=== PATIENT | female | born 1965 | race Caucasian/White ===

== ENCOUNTER → 2018-05-31 10:56 | Outpatient (CLI) | payer MEDICARE, MEDICAID, SELFPAY ==
[2018-05-31 11:32] LABS: Abs Immature Grans 0.02 k/cumm (0.0-0.09); Absolute Basophil Count 0.03 k/cumm (0.0-0.2); Absolute Eosinophil Count 0.25 k/cumm (0.0-0.7); Absolute Lymphocyte Count 2.77 k/cumm (1.2-3.4); Absolute Monocyte Count 0.53 k/cumm (0.11-0.7); Absolute Neutrophil Count 3.59 k/cumm (1.2-6.7); Basophils % 0.4; Eosinophils % 3.5; HCT 36.1 % (36.0-46.0); HGB 11.9 g/dL (12.0-15.5); Immature Grans % 0.3; Lymphocytes % 38.5; Mean Corpuscular Hemoglobin 28.4 pg (27.0-33.0); Mean Corpuscular Volume 86.2 fL (80-95); Monocytes % 7.4; Neutrophils % 49.9; Platelet Count 205 x1000/uL (130-400); RBC 4.19 m/cumm (4.00-5.20); RBC Distribution Width 13.7 % (11.7-14.6); White Blood Cell Count 7.19 k/cumm (4.4-10.8)
[2018-05-31 11:46] LABS: Hemoglobin A1C 10.9 % (4.5-6.2)
[2018-05-31 11:56] LABS: Iron 43 ug/dL (50-175); Total Iron Binding Capacity 551 ug/dL (250-450); Transferrin Sat 8 % (15-50)
[2018-05-31 12:19] LABS: ALT 38 U/L (12-78); AST 39 U/L (15-37); Albumin 4.4 g/dL (3.4-5.0); Alkaline Phosphatase 115 U/L (46-116); Anion Gap 9.1 mmol/L (3-11); BUN 10 mg/dL (7-18); Bilirubin, Total 0.3 mg/dL (0.2-1.0); CO2 28.9 mmol/L (21.0-32.0); CREATININE 0.73 mg/dL (0.55-1.02); Calcium 9.2 mg/dL (8.5-10.1); Chloride 101 mmol/L (98-107); Cholesterol 137 mg/dL (50-200); Ferritin 13 ng/mL (8-388); Glucose 206 mg/dL (70-100); HDL Cholesterol 20 mg/dL (40-60); LDL CHOLESTEROL 52 mg/dL (<100); Potassium 4.3 mmol/L (3.5-5.1); Sodium 139 mmol/L (136-145); Total Protein 8.3 g/dL (6.4-8.2); Triglyceride 419 mg/dL (30-150)
[2018-05-31 12:31] LABS: Vitamin B12 456 pg/mL (193-986)
[2018-05-31 12:36] LABS: Folate > 20.0 ng/mL (8.6-20.0)
[2018-05-31 12:41] LABS: Lipase 269 U/L (73-393)
== END ==
PROVIDERS: PCP Nurse Practitioner; Visit Provider Nurse Practitioner
DX: E11.49 Type 2 diabetes mellitus with other diabetic neurological complication (principal); E78.5 Hyperlipidemia, unspecified; I10 Essential (primary) hypertension; E78.1 Pure hyperglyceridemia; D64.9 Anemia, unspecified
CPT/HCPCS: 36415; 80053; 80061; 83690; 83721; 82607; 82728; 82746; 83036; 83540; 83550; 85025

== ENCOUNTER 2018-10-26 10:26 | Outpatient (REF) | payer MEDICARE, MEDICAID, SELFPAY ==
[2018-10-27 12:38] LABS: COMMENT (LAB VIEW ONLY) 105.28 mg/dL; Microalb ug/mg Crea 35.7 ug/mg Cr
== END 2018-10-26 10:46 ==
LOC: LBN 10:26
PROVIDERS: PCP Nurse Practitioner; Visit Provider Nurse Practitioner
DX: E11.49 Type 2 diabetes mellitus with other diabetic neurological complication (principal)
CPT/HCPCS: 82043; 82570

== ENCOUNTER 2019-02-23 13:59 | Outpatient (CLI) | payer MEDICARE, MEDICAID, SELFPAY ==
[2019-02-23 14:23] LABS: HCT 35.4 % (36.0-46.0); HGB 11.4 g/dL (12.0-15.5); Mean Corp. HGB Concentration 32.2 g/dL (32.0-36.0); Mean Corpuscular Hemoglobin 26.8 pg (27.0-33.0); Mean Corpuscular Volume 83.3 fL (80-95); Mean Platelet Volume 11.7 fL (8.0-11.0); Platelet Count 216 x1000/uL (130-400); RBC 4.25 m/cumm (4.00-5.20); RBC Distribution Width 15.1 % (11.7-14.6); White Blood Cell Count 9.79 k/cumm (4.4-10.8)
[2019-02-23 14:53] LABS: ALT 29 U/L (12-78); AST 17 U/L (15-37); Albumin 3.9 g/dL (3.4-5.0); Alkaline Phosphatase 67 U/L (46-116); BUN 12 mg/dL (7-18); Bilirubin, Total 0.4 mg/dL (0.2-1.0); CREATININE 0.94 mg/dL (0.55-1.02); Calcium 9.2 mg/dL (8.5-10.1); Chloride 102 mmol/L (98-107); Cholesterol 140 mg/dL (50-200); Glucose 160 mg/dL (70-100); HDL Cholesterol 27 mg/dL (40-60); LDL CHOLESTEROL 76 mg/dL (<100); Potassium 4.2 mmol/L (3.5-5.1); Sodium 140 mmol/L (136-145); Total Protein 7.4 g/dL (6.4-8.2); Triglyceride 229 mg/dL (30-150)
== END 2019-02-23 14:19 ==
PROVIDERS: PCP Nurse Practitioner; Visit Provider Nurse Practitioner
DX: E11.49 Type 2 diabetes mellitus with other diabetic neurological complication (principal); E78.1 Pure hyperglyceridemia; I10 Essential (primary) hypertension; E11.9 Type 2 diabetes mellitus without complications
CPT/HCPCS: 36415; 80053; 80061; 83721; 85027; 83036

== ENCOUNTER 2019-06-26 17:19 | Emergency (ER) | payer MEDICARE, MEDICAID, SELFPAY ==
[2019-06-26 17:22] VITALS: BP 123/80; PULSE 77; RESP 16; TEMP 36.7; O2SAT 97
--- NOTE | 2019-06-26 17:30 | W.ED.GENAD ---
Discharge Plan Disposition Patient Disposition: HOME Condition: Stable Discharge Details Chief Complaint: RashLesion Clinical Impression: Chronic wound of extremity Primary Care Provider: Anjana Gayle ED Provider: Georgia Villavicencio Home Meds and New Rx's Prescriptions: Continued triamcinolone acetonide 0.1 % cream 1 applic Topical DAILY PRN (Reason: Apply to rash on bilateral hands PRN) Qty: 45 RF: 3 oxybutynin chloride 5 mg tablet 5 mg PO as directed MDD 15 mg Qty: 270 RF: 3 pantoprazole 40 mg tablet,delayed release (DR/EC) 40 mg PO DAILY Qty: 90 RF: 3 melatonin 5 mg capsule 5 mg PO HS RF: 0 semaglutide 1 mg/0.75 mL (2 mg/1.5 mL) pen injector 1 mg SC QWEEK Qty: 3 RF: 12 clotrimazole 1 % cream 1 applic TP TID Qty: 14 RF: 0 fluconazole 150 mg tablet 150 mg PO ONCE Qty: 1 RF: 0 (DME) pen needle, diabetic 31 gauge x 5/16 needle 1 ea Miscellaneous DAILY Qty: 90 RF: 12 aspirin 81 MG tablet,delayed release (DR/EC) 81 mg PO DAILY Qty: 90 RF: 3 Latuda 80 MG tablet 160 mg PO HS RF: 0 desmopressin [DDAVP] 0.2 MG tablet 0.4 mg PO HS Qty: 60 RF: 0 lamotrigine 200 MG tablet 300 mg PO DAILY Qty: 135 RF: 3 Flovent HFA 10.6 GM HFA aerosol inhaler 2 puff Inhalation BID Qty: 3 RF: 3 albuterol sulfate [Proventil HFA] 6.7 GM HFA aerosol inhaler 2 puff Inhalation Q6H PRN Qty: 1 RF: 3 metformin 1,000 mg tablet 1,000 mg PO BID Qty: 180 RF: 3 (DME) lancing device with lancets kit See Dose Instructions .ROUTE .MEDSUPPLY Qty: 1 RF: 0 alprazolam 1 mg tablet extended release 24 hr 1 mg PO DAILY PRNQty: 1 RF: 0 (DME) lancets [OneTouch Delica Lancets] 33 gauge misc See Dose Instructions .ROUTE .MEDSUPPLY Qty: 100 RF: 6 (DME) blood sugar diagnostic strip See Dose Instructions .ROUTE .MEDSUPPLY Qty: 400 RF: 3 Novolog Flexpen U-100 Insulin 100 unit/mL insulin pen See Rx Instructions Sub-Q AC MDD 72u Qty: 15 RF: 3 lisinopril 2.5 mg tablet 2.5 mg PO DAILY Qty: 90 RF: 3 simvastatin 10 mg tablet 10 mg PO HS Qty: 90 RF: 3 cetirizine 10 mg tablet 10 mg PO DAILY Qty: 90 RF: 3 Chantix Starting Month Box 0.5 mg (11)- 1 mg (42) tablets,dose pack See Rx Instructions PO PER PKG DIR Qty: 53 RF: 0 Tresiba FlexTouch U-200 200 unit/mL (3 mL) insulin pen 80 unit SC DAILY Qty: 9 RF: 4 Chantix Continuing Month Box 1 mg tablet 1 mg PO BID Qty: 60 RF: 1 linagliptin 5 mg tablet 5 mg PO DAILY Qty: 90 RF: 3 nicotine 7 mg/24 hr patch 24 hour 1 patch TD Q24H Qty: 28 RF: 0 pregabalin [Lyrica] 200 mg capsule 200 mg PO BID Qty: 60 RF: 3 terbinafine HCl 1 % cream 1 applic TP BID Qty: 30 RF: 0 fenofibrate micronized 67 mg capsule 67 mg PO DAILY Qty: 90 RF: 3 nicotine 14 mg/24 hr patch 24 hour 1 patch TD DAILY Qty: 28 RF: 0 Discharge Instructions Instructions: Chronic Wound Care (ED) Additional Instructions: Keep wound clean, dry, covered. Please keep current dressing on for the next week. Please call r[facility] checker tomorrow to schedule follow-up appointment. If you are unable to be seen by them in the next week, please follow-up with primary care. I do not see any evidence of bacterial infection at this time. However, if you develop increased pain, fever/chills, redness spreading around the wound or other new/worsening symptoms please seek care urgently once again. Do not wear sandals that continue to rub on this area, try to keep this area as friction free as possible. Referrals: Jesse Appiah [ [facility] STAFF PHYSICIAN] - Anjana Gayle NP [Primary Care Provider] - Discharge Data Discharge Date/Time-TO BE ENTERED AT DEPARTURE: 06/26/19 18:13 Medical Decision Making Patient is a 54-year-old female with chronic wound to the right lateral foot. Reports that it started as this has been times the dorsal lateral right foot and is progressively been increasing in size. She reports she is tried antifungal creams without results. Denies any fevers or chills. Reports that symptoms have progressively been worsening. All does appear dry at this time, she reports that she did just shower and dry the but typically has a scant amount of drainage from it. No known trauma. Seen by her primary care who advised the antifungals. She reports initially felt these were improving but then the wound continued to grow and burn when she applied the ointment. Patient does have history of peripheral neuropathy associated with her diabetes, patient is insulin-dependent. On exam, patient is a 5 cm in circumference right area of the dorsal lateral right foot. Is not currently draining. She does report that he has drainage at times. This appears to be rubbing from the shoe she is currently wearing. Patient is in Birkenstocks. I do not see any surrounding erythema, no discharge warmth or drainage. This appears to be more of a chronic open wound, likely having difficulty healing secondary to her diabetes. A Mepilex with border was placed by nursing staff. Advised that she will need follow-up with podiatry. Patient is also noted to have thickened fungal nails. I feel that she will benefit at baseline from podiatry consult particular issues peripheral neuropathy. I encouraged elevation of the extremity. Advised on new/worsening symptoms when to seek care urgently once again. All the questions and concerns were addressed and she is in agreement this plan. [facility] General Mode of arrival: ambulatory. Date/Time Provider Initiated Documentation: 06/26/19 17:30. Limitations to Documentation: no limitations. Information obtained by: patient, family () and RN notes reviewed. History of Present Illness 54 year old F presents to the emergency department with the chief complaint of nonhealing wound right lateral dorsal foot, described as moderate, with intensity rated at 4. Quality is described as aching, and is localized to the right and lower extremity. Patient reports no radiation. Patient started experiencing this month(s) (3) and it has been constant. No relieving factors improve symptom(s), No exacerbating factors reported . Patient notes rash (open wound); denies chest pain, cough, fever/chills, nausea/vomiting and weakness. Patient did receive the following treatments prior to arrival, other (antifungal cream) Related Data Home Medications Medication Instructions Recorded Confirmed aspirin 81 mg PO DAILY #90 tab 05/07/14 06/26/19 Latuda 160 mg PO HS 11/30/14 06/26/19 desmopressin [DDAVP] 0.4 mg PO HS #60 tab-cap 07/12/17 06/26/19 lamotrigine 300 mg PO DAILY #135 tab-cap 09/21/17 06/26/19 Flovent HFA 2 puff INHALATION BID #3 puff 06/07/18 06/26/19 albuterol sulfate [Proventil HFA] 2 puff INHALATION Q6H PRN #1 puff 06/07/18 06/26/19 melatonin 5 mg capsule 5 mg PO HS cap 07/11/18 06/26/19 semaglutide 1 mg/dose (2 mg/1.5 1 mg SC QWEEK #3 ml 08/25/18 06/26/19 mL) subcutaneous pen injector metformin 1,000 mg tablet 1,000 mg PO BID #180 tab 10/13/18 06/26/19 lancing device with lancets #1 each 10/24/18 04/24/19 alprazolam 1 mg tablet,extended 1 mg PO DAILY PRN #1 10/26/18 06/26/19 release 24 hr blood sugar diagnostic #400 each 10/26/18 04/24/19 lancets 33 gauge #100 each 10/26/18 04/24/19 triamcinolone acetonide 0.1 % 1 applic TOPICAL DAILY PRN #45 gm 10/26/18 04/24/19 topical cream cetirizine 10 mg tablet 10 mg PO DAILY #90 tab 11/28/18 06/26/19 insulin aspart U-100 100 unit/mL See Rx Instructions SUB-Q AC #15 11/28/18 06/26/19 (3 mL) subcutaneous pen ml MDD 72u lisinopril 2.5 mg tablet 2.5 mg PO DAILY #90 tab-cap 11/28/18 06/26/19 simvastatin 10 mg tablet 10 mg PO HS #90 tab 11/28/18 06/26/19 varenicline 0.5 mg (11)-1 mg (42) See Rx Instructions PO PER PKG DIR 01/05/19 06/26/19 tablets in a dose pack #53 dose pk oxybutynin chloride 5 mg tablet 5 mg PO as directed #270 tab MDD 01/24/19 06/26/19 15 mg pantoprazole 40 mg tablet,delayed 40 mg PO DAILY #90 tab-cap 01/24/19 06/26/19 release insulin degludec 200 unit/mL (3 80 unit SC DAILY #9 ml 03/07/19 06/26/19 mL) subcutaneous pen varenicline 1 mg tablet 1 mg PO BID #60 tab-cap 03/09/19 06/26/19 clotrimazole 1 % topical cream 1 applic TP TID #14 gm 04/24/19 04/24/19 fluconazole 150 mg tablet 150 mg PO ONCE #1 tab 04/24/19 06/26/19 pen needle, diabetic 31 gauge x #90 ndl 04/24/19 04/24/1903/09 linagliptin 5 mg tablet 5 mg PO DAILY #90 tab 05/04/19 06/26/19 nicotine 7 mg/24 hr daily 1 patch TD Q24H #28 each 05/08/19 06/26/19 transdermal patch pregabalin 200 mg capsule 200 mg PO BID #60 tab-cap 05/24/19 06/26/19 terbinafine HCl 1 % topical cream 1 applic TP BID #30 gm 05/26/19 fenofibrate micronized 67 mg 67 mg PO DAILY #90 tab-cap 06/01/19 06/26/19 capsule nicotine 14 mg/24 hr daily 1 patch TD DAILY #28 each 06/12/19 transdermal patch Previous Rx's Medication Instructions Recorded desmopressin [DDAVP] 0.4 mg PO HS #60 tab-cap 07/12/17 lamotrigine 300 mg PO DAILY #135 tab-cap 09/21/17 Flovent HFA 2 puff INHALATION BID #3 puff 06/07/18 albuterol sulfate [Proventil HFA] 2 puff INHALATION Q6H PRN #1 puff 06/07/18 semaglutide 1 mg/dose (2 mg/1.5 1 mg SC QWEEK #3 ml 08/25/18 mL) subcutaneous pen injector metformin 1,000 mg tablet 1,000 mg PO BID #180 tab 10/13/18 lancing device with lancets #1 each 10/24/18 blood sugar diagnostic #400 each 10/26/18 lancets 33 gauge #100 each 10/26/18 triamcinolone acetonide 0.1 % 1 applic TOPICAL DAILY PRN #45 gm 10/26/18 topical cream cetirizine 10 mg tablet 10 mg PO DAILY #90 tab 11/28/18 insulin aspart U-100 100 unit/mL See Rx Instructions SUB-Q AC #15 11/28/18 (3 mL) subcutaneous pen ml MDD 72u lisinopril 2.5 mg tablet 2.5 mg PO DAILY #90 tab-cap 11/28/18 simvastatin 10 mg tablet 10 mg PO HS #90 tab 11/28/18 varenicline 0.5 mg (11)-1 mg (42) See Rx Instructions PO PER PKG DIR 01/05/19 tablets in a dose pack #53 dose pk oxybutynin chloride 5 mg tablet 5 mg PO as directed #270 tab MDD 01/24/19 15 mg pantoprazole 40 mg tablet,delayed 40 mg PO DAILY #90 tab-cap 01/24/19 release insulin degludec 200 unit/mL (3 80 unit SC DAILY #9 ml 03/07/19 mL) subcutaneous pen varenicline 1 mg tablet 1 mg PO BID #60 tab-cap 03/09/19 clotrimazole 1 % topical cream 1 applic TP TID #14 gm 04/24/19 fluconazole 150 mg tablet 150 mg PO ONCE #1 tab 04/24/19 pen needle, diabetic 31 gauge x #90 ndl 04/24/1903/09 linagliptin 5 mg tablet 5 mg PO DAILY #90 tab 05/04/19 nicotine 7 mg/24 hr daily 1 patch TD Q24H #28 each 05/08/19 transdermal patch pregabalin 200 mg capsule 200 mg PO BID #60 tab-cap 05/24/19 terbinafine HCl 1 % topical cream 1 applic TP BID #30 gm 05/26/19 fenofibrate micronized 67 mg 67 mg PO DAILY #90 tab-cap 06/01/19 capsule nicotine 14 mg/24 hr daily 1 patch TD DAILY #28 each 06/12/19 transdermal patch Allergies Allergy/AdvReac Type Severity Reaction Status Date / Time Sulfa (Sulfonamide Allergy Intermediate Swelling, Verified 06/26/19 17:28 Antibiotics) difficulty breathing niacin AdvReac Intermediate HIVES Verified 06/26/19 17:28 amoxicillin AdvReac Mild VAGINAL Verified 06/26/19 17:28 INFECTION INFECTION General Stated Complaint: RashLesion JOSE: 3 Review of Systems Constitutional Reports as per HPI, Denies chills and Denies fever(s) Musculoskeletal Reports as per HPI Integumentary/Breasts Reports as per HPI Neurologic Reports as per HPI, Reports sensory deficit (peripheral neuropathy) and Denies paresthesias [facility] Surgical History Arthroscopy (04/24/04) right knee Social History Smoking/Tobacco Use Status: Current every day Quit status: considering quitting Alcohol Intake: never Drug use: Rarely Substance use type: marijuana Adopted: Yes Caregiver/Support person: No Household members: family and friend(s) Housing: house Number of Children: 3 Communication Needs: Hard of Hearing Current gender identity: female What is your relationship status?: Panel score (0-1 are the most socially isolated patients): 1 What type of physical activity do you participate in: none Seatbelt use: always Drive intox or ride w/intox bus van driver: No Working smoke detector in home: Yes Carbon monox detector in home: Yes Do you feel safe at home: Yes Do you feel safe in your relationship?: Yes Exam Const General: cooperative, healthy appearing, comfortable, no acute distress and well developed Nutritional Appearance: well nourished and overweight Orientation: alert and awake Resp Effort & Inspection: normal respiratory effort, able to speak in complete sentences and no respiratory distress Cardio Rate: regular rate Rhythm: regular rhythm Skin Wounds: wounds noted (5cm circumfrential erythematous, dry, scaling area that appears raw dorsal ) Neuro General: alert and awake Cognition: normal cognition Speech: speech normal Gait: normal gait Sensory Exam: sensory deficits noted (peripheral neuropathy, associated with DM BLE, plantar foot) Extrem Right lower extremity: full ROM, normal capillary refill and no joint enlargement; abnormal to inspection (skin changes as above to dorsal lateral right foot) Psych Appearance: grossly normal and well kempt Mental Status: mental status grossly normal Speech and Movement: speech and movement normal Course Vital Signs Temperature 36.7 C 06/26/19 17:22 Pulse 77 06/26/19 17:22 Respiratory Rate 16 06/26/19 17:22 Blood Pressure 123/80 06/26/19 17:22 Pulse Oximetry 97 06/26/19 17:22 Temperature 36.7 C 06/26/19 17:22 Pulse 77 06/26/19 17:22 Respiratory Rate 16 06/26/19 17:22 Respiratory Effort Non-Labored 06/26/19 17:27 Blood Pressure 123/80 06/26/19 17:22 Blood Pressure Position Sitting 06/26/19 17:22 Pulse Oximetry 97 06/26/19 17:22 Oxygen Delivery Method Room Air 06/26/19 17:22 Oxygen Flow Rate 0 06/26/19 17:22 Pain Level 4 06/26/19 17:22
== END 2019-06-26 18:13 | disposition home or self-care (01) ==
PROVIDERS: Emergency Provider Physician Assistant; PCP Nurse Practitioner
DX: E11.621 Type 2 diabetes mellitus with foot ulcer (principal); E11.40 Type 2 diabetes mellitus with diabetic neuropathy, unspecified; Z79.4 Long term (current) use of insulin; I10 Essential (primary) hypertension
CPT/HCPCS: 99282

== ENCOUNTER 2020-04-01 11:53 | Inpatient (IN) | payer MEDICARE, MEDICAID, SELFPAY ==
--- NOTE | 2020-04-01 | DI.MRI_ITS ---
EXAM: MR LOWER EXTREMITY RT WO/W CLINICAL HISTORY: INFECTION, REDNESS, SWELLING,? OSTEOMYELITIS. TECHNIQUE: Multiplanar multisequence MRI was performed. CONTRAST MATERIAL: IV Contrast: 20 mL of Dotarem contrast administered. COMPARISON: XR right foot 04/01/2020. FINDINGS: There is patient motion artifact present. There is edema and enhancement seen in the distal phalanx of the right 2nd toe. There is also edema and enhancement in the soft tissues of the right 2nd toe. No focal fluid collection is seen to sugge st an abscess. There is a defect in the distal skin surface on the plantar surface of the 2nd toe conner spicious for an ulcer. At the 1st metatarsophalangeal joint, subchondral edema, joint space narrowing and small subchondral cysts are seen consistent with osteoarthritis. Note is also made of a deformity involving the medial aspect of the head of the proximal phalanx of the great toe. Mild edema is seen in the subchondral bone in this region. No focal fluid collection is seen. There is mild edema seen in the soft tissue s of the great toe. IMPRESSION: 1. Findings suspicious for osteomyelitis involving the distal phalanx of the right 2nd toe. No evide nce of an abscess is seen. 2. 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 3. Deformity involving the medial aspect of the head of the proximal phalanx of the great toe with mi ld edema in the surrounding soft tissues. Osteomyelitis cannot be excluded. Post-traumatic or arthr itic changes should also be considered. DATA REPOSITORY:
--- NOTE | 2020-04-01 11:54 | W.ED.GENAD ---
Discharge Plan Disposition Patient Disposition: [facility] INPATIENT Condition: Stable Discharge Details Chief Complaint: Cellulitis Clinical Impression: Cellulitis of toe Admit Date/Time: 04/01/20 13:01 Admit Provider: Stephanie Lobo Attending Provider: Stephanie Lobo Primary Care Provider: Anjana Gayle ED Provider: Lacy Thibodeaux Discharge Data Discharge Date/Time-TO BE ENTERED AT DEPARTURE: 04/01/20 15:03 Medical Decision Making 54-year-old female with a history of obesity, hypertension, diabetes and diabetic neuropathy presents with right second toe cellulitis and ulcer for the past week. Sent by Dr. Don for direct admission for IV antibiotics for concern for possible osteomyelitis. Right second toe noted to have cellulitis with ulcer on plantar aspect. Diminished sensation of distal toes which she states is chronic. Patient appears nontoxic and afebrile. Will place an IV, screening labs, fluids, x-ray of toe as well as vancomycin and cefepime. Case discussed with hospitalist who accepts patient for admission. Labs and imaging reviewed. White blood cell count 11.24. CRP 5.39. Glucose 115. X-ray notes loss of bone involving medial aspect of head of proximal phalanx of great toe and possibly terminal tuft of second toe. Patient will be obtaining an MRI upon this admission for further evaluation. Medical Records Medical records reviewed: Yes I reviewed the patient's medical records. Imaging Data Radiologic Study: Radiologist's impression: XR TOE RT SECOND CLINICAL HISTORY: TOE INFECTION, REDNESS, SWELLING, ? OSTEOMYELITIS. TECHNIQUE: 2D digital imaging was performed. COMPARISON: No exams were available for comparison FINDINGS: BONES: There appear to be destructive changes involving the medial aspect of the head of the proximal phalanx of the great toe. There are a few tiny osseous fragments in the adjacent soft tissues. No acute fracture is identified. Are degenerative changes seen at the 1st metatarsophalangeal joint. There may be loss of volume of the terminal tuft of the 2nd toe. Osteomyelitis in this region cannot be excluded. JOINTS: No dislocation present. SOFT TISSUE: There is soft tissue swelling of the 1st and 2nd toes. IMPRESSION: Loss of bone involving the medial aspect of the head of the proximal phalanx of the great toe and possibly involving the terminal tuft of the 2nd toe. Osteomyelitis cannot be excluded. MRI without and with contrast should be considered for further evaluation. Soft tissue swelling of the 1st and 2nd toes. Lab Data Lab results reviewed: Yes I reviewed the patient's lab results. HPI General Mode of arrival: ambulatory. Date/Time Provider Initiated Documentation: 04/01/20 11:54. Limitations to Documentation: no limitations. Information obtained by: patient. HPI Narrative: Patient is a 54-year-old female with a history of obesity, hypertension, diabetes who presents with right second toe swelling for the past week and redness over the past few days. Patient saw teamsite developer Dr. Don earlier today and he called the ED stating he was sending patient here for admission for IV antibiotics. Patient has chronic diminished sensation in her toes due to diabetic neuropathy. She states her sugars have been running between 70s to 150s. She denies any known fever. Patient has a history of allergy to penicillin which causes rash but states she has tolerated cephalosporins in the past. Denies any history of anaphylaxis with penicillin. Related Data Home Medications Medication Instructions Recorded Confirmed aspirin 81 mg PO DAILY #90 tab 05/07/14 04/01/20 Latuda 160 mg PO HS 11/30/14 04/01/20 desmopressin [DDAVP] 0.4 mg PO HS #60 tab-cap 07/12/17 04/01/20 lamotrigine 300 mg PO DAILY #135 tab-cap 09/21/17 04/01/20 Flovent HFA 2 puff INHALATION BID #3 puff 06/07/18 04/01/20 albuterol sulfate [Proventil HFA] 2 puff INHALATION Q6H PRN #1 puff 06/07/18 04/01/20 melatonin 5 mg capsule 5 mg PO HS cap 07/11/18 04/01/20 lancing device with lancets #1 each 10/24/18 04/24/19 alprazolam 1 mg tablet,extended 1 mg PO DAILY PRN #1 10/26/18 04/01/20 release 24 hr insulin aspart U-100 100 unit/mL See Rx Instructions SUB-Q AC #15 11/28/18 04/01/20 (3 mL) subcutaneous pen ml MDD 72u pen needle, diabetic 31 gauge x #90 ndl 04/24/19 04/24/19 5/16 nicotine 7 mg/24 hr daily 1 patch TD Q24H #28 each 08/07/19 04/01/20 transdermal patch semaglutide 1 mg/dose (2 mg/1.5 1 mg SC QWEEK #3 ml 09/19/19 04/01/20 mL) subcutaneous pen injector lisinopril 2.5 mg tablet 2.5 mg PO DAILY #90 tab-cap 10/02/19 04/01/20 simvastatin 10 mg tablet 10 mg PO HS #90 tab 11/07/19 04/01/20 hemp oil SUBLINGUAL 11/08/19 11/08/19 cetirizine 10 mg tablet 10 mg PO DAILY #90 tab 11/15/19 04/01/20 varenicline 0.5 mg (11)-1 mg (42) See Rx Instructions PO PER PKG DIR 11/22/19 04/01/20 tablets in a dose pack #53 dose pk metformin 1,000 mg tablet 1,000 mg PO BID #180 tab 12/11/19 04/01/20 oxybutynin chloride 5 mg tablet 5 mg PO as directed #270 tab MDD 01/09/20 04/01/20 15 mg pantoprazole 40 mg tablet,delayed 40 mg PO DAILY #90 tab-cap 01/09/20 04/01/20 release insulin degludec 200 unit/mL (3 58 unit SC DAILY #9 ml 01/23/20 04/01/20 mL) subcutaneous pen lancets 33 gauge #100 each 01/23/20 blood sugar diagnostic #400 each 01/25/20 01/25/20 meloxicam 15 mg tablet 15 mg PO DAILY #90 tab 01/25/20 04/01/20 blood sugar diagnostic #50 each 01/29/20 fenofibrate micronized 67 mg 67 mg PO DAILY #90 tab-cap 01/29/20 04/01/20 capsule linagliptin 5 mg tablet 5 mg PO DAILY #90 tab 01/29/20 04/01/20 pregabalin 200 mg capsule 200 mg PO BID #60 tab-cap 02/26/20 04/01/20 Previous Rx's Medication Instructions Recorded desmopressin [DDAVP] 0.4 mg PO HS #60 tab-cap 07/12/17 lamotrigine 300 mg PO DAILY #135 tab-cap 09/21/17 Flovent HFA 2 puff INHALATION BID #3 puff 06/07/18 albuterol sulfate [Proventil HFA] 2 puff INHALATION Q6H PRN #1 puff 06/07/18 lancing device with lancets #1 each 10/24/18 insulin aspart U-100 100 unit/mL See Rx Instructions SUB-Q AC #15 11/28/18 (3 mL) subcutaneous pen ml MDD 72u pen needle, diabetic 31 gauge x #90 ndl 04/24/19 5/16 nicotine 7 mg/24 hr daily 1 patch TD Q24H #28 each 08/07/19 transdermal patch semaglutide 1 mg/dose (2 mg/1.5 1 mg SC QWEEK #3 ml 09/19/19 mL) subcutaneous pen injector lisinopril 2.5 mg tablet 2.5 mg PO DAILY #90 tab-cap 10/02/19 simvastatin 10 mg tablet 10 mg PO HS #90 tab 11/07/19 cetirizine 10 mg tablet 10 mg PO DAILY #90 tab 11/15/19 varenicline 0.5 mg (11)-1 mg (42) See Rx Instructions PO PER PKG DIR 11/22/19 tablets in a dose pack #53 dose pk metformin 1,000 mg tablet 1,000 mg PO BID #180 tab 12/11/19 oxybutynin chloride 5 mg tablet 5 mg PO as directed #270 tab MDD 01/09/20 15 mg pantoprazole 40 mg tablet,delayed 40 mg PO DAILY #90 tab-cap 01/09/20 release insulin degludec 200 unit/mL (3 58 unit SC DAILY #9 ml 01/23/20 mL) subcutaneous pen lancets 33 gauge #100 each 01/23/20 blood sugar diagnostic #400 each 01/25/20 meloxicam 15 mg tablet 15 mg PO DAILY #90 tab 01/25/20 blood sugar diagnostic #50 each 01/29/20 fenofibrate micronized 67 mg 67 mg PO DAILY #90 tab-cap 01/29/20 capsule linagliptin 5 mg tablet 5 mg PO DAILY #90 tab 01/29/20 pregabalin 200 mg capsule 200 mg PO BID #60 tab-cap 02/26/20 Allergies Allergy/AdvReac Type Severity Reaction Status Date / Time Sulfa (Sulfonamide Allergy Intermediate Swelling, Verified 04/01/20 12:13 Antibiotics) difficulty breathing niacin AdvReac Intermediate HIVES Verified 04/01/20 12:13 amoxicillin AdvReac Mild VAGINAL Verified 04/01/20 12:13 INFECTION INFECTION General JOSE: 3 Review of Systems All systems reviewed & are unremarkable except as noted in HPI and below Constitutional Constitutional: Reports as per HPI, Denies chills and Denies fever(s) Eyes Eyes: Denies blurry vision ENT Ears, Nose, Mouth, and Throat: Denies dizziness, Denies sore throat and Denies throat swelling Cardiovascular Cardiovascular: Denies chest pain and Denies dyspnea Respiratory Respiratory: Denies cough and Denies dyspnea Gastrointestinal Gastrointestinal: Denies abdominal pain, Denies diarrhea and Denies vomiting Genitourinary Genitourinary: Denies hematuria and Denies dysuria Musculoskeletal Musculoskeletal: Denies back pain and Denies numbness Integumentary/Breasts Skin/Breast: Reports lesions and Denies rash Neurologic Neurologic: Denies dizziness, Denies localized weakness and Denies numbness Allergic/Immunologic Allergic/Immunologic: Denies throat swelling [facility] Medical History Depressive disorder (Chronic 10/30/11) [facility] 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 (Inactive) Family History Mother Diabetes Alcohol abuse Personal history of malignant neoplasm breast Father No problems noted. 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 Working smoke detector in home: Yes Carbon monox detector in home: Yes Do you feel safe at home: Yes Do you feel safe in your relationship?: Yes Exam Const General: cooperative and no acute distress Orientation: alert, awake and oriented x3 HENMT Head: normal to inspection Face and sinus: normal facial exam Eyes General: appearance normal, both eyes and all related structures EOM: EOM intact bilaterally Neck Neck: normal visual inspection and No submandibular swelling Lymphatic: no lymphadenopathy noted Chest Chest: normal inspection of the chest and no tenderness Resp Effort & Inspection: normal respiratory effort and able to speak in complete sentences Auscultation: clear to auscultation bilaterally Cardio Rate: regular rate Rhythm: regular rhythm Skin General skin exam: no rashes or lesions noted Neuro General: patient alert, patient awake and patient oriented x3 Cognition: normal cognition Speech: speech normal Motor: muscle tone normal throughout Sensory Exam: no sensory deficits noted Extrem Ankle/foot/toe images: 1. Erythema, edema, minimal sensation and tenderness of R 2nd toe extending from right below base to tip of toe 2. 1x1cm ulceration noted on plantar aspect of R 2nd toe Psych Appearance: grossly normal Mental Status: mental status grossly normal Speech and Movement: speech and movement normal Affect: normal affect
[2020-04-01 11:59] VITALS: BP 184/80; PULSE 77; RESP 16; TEMP 36.6; O2SAT 98
--- NOTE | 2020-04-01 12:23 | DI.RAD_ITS ---
EXAM: XR TOE RT SECOND CLINICAL HISTORY: TOE INFECTION, REDNESS, SWELLING, ? OSTEOMYELITIS. TECHNIQUE: 2D digital imaging was performed. COMPARISON: No exams were available for comparison FINDINGS: BONES: There appear to be destructive changes involving the medial aspect of the head of the proxima l phalanx of the great toe. There are a few tiny osseous fragments in the adjacent soft tissues. No acute fracture is identified. Are degenerative changes seen at the 1st metatarsophalangeal joint. There may be loss of volume of the terminal tuft of the 2nd toe. Osteomyelitis in this region cannot be excluded. JOINTS: No dislocation present. SOFT TISSUE: There is soft tissue swelling of the 1st and 2nd toes. IMPRESSION: Loss of bone involving the medial aspect of the head of the proximal phalanx of the great toe and pos sibly involving the terminal tuft of the 2nd toe. Osteomyelitis cannot be excluded. MRI without and with contrast should be considered for further evaluation. Soft tissue swelling of the 1st and 2nd toes. Findings were discussed with the emergency department on the date of the examination. DATA REPOSITORY: RADIATION DOSE DELIVERED:
[2020-04-01 12:52] LABS: Lactate 1.3 mmol/L (0.6-1.4)
[2020-04-01 12:55] LABS: Abs Immature Grans 0.04 k/cumm (0.0-0.09); Absolute Basophil Count 0.03 k/cumm (0.0-0.2); Absolute Eosinophil Count 0.27 k/cumm (0.0-0.7); Absolute Monocyte Count 0.94 k/cumm (0.11-0.7); Basophils % 0.3; Eosinophils % 2.4; HCT 36.1 % (36.0-46.0); HGB 11.4 g/dL (12.0-15.5); Immature Grans % 0.4 %; Lymphocytes % 21.4; Mean Corp. HGB Concentration 31.6 g/dL (32.0-36.0); Mean Corpuscular Hemoglobin 26.2 pg (27.0-33.0); Mean Platelet Volume 11.8 fL (8.0-11.0); Monocytes % 8.4; Neutrophils % 67.1; Platelet Count 278 x1000/uL (130-400); RBC 4.35 m/cumm (4.00-5.20); RBC Distribution Width 14.2 % (11.7-14.6); White Blood Cell Count 11.24 k/cumm (4.4-10.8)
[2020-04-01 12:56] LABS: Absolute Lymphocyte Count 2.41 k/cumm (1.2-3.4); Absolute Neutrophil Count 7.54 k/cumm (1.2-6.7)
[2020-04-01 13:06] LABS: Prothrombin Time 10.5 sec (9.3-11.0)
[2020-04-01 13:11] LABS: ALT 23 U/L (14-59); AST 23 U/L (15-37); Alkaline Phosphatase 78 U/L (46-116); Anion Gap 10.3 mmol/L (3-11); BUN 11 mg/dL (7-18); Bilirubin, Total 0.5 mg/dL (0.2-1.0); CO2 25.7 mmol/L (21.0-32.0); CREATININE 0.83 mg/dL (0.55-1.02); Calcium 9.4 mg/dL (8.5-10.1); Chloride 104 mmol/L (98-107); Glucose 115 mg/dL (74-106); Potassium 4.1 mmol/L (3.5-5.1); Sodium 140 mmol/L (136-145); Total Protein 8.2 g/dL (6.4-8.2)
[2020-04-01 13:12] LABS: C-Reactive Protein 5.39 mg/dL (0.0-0.3)
[2020-04-01] MEDS: Normal Saline 1,000 ML 1000 ML IV (13:12)
[2020-04-01] MEDS: CEFEPIME 2 GM in Normal Saline 100 ML IVPB ×2 (13:12→23:56)
[2020-04-01 13:29] LABS: ESR 26 mm/hr (0-30)
[2020-04-01 14:03] LABS: Hemoglobin A1C 6.5 % (3.8-5.6)
--- NOTE | 2020-04-01 14:32 | W.PM.HP.N ---
Date of service: 04/01/20 Time of Service: 14:32 Assessment and Plan Assessment and plan (1) Cellulitis of toe: Start date: 04/01/20 Start time: 14:44 Status: Acute Assessment and plan: Right 2nd 3 rd toe cellulitis. sent from Dr. Shelby for IV antibiotics. Started on vanco and cefepime. Blood cultures pending. CRP elevated. WBC slightly elevated, am labs. MRI pending Podiatry consult. (2) Diabetes mellitus type 2: Start date: 04/01/20 Start time: 14:47 Status: Active Assessment and plan: Hold metformin while in the hospital. Patient will be placed on SSI with carb/heart healthy diet. Fingersticks AC/HS. A1 c 6.5, (3) Diabetic neuropathy: Start date: 04/01/20 Start time: 14:46 Status: Acute Assessment and plan: From diabetes, see above. (4) Hypertriglyceridemia: Start date: 04/01/20 Start time: 14:46 Status: Inactive Assessment and plan: continue home med (5) Gastroesophageal reflux disease: Start date: 04/01/20 Start time: 14:49 Status: Active Assessment and plan: Pantaprazole 40 mg continue (6) Tobacco abuse disorder: Start date: 04/01/20 Start time: 14:50 Status: Acute Assessment and plan: Will give nicotine replacement while in the hospital. Encourage cessation and continue to assess readiness to quit (7) Depressive disorder: Start date: 04/01/20 Start time: 14:50 Status: Chronic Assessment and plan: continue depression medications (8) Asthma: Start date: 04/01/20 Start time: 15:42 Status: Active Assessment and plan: History of asthma with daily smoking. Albuterol IH prn and duoneb upd prn (9) Discharge planning issues: Start date: 04/01/20 Start time: 14:51 Status: Acute Assessment and plan: Inpatient. May require surgery with prolong antibiotics use. above case discussed with Dr. Lobo who is in agreement History of Present Illness History of Present Illness Chief Complaint: Cellulitis, Osteo? Narrative: 54 y.o female with PMH Diabetes, hypertension, diabetic neuropathy, asthma, obesity sent over from Dr. Shelby office to ED for right second toe cellulitis and ulcer x [address] Don concerned for possible osteomylitis. She cut her second toe on right foot approx. 2 weeks ago and noticed that it was swelling. Imaging in the ED involving toe xray revealing for bone loss involving medial aspect of the head of proximal phalanx of great toe and possibly involving terminal tuft of 2nd toe, osteo can not be excluded. Labs unremarkable except slight wbc 11.24, crp 5.39 and A1c 6.5 she was asked to be admitted to hospitalist service for further management. MRI pending. She will receive vanco and cefepime, blood cultures pending. Sliding scale for diabetes. COVID r/o. She denies CP, SOB, N/V/D and sick contacts. 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 (Inactive) Family History Mother Diabetes Alcohol abuse Personal history of malignant neoplasm breast Father No problems noted. 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 Working smoke detector in home: Yes Carbon monox detector in home: Yes Do you feel safe at home: Yes Do you feel safe in your relationship?: Yes Meds Home Medications and Allergies Home Medications Medication Instructions Recorded Confirmed Type aspirin 81 mg PO DAILY #90 tab 05/07/14 04/01/20 History Latuda 160 mg PO HS 11/30/14 04/01/20 History desmopressin [DDAVP] 0.4 mg PO HS #60 tab-cap 07/12/17 04/01/20 Rx lamotrigine 300 mg PO DAILY #135 tab-cap 09/21/17 04/01/20 Rx Flovent HFA 2 puff INHALATION BID #3 puff 06/07/18 04/01/20 Rx albuterol sulfate [Proventil HFA] 2 puff INHALATION Q6H PRN #1 puff 06/07/18 04/01/20 Rx melatonin 5 mg capsule 5 mg PO HS cap 07/11/18 04/01/20 History lancing device with lancets #1 each 10/24/18 04/24/19 Rx alprazolam 1 mg tablet,extended 1 mg PO DAILY PRN #1 10/26/18 04/01/20 History release 24 hr insulin aspart U-100 100 unit/mL See Rx Instructions SUB-Q AC #15 11/28/18 04/01/20 Rx (3 mL) subcutaneous pen ml MDD 72u pen needle, diabetic 31 gauge x #90 ndl 04/24/19 04/24/19 Rx 5/16 nicotine 7 mg/24 hr daily 1 patch TD Q24H #28 each 08/07/19 04/01/20 Rx transdermal patch semaglutide 1 mg/dose (2 mg/1.5 1 mg SC QWEEK #3 ml 09/19/19 04/01/20 Rx mL) subcutaneous pen injector lisinopril 2.5 mg tablet 2.5 mg PO DAILY #90 tab-cap 10/02/19 04/01/20 Rx simvastatin 10 mg tablet 10 mg PO HS #90 tab 11/07/19 04/01/20 Rx hemp oil SUBLINGUAL 11/08/19 11/08/19 History cetirizine 10 mg tablet 10 mg PO DAILY #90 tab 11/15/19 04/01/20 Rx varenicline 0.5 mg (11)-1 mg (42) See Rx Instructions PO PER PKG DIR 11/22/19 04/01/20 Rx tablets in a dose pack #53 dose pk metformin 1,000 mg tablet 1,000 mg PO BID #180 tab 12/11/19 04/01/20 Rx oxybutynin chloride 5 mg tablet 5 mg PO as directed #270 tab MDD 01/09/20 04/01/20 Rx 15 mg pantoprazole 40 mg tablet,delayed 40 mg PO DAILY #90 tab-cap 01/09/20 04/01/20 Rx release insulin degludec 200 unit/mL (3 58 unit SC DAILY #9 ml 01/23/20 04/01/20 Rx mL) subcutaneous pen lancets 33 gauge #100 each 01/23/20 Rx blood sugar diagnostic #400 each 01/25/20 01/25/20 Rx meloxicam 15 mg tablet 15 mg PO DAILY #90 tab 01/25/20 04/01/20 Rx blood sugar diagnostic #50 each 01/29/20 Rx fenofibrate micronized 67 mg 67 mg PO DAILY #90 tab-cap 01/29/20 04/01/20 Rx capsule linagliptin 5 mg tablet 5 mg PO DAILY #90 tab 01/29/20 04/01/20 Rx pregabalin 200 mg capsule 200 mg PO BID #60 tab-cap 02/26/20 04/01/20 Rx Allergies Allergy/AdvReac Type Severity Reaction Status Date / Time Sulfa (Sulfonamide Allergy Intermediate Swelling, Verified 04/01/20 12:13 Antibiotics) difficulty breathing niacin AdvReac Intermediate HIVES Verified 04/01/20 12:13 amoxicillin AdvReac Mild VAGINAL Verified 04/01/20 12:13 INFECTION INFECTION Exam Const General: cooperative and ill appearing chronically Nutritional Appearance: obese Eyes Sclera: sclerae normal Pupils: PERRL EOM: EOM intact bilaterally Neck Neck: normal visual inspection, full ROM and no JVD Carotids: normal carotid upstroke Lymphatic: no lymphadenopathy noted Chest Chest: normal inspection of the chest Resp Effort & Inspection: normal respiratory effort and able to speak in complete sentences Auscultation: clear to auscultation bilaterally Cardio Jugular venous pressure: no JVD Rate: regular rate Rhythm: regular rhythm Heart Sounds: S1 normal and S2 normal GI Inspection: normal to inspection Palpation: soft and no hepatosplenomegaly Auscultation: normal bowel sounds General: deferred Back/Spine/Pelvis Back: no CVA tenderness Thoracic/Lumbar Spine: thoracic and lumbar spine normal to inspection Skin Wounds: wounds noted (2nd toe on right foot with open area to top of toe, malodorous drainage) Neuro General: patient alert, patient awake and patient oriented x3 Cognition: normal cognition Speech: speech normal Extrem General: normal to inspection and full ROM Right upper extremity: normal to inspection, full ROM and normal capillary refill Left upper extremity: normal to inspection, full ROM and normal capillary refill Right lower extremity: normal to inspection and foot (2nd toe swollen with erythme and drainage.) Details: edema Left lower extremity: normal to inspection and full ROM Psych Appearance: grossly normal Mental Status: mental status grossly normal Speech and Movement: speech and movement normal Mood: congruent mood Affect: normal affect Attitude: cooperative Thought Process: normal Results Labs Result diagrams: 04/01/20 12:40 04/01/20 12:40 Labs: Laboratory Results - last 24 hr 04/01/20 04/01/20 04/01/20 12:40 12:40 12:40 WBC 11.24 H RBC 4.35 Hgb 11.4 L Hct 36.1 MCV 83.0 MCH 26.2 L MCHC 31.6 L RDW 14.2 Plt Count 278 MPV 11.8 H Immature Gran % 0.4 Neutrophils % 67.1 Band Neutrophils % Lymphocytes % 21.4 Atypical Lymphs % Monocytes % 8.4 Eosinophils % 2.4 Basophils % 0.3 Metamyelocytes % Myelocytes % Promyelocytes % Absolute Neutrophils 7.54 H Absolute Lymphocytes 2.41 Absolute Monocytes 0.94 H Absolute Eosinophils 0.27 Absolute Basophils 0.03 Nucleated RBCs Differential Comment Other Cell Type RBC Morphology Polychromasia Hypochromasia Poikilocytosis Basophilic Stippling Anisocytosis Microcytosis Macrocytosis Spherocytes Target Cells Tear Drop Cells Ovalocytes Stomatocytes [place] Bodies [place] Cells Acanthocytes (Spur) Schistocytes ESR PT INR APTT Sodium 140 Potassium 4.1 Chloride 104 Carbon Dioxide 25.7 Anion Gap 10.3 BUN 11 Creatinine 0.83 Estimated GFR/1.73 m2 >= 60.00 Glucose 115 H Hemoglobin A1c Lactate 1.3 Calcium 9.4 Total Bilirubin 0.5 AST 23 ALT 23 Alkaline Phosphatase 78 C-Reactive Protein Total Protein 8.2 Albumin 4.0 04/01/20 04/01/20 04/01/20 12:40 12:40 12:40 WBC RBC Hgb Hct MCV MCH MCHC RDW Plt Count MPV Immature Gran % Neutrophils % Band Neutrophils % Lymphocytes % Atypical Lymphs % Monocytes % Eosinophils % Basophils % Metamyelocytes % Myelocytes % Promyelocytes % Absolute Neutrophils Absolute Lymphocytes Absolute Monocytes Absolute Eosinophils Absolute Basophils Nucleated RBCs Differential Comment Other Cell Type RBC Morphology Polychromasia Hypochromasia Poikilocytosis Basophilic Stippling Anisocytosis Microcytosis Macrocytosis Spherocytes Target Cells Tear Drop Cells Ovalocytes Stomatocytes [place] Bodies [place] Cells Acanthocytes (Spur) Schistocytes ESR 26 PT 10.5 INR 1.0 APTT 27.0 Sodium Potassium Chloride Carbon Dioxide Anion Gap BUN Creatinine Estimated GFR/1.73 m2 Glucose Hemoglobin A1c Lactate Calcium Total Bilirubin AST ALT Alkaline Phosphatase C-Reactive Protein 5.39 H Total Protein Albumin 04/01/20 04/01/20 04/01/20 12:40 13:07 13:07 WBC Cancelled RBC Cancelled Hgb Cancelled Hct Cancelled MCV Cancelled MCH Cancelled MCHC Cancelled RDW Cancelled Plt Count Cancelled MPV Cancelled Immature Gran % Cancelled Neutrophils % Cancelled Band Neutrophils % Cancelled Lymphocytes % Cancelled Atypical Lymphs % Cancelled Monocytes % Cancelled Eosinophils % Cancelled Basophils % Cancelled Metamyelocytes % Cancelled Myelocytes % Cancelled Promyelocytes % Cancelled Absolute Neutrophils Cancelled Absolute Lymphocytes Cancelled Absolute Monocytes Cancelled Absolute Eosinophils Cancelled Absolute Basophils Cancelled Nucleated RBCs Cancelled Differential Comment Cancelled Other Cell Type Cancelled RBC Morphology Cancelled Polychromasia Cancelled Hypochromasia Cancelled Poikilocytosis Cancelled Basophilic Stippling Cancelled Anisocytosis Cancelled Microcytosis Cancelled Macrocytosis Cancelled Spherocytes Cancelled Target Cells Cancelled Tear Drop Cells Cancelled Ovalocytes Cancelled Stomatocytes Cancelled [place] Bodies Cancelled Nolan Cells Cancelled Acanthocytes (Spur) Cancelled Schistocytes Cancelled ESR PT INR APTT Sodium Cancelled Potassium Cancelled Chloride Cancelled Carbon Dioxide Cancelled Anion Gap Cancelled BUN Cancelled Creatinine Cancelled Estimated GFR/1.73 m2 Cancelled Glucose Cancelled Hemoglobin A1c 6.5 H Lactate Calcium Cancelled Total Bilirubin AST ALT Alkaline Phosphatase C-Reactive Protein Total Protein Albumin Last Vital Signs Temp 36.6 C 04/01/20 11:59 Pulse 77 04/01/20 11:59 Resp 16 04/01/20 11:59 BP 184/80 H 04/01/20 11:59 Pulse Ox 98 04/01/20 11:59 COVID-19 Screening In the past 14 days, have you traveled outside of [place] or [place]?: NO Recent travel in the [facility] within the last 14 days?: No Recent out of the country travel within the last 14 days?: No Exposure or possible exposure to illness during travel?: No Had IN PERSON contact w/suspected or confirmed C-19 person: No Have you had the following symptoms in the past few days?: No Symptoms noted since travel?: No Symptoms
[2020-04-01] MEDS: Normal Saline Flush 10 ML SYR IVP ×2 (14:51→15:54)
[2020-04-01] MEDS: Gadoterate meglumine 20 ML VIAL IVP (14:51)
[2020-04-01 15:40] VITALS: BP 181/79; PULSE 82; RESP 18; TEMP 37.2; O2SAT 96
[2020-04-01] MEDS: Heparin 5,000 UNITS/ML VIAL 5000 UNITS SC ×2 (15:54→23:57)
--- NOTE | 2020-04-01 16:55 | RESPIRATORY ---
Today, I spoke with the patient concerning the use of her Flovent inhaler. She stated to me that she has not used this inhaler or her other in a very long time, in over a month or so. Patient stated she's ok with not having the Flovent in the hospital as she doesn't use it. She stated she does not know where her inhaler is currently.
[2020-04-01 19:25] VITALS: BP 165/75; PULSE 66; RESP 19; TEMP 36.6; O2SAT 98
[2020-04-01] MEDS: Oxybutynin 5 MG TAB 10 MG PO (20:12)
[2020-04-01] MEDS: Pregabalin 100 MG CAP 200 MG PO (20:13)
[2020-04-01] MEDS: Acetaminophen 325 MG TAB PO (20:17)
[2020-04-01] MEDS: Melatonin 3 MG TAB 6 MG PO (21:09)
[2020-04-01] MEDS: Lurasidone 40 MG TAB 140 MG PO (21:09)
[2020-04-01] MEDS: Simvastatin 10 MG TAB PO (21:09)
[2020-04-02 03:17] VITALS: BP 137/68; PULSE 70; RESP 19; TEMP 36.6; O2SAT 96
[2020-04-02 06:46] LABS: Abs Immature Grans 0.02 k/cumm (0.0-0.09); Absolute Basophil Count 0.01 k/cumm (0.0-0.2); Absolute Eosinophil Count 0.24 k/cumm (0.0-0.7); Absolute Lymphocyte Count 1.94 k/cumm (1.2-3.4); Absolute Monocyte Count 0.54 k/cumm (0.11-0.7); Absolute Neutrophil Count 3.36 k/cumm (1.2-6.7); Basophils % 0.2; Eosinophils % 3.9; HCT 32.9 % (36.0-46.0); HGB 10.4 g/dL (12.0-15.5); Immature Grans % 0.3 %; Lymphocytes % 31.8; Mean Corp. HGB Concentration 31.6 g/dL (32.0-36.0); Mean Corpuscular Hemoglobin 26.3 pg (27.0-33.0); Mean Corpuscular Volume 83.3 fL (80-95); Mean Platelet Volume 11.8 fL (8.0-11.0); Monocytes % 8.8; Platelet Count 231 x1000/uL (130-400); RBC 3.95 m/cumm (4.00-5.20); White Blood Cell Count 6.11 k/cumm (4.4-10.8)
[2020-04-02 06:52] LABS: Anion Gap 7.7 mmol/L (3-11); BUN 9 mg/dL (7-18); C-Reactive Protein 4.74 mg/dL (0.0-0.3); CO2 28.3 mmol/L (21.0-32.0); CREATININE 0.76 mg/dL (0.55-1.02); Calcium 8.9 mg/dL (8.5-10.1); Chloride 106 mmol/L (98-107); Glucose 130 mg/dL (74-106); Potassium 3.7 mmol/L (3.5-5.1); Sodium 142 mmol/L (136-145)
[2020-04-02 07:16] LABS: Procalcitonin 0.1 ng/mL
--- NOTE | 2020-04-02 07:29 | W.PODCONSULT ---
Date of service: 04/02/20 Time of Service: 07:30 History of Present Illness History of Present Illness Chief Complaint: Diabetic ulcer tip right second toe with cellulitis, osteomyelitis Narrative: 54-year-old female with type 2 diabetes and peripheral neuropathy who presents with an open wound at the tip of the toe with the distal phalanx palpable, erythema encompassing the entire toe with cellulitis extending into the foot. Purulent drainage is appreciated with malodor noted. She was seen in my office initially yesterday and sent to the hospital for admission through the ED. She is seen at bedside this morning in no acute distress. 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 (Inactive) Family History Mother Diabetes Alcohol abuse Personal history of malignant neoplasm breast Father No problems noted. 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 She does need hearing aids to communicate effectively. Morning labs are pending but admission labs were reviewed, her MRI was completed late yesterday final report pending. Microbiology Gram stain showed scant gram-positive cocci, sensitivities pending She is currently receiving IV vancomycin and Maxipen for antibiotic coverage which I agree with. Peripheral pulses are easily palpable at the ankles graded 2 out of 4 bilaterally. Capillary fill time is under 3 seconds to all toes although sluggish in the right second toe. Calves are soft to palpation. She is receiving mini heparin for DVT prophylaxis. evaluation of the right second toe shows decreased edema and erythema since yesterday. She has a full-thickness wound at the tip of the toe with purulence still discharging from the wound although her cellulitis has markedly reduced. Radiographs are consistent with an osteomyelitis affecting at least the distal phalanx and the MRI results should be more definitive in disease extension. She has had a previous injury to her right first MPJ and radiologic evidence of bone loss is appreciated. Clinical evaluation makes me believe this is an old injury. She does display significant diabetic peripheral neuropathy affecting both feet. This has been a chronic finding. Impressions: Diabetic ulcer with osteomyelitis affecting the right second toe Plan: I will need to review the MRI and its entirety later today but anticipate surgical intervention to the right second toe potentially tomorrow afternoon. This would include debridement of the digit with potential for amputation to the MPJ level. I did discuss this possibility with Maureen and she understands the permanency of the procedure as well as the risks and complications including pain, scarring, infection, the potential for failure to thrive requiring additional procedures. We will discussed the case with the hospitalist. Results Last Vital Signs Temp 36.6 C 04/02/20 03:17 Pulse 70 04/02/20 03:17 Resp 19 04/02/20 03:17 BP 137/68 04/02/20 03:17 Pulse Ox 96 04/02/20 03:17 Labs Result diagrams: 04/02/20 06:05 04/02/20 06:05 Labs: Laboratory Results - last 24 hr 04/01/20 04/01/20 04/01/20 12:40 12:40 12:40 WBC 11.24 H RBC 4.35 Hgb 11.4 L Hct 36.1 MCV 83.0 MCH 26.2 L MCHC 31.6 L RDW 14.2 Plt Count 278 MPV 11.8 H Immature Gran % 0.4 Neutrophils % 67.1 Band Neutrophils % Lymphocytes % 21.4 Atypical Lymphs % Monocytes % 8.4 Eosinophils % 2.4 Basophils % 0.3 Metamyelocytes % Myelocytes % Promyelocytes % Absolute Neutrophils 7.54 H Absolute Lymphocytes 2.41 Absolute Monocytes 0.94 H Absolute Eosinophils 0.27 Absolute Basophils 0.03 Nucleated RBCs Differential Comment Other Cell Type RBC Morphology Polychromasia Hypochromasia Poikilocytosis Basophilic Stippling Anisocytosis Microcytosis Macrocytosis Spherocytes Target Cells Tear [place] Cells Ovalocytes Stomatocytes [place] Bodies [place] Cells Acanthocytes (Spur) Schistocytes ESR PT INR APTT Sodium 140 Potassium 4.1 Chloride 104 Carbon Dioxide 25.7 Anion Gap 10.3 BUN 11 Creatinine 0.83 Estimated GFR/1.73 m2 >= 60.00 Glucose 115 H Hemoglobin A1c Lactate 1.3 Calcium 9.4 Total Bilirubin 0.5 AST 23 ALT 23 Alkaline Phosphatase 78 C-Reactive Protein Total Protein 8.2 Albumin 4.0 Procalcitonin 04/01/20 04/01/20 04/01/20 12:40 12:40 12:40 WBC RBC Hgb Hct MCV MCH MCHC RDW Plt Count MPV Immature Gran % Neutrophils % Band Neutrophils % Lymphocytes % Atypical Lymphs % Monocytes % Eosinophils % Basophils % Metamyelocytes % Myelocytes % Promyelocytes % Absolute Neutrophils Absolute Lymphocytes Absolute Monocytes Absolute Eosinophils Absolute Basophils Nucleated RBCs Differential Comment Other Cell Type RBC Morphology Polychromasia Hypochromasia Poikilocytosis Basophilic Stippling Anisocytosis Microcytosis Macrocytosis Spherocytes Target Cells [place] Cells Ovalocytes Stomatocytes [place] Bodies [place] Cells Acanthocytes ([place]) Schistocytes ESR 26 PT 10.5 INR 1.0 APTT 27.0 Sodium Potassium Chloride Carbon Dioxide Anion Gap BUN Creatinine Estimated GFR/1.73 m2 Glucose Hemoglobin A1c Lactate Calcium Total Bilirubin AST ALT Alkaline Phosphatase C-Reactive Protein 5.39 H Total Protein Albumin Procalcitonin 04/01/20 04/01/20 04/01/20 12:40 13:07 13:07 WBC Cancelled RBC Cancelled Hgb Cancelled Hct Cancelled MCV Cancelled MCH Cancelled MCHC Cancelled RDW Cancelled Plt Count Cancelled MPV Cancelled Immature Gran % Cancelled Neutrophils % Cancelled Band Neutrophils % Cancelled Lymphocytes % Cancelled Atypical Lymphs % Cancelled Monocytes % Cancelled Eosinophils % Cancelled Basophils % Cancelled Metamyelocytes % Cancelled Myelocytes % Cancelled Promyelocytes % Cancelled Absolute Neutrophils Cancelled Absolute Lymphocytes Cancelled Absolute Monocytes Cancelled Absolute Eosinophils Cancelled Absolute Basophils Cancelled Nucleated RBCs Cancelled Differential Comment Cancelled Other Cell Type Cancelled RBC Morphology Cancelled Polychromasia Cancelled Hypochromasia Cancelled Poikilocytosis Cancelled Basophilic Stippling Cancelled Anisocytosis Cancelled Microcytosis Cancelled Macrocytosis Cancelled Spherocytes Cancelled Target Cells Cancelled [place]ear [place] Cells Cancelled Ovalocytes Cancelled Stomatocytes Cancelled [place] Bodies Cancelled [place] Cells Cancelled Acanthocytes ([place]) Cancelled Schistocytes Cancelled ESR PT INR APTT Sodium Cancelled Potassium Cancelled Chloride Cancelled Carbon Dioxide Cancelled Anion Gap Cancelled BUN Cancelled Creatinine Cancelled Estimated GFR/1.73 m2 Cancelled Glucose Cancelled Hemoglobin A1c 6.5 H Lactate Calcium Cancelled Total Bilirubin AST ALT Alkaline Phosphatase C-Reactive Protein Total Protein Albumin Procalcitonin 04/02/20 04/02/20 04/02/20 06:05 06:05 06:05 WBC 6.11 D RBC 3.95 L Hgb 10.4 L Hct 32.9 L MCV 83.3 MCH 26.3 L MCHC 31.6 L RDW 14.0 Plt Count 231 MPV 11.8 H Immature Gran % 0.3 Neutrophils % 55.0 Band Neutrophils % Lymphocytes % 31.8 Atypical Lymphs % Monocytes % 8.8 Eosinophils % 3.9 Basophils % 0.2 Metamyelocytes % Myelocytes % Promyelocytes % Absolute Neutrophils 3.36 Absolute Lymphocytes 1.94 Absolute Monocytes 0.54 Absolute Eosinophils 0.24 Absolute Basophils 0.01 Nucleated RBCs Differential Comment Other Cell Type RBC Morphology Polychromasia Hypochromasia Poikilocytosis Basophilic Stippling Anisocytosis Microcytosis Macrocytosis Spherocytes Target Cells [place] Cells Ovalocytes Stomatocytes [place] Bodies [place] Cells Acanthocytes (Sp[place]) Schistocytes ESR PT INR APTT Sodium 142 Potassium 3.7 Chloride 106 Carbon Dioxide 28.3 Anion Gap 7.7 BUN 9 Creatinine 0.76 Estimated GFR/1.73 m2 >= 60.00 Glucose 130 H Hemoglobin A1c Lactate Calcium 8.9 Total Bilirubin AST ALT Alkaline Phosphatase C-Reactive Protein 4.74 H Total Protein Albumin Procalcitonin 0.1
[2020-04-02 07:38] VITALS: BP 128/80; PULSE 72; RESP 20; TEMP 36.6; O2SAT 96
--- NOTE | 2020-04-02 07:53 | PDOC.CMIN ---
- If Service Date Differs Date of service: 04/02/20 Time of Service: 07:53 Care Management Initial Assess REASON FOR HOSPITALIZATION:: Cellulitis, question of osteo of right second toe PAST MEDICAL HISTORY/PAST SURGICAL HISTORY:: Depression, DM, GERD, hypertrigluceridemia, bilat hearing loss, obesity, tobacco dependency. Surgical history Arthroscopy right knee, , knee surgery PREVIOUS FUNCTIONAL STATUS/SOCIAL/FAMILY SUPPORTS:: Frank lives with her family here in [place], she is independent with ADL's transportation. Frank is disabled, she states she has a lot of support in the community from friends and family. CURRENT FUNCTIONAL STATUS:: Frank is alert and engaged with CM during assessment. She states she understands the plan for surgery. She states she will prefer to manage her own wound at home at time of discharge she does not want home health services. She states she is able to manage her DM well with the help of RN at primary care office. ADVANCE DIRECTIVES:: No advance directives on file, she would like to complete her directives and list her fiance as her agent. CM provided the packet for review and will complete with patient when ready. Has patient been provided with info about the portal/API?: Yes Did the patient sign up for the portal?: No CODE STATUS:: Full Code INSURANCE COVERAGE / FINANCIAL ISSUES:: Medicaid and Medicare CURRENT HOME/COMMUNITY SERVICES/EQUIPMENT:: Continous glucose monitor, and glucometer. PRIMARY CARE PHYSICIAN:: Anjana Gayle POTENTIAL DISCHARGE NEEDS:: Follow up with primary care, podiatry and potential for home health r/t dressing changes. PATIENT/FAMILY EDUCATION NEEDS:: Discharge education, limitations and follow up plan of care including ask me three and self management. ANTICIPATED BARRIERS TO DISCHARGE:: No barriers to discharge identified at this time TRANSPORTATION:: Via private car with family at time of discharge PLAN:: Frank is having surgery on 04/03/2020 she will be discharged home when medically ready. She has declined home health services at this time. CM will continue to assess for discharged needs and supports.
[2020-04-02] MEDS: Insulin Aspart 300 UNITS/3 ML PEN SC ×2 (08:00→16:51)
[2020-04-02] MEDS: Lisinopril 5 MG TAB 2.5 MG PO (08:33)
[2020-04-02] MEDS: Pregabalin 100 MG CAP 200 MG PO ×2 (08:34→19:42)
[2020-04-02] MEDS: Oxybutynin 5 MG TAB PO (08:34)
[2020-04-02] MEDS: Heparin 5,000 UNITS/ML VIAL 5000 UNITS SC ×2 (08:34→15:23)
[2020-04-02] MEDS: Aspirin E.C. 81 MG TABEC PO (08:34)
[2020-04-02] MEDS: Meloxicam 15 MG TAB PO (08:34)
[2020-04-02] MEDS: Cetirizine 10 MG TAB PO (08:34)
[2020-04-02] MEDS: Pantoprazole 40 MG TABCR PO (08:34)
[2020-04-02] MEDS: lamoTRIgine 100 MG TAB 200 MG PO (08:34)
[2020-04-02] MEDS: CEFEPIME 2 GM in Normal Saline 100 ML IVPB (11:39)
[2020-04-02] MEDS: Normal Saline Flush 10 ML SYR IVP ×2 (11:40→21:54)
--- NOTE | 2020-04-02 11:50 | W.PM.PROGNOT ---
Date of Service Date of service: 04/02/20 Time of Service: 11:50 Assessment and Plan Assessment and plan (1) Osteomyelitis: Status: Acute Assessment and plan: right great and 2nd toe. plan for OR with podiatry tomorrow. continue current antibiotic regimen. day 2 vancomycin and cefepime. blood cultures pending. follow surveillance labs. (2) Type II diabetes mellitus with neurological manifestations: Status: Acute Assessment and plan: metformin placed on hold while hospitalized. Patient will be placed on SSI with carb/heart healthy diet. Fingersticks AC/HS. A1C 6.5. (3) Tobacco abuse disorder: Status: Acute Assessment and plan: nicotine patch while hospitalized (4) Essential hypertension: Status: Acute Assessment and plan: blood pressures stable. (5) Depressive disorder: Status: Chronic Assessment and plan: stable, continue home medications (6) Gastroesophageal reflux disease: Status: Active Assessment and plan: stable, continue pantoprazole (7) Asthma: Status: Active Assessment and plan: stable and continue inhalers. (8) Discharge planning issues: Status: Acute Assessment and plan: anticipate a discharge to home after surgery and medically stable. +/- home services if qualified. case management following. case and plan of care discussed with Dr Lobo who is in agreement Subjective Subjective Patient reports: no new complaints Exam Const General: cooperative, comfortable, no acute distress and ill appearing (older appearing than stated age) chronically Nutritional Appearance: overweight Orientation: alert, awake and oriented x3 HENMT Head: normal to inspection, normocephalic and atraumatic Mouth: oral mucosae normal Resp Effort & Inspection: normal respiratory effort Auscultation: clear to auscultation bilaterally Cardio Rate: regular rate Rhythm: regular rhythm GI Inspection: normal to inspection Palpation: soft Auscultation: normal bowel sounds Skin Lesions: lesion noted (2nd and great toes on right. ) Neuro General: patient alert, patient awake and patient oriented x3 Objective Objective Clinical Data: Abnormal lab results 04/01/20 04/01/20 04/01/20 Range/Units 12:40 12:40 12:40 WBC 11.24 H (4.4-10.8) k/cumm RBC (4.00-5.20) m/cumm Hgb 11.4 L (12.0-15.5) g/dL Hct (36.0-46.0) % MCH 26.2 L (27.0-33.0) pg MCHC 31.6 L (32.0-36.0) g/dL MPV 11.8 H (8.0-11.0) fL Absolute Neutrophils 7.54 H (1.2-6.7) k/cumm Absolute Monocytes 0.94 H (0.11-0.7) k/cumm Glucose 115 H (74-106) mg/dL Hemoglobin A1c (3.8-5.6) % C-Reactive Protein 5.39 H (0.0-0.3) mg/dL 04/01/20 04/02/20 04/02/20 Range/Units 12:40 06:05 06:05 WBC (4.4-10.8) k/cumm RBC 3.95 L (4.00-5.20) m/cumm Hgb 10.4 L (12.0-15.5) g/dL Hct 32.9 L (36.0-46.0) % MCH 26.3 L (27.0-33.0) pg MCHC 31.6 L (32.0-36.0) g/dL MPV 11.8 H (8.0-11.0) fL Absolute Neutrophils (1.2-6.7) k/cumm Absolute Monocytes (0.11-0.7) k/cumm Glucose 130 H (74-106) mg/dL Hemoglobin A1c 6.5 H (3.8-5.6) % C-Reactive Protein 4.74 H (0.0-0.3) mg/dL Vital Signs Temperature 36.6 C 04/02/20 07:38 Temperature Source Tympanic 04/02/20 07:38 Pulse 72 04/02/20 07:38 Pulse Rhythm Regular 04/02/20 00:57 Respiratory Rate 20 04/02/20 07:38 Respiratory Effort Non-Labored 04/02/20 00:57 Respiratory Depth Normal 04/02/20 00:57 Respiratory Pattern Irregular 04/02/20 00:57 Blood Pressure 128/80 04/02/20 07:38 Blood Pressure Position Sitting 04/01/20 11:59 Pulse Oximetry 96 04/02/20 07:38 Oxygen Delivery Method Room Air 04/02/20 07:38 Oxygen Flow Rate 0 04/02/20 07:38 Pain Level 0 04/02/20 07:38 Intake & Output 04/01/20 04/01/20 04/02/20 11:59 23:59 11:59 Intake Total 340 / 340 710 / 710 Output Total 1000 / 1000 1300 / 1300 Balance -660 / -660 -590 / -590 Weight 102.7 kg 102.7 kg Intake: IV 100 / 100 350 / 350 Oral 240 / 240 360 / 360 Output: Urine 1000 / 1000 1300 / 1300 Other: Urine Color Pale Yellow Yellow Urine Appearance Clear Clear Urine Odor Normal Comment Pt reports Voided into the tilet X2 without issues. Voiding Methods Toilet Toilet Laboratory Results WBC 6.11 k/cumm (4.4-10.8) D 04/02/20 06:05 RBC 3.95 m/cumm (4.00-5.20) L 04/02/20 06:05 Hgb 10.4 g/dL (12.0-15.5) L 04/02/20 06:05 Hct 32.9 % (36.0-46.0) L 04/02/20 06:05 MCV 83.3 fL (80-95) 04/02/20 06:05 MCH 26.3 pg (27.0-33.0) L 04/02/20 06:05 MCHC 31.6 g/dL (32.0-36.0) L 04/02/20 06:05 RDW 14.0 % (11.7-14.6) 04/02/20 06:05 Plt Count 231 x1000/uL (130-400) 04/02/20 06:05 MPV 11.8 fL (8.0-11.0) H 04/02/20 06:05 Immature Gran % 0.3 % 04/02/20 06:05 Neutrophils % 55.0 04/02/20 06:05 Band Neutrophils % Cancelled 04/01/20 13:07 Lymphocytes % 31.8 04/02/20 06:05 Atypical Lymphs % Cancelled 04/01/20 13:07 Monocytes % 8.8 04/02/20 06:05 Eosinophils % 3.9 04/02/20 06:05 Basophils % 0.2 04/02/20 06:05 Metamyelocytes % Cancelled 04/01/20 13:07 Myelocytes % Cancelled 04/01/20 13:07 Promyelocytes % Cancelled 04/01/20 13:07 Absolute Neutrophils 3.36 k/cumm (1.2-6.7) 04/02/20 06:05 Absolute Lymphocytes 1.94 k/cumm (1.2-3.4) 04/02/20 06:05 Absolute Monocytes 0.54 k/cumm (0.11-0.7) 04/02/20 06:05 Absolute Eosinophils 0.24 k/cumm (0.0-0.7) 04/02/20 06:05 Absolute Basophils 0.01 k/cumm (0.0-0.2) 04/02/20 06:05 Nucleated RBCs Cancelled 04/01/20 13:07 Differential Comment Cancelled 04/01/20 13:07 Other Cell Type Cancelled 04/01/20 13:07 RBC Morphology Cancelled 04/01/20 13:07 Polychromasia Cancelled 04/01/20 13:07 Hypochromasia Cancelled 04/01/20 13:07 Poikilocytosis Cancelled 04/01/20 13:07 Basophilic Stippling Cancelled 04/01/20 13:07 Anisocytosis Cancelled 04/01/20 13:07 Microcytosis Cancelled 04/01/20 13:07 Macrocytosis Cancelled 04/01/20 13:07 Spherocytes Cancelled 04/01/20 13:07 Target Cells Cancelled 04/01/20 13:07 Tear Drop Cells Cancelled 04/01/20 13:07 Ovalocytes Cancelled 04/01/20 13:07 Stomatocytes Cancelled 04/01/20 13:07 Pop-[place] Bodies Cancelled 04/01/20 13:07 Nolan Cells Cancelled 04/01/20 13:07 Acanthocytes (Spur) Cancelled 04/01/20 13:07 Schistocytes Cancelled 04/01/20 13:07 ESR 26 mm/hr (0-30) 04/01/20 12:40 PT 10.5 sec (9.3-11.0) 04/01/20 12:40 INR 1.0 (0.9-1.1) 04/01/20 12:40 APTT 27.0 sec (21.0-31.4) 04/01/20 12:40 Sodium 142 mmol/L (136-145) 04/02/20 06:05 Potassium 3.7 mmol/L (3.5-5.1) 04/02/20 06:05 Chloride 106 mmol/L (98-107) 04/02/20 06:05 Carbon Dioxide 28.3 mmol/L (21.0-32.0) 04/02/20 06:05 Anion Gap 7.7 mmol/L (3-11) 04/02/20 06:05 BUN 9 mg/dL (7-18) 04/02/20 06:05 Creatinine 0.76 mg/dL (0.55-1.02) 04/02/20 06:05 Estimated GFR/1.73 m2 >= 60.00 (mL/min/1.73m2) 04/02/20 06:05 Glucose 130 mg/dL (74-106) H 04/02/20 06:05 Hemoglobin A1c 6.5 % (3.8-5.6) H 04/01/20 12:40 Lactate 1.3 mmol/L (0.6-1.4) 04/01/20 12:40 Calcium 8.9 mg/dL (8.5-10.1) 04/02/20 06:05 Total Bilirubin 0.5 mg/dL (0.2-1.0) 04/01/20 12:40 AST 23 U/L (15-37) 04/01/20 12:40 ALT 23 U/L (14-59) 04/01/20 12:40 Alkaline Phosphatase 78 U/L (46-116) 04/01/20 12:40 C-Reactive Protein 4.74 mg/dL (0.0-0.3) H 04/02/20 06:05 Total Protein 8.2 g/dL (6.4-8.2) 04/01/20 12:40 Albumin 4.0 g/dL (3.4-5.0) 04/01/20 12:40 Procalcitonin 0.1 ng/mL 04/02/20 06:05
--- NOTE | 2020-04-02 13:51 | CHAPLAIN ---
Maureen was up in a chair playing games on her phone when I visited. She seems comfortable about being here and said matter of factly that'll she expects to be here for a week or so. Her boyfriend has attachment issues, she said and is having a difficult time not being able to see her. They have been in touch by phone.
[2020-04-02 14:19] LABS: COVID-19 RT-PCR UVMMC Result Negative (Negative)
--- NOTE | 2020-04-02 14:35 | W.INDIABCONS ---
Date of service: 04/02/20 Time of Service: 14:36 Diabetes Inpatient Consult DESCRIPTION/ASSESSMENT: 54 year old female admitted with cellulitis of toe with possible osteomylitis. PMH: obesity, DM2, GERD. Met with Maureen today to discuss her diabetes self management. She reports that she checks her sugars often and than her A1C are <7%. Most recent A1C: 6.5% (04/01/20), FS while inhouse mildly elevated. Food Recall indicates some reliance on convenience foods but mostly balanced home cooked meals, no sugary beverages. Has no formal exercise program. BMI of 34 indicates class 1 obesity. Home meds include 1000 mg metformin BID. INTERVENTION: Maureen declined further education on diabetes. States she has had DM a long time and has managed it. Provided risks of uncontrolled DM and provided her with community resources such as outpatient nutrition self management counselilng and [facility]. Encouraged to start daily exercise program- 150 minutes weekly. PLAN: Maureen to reach out to writer editor or community connections in future if has questions/concerns re: diabetes management. Currently appears to be managing diabetes adequately. Will be available prn. Time Spent in Nutritional Counseling and Treatment: 15 minutes
[2020-04-02 15:41] VITALS: BP 128/87; PULSE 69; RESP 20; TEMP 37.8; O2SAT 98
[2020-04-02 15:50] VITALS: TEMP 37.8
[2020-04-02] MEDS: Acetaminophen 325 MG TAB PO (15:50)
[2020-04-02 18:34] VITALS: TEMP 37.7
[2020-04-02] MEDS: Oxybutynin 5 MG TAB 10 MG PO (19:42)
[2020-04-02] MEDS: lamoTRIgine 100 MG TAB PO (19:42)
[2020-04-02] MEDS: Lurasidone 40 MG TAB 140 MG PO (21:52)
[2020-04-02] MEDS: Simvastatin 10 MG TAB PO (21:53)
[2020-04-02] MEDS: Melatonin 3 MG TAB 6 MG PO (21:53)
[2020-04-03] MEDS: CEFEPIME 2 GM in Normal Saline 100 ML IVPB ×2 (00:55→13:45)
[2020-04-03 06:56] LABS: Abs Immature Grans 0.02 k/cumm (0.0-0.09); Absolute Basophil Count 0.02 k/cumm (0.0-0.2); Absolute Eosinophil Count 0.17 k/cumm (0.0-0.7); Absolute Lymphocyte Count 1.49 k/cumm (1.2-3.4); Absolute Monocyte Count 0.48 k/cumm (0.11-0.7); Absolute Neutrophil Count 3.09 k/cumm (1.2-6.7); Basophils % 0.4; Eosinophils % 3.2; HCT 33.6 % (36.0-46.0); HGB 10.6 g/dL (12.0-15.5); Immature Grans % 0.4 %; Lymphocytes % 28.3; Mean Corp. HGB Concentration 31.5 g/dL (32.0-36.0); Mean Corpuscular Hemoglobin 26.3 pg (27.0-33.0); Mean Corpuscular Volume 83.4 fL (80-95); Mean Platelet Volume 11.6 fL (8.0-11.0); Monocytes % 9.1; Neutrophils % 58.6; Platelet Count 230 x1000/uL (130-400); RBC 4.03 m/cumm (4.00-5.20); RBC Distribution Width 13.9 % (11.7-14.6); White Blood Cell Count 5.27 k/cumm (4.4-10.8)
[2020-04-03 07:06] LABS: Anion Gap 9.9 mmol/L (3-11); BUN 11 mg/dL (7-18); CO2 27.1 mmol/L (21.0-32.0); CREATININE 0.77 mg/dL (0.55-1.02); Calcium 9.1 mg/dL (8.5-10.1); Chloride 105 mmol/L (98-107); Glucose 151 mg/dL (74-106); Potassium 3.9 mmol/L (3.5-5.1); Sodium 142 mmol/L (136-145); Vancomycin, Trough 14.6 ug/mL (10.0-20.0)
[2020-04-03 07:16] VITALS: BP 139/83; PULSE 71; RESP 14; TEMP 36.3; O2SAT 97
[2020-04-03 08:01] LABS: Vitamin B12 422 pg/mL (193-986)
[2020-04-03] MEDS: Pantoprazole 40 MG TABCR PO (08:07)
[2020-04-03] MEDS: lamoTRIgine 100 MG TAB 200 MG PO (08:07)
[2020-04-03] MEDS: Oxybutynin 5 MG TAB PO (08:08)
[2020-04-03] MEDS: Lisinopril 5 MG TAB 2.5 MG PO (08:08)
[2020-04-03] MEDS: Normal Saline Flush 10 ML SYR IVP (08:09)
--- NOTE | 2020-04-03 08:54 | PDOC.CMPRO ---
- If Service Date Differs Date of service: 04/03/20 Time of Service: 08:54 Care Management Progress Note S/O: Frank remains acute today she will have OR intervention for the second toe with osteomyelitis. Anticipate no additional services at time of discharge and she will continue to follow up with primary care and podiatry as outpatient once medically clear for discharge. A: Frank is a 54 year old female admitted with osteo, cellulitis P:Frank is having surgery on 04/03/2020 she will be discharged home when medically ready. She has declined home health services at this time. CM will continue to assess for discharged needs and supports. She will be transported via private car and family at time of discharge.
--- NOTE | 2020-04-03 10:20 | PGE_ITS ---
Date of Service Date of service: 04/03/20 Time of Service: Assessment and Plan Assessment and plan (1) Osteomyelitis: Status: Acute Assessment and plan: Operative day, no complications, post-operative pain controlled. continue current antibiotic regimen. day 3 vancomycin and cefepime through wednesday which is anticipated discharge date, plan to discharge to home on 2 weeks of augmentin if she remains medically stable. blood cultures pending. follow surveillance labs. (2) Type II diabetes mellitus with neurological manifestations: Status: Acute Assessment and plan: metformin placed on hold while hospitalized. Patient will be placed on SSI with carb/heart healthy diet. Fingersticks AC/HS. A1C 6.5. (3) Tobacco abuse disorder: Status: Acute Assessment and plan: nicotine patch while hospitalized (4) Essential hypertension: Status: Acute Assessment and plan: blood pressures stable. (5) Depressive disorder: Status: Chronic Assessment and plan: stable, continue home medications (6) Gastroesophageal reflux disease: Status: Active Assessment and plan: stable, continue pantoprazole (7) Asthma: Status: Active Assessment and plan: stable and continue inhalers. (8) Discharge planning issues: Status: Acute Assessment and plan: anticipate a discharge to home Wednesday if remains medically stable. +/- home services if qualified. case management following. case and plan of care discussed with Dr Lobo who is in agreement Subjective Subjective Patient reports: no new complaints and afebrile Exam Const General: cooperative, comfortable, no acute distress and ill appearing (older appearing than stated age) chronically Nutritional Appearance: overweight Orientation: alert, awake and oriented x3 HENMT Head: normal to inspection, normocephalic and atraumatic Mouth: oral mucosae normal Resp Effort & Inspection: normal respiratory effort Auscultation: clear to auscultation bilaterally Cardio Rate: regular rate Rhythm: regular rhythm GI Inspection: normal to inspection Palpation: soft Auscultation: normal bowel sounds Skin General skin exam: other (post operative dressing intact sm amount of blood on dressing reinforced) Rashes: no rashes Neuro General: patient alert, patient awake and patient oriented x3 Objective Objective Clinical Data: Abnormal lab results 04/03/20 04/03/20 Range/Units 06:45 06:45 Hgb 10.6 L (12.0-15.5) g/dL Hct 33.6 L (36.0-46.0) % MCH 26.3 L (27.0-33.0) pg MCHC 31.5 L (32.0-36.0) g/dL MPV 11.6 H (8.0-11.0) fL Glucose 151 H (74-106) mg/dL Vital Signs Temperature 36.3 C L 04/03/20 07:16 Temperature Source Tympanic 04/03/20 07:16 Pulse 71 04/03/20 07:16 Pulse Rhythm Regular 04/03/20 09:24 Respiratory Rate 14 04/03/20 07:16 Respiratory Effort Non-Labored 04/03/20 09:24 Respiratory Depth Normal 04/03/20 09:24 Respiratory Pattern Normal 04/03/20 09:24 Blood Pressure 139/83 04/03/20 07:16 Blood Pressure Position Sitting 04/01/20 11:59 Pulse Oximetry 97 04/03/20 07:16 Oxygen Delivery Method Room Air 04/03/20 07:16 Oxygen Flow Rate 0 04/03/20 07:16 Pain Level 0 04/03/20 07:16 Intake & Output 04/02/20 04/02/20 04/03/20 11:59 23:59 11:59 Intake Total 710 / 1500 790 / 1500 0 / 0 Output Total 1300 / 2950 1650 / 2950 500 / 500 Balance -590 / -1450 -860 / -1450 -500 / -500 Intake: IV 350 / 700 350 / 700 Oral 360 / 800 440 / 800 0 / 0 Output: Urine 1300 / 2950 1650 / 2950 500 / 500 Other: Urine Color Yellow Yellow Yellow Urine Appearance Clear Clear Clear Urine Odor Normal Normal Comment independant to the toilet Voiding Methods Toilet Toilet Toilet Laboratory Results WBC 5.27 k/cumm (4.4-10.8) 04/03/20 06:45 RBC 4.03 m/cumm (4.00-5.20) 04/03/20 06:45 Hgb 10.6 g/dL (12.0-15.5) L 04/03/20 06:45 Hct 33.6 % (36.0-46.0) L 04/03/20 06:45 MCV 83.4 fL (80-95) 04/03/20 06:45 MCH 26.3 pg (27.0-33.0) L 04/03/20 06:45 MCHC 31.5 g/dL (32.0-36.0) L 04/03/20 06:45 RDW 13.9 % (11.7-14.6) 04/03/20 06:45 Plt Count 230 x1000/uL (130-400) 04/03/20 06:45 MPV 11.6 fL (8.0-11.0) H 04/03/20 06:45 Immature Gran % 0.4 % 04/03/20 06:45 Neutrophils % 58.6 04/03/20 06:45 Band Neutrophils % Cancelled 04/01/20 13:07 Lymphocytes % 28.3 04/03/20 06:45 Atypical Lymphs % Cancelled 04/01/20 13:07 Monocytes % 9.1 04/03/20 06:45 Eosinophils % 3.2 04/03/20 06:45 Basophils % 0.4 04/03/20 06:45 Metamyelocytes % Cancelled 04/01/20 13:07 Myelocytes % Cancelled 04/01/20 13:07 Promyelocytes % Cancelled 04/01/20 13:07 Absolute Neutrophils 3.09 k/cumm (1.2-6.7) 04/03/20 06:45 Absolute Lymphocytes 1.49 k/cumm (1.2-3.4) 04/03/20 06:45 Absolute Monocytes 0.48 k/cumm (0.11-0.7) 04/03/20 06:45 Absolute Eosinophils 0.17 k/cumm (0.0-0.7) 04/03/20 06:45 Absolute Basophils 0.02 k/cumm (0.0-0.2) 04/03/20 06:45 Nucleated RBCs Cancelled 04/01/20 13:07 Differential Comment Cancelled 04/01/20 13:07 Other Cell Type Cancelled 04/01/20 13:07 RBC Morphology Cancelled 04/01/20 13:07 Polychromasia Cancelled 04/01/20 13:07 Hypochromasia Cancelled 04/01/20 13:07 Poikilocytosis Cancelled 04/01/20 13:07 Basophilic Stippling Cancelled 04/01/20 13:07 Anisocytosis Cancelled 04/01/20 13:07 Microcytosis Cancelled 04/01/20 13:07 Macrocytosis Cancelled 04/01/20 13:07 Spherocytes Cancelled 04/01/20 13:07 Target Cells Cancelled 04/01/20 13:07 Tear Drop Cells Cancelled 04/01/20 13:07 Ovalocytes Cancelled 04/01/20 13:07 Stomatocytes Cancelled 04/01/20 13:07 Pop-[place] Bodies Cancelled 04/01/20 13:07 Nolan Cells Cancelled 04/01/20 13:07 Acanthocytes (Spur) Cancelled 04/01/20 13:07 Schistocytes Cancelled 04/01/20 13:07 ESR 26 mm/hr (0-30) 04/01/20 12:40 PT 10.5 sec (9.3-11.0) 04/01/20 12:40 INR 1.0 (0.9-1.1) 04/01/20 12:40 APTT 27.0 sec (21.0-31.4) 04/01/20 12:40 Sodium 142 mmol/L (136-145) 04/03/20 06:45 Potassium 3.9 mmol/L (3.5-5.1) 04/03/20 06:45 Chloride 105 mmol/L (98-107) 04/03/20 06:45 Carbon Dioxide 27.1 mmol/L (21.0-32.0) 04/03/20 06:45 Anion Gap 9.9 mmol/L (3-11) 04/03/20 06:45 BUN 11 mg/dL (7-18) 04/03/20 06:45 Creatinine 0.77 mg/dL (0.55-1.02) 04/03/20 06:45 Estimated GFR/1.73 m2 >= 60.00 (mL/min/1.73m2) 04/03/20 06:45 Glucose 151 mg/dL (74-106) H 04/03/20 06:45 Hemoglobin A1c 6.5 % (3.8-5.6) H 04/01/20 12:40 Lactate 1.3 mmol/L (0.6-1.4) 04/01/20 12:40 Calcium 9.1 mg/dL (8.5-10.1) 04/03/20 06:45 Total Bilirubin 0.5 mg/dL (0.2-1.0) 04/01/20 12:40 AST 23 U/L (15-37) 04/01/20 12:40 ALT 23 U/L (14-59) 04/01/20 12:40 Alkaline Phosphatase 78 U/L (46-116) 04/01/20 12:40 C-Reactive Protein 4.74 mg/dL (0.0-0.3) H 04/02/20 06:05 Total Protein 8.2 g/dL (6.4-8.2) 04/01/20 12:40 Albumin 4.0 g/dL (3.4-5.0) 04/01/20 12:40 Vitamin B12 422 pg/mL (193-986) 04/03/20 06:45 Procalcitonin 0.1 ng/mL 04/02/20 06:05 Vancomycin Trough 14.6 ug/mL (10.0-20.0) 04/03/20 06:45 COVID-19 PCR Negative (Negative) 04/01/20 13:30 Nasopharyn COVID-19 PCR Not Applicable 04/01/20 13:30 Ref Test Perform Site [facility] 04/01/20 13:30
[2020-04-03] MEDS: Lactated Ringers 1,000 ML 50 ML IV (11:18)
[2020-04-03 11:19] VITALS: BP 117/69; PULSE 66; RESP 18; TEMP 36.7; O2SAT 96
--- NOTE | 2020-04-03 12:21 | PHA.REVIEW ---
Pharmacy Admission Review - Admission Clinical Review (Last Reviewed 04/02/20 @ 07:32 by Luciano Don DPM) Osteomyelitis (Acute) Discharge planning issues (Acute) Diabetes mellitus type 2 (Active) Gastroesophageal reflux disease (Active) Cellulitis of toe (Acute) Type II diabetes mellitus with neurological manifestations (Acute 04/10/13) Tobacco abuse disorder (Acute 06/08/17) Essential hypertension (Acute 10/30/11) Diabetic neuropathy (Acute 11/29/13) Asthma (Active) Sulfa (Sulfonamide Antibiotics) Allergy (Intermediate, Verified 04/01/20 12:13) Swelling, difficulty breathing niacin Adverse Reaction (Intermediate, Verified 04/01/20 12:13) HIVES amoxicillin Adverse Reaction (Mild, Verified 04/01/20 12:13) VAGINAL INFECTION INFECTION Height 5 ft 8 in Weight 102.7 kg - Renal Dosing Renal Dosing: BUN 11 mg/dL (7-18) 04/03/20 06:45 Creatinine 0.77 mg/dL (0.55-1.02) 04/03/20 06:45 Medications needing adjustments: Reviewed (Crcl ~102.3 mL/min using adjusted body weight. Current meds okay) - Anticoagulation Anticoagulation: Hgb 10.6 g/dL (12.0-15.5) L 04/03/20 06:45 Hct 33.6 % (36.0-46.0) L 04/03/20 06:45 Plt Count 230 x1000/uL (130-400) 04/03/20 06:45 INR 1.0 (0.9-1.1) 04/01/20 12:40 Creatinine 0.77 mg/dL (0.55-1.02) 04/03/20 06:45 DVT Prohphylaxis: Reviewed Medications: Heparin (on hold as pt is going to the OR today) - Opiate Usage Evaluate Pain Scale/Pains Meds: Intervened Scheduled Bowel Reg ordered if on Opiates?: No (will mention to provider) - Relevant Labs ESR 26 mm/hr (0-30) 04/01/20 12:40 Sodium 142 mmol/L (136-145) 04/03/20 06:45 Potassium 3.9 mmol/L (3.5-5.1) 04/03/20 06:45 Chloride 105 mmol/L (98-107) 04/03/20 06:45 C-Reactive Protein 4.74 mg/dL (0.0-0.3) H 04/02/20 06:05 Electrolytes, C-Reactive P, ESR: Reviewed - DM Control DM Control: Glucose 151 mg/dL (74-106) H 04/03/20 06:45 Hemoglobin A1c 6.5 % (3.8-5.6) H 04/01/20 12:40 Finger Stick Blood Glucose 148 Finger Stick Blood Glucose 148 Finger Stick Blood Glucose 147 Finger Stick Blood Glucose 147 Insulin Dosing: Reviewed (sliding scale aspart ordered and pt's own ozempic) - Heart Failure/TX EF%, RADHA's, B-Blockers, Diuretics: Reviewed (lisinopril) - BP Control BP Control: Blood Pressure 117/69 Blood Pressure 139/83 If elevated: N/A - Qtc Review If Elevated: N/A - IV to PO Switch IV Medications: N/A - Home Meds Home Med List reviewed: Intervened Relevent Home Meds Not ordered & why?: Some meds on home med list do not match what has been picked from the pharmacy on the external med history (for example the desmopressin has not been picked up in past year, and insulin degludec was last picked up in December for a 14 day supply). Provider made aware of discrepancies when home meds were ordered. - Current meds Current Medication Order Review: Reviewed - Comments Comments/Follow Ups: Vanco trough ordered for tomorrow afternoon. Watch for restart of heparin postop and for culture results. Antibiotic Activity - Pharmacy Antibiotic Review Pharmacy Antibiotic Activity: C/S review (Vanco and cefepime continue (day 3 starts this afternoon). BC no growth @ 24 hours. The extrapolated vanco trough this morning was 12.9 so vanco dose was adjusted to 1500 mg Q10H to target a trough of 15.4.)
[2020-04-03] MEDS: Lidocaine 1% Multi-Dose 50 ML VIAL (12:25)
[2020-04-03] MEDS: Bupivacaine 0.5% Pres-Free 30 ML VIAL (12:25)
--- NOTE | 2020-04-03 12:50 | AMP_PTH ---
PATIENT: Maureen Schmitz LOC: U#:[id number] AGE/SX: 54/F ROOM: [id number] RE04/01/[address]: Stephanie Lobo : 1965 BED: A DIS: 04/05/2020 SPEC #: [id number] RECD: 04/03/20 15:50 STATUS: ANDREE REQ #: [id number] DEEDEE: 04/03/20 12:[address]: Stephanie Lobo DEPT: Surgical Specimen RECD BY: Kaur García ENTERED: 04/03/20 15:50 SP TYPE: Amputation OTHR DR: Luciano Don APRN Tissues: 1 - AMPUTATION FINGERS/TOES(NOT TRAUMA) Procedures: GROSS AND MICRO LEVEL 4 Comments: [id number]
--- NOTE | 2020-04-03 13:11 | W.PM.OP ---
Date of service: 04/03/20 Time of Service: 13:11 Operative Note Operative Note DATE OF PROCEDURE: 04/03/20 PRE-OP DIAGNOSIS: Diabetic ulceration with osteomyelitis right second toe PROCEDURE: Debridement of the right second toe ANESTHESIA: SHAYLEE ESTIMATED BLOOD LOSS: 5 PATHOLOGY: other Patient was transported to: floor Patient's condition: stable Implants: 10/28 iodoform drain Indications: 54-year-old female with diabetes subsequent ulceration affecting the right second toe with osteomyelitis affecting the distal phalanx. She was brought in house for IV antibiotics and bedrest and is now prepared to undergo debridement of the right second toe. She understands the permanency of the procedure as well as potential risk and complications pertaining to pain, scarring, infection the need for revisional procedures are for the loss of tissue. No promises were made to the final outcome of surgery. Informed consents been obtained. Procedure Description: Angela is brought to the operative suite placed in the supine position with a right foot prepped and draped in the usual sterile podiatric fashion. Timeout was performed per protocol. Anesthesia was achieved via general anesthesia as well as local block of the right second toe utilizing 10 cc of a 50: 50 mixture, 1% lidocaine plain, 0.5% Marcaine plain. Attention was directed to the right second toe where 2 incisions were placed so as to encompass the digit just distal to the proximal interphalangeal joint the incision was deepened dorsally initially and a dorsal flap raised no purulence was identified and good bleeding was identified. The extensor tendon was severed with a #15 scalpel as well as the joint capsule at the PIPJ level. The skin incision was then continued medially laterally and plantarly to raise a plantar flap the flexor tendon was identified and transversely incised at the PIPJ level. The collaterals were released and the distal portion of the second toe removed from the operative field. Bleeding was controlled through electrocautery as needed. Copious irrigation was performed. The dorsal and plantar flaps were remodeled so as to afford primary closure. The dorsal and plantar flaps were closed utilizing a near far far near suture technique of 3-0 nylon quarter inch iodoform gauze kunal were then inserted both medially and laterally and the 2 edges of the wound further closed with 3-0 nylon simple interrupted suture. Please note copious irrigation had been performed. The wound was dressed with I with Xeroform gauze fluff compression dressings. Cultures were obtained on the back table from the debrided portion of the digit for aerobic and anaerobic studies. Maureen left the OR with vital signs stable, vascular status intact. Sharp and sponge counts were correct. She will remain in-house for bedrest and IV antibiotics and pain control.
[2020-04-03 13:38] VITALS: BP 140/72; PULSE 63; RESP 16; TEMP 36.7; O2SAT 98
[2020-04-03] MEDS: Acetaminophen 325 MG TAB PO ×2 (13:46→19:34)
--- NOTE | 2020-04-03 14:34 | NUR.NOTE ---
Nursing Note: Patient returns from the procedure room, only pain was in her back from the position of lying on the stretcher. she was given Tylenol for the pain and will be monitored for effect. Dr Don presents, he gives orders to DC LR. Ice pack to the affected extremity. Surgical boot while OOB. Activity for the night bed to commode. And to reinforce dressing with abd pad and kerlix if it strikes through. Dressing [place] strike [place] [id number] and was taken care of as ordered , will continue to monitor for strile through and update Dr. Don as needed.
[2020-04-03 16:14] VITALS: BP 179/79; PULSE 62; RESP 17; TEMP 36.7; O2SAT 98
[2020-04-03 19:14] VITALS: BP 144/75; PULSE 70; RESP 19; TEMP 37.1; O2SAT 98
[2020-04-03] MEDS: Pregabalin 100 MG CAP 200 MG PO (19:34)
[2020-04-03] MEDS: Oxybutynin 5 MG TAB 10 MG PO (19:34)
[2020-04-03] MEDS: lamoTRIgine 100 MG TAB PO (19:35)
[2020-04-03] MEDS: Lurasidone 40 MG TAB 140 MG PO (22:02)
[2020-04-03] MEDS: Melatonin 3 MG TAB 6 MG PO (22:03)
[2020-04-03] MEDS: Simvastatin 10 MG TAB PO (22:03)
[2020-04-04] MEDS: CEFEPIME 2 GM in Normal Saline 100 ML IVPB ×3 (00:01→23:35)
[2020-04-04 03:28] VITALS: BP 153/69; PULSE 74; RESP 19; TEMP 36.8; O2SAT 97
[2020-04-04] MEDS: Lactated Ringers 1,000 ML 50 ML IV (06:37)
[2020-04-04 07:32] LABS: Abs Immature Grans 0.02 k/cumm (0.0-0.09); Absolute Basophil Count 0.02 k/cumm (0.0-0.2); Absolute Eosinophil Count 0.23 k/cumm (0.0-0.7); Absolute Lymphocyte Count 1.75 k/cumm (1.2-3.4); Absolute Monocyte Count 0.52 k/cumm (0.11-0.7); Absolute Neutrophil Count 3.61 k/cumm (1.2-6.7); Basophils % 0.3; Eosinophils % 3.7; HCT 32.4 % (36.0-46.0); HGB 10.2 g/dL (12.0-15.5); Immature Grans % 0.3 %; Lymphocytes % 28.5; Mean Corp. HGB Concentration 31.5 g/dL (32.0-36.0); Mean Corpuscular Hemoglobin 26.1 pg (27.0-33.0); Mean Corpuscular Volume 82.9 fL (80-95); Mean Platelet Volume 11.4 fL (8.0-11.0); Monocytes % 8.5; Neutrophils % 58.7; Platelet Count 250 x1000/uL (130-400); RBC 3.91 m/cumm (4.00-5.20); RBC Distribution Width 13.7 % (11.7-14.6); White Blood Cell Count 6.15 k/cumm (4.4-10.8)
[2020-04-04 07:44] LABS: Anion Gap 8.7 mmol/L (3-11); BUN 10 mg/dL (7-18); CO2 26.3 mmol/L (21.0-32.0); CREATININE 0.72 mg/dL (0.55-1.02); Chloride 105 mmol/L (98-107); Glucose 132 mg/dL (74-106); Potassium 3.9 mmol/L (3.5-5.1); Sodium 140 mmol/L (136-145)
[2020-04-04 07:54] VITALS: BP 170/75; PULSE 64; RESP 18; TEMP 36.4; O2SAT 94
[2020-04-04] MEDS: lamoTRIgine 100 MG TAB 200 MG PO (08:14)
[2020-04-04] MEDS: Insulin Aspart 300 UNITS/3 ML PEN SC ×3 (08:14→21:13)
[2020-04-04] MEDS: Lisinopril 5 MG TAB 2.5 MG PO (08:15)
[2020-04-04] MEDS: Pregabalin 100 MG CAP 200 MG PO ×2 (08:15→19:48)
[2020-04-04] MEDS: Meloxicam 15 MG TAB PO (08:15)
[2020-04-04] MEDS: Aspirin E.C. 81 MG TABEC PO (08:15)
[2020-04-04] MEDS: Pantoprazole 40 MG TABCR PO (08:15)
[2020-04-04] MEDS: Cetirizine 10 MG TAB PO (08:15)
--- NOTE | 2020-04-04 08:55 | PDOC.CMPRO ---
- If Service Date Differs Date of service: 04/04/20 Time of Service: 08:55 Care Management Progress Note S/O: Frank remains acute today she is post op day 1 she remains on IV abx. She will be discharged on Wednesday pending she continue to recover well. She will transition to oral abx on day of discharge. Anticipate no additional services at time of discharge and she will continue to follow up with primary care and podiatry as outpatient once medically clear for discharge. A: Frank is a 54 year old female admitted with osteo, cellulitis status post debridement right second toe with removal to the proximal interphalangeal joint. P:Frank will be discharged home when medically ready. She has declined home health services at this time. She and will manage the dressing changes and wound care. CM will continue to assess for discharged needs and supports. She will be transported via private car and family at time of discharge.
--- NOTE | 2020-04-04 09:03 | W.PM.PROGNOT ---
Date of Service Date of service: 04/04/20 Time of Service: 09:03 Assessment and Plan Assessment and plan (1) Osteomyelitis: Status: Acute Assessment and plan: post op day #1, with no complications, post-operative pain controlled. continue current antibiotic regimen. day 4 vancomycin and cefepime planned through wednesday which is anticipated discharge date, plan to discharge to home on 2 weeks of augmentin if she remains medically stable. blood cultures pending. follow surveillance labs. post op shoe for ambulation, which should be limited. dressing changes per podiatry (2) Type II diabetes mellitus with neurological manifestations: Status: Acute Assessment and plan: metformin placed on hold while hospitalized. Patient will be placed on SSI with carb/heart healthy diet. Fingersticks AC/HS. A1C 6.5. has not needed coverage, blood sugars 130-150 (3) Tobacco abuse disorder: Status: Acute Assessment and plan: nicotine patch while hospitalized if needed (4) Essential hypertension: Status: Acute Assessment and plan: blood pressures elevated since surgery. will continue to monitor. consider increasing lisinopril if needed. (5) Depressive disorder: Status: Chronic Assessment and plan: stable, continue home medications (6) Gastroesophageal reflux disease: Status: Active Assessment and plan: stable, continue pantoprazole (7) Asthma: Status: Active Assessment and plan: stable and continue inhalers. (8) Discharge planning issues: Status: Acute Assessment and plan: anticipate a discharge to home Wednesday if remains medically stable. declining home services at this time. case management following. case and plan of care discussed with Dr Lobo who is in agreement Subjective Subjective Patient reports: no new complaints, tolerating liquids well, tolerating a regular diet and afebrile Interval history since last seen: patient with no post-operative complications. pain is well managed. she is eating and drinking well. blood sugars are controlled with diet alone, no requiring any coverage Exam Const General: cooperative, comfortable, no acute distress and ill appearing (older appearing than stated age) chronically Nutritional Appearance: overweight Orientation: alert, awake and oriented x3 HENMT Head: normal to inspection, normocephalic and atraumatic Mouth: oral mucosae normal Resp Effort & Inspection: normal respiratory effort Auscultation: clear to auscultation bilaterally Cardio Rate: regular rate Rhythm: regular rhythm GI Inspection: normal to inspection Palpation: soft Auscultation: normal bowel sounds Skin General skin exam: other (post operative dressing intact sm amount of blood on dressing reinforced) Lesions: lesion noted (2nd and great toes on right. ) Rashes: no rashes Neuro General: patient alert, patient awake and patient oriented x3 Objective Objective Clinical Data: Abnormal lab results 04/04/20 04/04/20 Range/Units 07:15 07:15 RBC 3.91 L (4.00-5.20) m/cumm Hgb 10.2 L (12.0-15.5) g/dL Hct 32.4 L (36.0-46.0) % MCH 26.1 L (27.0-33.0) pg MCHC 31.5 L (32.0-36.0) g/dL MPV 11.4 H (8.0-11.0) fL Glucose 132 H (74-106) mg/dL Vital Signs Temperature 36.4 C L 04/04/20 07:54 Temperature Source Tympanic 04/04/20 07:54 Pulse 64 04/04/20 07:54 Pulse Rhythm Regular 04/04/20 02:49 Respiratory Rate 18 04/04/20 07:54 Respiratory Effort Non-Labored 04/04/20 02:49 Respiratory Depth Normal 04/04/20 02:49 Respiratory Pattern Normal 04/04/20 02:49 Blood Pressure 170/75 H 04/04/20 07:54 Blood Pressure Position Sitting 04/01/20 11:59 Pulse Oximetry 94 L 04/04/20 07:54 Oxygen Delivery Method Room Air 04/04/20 07:54 Oxygen Flow Rate 0 04/04/20 07:54 Pain Level 0 04/04/20 07:54 Intake & Output 04/03/20 04/03/20 04/04/20 11:59 23:59 11:59 Intake Total 360 / 1350 990 / 1350 700 / 700 Output Total 500 / 1100 600 / 1100 1300 / 1300 Balance -140 / 250 390 / 250 -600 / -600 Intake: IV 360 / 1110 750 / 1110 700 / 700 Oral 0 / 240 240 / 240 Output: Urine 500 / 1100 600 / 1100 1300 / 1300 Other: Urine Color Yellow Yellow Light Gabby Urine Appearance Clear Clear Clear Urine Odor Normal Normal Normal Comment independant to the toilet Voiding Methods Toilet Toilet Toilet Laboratory Results WBC 6.15 k/cumm (4.4-10.8) 04/04/20 07:15 RBC 3.91 m/cumm (4.00-5.20) L 04/04/20 07:15 Hgb 10.2 g/dL (12.0-15.5) L 04/04/20 07:15 Hct 32.4 % (36.0-46.0) L 04/04/20 07:15 MCV 82.9 fL (80-95) 04/04/20 07:15 MCH 26.1 pg (27.0-33.0) L 04/04/20 07:15 MCHC 31.5 g/dL (32.0-36.0) L 04/04/20 07:15 RDW 13.7 % (11.7-14.6) 04/04/20 07:15 Plt Count 250 x1000/uL (130-400) 04/04/20 07:15 MPV 11.4 fL (8.0-11.0) H 04/04/20 07:15 Immature Gran % 0.3 % 04/04/20 07:15 Neutrophils % 58.7 04/04/20 07:15 Band Neutrophils % Cancelled 04/01/20 13:07 Lymphocytes % 28.5 04/04/20 07:15 Atypical Lymphs % Cancelled 04/01/20 13:07 Monocytes % 8.5 04/04/20 07:15 Eosinophils % 3.7 04/04/20 07:15 Basophils % 0.3 04/04/20 07:15 Metamyelocytes % Cancelled 04/01/20 13:07 Myelocytes % Cancelled 04/01/20 13:07 Promyelocytes % Cancelled 04/01/20 13:07 Absolute Neutrophils 3.61 k/cumm (1.2-6.7) 04/04/20 07:15 Absolute Lymphocytes 1.75 k/cumm (1.2-3.4) 04/04/20 07:15 Absolute Monocytes 0.52 k/cumm (0.11-0.7) 04/04/20 07:15 Absolute Eosinophils 0.23 k/cumm (0.0-0.7) 04/04/20 07:15 Absolute Basophils 0.02 k/cumm (0.0-0.2) 04/04/20 07:15 Nucleated RBCs Cancelled 04/01/20 13:07 Differential Comment Cancelled 04/01/20 13:07 Other Cell Type Cancelled 04/01/20 13:07 RBC Morphology Cancelled 04/01/20 13:07 Polychromasia Cancelled 04/01/20 13:07 Hypochromasia Cancelled 04/01/20 13:07 Poikilocytosis Cancelled 04/01/20 13:07 Basophilic Stippling Cancelled 04/01/20 13:07 Anisocytosis Cancelled 04/01/20 13:07 Microcytosis Cancelled 04/01/20 13:07 Macrocytosis Cancelled 04/01/20 13:07 Spherocytes Cancelled 04/01/20 13:07 Target Cells Cancelled 04/01/20 13:07 Tear Drop Cells Cancelled 04/01/20 13:07 Ovalocytes Cancelled 04/01/20 13:07 Stomatocytes Cancelled 04/01/20 13:07 [place] Bodies Cancelled 04/01/20 13:07 Nolan Cells Cancelled 04/01/20 13:07 Acanthocytes (Spur) Cancelled 04/01/20 13:07 Schistocytes Cancelled 04/01/20 13:07 ESR 26 mm/hr (0-30) 04/01/20 12:40 PT 10.5 sec (9.3-11.0) 04/01/20 12:40 INR 1.0 (0.9-1.1) 04/01/20 12:40 APTT 27.0 sec (21.0-31.4) 04/01/20 12:40 Sodium 140 mmol/L (136-145) 04/04/20 07:15 Potassium 3.9 mmol/L (3.5-5.1) 04/04/20 07:15 Chloride 105 mmol/L (98-107) 04/04/20 07:15 Carbon Dioxide 26.3 mmol/L (21.0-32.0) 04/04/20 07:15 Anion Gap 8.7 mmol/L (3-11) 04/04/20 07:15 BUN 10 mg/dL (7-18) 04/04/20 07:15 Creatinine 0.72 mg/dL (0.55-1.02) 04/04/20 07:15 Estimated GFR/1.73 m2 >= 60.00 (mL/min/1.73m2) 04/04/20 07:15 Glucose 132 mg/dL (74-106) H 04/04/20 07:15 Hemoglobin A1c 6.5 % (3.8-5.6) H 04/01/20 12:40 Lactate 1.3 mmol/L (0.6-1.4) 04/01/20 12:40 Calcium 9.0 mg/dL (8.5-10.1) 04/04/20 07:15 Total Bilirubin 0.5 mg/dL (0.2-1.0) 04/01/20 12:40 AST 23 U/L (15-37) 04/01/20 12:40 ALT 23 U/L (14-59) 04/01/20 12:40 Alkaline Phosphatase 78 U/L (46-116) 04/01/20 12:40 C-Reactive Protein 4.74 mg/dL (0.0-0.3) H 04/02/20 06:05 Total Protein 8.2 g/dL (6.4-8.2) 04/01/20 12:40 Albumin 4.0 g/dL (3.4-5.0) 04/01/20 12:40 Vitamin B12 422 pg/mL (193-986) 04/03/20 06:45 Procalcitonin 0.1 ng/mL 04/02/20 06:05 Vancomycin Trough 14.6 ug/mL (10.0-20.0) 04/03/20 06:45 COVID-19 PCR Negative (Negative) 04/01/20 13:30 Nasopharyn COVID-19 PCR Not Applicable 04/01/20 13:30 Ref Test Perform Site [facility] 04/01/20 13:30
[2020-04-04] MEDS: Oxybutynin 5 MG TAB PO (09:13)
--- NOTE | 2020-04-04 09:41 | PGE_ITS ---
Date of Service Date of service: 04/04/20 Time of Service: 09:42 Subjective Subjective Patient reports: no new complaints Interval history since last seen: Maureen is seen resting comfortably in her room. She has no complaints of pain at all in her right foot. She is looking forward to being able to go home. Exam Narrative Exam Narrative: 24 hours status post debridement right second toe with removal to the proximal interphalangeal joint. Dressings are intact and light bloody staining of the dressings appreciated. Microbiology shows white blood cells from the surgical specimen no bacteria noted at 24 hours. Blood cultures remaining negative. Morning labs are reviewed and contained within this note. Dressing change was performed to the right foot. The remaining tissue is viable with good capillary return. The cellulitis has nearly completely resolved and no odor or signs of purulence identified. The 2 kunal were removed from the surgical incision and no active bleeding developed. The incision region was painted with Betadine paint and a fresh dressing consisting of Xeroform, fluffs, Kerlix, flex net and 4 inch David wrap reapplied. Impression: 24 hours status post debridement right second toe through the PIPJ clinically stable Plan: Recommend Maureen stay an additional 24 hours for continued IV antibiotics, and rest. She may begin full weightbearing with a surgical shoe on the right foot. Anticipate discharge tomorrow with oral antibiotics being instituted consisting of Augmentin 875 twice daily for 14 days. Discussed the case with the hospitalist who agrees with the plan. Objective Objective Clinical Data: Abnormal lab results 04/04/20 04/04/20 Range/Units 07:15 07:15 RBC 3.91 L (4.00-5.20) m/cumm Hgb 10.2 L (12.0-15.5) g/dL Hct 32.4 L (36.0-46.0) % MCH 26.1 L (27.0-33.0) pg MCHC 31.5 L (32.0-36.0) g/dL MPV 11.4 H (8.0-11.0) fL Glucose 132 H (74-106) mg/dL Vital Signs Temperature 36.4 C L 04/04/20 07:54 Temperature Source Tympanic 04/04/20 07:54 Pulse 64 04/04/20 07:54 Pulse Rhythm Regular 04/04/20 02:49 Respiratory Rate 18 04/04/20 07:54 Respiratory Effort Non-Labored 04/04/20 02:49 Respiratory Depth Normal 04/04/20 02:49 Respiratory Pattern Normal 04/04/20 02:49 Blood Pressure 170/75 H 04/04/20 07:54 Blood Pressure Position Sitting 04/01/20 11:59 Pulse Oximetry 94 L 04/04/20 07:54 Oxygen Delivery Method Room Air 04/04/20 07:54 Oxygen Flow Rate 0 04/04/20 07:54 Pain Level 0 04/04/20 07:54 Intake & Output 04/03/20 04/04/20 04/04/20 18:59 06:59 18:59 Intake Total 1000 / 1950 950 / 1950 135 / 135 Output Total 150 / 1600 1450 / 1600 300 / 300 Balance 850 / 350 -500 / 350 -165 / -165 Intake: IV 760 / 1710 950 / 1710 135 / 135 Oral 240 / 240 Output: Urine 150 / 1600 1450 / 1600 300 / 300 Other: Urine Color Yellow Yellow Light Gabby Straw Urine Appearance Clear Clear Clear Urine Odor Normal Normal Comment independant to the toilet Voiding Methods Bedside Commode Toilet Toilet Laboratory Results WBC 6.15 k/cumm (4.4-10.8) 04/04/20 07:15 RBC 3.91 m/cumm (4.00-5.20) L 04/04/20 07:15 Hgb 10.2 g/dL (12.0-15.5) L 04/04/20 07:15 Hct 32.4 % (36.0-46.0) L 04/04/20 07:15 MCV 82.9 fL (80-95) 04/04/20 07:15 MCH 26.1 pg (27.0-33.0) L 04/04/20 07:15 MCHC 31.5 g/dL (32.0-36.0) L 04/04/20 07:15 RDW 13.7 % (11.7-14.6) 04/04/20 07:15 Plt Count 250 x1000/uL (130-400) 04/04/20 07:15 MPV 11.4 fL (8.0-11.0) H 04/04/20 07:15 Immature Gran % 0.3 % 04/04/20 07:15 Neutrophils % 58.7 04/04/20 07:15 Band Neutrophils % Cancelled 04/01/20 13:07 Lymphocytes % 28.5 04/04/20 07:15 Atypical Lymphs % Cancelled 04/01/20 13:07 Monocytes % 8.5 04/04/20 07:15 Eosinophils % 3.7 04/04/20 07:15 Basophils % 0.3 04/04/20 07:15 Metamyelocytes % Cancelled 04/01/20 13:07 Myelocytes % Cancelled 04/01/20 13:07 Promyelocytes % Cancelled 04/01/20 13:07 Absolute Neutrophils 3.61 k/cumm (1.2-6.7) 04/04/20 07:15 Absolute Lymphocytes 1.75 k/cumm (1.2-3.4) 04/04/20 07:15 Absolute Monocytes 0.52 k/cumm (0.11-0.7) 04/04/20 07:15 Absolute Eosinophils 0.23 k/cumm (0.0-0.7) 04/04/20 07:15 Absolute Basophils 0.02 k/cumm (0.0-0.2) 04/04/20 07:15 Nucleated RBCs Cancelled 04/01/20 13:07 Differential Comment Cancelled 04/01/20 13:07 Other Cell Type Cancelled 04/01/20 13:07 RBC Morphology Cancelled 04/01/20 13:07 Polychromasia Cancelled 04/01/20 13:07 Hypochromasia Cancelled 04/01/20 13:07 Poikilocytosis Cancelled 04/01/20 13:07 Basophilic Stippling Cancelled 04/01/20 13:07 Anisocytosis Cancelled 04/01/20 13:07 Microcytosis Cancelled 04/01/20 13:07 Macrocytosis Cancelled 04/01/20 13:07 Spherocytes Cancelled 04/01/20 13:07 Target Cells Cancelled 04/01/20 13:07 Tear Drop Cells Cancelled 04/01/20 13:07 Ovalocytes Cancelled 04/01/20 13:07 Stomatocytes Cancelled 04/01/20 13:07 Pop-[place] Bodies Cancelled 04/01/20 13:07 [place]aln Cells Cancelled 04/01/20 13:07 Acanthocytes (Spur) Cancelled 04/01/20 13:07 Schistocytes Cancelled 04/01/20 13:07 ESR 26 mm/hr (0-30) 04/01/20 12:40 PT 10.5 sec (9.3-11.0) 04/01/20 12:40 INR 1.0 (0.9-1.1) 04/01/20 12:40 APTT 27.0 sec (21.0-31.4) 04/01/20 12:40 Sodium 140 mmol/L (136-145) 04/04/20 07:15 Potassium 3.9 mmol/L (3.5-5.1) 04/04/20 07:15 Chloride 105 mmol/L (98-107) 04/04/20 07:15 Carbon Dioxide 26.3 mmol/L (21.0-32.0) 04/04/20 07:15 Anion Gap 8.7 mmol/L (3-11) 04/04/20 07:15 BUN 10 mg/dL (7-18) 04/04/20 07:15 Creatinine 0.72 mg/dL (0.55-1.02) 04/04/20 07:15 Estimated GFR/1.73 m2 >= 60.00 (mL/min/1.73m2) 04/04/20 07:15 Glucose 132 mg/dL (74-106) H 04/04/20 07:15 Hemoglobin A1c 6.5 % (3.8-5.6) H 04/01/20 12:40 Lactate 1.3 mmol/L (0.6-1.4) 04/01/20 12:40 Calcium 9.0 mg/dL (8.5-10.1) 04/04/20 07:15 Total Bilirubin 0.5 mg/dL (0.2-1.0) 04/01/20 12:40 AST 23 U/L (15-37) 04/01/20 12:40 ALT 23 U/L (14-59) 04/01/20 12:40 Alkaline Phosphatase 78 U/L (46-116) 04/01/20 12:40 C-Reactive Protein 4.74 mg/dL (0.0-0.3) H 04/02/20 06:05 Total Protein 8.2 g/dL (6.4-8.2) 04/01/20 12:40 Albumin 4.0 g/dL (3.4-5.0) 04/01/20 12:40 Vitamin B12 422 pg/mL (193-986) 04/03/20 06:45 Procalcitonin 0.1 ng/mL 04/02/20 06:05 Vancomycin Trough 14.6 ug/mL (10.0-20.0) 04/03/20 06:45 COVID-19 PCR Negative (Negative) 04/01/20 13:30 Nasopharyn COVID-19 PCR Not Applicable 04/01/20 13:30 Ref Test Perform Site [facility] 04/01/20 13:30
[2020-04-04] MEDS: Acetaminophen 325 MG TAB PO ×2 (11:18→15:29)
[2020-04-04 13:25] LABS: Vancomycin, Trough 15.9 ug/mL (10.0-20.0)
[2020-04-04] MEDS: Normal Saline Flush 10 ML SYR IVP (14:48)
[2020-04-04 15:00] VITALS: BP 161/72; PULSE 61; RESP 18; TEMP 36.8; O2SAT 97
[2020-04-04 19:20] VITALS: BP 157/65; PULSE 61; RESP 18; TEMP 36.5; O2SAT 95
[2020-04-04] MEDS: Oxybutynin 5 MG TAB 10 MG PO (19:48)
[2020-04-04] MEDS: lamoTRIgine 100 MG TAB PO (19:48)
[2020-04-04] MEDS: Simvastatin 10 MG TAB PO (21:13)
[2020-04-04] MEDS: Melatonin 3 MG TAB 6 MG PO (21:13)
[2020-04-04] MEDS: Lurasidone 40 MG TAB 140 MG PO (21:13)
[2020-04-05 01:00] VITALS: BP 148/71; PULSE 60; RESP 16; TEMP 37; O2SAT 96
[2020-04-05 07:04] LABS: Abs Immature Grans 0.02 k/cumm (0.0-0.09); Absolute Basophil Count 0.02 k/cumm (0.0-0.2); Absolute Lymphocyte Count 1.59 k/cumm (1.2-3.4); Absolute Monocyte Count 0.63 k/cumm (0.11-0.7); Absolute Neutrophil Count 3.26 k/cumm (1.2-6.7); Basophils % 0.3; Eosinophils % 3.5; HCT 31.3 % (36.0-46.0); Immature Grans % 0.3 %; Lymphocytes % 27.8; Mean Corp. HGB Concentration 31.9 g/dL (32.0-36.0); Mean Corpuscular Hemoglobin 26.4 pg (27.0-33.0); Mean Corpuscular Volume 82.6 fL (80-95); Mean Platelet Volume 11.9 fL (8.0-11.0); Neutrophils % 57.1; Platelet Count 236 x1000/uL (130-400); RBC 3.79 m/cumm (4.00-5.20); RBC Distribution Width 13.8 % (11.7-14.6); White Blood Cell Count 5.72 k/cumm (4.4-10.8)
[2020-04-05 07:22] LABS: Anion Gap 8.7 mmol/L (3-11); BUN 12 mg/dL (7-18); CO2 27.3 mmol/L (21.0-32.0); CREATININE 0.85 mg/dL (0.55-1.02); Calcium 8.9 mg/dL (8.5-10.1); Chloride 106 mmol/L (98-107); Glucose 141 mg/dL (74-106); Potassium 3.7 mmol/L (3.5-5.1); Sodium 142 mmol/L (136-145)
[2020-04-05 07:30] VITALS: BP 154/65; PULSE 55; RESP 14; TEMP 37.6; O2SAT 93
[2020-04-05] MEDS: Pregabalin 100 MG CAP 200 MG PO (07:45)
[2020-04-05] MEDS: Oxybutynin 5 MG TAB PO (07:45)
[2020-04-05] MEDS: lamoTRIgine 100 MG TAB 200 MG PO (07:45)
[2020-04-05] MEDS: Aspirin E.C. 81 MG TABEC PO (07:45)
[2020-04-05] MEDS: Meloxicam 15 MG TAB PO (07:45)
[2020-04-05] MEDS: Pantoprazole 40 MG TABCR PO (07:46)
[2020-04-05] MEDS: Lisinopril 5 MG TAB 2.5 MG PO (07:46)
[2020-04-05] MEDS: Cetirizine 10 MG TAB PO (07:46)
--- NOTE | 2020-04-05 08:40 | DSE_ITS ---
Date of service: 04/05/20 Time of Service: 08:40 DS: Diagnosis Discharge Diagnosis (1) Osteomyelitis: Status: Acute (2) Type II diabetes mellitus with neurological manifestations: Status: Acute (3) Tobacco abuse disorder: Status: Acute (4) Essential hypertension: Status: Acute (5) Depressive disorder: Status: Chronic (6) Gastroesophageal reflux disease: Status: Active (7) Asthma: Status: Active Discharge Plan Disposition Patient Disposition: HOME Condition: Stable Discharge Details Chief Complaint: Cellulitis Clinical Impression: Cellulitis of toe Reason For Visit: CELLULITIS, ? OSTEO Admit Date/Time: 04/01/20 13:01 Admit Provider: Stephanie Lobo Attending Provider: Stephanie Lobo Primary Care Provider: Anjana Gayle ED Provider: Lacy Thibodeaux Hospital Course Hospital Course: This is a 54-year-old female with a past medical history significant for diabetes with neuropathy hypertension obesity who was sent from Dr. Don's office to the emergency department for evaluation and admission for antibiotics for second toe cellulitis and ulcer on her right lower extremity. She had cut her toe approximately 2 weeks prior and noticed that it was swollen imaging in the emergency department did show concern for osteomyelitis. She did undergo a MRI which confirmed the diagnosis. She was started on vancomycin and cefepime while awaiting blood and wound cultures. Dr. perdomo continued to follow and ultimately amputated her toe at her proximal inter-pharyngeal joint. Staphylcoccus pseudintermedia and Streptococcus viridans group Were isolated from previous cultures. Repeat blood cultures remaining negative at 72 hours. She may begin full weight-bearing with a surgical shoe on the right foot as tolerated. She appears clinically stable for discharge today with p.o. antibiotics to include 14 days of Augmentin 875 twice daily and a 8-day course of doxycycline. Her blood sugars have been controlled postoperatively with diet only. She was advised to follow-up with her outpatient provider for further diabetes management recommendations. She states that discharge she will go back to all her previously scheduled diabetes medications She had no postoperative complications she has been hemodynamically stable. Her hemoglobin has been stable at 10. She had good pedal pulses and circulation demonstrated during and after surgery. She will follow-up outpatient with podiatry for wound care and further management. Her case and discharge plan was discussed with Dr. Lobo who is in agreement Home Meds and New Rx's Prescriptions: New acetaminophen [Tylenol] 325 mg Tablet 325 - 650 mg PO Q4H PRN PRNQty: 0 RF: 0 amoxicillin-pot clavulanate [Augmentin] 875-125 mg tablet 1 tab PO BID Qty: 28 RF: 0 doxycycline hyclate 100 mg capsule 100 mg PO BID Qty: 16 RF: 0 Continued (DME) blood sugar diagnostic Strip See Dose Instructions .ROUTE .MEDSUPPLY Qty: 400 RF: 3 meloxicam 15 mg tablet 15 mg PO DAILY Qty: 90 RF: 3 melatonin 5 mg capsule 5 mg PO HS RF: 0 (DME) pen needle, diabetic 31 gauge x 5/16 needle 1 ea Miscellaneous DAILY Qty: 90 RF: 12 aspirin 81 MG tablet,delayed release (DR/EC) 81 mg PO DAILY Qty: 90 RF: 3 Latuda 80 MG tablet 160 mg PO HS RF: 0 lamotrigine 200 MG tablet 300 mg PO DAILY Qty: 135 RF: 3 Flovent HFA 10.6 GM HFA aerosol inhaler 2 puff Inhalation BID Qty: 3 RF: 3 albuterol sulfate [Proventil HFA] 6.7 GM HFA aerosol inhaler 2 puff Inhalation Q6H PRN Qty: 1 RF: 3 (DME) lancing device with lancets kit See Dose Instructions .ROUTE .MEDSUPPLY Qty: 1 RF: 0 alprazolam 1 mg tablet extended release 24 hr 1 mg PO DAILY PRNQty: 1 RF: 0 insulin aspart U-100 [Novolog Flexpen U-100 Insulin] 100 unit/mL insulin pen See Rx Instructions Sub-Q AC MDD 72u Qty: 15 RF: 3 nicotine 7 mg/24 hr patch 24 hour 1 patch TD Q24H Qty: 28 RF: 0 semaglutide 1 mg/dose (2 mg/1.5 mL) pen injector 1 mg SC QWEEK Qty: 3 RF: 12 lisinopril 2.5 mg tablet 2.5 mg PO DAILY Qty: 90 RF: 3 simvastatin 10 mg tablet 10 mg PO HS Qty: 90 RF: 3 cetirizine 10 mg tablet 10 mg PO DAILY Qty: 90 RF: 3 Chantix Starting Month Box 0.5 mg (11)- 1 mg (42) tablets,dose pack See Rx Instructions PO PER PKG DIR Qty: 53 RF: 0 oxybutynin chloride 5 mg tablet 5 mg PO as directed MDD 15 mg Qty: 270 RF: 3 pantoprazole 40 mg tablet,delayed release (DR/EC) 40 mg PO DAILY Qty: 90 RF: 3 (DME) lancets [OneTouch Delica Lancets] 33 gauge misc See Dose Instructions .ROUTE .MEDSUPPLY Qty: 100 RF: 6 fenofibrate micronized 67 mg capsule 67 mg PO DAILY Qty: 90 RF: 3 (DME) blood sugar diagnostic [FreeStyle Test] Strip See Rx Instructions .ROUTE .MEDSUPPLY Qty: 50 RF: 4 pregabalin [Lyrica] 200 mg capsule 200 mg PO BID Qty: 60 RF: 3 Discontinued hemp oil sublingual RF: 0 desmopressin [DDAVP] 0.2 MG tablet 0.4 mg PO HS Qty: 60 RF: 0 metformin 1,000 mg tablet 1,000 mg PO BID Qty: 180 RF: 3 Tresiba FlexTouch U-200 200 unit/mL (3 mL) insulin pen 58 unit SC DAILY Qty: 9 RF: 4 linagliptin 5 mg tablet 5 mg PO DAILY Qty: 90 RF: 3 Discharge Instructions Instructions: Toe Amputation (DC) Additional Instructions: keep dressing clean and dry until your follow up appointment with podiatry wear your post op shoe when up, limit ambulation. monitor your blood sugars and record, bring to your follow up appointment Stand Alone Forms: Nursing Discharge Form Referrals: Ann Marie Ritchie DO [OSTEOPATHIC DOCTOR] - 04/19/20 10:45 am Luciano Don DPM [[facility] STAFF PHYSICIAN] - 04/10/20 8:30 am Activity:: post op shoe, limited Equipment/Supplies:: post op shoe Diet:: Carb Counting Discharge Orders Discharge Orders: Discharge Order (Routine); Ordered 04/05/20 Ordered By: Carla Rodarte Discharge Data Discharge Date/Time-TO BE ENTERED AT DEPARTURE: 04/05/20 12:38 DS: Summary Status at Discharge Functional status at discharge: independent ambulation Overall status at discharge: patient is progressing back to baseline Mental Status: mental status grossly normal Speech and Movement: speech and movement normal Mood: congruent mood Affect: normal affect Exam Const General: cooperative, comfortable, no acute distress and ill appearing (older appearing than stated age) chronically Nutritional Appearance: overweight Orientation: alert, awake and oriented x3 HENMT Head: normal to inspection, normocephalic and atraumatic Mouth: oral mucosae normal Resp Effort & Inspection: normal respiratory effort Auscultation: clear to auscultation bilaterally Cardio Rate: regular rate Rhythm: regular rhythm GI Inspection: normal to inspection Palpation: soft Auscultation: normal bowel sounds Skin General skin exam: other (post operative dressing intact and dry she is wearing a postoperative shoe) Lesions: lesion noted (Dressing changed by Dr. Don so not visualized) Rashes: no rashes Neuro General: patient alert, patient awake and patient oriented x3 Psych Mental Status: mental status grossly normal Speech and Movement: speech and movement normal Mood: congruent mood Affect: normal affect DS: Data Vitals/I&O Vitals and I&O: Vital Signs Temperature 37.6 C H 04/05/20 07:30 Temperature Source Tympanic 04/05/20 07:30 Pulse 55 L 04/05/20 07:30 Pulse Rhythm Regular 04/05/20 07:30 Respiratory Rate 14 04/05/20 07:30 Respiratory Effort 04/05/20 07:30 Respiratory Depth Normal 04/05/20 07:30 Respiratory Pattern Normal 04/05/20 07:30 Blood Pressure 154/65 H 04/05/20 07:30 Blood Pressure Position Sitting 04/01/20 11:59 Pulse Oximetry 93 L 04/05/20 07:30 Oxygen Delivery Method Room Air 04/05/20 07:30 Oxygen Flow Rate 0 04/05/20 07:30 Pain Level 0 04/05/20 07:46 Intake & Output 04/04/20 04/04/20 04/05/20 11:59 23:59 11:59 Intake Total 1565 / 2395 830 / 2395 110 / 110 Output Total 19990 3050 / 5050 650 / 650 Balance -435 / -2655 -2220 / -2655 -540 / -540 Intake: IV 1085 / 1435 350 / 1435 110 / 110 Oral 480 / 960 480 / 960 Output: Urine 1999 3050 / 5050 650 / 650 Other: Urine Color Yellow Yellow Yellow Urine Appearance Clear Clear Clear Urine Odor Normal Normal None Voiding Methods Toilet Toilet Toilet Data Completed and Pending Labs on day of discharge: Labs from last 24 hours 04/05/20 04/05/20 04/04/20 06:25 06:25 13:08 WBC 5.72 RBC 3.79 L Hgb 10.0 L Hct 31.3 L MCV 82.6 MCH 26.4 L MCHC 31.9 L RDW 13.8 Plt Count 236 MPV 11.9 H Immature Gran % 0.3 Neutrophils % 57.1 Lymphocytes % 27.8 Monocytes % 11.0 Eosinophils % 3.5 Basophils % 0.3 Absolute Neutrophils 3.26 Absolute Lymphocytes 1.59 Absolute Monocytes 0.63 Absolute Eosinophils 0.20 Absolute Basophils 0.02 Sodium 142 Potassium 3.7 Chloride 106 Carbon Dioxide 27.3 Anion Gap 8.7 BUN 12 Creatinine 0.85 Estimated GFR/1.73 m2 >= 60.00 Glucose 141 H Calcium 8.9 Vancomycin Trough 15.9 04/03/20 12:50 Toe - Right Second Digit Anaerobic Culture - Pending Preliminary micro results at discharge 04/01/20 15:40 Wound Culture - Preliminary Toe - Left Second Digit Staphylococcus pseudintermediu Streptococcus Viridans Group Normal Tiffanie 04/01/20 13:10 Blood Culture - Preliminary Blood NO GROWTH 72 HOURS 04/01/20 12:40 Blood Culture - Preliminary Blood NO GROWTH 72 HOURS 04/03/20 12:50 Surgical Culture - Preliminary Toe - Right Second Digit 04/03/20 12:50 Anaerobic Culture - Pending Toe - Right Second Digit [facility] Medical History Depressive disorder (Chronic 10/30/11) [facility] 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 (Inactive) Family History Mother Diabetes Alcohol abuse Personal history of malignant neoplasm breast Father No problems noted. 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
--- NOTE | 2020-04-05 08:45 | W.PM.PROGNOT ---
Date of Service Date of service: 04/05/20 Time of Service: 08:45 Subjective Subjective Patient reports: no new complaints Interval history since last seen: Maureen is seen resting comfortably in her room in her chair. She has no complaints of pain at all in her right foot. She is looking forward to going home. Exam Narrative Exam Narrative: 48 hours status post debridement right second toe with removal to the proximal interphalangeal joint. Dressings are intact and trace bloody staining of the dressings appreciated. Microbiology shows white blood cells from the surgical specimen no bacteria noted at 24 hours. Staphylcoccus pseudintermedia and Streptococcus viridans group isolated from previous cultures. blood cultures remaining negative ay 72 hours. Morning labs are reviewed and contained within this note. Dressing change was performed to the right foot. The tissue on the right 2nd toe is viable with good capillary return. Some maceration is noted on the plantar flap but this appears to be superficial and already beginning to separate from good underlying tissue. The cellulitis has completely resolved and no odor or signs of purulence identified. The incision region was painted with Betadine paint and a fresh dressing consisting of Xeroform, fluffs, Kerlix, flex net and 3 inch David wrap reapplied. Impression: 48 hours status post debridement right second toe through the PIPJ clinically stable Plan: She may begin full weightbearing with a surgical shoe on the right foot as tolerated. She appears clinically stable for discharge today with p.o. antibiotics to include 14 days of Augmentin 875 twice daily and a 8-day course of doxycycline. Discussed the case with the hospitalist who agrees with the plan. She is scheduled for follow-up at my office early next week. All questions have been answered in detail. She knows to contact me if she has any problems concerns increase in discomfort or spike in blood sugars. Objective Objective Clinical Data: Abnormal lab results 04/05/20 04/05/20 Range/Units 06:25 06:25 RBC 3.79 L (4.00-5.20) m/cumm Hgb 10.0 L (12.0-15.5) g/dL Hct 31.3 L (36.0-46.0) % MCH 26.4 L (27.0-33.0) pg MCHC 31.9 L (32.0-36.0) g/dL MPV 11.9 H (8.0-11.0) fL Glucose 141 H (74-106) mg/dL Vital Signs Temperature 37.6 C H 04/05/20 07:30 Temperature Source Tympanic 04/05/20 07:30 Pulse 55 L 04/05/20 07:30 Pulse Rhythm Regular 04/05/20 07:30 Respiratory Rate 14 04/05/20 07:30 Respiratory Effort 04/05/20 07:30 Respiratory Depth Normal 04/05/20 07:30 Respiratory Pattern Normal 04/05/20 07:30 Blood Pressure 154/65 H 04/05/20 07:30 Blood Pressure Position Sitting 04/01/20 11:59 Pulse Oximetry 93 L 04/05/20 07:30 Oxygen Delivery Method Room Air 04/05/20 07:30 Oxygen Flow Rate 0 04/05/20 07:30 Pain Level 0 04/05/20 07:46 Intake & Output 04/04/20 04/05/20 04/05/20 18:59 06:59 18:59 Intake Total 1205 / 1555 350 / 1555 Output Total 2150 / 4450 2300 / 4450 250 / 250 Balance -945 / -2895 -1950 / -2895 -250 / -250 Intake: IV 485 / 595 110 / 595 Oral 720 / 960 240 / 960 Output: Urine 2150 / 4450 2300 / 4450 250 / 250 Other: Urine Color Yellow Straw Yellow Urine Appearance Clear Clear Clear Urine Odor Normal Normal None Voiding Methods Toilet Toilet Toilet Laboratory Results WBC 5.72 k/cumm (4.4-10.8) 04/05/20 06:25 RBC 3.79 m/cumm (4.00-5.20) L 04/05/20 06:25 Hgb 10.0 g/dL (12.0-15.5) L 04/05/20 06:25 Hct 31.3 % (36.0-46.0) L 04/05/20 06:25 MCV 82.6 fL (80-95) 04/05/20 06:25 MCH 26.4 pg (27.0-33.0) L 04/05/20 06:25 MCHC 31.9 g/dL (32.0-36.0) L 04/05/20 06:25 RDW 13.8 % (11.7-14.6) 04/05/20 06:25 Plt Count 236 x1000/uL (130-400) 04/05/20 06:25 MPV 11.9 fL (8.0-11.0) H 04/05/20 06:25 Immature Gran % 0.3 % 04/05/20 06:25 Neutrophils % 57.1 04/05/20 06:25 Band Neutrophils % Cancelled 04/01/20 13:07 Lymphocytes % 27.8 04/05/20 06:25 Atypical Lymphs % Cancelled 04/01/20 13:07 Monocytes % 11.0 04/05/20 06:25 Eosinophils % 3.5 04/05/20 06:25 Basophils % 0.3 04/05/20 06:25 Metamyelocytes % Cancelled 04/01/20 13:07 Myelocytes % Cancelled 04/01/20 13:07 Promyelocytes % Cancelled 04/01/20 13:07 Absolute Neutrophils 3.26 k/cumm (1.2-6.7) 04/05/20 06:25 Absolute Lymphocytes 1.59 k/cumm (1.2-3.4) 04/05/20 06:25 Absolute Monocytes 0.63 k/cumm (0.11-0.7) 04/05/20 06:25 Absolute Eosinophils 0.20 k/cumm (0.0-0.7) 04/05/20 06:25 Absolute Basophils 0.02 k/cumm (0.0-0.2) 04/05/20 06:25 Nucleated RBCs Cancelled 04/01/20 13:07 Differential Comment Cancelled 04/01/20 13:07 Other Cell Type Cancelled 04/01/20 13:07 RBC Morphology Cancelled 04/01/20 13:07 Polychromasia Cancelled 04/01/20 13:07 Hypochromasia Cancelled 04/01/20 13:07 Poikilocytosis Cancelled 04/01/20 13:07 Basophilic Stippling Cancelled 04/01/20 13:07 Anisocytosis Cancelled 04/01/20 13:07 Microcytosis Cancelled 04/01/20 13:07 Macrocytosis Cancelled 04/01/20 13:07 Spherocytes Cancelled 04/01/20 13:07 Target Cells Cancelled 04/01/20 13:07 Tear Drop Cells Cancelled 04/01/20 13:07 Ovalocytes Cancelled 04/01/20 13:07 Stomatocytes Cancelled 04/01/20 13:07 [place] Bodies Cancelled 04/01/20 13:07 [place] Cells Cancelled 04/01/20 13:07 Acanthocytes (Spur) Cancelled 04/01/20 13:07 Schistocytes Cancelled 04/01/20 13:07 ESR 26 mm/hr (0-30) 04/01/20 12:40 PT 10.5 sec (9.3-11.0) 04/01/20 12:40 INR 1.0 (0.9-1.1) 04/01/20 12:40 APTT 27.0 sec (21.0-31.4) 04/01/20 12:40 Sodium 142 mmol/L (136-145) 04/05/20 06:25 Potassium 3.7 mmol/L (3.5-5.1) 04/05/20 06:25 Chloride 106 mmol/L (98-107) 04/05/20 06:25 Carbon Dioxide 27.3 mmol/L (21.0-32.0) 04/05/20 06:25 Anion Gap 8.7 mmol/L (3-11) 04/05/20 06:25 BUN 12 mg/dL (7-18) 04/05/20 06:25 Creatinine 0.85 mg/dL (0.55-1.02) 04/05/20 06:25 Estimated GFR/1.73 m2 >= 60.00 (mL/min/1.73m2) 04/05/20 06:25 Glucose 141 mg/dL (74-106) H 04/05/20 06:25 Hemoglobin A1c 6.5 % (3.8-5.6) H 04/01/20 12:40 Lactate 1.3 mmol/L (0.6-1.4) 04/01/20 12:40 Calcium 8.9 mg/dL (8.5-10.1) 04/05/20 06:25 Total Bilirubin 0.5 mg/dL (0.2-1.0) 04/01/20 12:40 AST 23 U/L (15-37) 04/01/20 12:40 ALT 23 U/L (14-59) 04/01/20 12:40 Alkaline Phosphatase 78 U/L (46-116) 04/01/20 12:40 C-Reactive Protein 4.74 mg/dL (0.0-0.3) H 04/02/20 06:05 Total Protein 8.2 g/dL (6.4-8.2) 04/01/20 12:40 Albumin 4.0 g/dL (3.4-5.0) 04/01/20 12:40 Vitamin B12 422 pg/mL (193-986) 04/03/20 06:45 Procalcitonin 0.1 ng/mL 04/02/20 06:05 Vancomycin Trough 15.9 ug/mL (10.0-20.0) 04/04/20 13:08 COVID-19 PCR Negative (Negative) 04/01/20 13:30 Nasopharyn COVID-19 PCR Not Applicable 04/01/20 13:30 Ref Test Perform Site [place] [facility] 04/01/20 13:30
--- NOTE | 2020-04-05 09:39 | CHAPLAIN ---
I had a short visit with Maureen yesterday. She is looking forward to being discharged today.
[2020-04-05] MEDS: Normal Saline Flush 10 ML SYR IVP (10:21)
[2020-04-05] MEDS: Acetaminophen 325 MG TAB PO (11:41)
--- NOTE | 2020-04-05 13:10 | PDOC.CMDIS ---
- If Service Date Differs Date of service: 04/05/20 Time of Service: 13:10 LACE Index Scoring Tool - Questions: Length of Stay (in days): 4 - 6 Acuity (Admit via E.D.?): Yes Comorbidities: Diabetes w/o Complication E.D. Visits: 2 - Answers: Total Score: 10 Risk of Readmission: High Risk Care Management Discharge Reason for Hospitalization: Cellulitis, question of osteo of right second toe Discharge Plan: Maureen is being discharge home today, she will follow up with as directed. She has a dressing change today and he will do the next change in the office. Maureen has follow up scheduled with [facility]. Maureen was able to complete her advance directives that are now on file. Family will transport her home at time of discharge. Patient/Family Education Needs: Discharge education, limitations and follow up plan of care including ask me three and self management.
== END 2020-04-05 12:38 | disposition home or self-care (01) | DRG 617 ==
LOC: ER 14:24 → MS 14:36
PROVIDERS: Nurse Practitioner Acute Care; Nurse Practitioner Family; Podiatrist; Admitting Provider Internal Medicine; Emergency Provider Physician Assistant; PCP Nurse Practitioner; Visit Provider Internal Medicine
PROC: 0Y6R0Z2 Detachment at Right 2nd Toe, Mid, Open Approach (ICD-10-PCS; principal; 2020-04-03 12:00)
DX: E11.621 Type 2 diabetes mellitus with foot ulcer (principal); M86.171 Other acute osteomyelitis, right ankle and foot; L97.516 Non-pressure chronic ulcer of other part of right foot with bone involvement without evidence of necrosis; L03.031 Cellulitis of right toe; E66.9 Obesity, unspecified; I10 Essential (primary) hypertension; E11.40 Type 2 diabetes mellitus with diabetic neuropathy, unspecified; L97.519 Non-pressure chronic ulcer of other part of right foot with unspecified severity; F32.9 Major depressive disorder, single episode, unspecified; K21.9 Gastro-esophageal reflux disease without esophagitis; F17.210 Nicotine dependence, cigarettes, uncomplicated; H90.6 Mixed conductive and sensorineural hearing loss, bilateral; E78.1 Pure hyperglyceridemia; J45.909 Unspecified asthma, uncomplicated; F41.9 Anxiety disorder, unspecified; Z79.4 Long term (current) use of insulin; F10.11 Alcohol abuse, in remission; Z11.59 Encounter for screening for other viral diseases
CPT/HCPCS: 36415; 80048; 80053; 84145; 85652; 87040; 87077; 88305; 96361; 96365; 96366; 99223; 99233; 99239; 99285; 99309; U0003; 73660; 73720; 80202; 82607; 83036; 83605; 85025; 85610; 85730; 86140; 87070; 87075; 87186; 87205; J1644; J1885; J2001; J2405; J3370

== ENCOUNTER 2020-12-24 16:31 | Outpatient (REF) | payer MEDICARE, MEDICAID, SELFPAY | END 2020-12-24 16:32 | disposition home or self-care (01) | LOC: LBO 16:31 | PROVIDERS: PCP Nurse Practitioner; Visit Provider Nurse Practitioner | DX: R82.90 Unspecified abnormal findings in urine (principal); M24.9 Joint derangement, unspecified | CPT/HCPCS: 87077; 87086; 87186 ==

== ENCOUNTER 2021-01-06 11:32 | Outpatient (REF) | payer MEDICARE, MEDICAID, SELFPAY ==
[2021-01-06 14:50] LABS: Abs Immature Grans 0.01 10^3/uL (0.0-0.06); Absolute Basophil Count 0.05 10^3/uL (0.0-0.2); Absolute Eosinophil Count 0.22 10^3/uL (0.0-0.7); Absolute Lymphocyte Count 2.68 10^3/uL (1.2-3.4); Absolute Monocyte Count 0.57 10^3/uL (0.1-0.8); Absolute Neutrophil Count 3.48 10^3/uL (1.2-6.7); Basophils % 0.7; Eosinophils % 3.1; HCT 33.7 % (36.0-46.0); Immature Grans % 0.1; Lymphocytes % 38.2; MCH 23.4 pg (27.0-33.0); MCHC 29.7 % (32.0-36.0); MCV 78.9 fL (80-95); MPV 12.6 fL (8.0-11.0); Monocytes % 8.1; Neutrophils % 49.8; Nucleated RBC 0 %; Platelet Count 221 10^3/uL (130-400); RBC 4.27 10^6/uL (3.93-5.22); RDW 15.8 % (11.7-14.6); RDW-SD 44.5 fL; WBC 7.01 10^3/uL (4.4-10.8)
[2021-01-06 15:36] LABS: ALT 25 U/L (14-59); AST 18 U/L (15-37); Alkaline Phosphatase 66 U/L (46-116); Anion Gap 9.9 mmol/L (3-11); BUN 16 mg/dL (7-18); Bilirubin, Total 0.4 mg/dL (0.2-1.0); CO2 27.1 mmol/L (21.0-32.0); CREATININE 0.8 mg/dL (0.55-1.02); Calcium 9.3 mg/dL (8.5-10.1); Chloride 106 mmol/L (98-107); Glucose 105 mg/dL (74-106); Potassium 4.4 mmol/L (3.5-5.1); Sodium 143 mmol/L (136-145); Total Protein 7.5 g/dL (6.4-8.2)
== END 2021-01-06 11:33 | disposition home or self-care (01) ==
LOC: LBN 11:32
PROVIDERS: PCP Nurse Practitioner; Visit Provider Nurse Practitioner
DX: I10 Essential (primary) hypertension (principal); R42 Dizziness and giddiness; R82.90 Unspecified abnormal findings in urine; J45.909 Unspecified asthma, uncomplicated
CPT/HCPCS: 80053; 87077; 84443; 85025; 87086; 87186

== ENCOUNTER 2021-01-08 00:48 | Outpatient (CLI) | payer MEDICARE, MEDICAID, SELFPAY ==
--- NOTE | 2021-01-08 07:30 | DI.CT_ITS ---
EXAM: CT HEAD WO CLINICAL HISTORY: DIZZINESS,BLURRED VISION,SLURRED SPEECH,R42,H53.8,R47.81. TECHNIQUE: Imaging Protocol: Axial computed tomography images with coronal and sagittal reformatted images were created and reviewed COMPARISON: CT HEAD WITHOUT CONTRAST from 01/14/2016 FINDINGS: There are no skull fractures nor fluid in the visualized paranasal sinuses. There is no evidence of intracranial hemorrhage, mass effect, or shift of midline structures. There are no extra-axial fluid collections. The ventricles are not enlarged or shifted and there is no blo od within the ventricular system nor within the basal cisterns. IMPRESSION: No acute intracranial findings on this noninfused CT scan of the brain. No significant change compar ed to prior CT scan of 2016. If clinically indicated follow-up MRI can be performed. RADIATION DOSE DELIVERED: 681.39mGy.cm Total DLP DATA REPOSITORY: All CT scans at this facility are submitted to the National Radiology Data Registry (NRDR) Dose Index Registry (DIR) with the [employer] (A[employer]). RADIATION OPTIMIZATION: All CT scans at this facility use at least one of these dose optimization te chniques: automated exposure control; mA and/or kV adjustment per patient size (includes targeted exa ms where dose is matched to clinical indication); or iterative reconstruction.
== END 2021-01-08 01:08 ==
PROVIDERS: PCP Nurse Practitioner; Visit Provider Nurse Practitioner
DX: R42 Dizziness and giddiness (principal); R47.81 Slurred speech; H53.8 Other visual disturbances
CPT/HCPCS: 70450

== ENCOUNTER 2021-02-05 03:11 | Outpatient (CLI) | payer MEDICARE, MEDICAID, SELFPAY ==
[2021-02-05 11:11] LABS: Abs Immature Grans 0.03 10^3/uL (0.0-0.06); Absolute Basophil Count 0.03 10^3/uL (0.0-0.2); Absolute Eosinophil Count 0.32 10^3/uL (0.0-0.7); Absolute Monocyte Count 0.64 10^3/uL (0.1-0.8); Absolute Neutrophil Count 4.59 10^3/uL (1.2-6.7); Basophils % 0.4; Eosinophils % 3.9; HCT 33.4 % (36.0-46.0); HGB 10.2 g/dL (11.2-15.7); Immature Grans % 0.4; Lymphocytes % 31.7; MCH 23.6 pg (27.0-33.0); MCHC 30.5 % (32.0-36.0); MCV 77.1 fL (80-95); MPV 11.7 fL (8.0-11.0); Monocytes % 7.8; Neutrophils % 55.8; Nucleated RBC 0 %; Platelet Count 256 10^3/uL (130-400); RBC 4.33 10^6/uL (3.93-5.22); RDW 16.3 % (11.7-14.6); WBC 8.21 10^3/uL (4.4-10.8)
[2021-02-05 12:17] LABS: Total Iron Binding Capacity 505 ug/dL (250-450)
[2021-02-05 12:30] LABS: Ferritin 7 ng/mL (8-252); TSH (W/Ref FT4) 1.02 uIU/mL (0.36-3.74)
== END 2021-02-05 03:12 | disposition home or self-care (01) ==
LOC: LBO 03:12
PROVIDERS: PCP Nurse Practitioner; Visit Provider Nurse Practitioner
DX: I10 Essential (primary) hypertension (principal); E11.9 Type 2 diabetes mellitus without complications; J45.909 Unspecified asthma, uncomplicated
CPT/HCPCS: 36415; 82728; 83036; 83550; 84443; 85025

== ENCOUNTER 2021-03-10 12:10 | Outpatient (REF) | payer MEDICARE, MEDICAID, SELFPAY ==
--- NOTE | 2021-03-10 11:45 | PAPFT_PTH ---
PATIENT: Maureen Schmitz LOC: [facility] U#:[id number] AGE/SX: 55/F ROOM: RE03/10/[address]: Anjana Gayle APRN : 1965 BED: DIS: 03/10/2021 SPEC #: [id number] RECD: 03/10/21 17:50 STATUS: ANDREE REAbhijit #: [id number] DEEDEE: 03/10/21 11:[address]: Anjana Gayle DEPT: [facility] Cytology RECD BY: Kaur García Tissues: 1 - CX/ENDOCX FOR PAP SMEARS Procedures: PAP THIN PREP/[facility] Screening HPV DNA PROBE Comments: [id number]
== END 2021-03-10 12:11 | disposition home or self-care (01) ==
LOC: LBN 12:10
PROVIDERS: PCP Nurse Practitioner; Visit Provider Nurse Practitioner
DX: Z12.4 Encounter for screening for malignant neoplasm of cervix (principal); Z11.51 Encounter for screening for human papillomavirus (HPV)
CPT/HCPCS: 88142; 87624

== ENCOUNTER 2021-08-13 17:03 | Outpatient (REF) | payer MEDICARE, MEDICAID, SELFPAY ==
[2021-08-13 22:26] LABS: Bilirubin Negative (Negative); Blood Trace-intact (Negative); Clarity Sl Cloudy (Clear); Glucose Negative (Negative); Ketones Negative (Negative); Leukocyte Esterase Small (Negative); Nitrite Positive (Negative); Specific Gravity 1.015 (1.005-1.025); Urobilinogen 0.2 EU/dL (Up TO 0.2)
[2021-08-13 22:31] LABS: Bacteria Many HPF (Negative); C & S Indicated? Yes; Casts Negative LPF (Negative); Crystals Negative HPF (Negative); Epithelial Cells Few HPF (Negative); Mucus Negative (Negative)
== END 2021-08-13 17:04 | disposition home or self-care (01) ==
LOC: LBN 17:03
PROVIDERS: PCP Nurse Practitioner; Visit Provider Nurse Practitioner
DX: R30.0 Dysuria (principal)
CPT/HCPCS: 87077; 81003; 81015; 87086; 87186

== ENCOUNTER 2021-09-24 00:36 | Outpatient (CLI) | payer MEDICARE, MEDICAID, SELFPAY ==
--- NOTE | 2021-09-24 08:00 | DI.RAD_ITS ---
Exam(s) XR LUMBAR SPINE COMPLETE EXAM: XR LUMBAR SPINE COMPLETE CLINICAL HISTORY: low back pain, m54.50, pain lt si joint, m53.3. TECHNIQUE: 2D digital imaging was performed of the lumbar spine. Six images were obtained. AP, lat eral, right oblique, left oblique and L5-S1 spot views were obtained. COMPARISON: No exams were available for comparison FINDINGS: There are 5 lumbar type vertebral bodies. There is normal alignment. No spondylolisthesis. There d oes appear to be bilateral spondylolysis at L5. There is disc space narrowing at L1-L2 and L5-S1. V acuum discs are seen at L1-L2, L4-L5 and L5-S1. Endplate osteophytes are seen throughout the lumbar spine. There are degenerative changes of the facets at L5-S1. No acute fracture or subluxation is s een in the lumbar spine. There is atherosclerosis. IMPRESSION: Degenerative changes in the lumbar spine. DATA REPOSITORY: RADIATION DOSE DELIVERED:
--- NOTE | 2021-09-24 08:00 | DI.RAD_ITS ---
Exam(s) XR SACROILIAC JOINTS EXAM: XR SACROILIAC JOINTS CLINICAL HISTORY: low back pain, pain lt si joint, m54.50,m53.3. TECHNIQUE: 2D digital imaging was performed. Three images were obtained. COMPARISON: No exams were available for comparison FINDINGS: Bones: No fracture is present. No bony destructive lesion is seen. Alignment is satisfactory. Degene rative changes are seen in the lower lumbar spine. Please refer to the report of the lumbar spine ex amination for complete details. SI Joint:No fusion, erosions or sclerosis is seen. Soft Tissue: Normal. IMPRESSION: Unremarkable sacroiliac joints. DATA REPOSITORY: RADIATION DOSE DELIVERED:
== END 2021-09-24 00:56 ==
PROVIDERS: PCP Nurse Practitioner; Visit Provider Nurse Practitioner
DX: M43.06 Spondylolysis, lumbar region (principal); M54.50 Low back pain, unspecified; M47.816 Spondylosis without myelopathy or radiculopathy, lumbar region; M47.817 Spondylosis without myelopathy or radiculopathy, lumbosacral region
CPT/HCPCS: 72110; 72202

== ENCOUNTER 2021-10-28 03:10 | Outpatient (CLI) | payer MEDICARE, MEDICAID, SELFPAY | END 2021-10-28 03:11 | disposition home or self-care (01) | LOC: LBO 03:10 | PROVIDERS: PCP Nurse Practitioner; Visit Provider Nurse Practitioner ==

== ENCOUNTER 2021-11-04 02:08 | Outpatient (CLI) | payer MEDICARE, MEDICAID, SELFPAY | END 2021-11-04 02:09 | disposition home or self-care (01) | LOC: LBO 02:08 | PROVIDERS: PCP Nurse Practitioner; Visit Provider Nurse Practitioner ==

== ENCOUNTER 2021-11-18 02:37 | Outpatient (CLI) | payer MEDICARE, MEDICAID, SELFPAY ==
--- NOTE | 2021-11-18 07:30 | DI.MAMMO_ITS ---
Exam(s) MAMMO SCREENING EXAM: MAMMO SCREENING CLINICAL HISTORY: screening,Z12.39 TECHNIQUE: Bilateral full field digital CC and MLO mammographic images were obtained with 3D tomosyn thesis and utilizing computer aided detection (CAD). COMPARISON: Available for comparison. FINDINGS: Masses/Architectural Distortion: None seen. Microcalcifications: No suspicious pleomorphic-type are seen. Skin Thickening/Nipple Retraction: None. IMPRESSION: 1. No significant interval change with no specific features of malignancy noted. 2. Unless there is more urgent need, screening mammography is recommended, as per [employer] guidelines. BI-RADS Category 1 - Negative Breast Density - Category B - Scattered areas of fibroglandular density Breast density category C or D implies that the patient has dense breast tissue. Dense breast tissue is very common and is not abnormal but dense breast tissue can make it harder to find cancer on a ma mmogram. Also, dense breast tissue may increase their breast cancer risk. This information about the result of the mammogram report was provided to the patient to raise their awareness. Use this report when you speak with the patient about their risks for breast cancer, which includes their family hist ory. At that time, you may recommend for more screening tests (Ultrasound or MRI) as they might be us eful based on their risk. A negative radiographic report should not delay biopsy if a dominant or clinically suspicious mass is present. Up to ten percent of cancers are not identified on mammography. A negative report may reinforce clinical impression. Adenosis and dense breasts may obscure an underlying neoplasm. False positive reports average 6 to 10%. Patient will receive a letter notifying them of these results.
== END 2021-11-18 02:57 ==
PROVIDERS: PCP Nurse Practitioner; Visit Provider Nurse Practitioner
DX: Z12.31 Encounter for screening mammogram for malignant neoplasm of breast (principal)
CPT/HCPCS: 77063; 77067

== ENCOUNTER 2021-12-10 16:38 | Outpatient (REF) | payer MEDICARE, MEDICAID, SELFPAY | END 2021-12-10 16:39 | disposition home or self-care (01) | LOC: LBN 16:38 | PROVIDERS: PCP Nurse Practitioner; Visit Provider Nurse Practitioner | DX: R10.30 Lower abdominal pain, unspecified (principal); R30.0 Dysuria | CPT/HCPCS: 87077; 87086; 87186 ==

== ENCOUNTER 2021-12-30 15:43 | Outpatient (REF) | payer MEDICARE, MEDICAID, SELFPAY | END 2021-12-30 15:44 | disposition home or self-care (01) | LOC: LBN 15:43 | PROVIDERS: PCP Nurse Practitioner; Visit Provider Podiatrist | DX: L02.611 Cutaneous abscess of right foot (principal) | CPT/HCPCS: 87077; 87070; 87186; 87205 ==

== ENCOUNTER 2022-01-08 01:43 | Outpatient (CLI) | payer MEDICARE, MEDICAID, SELFPAY ==
--- NOTE | 2022-01-08 08:00 | DI.RAD_ITS ---
Exam(s) XR CHEST 2V PA LATERAL EXAM: XR CHEST 2V PA LATERAL CLINICAL HISTORY: cough,r05.9. TECHNIQUE: 2D digital imaging was performed. COMPARISON: CR CHEST 2 VIEWS PA,LAT from 12/15/2016 FINDINGS: 2 views: Heart size is normal. The mediastinum is not widened. There is subtle increased density in the right middle lobe consistent with infiltrate. Left lung is clear. No pleural effusions. No pneumothorax. IMPRESSION: Right middle lobe infiltrate DATA REPOSITORY: RADIATION DOSE DELIVERED:
== END 2022-01-08 02:03 ==
PROVIDERS: PCP Nurse Practitioner; Visit Provider Nurse Practitioner
DX: R05.8 Other specified cough (principal); R91.8 Other nonspecific abnormal finding of lung field
CPT/HCPCS: 71046

== ENCOUNTER 2022-01-23 02:45 | Outpatient (CLI) | payer MEDICARE, MEDICAID, SELFPAY ==
[2022-01-23 11:45] LABS: HCT 40.3 % (36.0-46.0); HGB 12.8 g/dL (11.2-15.7); MCH 28.4 pg (27.0-33.0); MCHC 31.8 % (32.0-36.0); MCV 89.4 fL (80-95); MPV 12.4 fL (8.0-11.0); Platelet Count 203 10^3/uL (130-400); RBC 4.51 10^6/uL (3.93-5.22); RDW 13.3 % (11.7-14.6); RDW-SD 43.7 fL; WBC 9.71 10^3/uL (4.4-10.8)
[2022-01-23 12:58] LABS: ALT 27 U/L (14-59); AST 17 U/L (15-37); Albumin 3.9 g/dL (3.4-5.0); Alkaline Phosphatase 98 U/L (46-116); Anion Gap 6.8 mmol/L (3-11); BUN 10 mg/dL (7-18); Bilirubin, Total 0.5 mg/dL (0.2-1.0); CO2 30.2 mmol/L (21.0-32.0); CREATININE 0.7 mg/dL (0.55-1.02); Calcium 9.3 mg/dL (8.5-10.1); Calculated LDL 96 mg/dL (<100); Chloride 104 mmol/L (98-107); Cholesterol 178 mg/dL (<200); Glucose 96 mg/dL (74-106); HDL Cholesterol 29 mg/dL (40-60); Potassium 4.3 mmol/L (3.5-5.1); Sodium 141 mmol/L (136-145); Total Protein 7.3 g/dL (6.4-8.2); Triglyceride 268 mg/dL (<150)
== END 2022-01-23 02:46 | disposition home or self-care (01) ==
PROVIDERS: PCP Nurse Practitioner; Visit Provider Nurse Practitioner
DX: E11.9 Type 2 diabetes mellitus without complications (principal); E66.9 Obesity, unspecified; E78.5 Hyperlipidemia, unspecified; F17.200 Nicotine dependence, unspecified, uncomplicated; I10 Essential (primary) hypertension; R07.9 Chest pain, unspecified; R30.0 Dysuria
CPT/HCPCS: 36415; 80053; 80061; 85027; 87077; 83036; 87086; 87186

== ENCOUNTER 2022-02-21 23:33 | Emergency (ER) | payer MEDICARE, MEDICAID, SELFPAY ==
[2022-02-21 23:36] VITALS: BP 205/86; PULSE 81; RESP 16; TEMP 36.4; O2SAT 95
--- NOTE | 2022-02-21 23:58 | W.ED.GENAD ---
Discharge Plan Disposition Patient Disposition: HOME Condition: Stable Discharge Details Clinical Impression: Bleeding from right ear, Essential hypertension Primary Care Provider: Anjana Gayle ED Provider: Sorin Mcdermott Home Meds and New Rx's Prescriptions: Continued atorvastatin 10 mg tablet 10 mg PO DAILY Qty: 90 3RF (DME) blood sugar diagnostic Strip See Dose Instructions .ROUTE .MEDSUPPLY Qty: 400 3RF Dose Instruction: As directed Rx Instructions: ac+hs testing. #400, 3 refills For E11.9 to maintain A1C <7.5 oxybutynin chloride 15 mg tablet extended release 24hr 15 mg PO DAILY Qty: 90 1RF melatonin 10 mg tablet 20 mg PO HS PRN0RF lorazepam 1 mg tablet 1 mg PO BID Qty: 60 3RF insulin aspart U-100 [Novolog Flexpen U-100 Insulin] 100 unit/mL (3 mL) insulin pen See Rx Instructions Sub-Q AC MDD 72u Qty: 15 3RF Dose Instruction: Sub-Q AC; administer 10-20u ac per Insulin schedule to manage BS with meals and to keep A1c at or below 7. Rx Instructions: Sub-Q AC; administer 10-20u ac per Insulin schedule to manage BS with meals and to keep A1c at or below 7. penicillin V potassium 500 mg tablet 500 mg PO TID Qty: 21 0RF lisinopril 10 mg tablet 10 mg PO DAILY Qty: 90 3RF fenofibrate micronized 67 mg capsule 67 mg PO DAILY Qty: 90 3RF linagliptin 5 mg tablet 5 mg PO DAILY Qty: 90 3RF metformin 1,000 mg tablet 1,000 mg PO BID Qty: 180 3RF (DME) pen needle, diabetic 31 gauge x 5/16 needle 1 ea Miscellaneous DAILY Qty: 600 3RF Rx Instructions: E11.40 to maintain A1C less than 7; 5mm pen needles. meloxicam 15 mg tablet 15 mg PO DAILY PRN (Reason: pain) Qty: 90 1RF acetaminophen [Tylenol] 325 mg tablet 325 - 650 mg PO Q4H PRN PRN (Reason: fever or pain) Qty: 180 0RF alcohol swabs [Alcohol Prep Pads] Pads, Medicated 1 pad TP AC & HS Qty: 400 3RF Rx Instructions: 1 pad pre FS nystatin 100,000 unit/gram cream 1 applic topical QID PRN (Reason: Rash under breasts) Qty: 60 3RF (DME) lancing device with lancets kit See Dose Instructions .ROUTE .MEDSUPPLY Qty: 1 0RF Dose Instruction: As directed Rx Instructions: As directed Latuda 120 mg tablet 120 mg PO QPM 0RF Label Comments: 06/26/20-pt reported. rx from [facility]. Dina John. pt reports she takes 120mg at HS and 20mg in the morning. Rx Instructions: must administer with food (at least 350 calories) Latuda 20 mg tablet 20 mg PO QAM 0RF Label Comments: 06/26/20-pt reported medication. rx comes from [facility]. pt reports she takes 20mg in the morning and 120mg at HS. Rx Instructions: must administer with food (at least 350 calories) (DME) blood-glucose meter [OneTouch Ultra2 Meter] Misc See Rx Instructions .ROUTE .MEDSUPPLY Qty: 1 0RF Rx Instructions: To check BS ac and hs for DM E11.49, to keep A1c at or below 7. (DME) FreeStyle Pavan 14 Day Sensor Kit See Rx Instructions .ROUTE .MEDSUPPLY Qty: 1 12RF Rx Instructions: As directed cetirizine 10 mg tablet 10 mg PO DAILY Qty: 90 3RF Rx Instructions: DX: ALLERGIES (DME) BreatheRite MDI Spacer Spacer See Rx Instructions .ROUTE .MEDSUPPLY Qty: 1 3RF Rx Instructions: As directed for use with MDI. Please dispense what is available/covered. (DME) diaper,brief,adult,disposable Misc See Rx Instructions .ROUTE .MEDSUPPLY Qty: 150 6RF Rx Instructions: As directed, urinary incontinence. Size XL. UP to 5/day (DME) FreeStyle Pavan 2 Garrett Misc 0 .ROUTE .MEDSUPPLY Qty: 1 0RF pantoprazole 40 mg tablet,delayed release (DR/EC) 40 mg PO DAILY Qty: 90 3RF albuterol sulfate [Proventil HFA] 90 mcg/actuation HFA aerosol inhaler 2 puff Inhalation Q6H PRN Qty: 18 1RF Rx Instructions: DX: EMERGENCY INHALER FOR ASTHMA Flovent HFA 44 mcg/actuation HFA aerosol inhaler 2 puff Inhalation BID Qty: 3 3RF aspirin 81 mg tablet,delayed release (DR/EC) 81 mg PO DAILY Qty: 90 3RF (DME) lancets [OneTouch Delica Lancets] 33 gauge misc See Dose Instructions .ROUTE .MEDSUPPLY Qty: 100 6RF Dose Instruction: As directed Rx Instructions: For E11.9 to maintain A1C<7.5. Testing ac and hs #400 3 refills Nicotrol 10 mg cartridge 1 inh inhalation 4-6XD PRN (Reason: nicotine cravings) Qty: 168 4RF Tresiba FlexTouch U-200 200 unit/mL (3 mL) insulin pen 94 unit SC DAILY Qty: 15 6RF pregabalin 200 mg capsule 200 mg PO BID Qty: 60 2RF lamotrigine 100 mg tablet extended release 24hr 100 mg PO DAILY Qty: 90 1RF Rx Instructions: takes 100mg along with 200mg ER for a total of 300mg daily. lamotrigine [Lamictal XR] 200 mg tablet extended release 24hr 200 mg PO HS Qty: 90 1RF Rx Instructions: takes 100mg along with 200mg for a total of 300mg daily. semaglutide 1 mg/dose (2 mg/1.5 mL) pen injector 1 mg SC QWEEK Qty: 3 12RF citalopram 40 mg tablet 40 mg PO DAILY Qty: 90 3RF ferrous sulfate 325 mg (65 mg iron) tablet 325 mg PO DAILY Qty: 30 12RF Discharge Instructions Additional Instructions: Skip todays dose of aspirin follow up with your primary care provider for management of your blood pressure if you feel more ill or have bleeding you can't stop with direct pressure return to the emergency department Medical Decision Making 56 yo female comes in with bleeding from a piercing. She states she got her ears pierced tonight and after she got home has had oozing of blood from the right ear lobe. She is noted to be hypertensive here but hasn't taken her antihypertensives yet as she takes them at bedtime, denies any chest pain, dyspnea or headache so do not feel she requires emergent workup for this, was advised to follow up with pcp for her blood pressure management. She does have slow oozing of blood from a ear lobe piercing, no erythema or swelling. Will place lido with epi to help and also have her hold pressure and reassess, no bleeding from the canal or inner ear pain, normal tm's. Differential Diagnosis Differential Diagnosis: pierced ear lobe, venous bleeding HPI General Mode of arrival: ambulatory. Date/Time Provider Initiated Documentation: 02/21/22 23:47. Limitations to Documentation: no limitations. Information obtained by: patient. History of Present Illness 56 year old F presents to the emergency department with the chief complaint of ear lobe bleeding, described as mild, Patient started experiencing this hour(s) (3) and it has been constant. improves with No relieving factors improve symptom(s), No exacerbating factors reported . Patient notes no other symptoms.. Patient did receive the following treatments prior to arrival, none Related Data Home Medications Medication Instructions Recorded Confirmed lancing device with lancets kit #1 each 10/24/18 02/21/22 lurasidone 120 mg tablet (Latuda) 120 mg PO QPM 06/26/20 02/21/22 lurasidone 20 mg tablet (Latuda) 20 mg PO QAM 06/26/20 02/21/22 blood-glucose meter (Button Brew HouseTouch #1 09/05/20 02/21/22 Ultra2 Meter) flash glucose sensor (FreeStyle #1 ea 09/11/20 02/21/22 Pavan 14 Day Sensor) cetirizine 10 mg tablet 10 mg PO DAILY #90 tab 10/15/20 02/21/22 inhalational spacing device #1 ea 12/09/20 02/21/22 (BreatheRite MDI Spacer) diaper,brief,adult,disposable #150 ea 01/08/21 02/21/22 atorvastatin 10 mg tablet 10 mg PO DAILY #90 tab 01/29/21 02/21/22 blood sugar diagnostic #400 each 01/30/21 02/21/22 fenofibrate micronized 67 mg 67 mg PO DAILY #90 tab-cap 03/10/21 02/21/22 capsule linagliptin 5 mg tablet 5 mg PO DAILY #90 tab 03/10/21 02/21/22 metformin 1,000 mg tablet 1,000 mg PO BID #180 tab 03/10/21 02/21/22 pen needle, diabetic 31 gauge x #600 each 03/10/21 02/21/22 5/16 flash glucose scanning reader #1 ea 05/15/21 02/21/22 (FreeStyle Pavan 2 Garrett) pantoprazole 40 mg tablet,delayed 40 mg PO DAILY #90 tab-cap 06/19/21 02/21/22 release albuterol sulfate 90 mcg/actuation 2 puff INHALATION Q6H PRN #18 gm 08/15/21 02/21/22 aerosol inhaler (Proventil HFA) fluticasone propionate 44 2 puff INHALATION BID #3 units 08/15/21 02/21/22 mcg/actuation HFA aerosol inhaler (Flovent HFA) aspirin 81 mg tablet,delayed 81 mg PO DAILY #90 tab 08/18/21 02/21/22 release oxybutynin chloride 15 mg 15 mg PO DAILY #90 tab 09/01/21 02/21/22 tablet,extended release 24 hr meloxicam 15 mg tablet 15 mg PO DAILY PRN #90 tab 09/22/21 02/21/22 lancets 33 gauge (OneTouch Delica #100 each 10/13/21 02/21/22 Lancets) nicotine 10 mg inhalation 1 inh INHALATION 4-6XD PRN #168 ea 10/27/21 02/21/22 cartridge (Nicotrol) insulin degludec 200 unit/mL (3 94 unit (0.47 mL) SC DAILY #15 ml 11/25/21 02/21/22 mL) subcutaneous pen (Tresiba FlexTouch U-200 insulin) pregabalin 200 mg capsule 200 mg PO BID #60 cap 12/01/21 02/21/22 acetaminophen 325 mg tablet 325 - 650 mg PO Q4H PRN PRN #180 12/10/21 02/21/22 (Tylenol) tab alcohol swabs (Alcohol Prep Pads) 1 pad TP AC & HS #400 each 12/10/21 02/21/22 nystatin 100,000 unit/gram topical 1 applic TOPICAL QID PRN #60 g 12/10/21 02/21/22 cream lamotrigine 100 mg tablet,extended 100 mg PO DAILY #90 tab 01/19/22 02/21/22 release 24 hr lamotrigine 200 mg tablet,extended 200 mg PO HS #90 tab 01/19/22 02/21/22 release 24 hr (Lamictal XR) insulin aspart U-100 100 unit/mL See Rx Instructions SUB-Q AC #15 01/26/22 02/21/22 (3 mL) subcutaneous pen (Novolog ml MDD 72u Flexpen U-100 Insulin aspart) lisinopril 10 mg tablet 10 mg PO DAILY #90 tab 01/26/22 02/21/22 lorazepam 1 mg tablet 1 mg PO BID #60 tab 01/26/22 02/21/22 melatonin 10 mg tablet 20 mg PO HS PRN tab 01/26/22 02/21/22 penicillin V potassium 500 mg 500 mg PO TID #21 tab 01/26/22 02/21/22 tablet semaglutide 1 mg/dose (2 mg/1.5 1 mg (0.75 mL) SC QWEEK #3 ml 01/26/22 02/21/22 mL) subcutaneous pen injector citalopram 40 mg tablet 40 mg PO DAILY #90 tab 01/29/22 02/21/22 ferrous sulfate 325 mg (65 mg 325 mg PO DAILY #30 tab 02/16/22 02/21/22 iron) tablet Previous Rx's Medication Instructions Recorded lancing device with lancets kit #1 each 10/24/18 blood-glucose meter (OneTouch #1 09/05/20 Ultra2 Meter) flash glucose sensor (FreeStyle #1 ea 09/11/20 Pavan 14 Day Sensor) cetirizine 10 mg tablet 10 mg PO DAILY #90 tab 10/15/20 inhalational spacing device #1 ea 12/09/20 (BreatheRite MDI Spacer) diaper,brief,adult,disposable #150 ea 01/08/21 atorvastatin 10 mg tablet 10 mg PO DAILY #90 tab 01/29/21 blood sugar diagnostic #400 each 01/30/21 fenofibrate micronized 67 mg 67 mg PO DAILY #90 tab-cap 03/10/21 capsule linagliptin 5 mg tablet 5 mg PO DAILY #90 tab 03/10/21 metformin 1,000 mg tablet 1,000 mg PO BID #180 tab 03/10/21 pen needle, diabetic 31 gauge x #600 each 03/10/2103/09 pantoprazole 40 mg tablet,delayed 40 mg PO DAILY #90 tab-cap 06/19/21 release albuterol sulfate 90 mcg/actuation 2 puff INHALATION Q6H PRN #18 gm 08/15/21 aerosol inhaler (Proventil HFA) fluticasone propionate 44 2 puff INHALATION BID #3 units 08/15/21 mcg/actuation HFA aerosol inhaler (Flovent HFA) aspirin 81 mg tablet,delayed 81 mg PO DAILY #90 tab 08/18/21 release oxybutynin chloride 15 mg 15 mg PO DAILY #90 tab 09/01/21 tablet,extended release 24 hr meloxicam 15 mg tablet 15 mg PO DAILY PRN #90 tab 09/22/21 lancets 33 gauge (OneTouch Delica #100 each 10/13/21 Lancets) nicotine 10 mg inhalation 1 inh INHALATION 4-6XD PRN #168 ea 10/27/21 cartridge (Nicotrol) insulin degludec 200 unit/mL (3 94 unit (0.47 mL) SC DAILY #15 ml 11/25/21 mL) subcutaneous pen (Tresiba FlexTouch U-200 insulin) pregabalin 200 mg capsule 200 mg PO BID #60 cap 12/01/21 acetaminophen 325 mg tablet 325 - 650 mg PO Q4H PRN PRN #180 12/10/21 (Tylenol) tab alcohol swabs (Alcohol Prep Pads) 1 pad TP AC & HS #400 each 12/10/21 nystatin 100,000 unit/gram topical 1 applic TOPICAL QID PRN #60 g 12/10/21 cream lamotrigine 100 mg tablet,extended 100 mg PO DAILY #90 tab 01/19/22 release 24 hr lamotrigine 200 mg tablet,extended 200 mg PO HS #90 tab 01/19/22 release 24 hr (Lamictal XR) insulin aspart U-100 100 unit/mL See Rx Instructions SUB-Q AC #15 01/26/22 (3 mL) subcutaneous pen (Novolog ml MDD 72u Flexpen U-100 Insulin aspart) lisinopril 10 mg tablet 10 mg PO DAILY #90 tab 01/26/22 lorazepam 1 mg tablet 1 mg PO BID #60 tab 01/26/22 penicillin V potassium 500 mg 500 mg PO TID #21 tab 01/26/22 tablet semaglutide 1 mg/dose (2 mg/1.5 1 mg (0.75 mL) SC QWEEK #3 ml 01/26/22 mL) subcutaneous pen injector citalopram 40 mg tablet 40 mg PO DAILY #90 tab 01/29/22 ferrous sulfate 325 mg (65 mg 325 mg PO DAILY #30 tab 02/16/22 iron) tablet Allergies Allergy/AdvReac Type Severity Reaction Status Date / Time Sulfa (Sulfonamide Allergy Intermediate Swelling, Verified 01/26/22 14:26 Antibiotics) difficulty breathing niacin AdvReac Intermediate HIVES Verified 01/26/22 14:26 amoxicillin AdvReac Mild VAGINAL Verified 01/26/22 14:26 INFECTION INFECTION General Stated Complaint: GenMedical JOSE: 4 Review of Systems All systems reviewed & are unremarkable except as noted in HPI and below Constitutional Constitutional: Denies chills, Denies fever(s) and Denies weakness Eyes Eyes: Denies loss of vision Cardiovascular Cardiovascular: Denies chest pain and Denies dyspnea Respiratory Respiratory: Denies cough and Denies dyspnea Gastrointestinal Gastrointestinal: Denies abdominal pain, Denies nausea and Denies vomiting Musculoskeletal Musculoskeletal: Denies joint swelling Integumentary/Breasts Skin/Breast: Denies rash Neurologic Neurologic: Denies loss of vision and Denies weakness PFS All Active Problems (Updated 02/22/22 @ 00:16 by Sorin Mcdermott MD) Bleeding from right ear (Acute) Pain of left sacroiliac joint (Acute) Low back pain (Acute) Routine gynecological examination (Acute) Routine medical exam (Acute) Hyperlipidemia (Acute) Daytime somnolence (Acute) Obesity (Chronic) Anemia (Chronic) Polypharmacy (Acute) Memory deficit (Acute) Falls (Acute) Slurred speech (Acute) Dizziness (Acute) Blurred vision (Acute) Abnormal urine (Acute) UTI (urinary tract infection) (Acute) Mild cataract (Acute ~11/2020) Diabetic retinopathy, nonproliferative, mild (Acute ~11/2020) OD-mild OS-none Lung cancer screening declined by patient (Acute) Mammogram declined (Acute) Colon cancer screening declined (Acute) Mixed hearing loss, bilateral (Acute ~04/01/20) Osteomyelitis (Acute) Discharge planning issues (Acute) Diabetes mellitus type 2 (Active) Gastroesophageal reflux disease (Active) Cellulitis of toe (Acute) Depressive disorder (Chronic 10/30/11) [facility] Russ Blankenship NP History of - section (Active) Chest pain (Acute) Smoker (Acute) Low HDL (under 40) (Acute) 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 Unspecified urinary incontinence (Acute 10/30/11) Type II diabetes mellitus with neurological manifestations (Acute 06/17/13) Tobacco abuse disorder (Acute 06/08/17) Nocturia more than twice per night (Acute 05/20/16) Microscopic hematuria (Acute 02/25/16) Hearing loss (Acute 04/21/13) B/L HEARING AIDS Essential hypertension (Acute 10/30/11) Extrinsic asthma (Acute 08/26/12) Diabetic neuropathy (Acute 11/29/13) Lexie 10/2013 Anxiety state (Acute 10/30/11) [facility] Don Silva, gameplay engineer Allergic rhinitis (Acute 12/27/13) Alcohol abuse, in remission (Acute 10/30/11) Chest pain (Active 02/22/13) AR ruled out. Anxiety (Active) Asthma (Active) Medical History (Updated 02/22/22 @ 00:16 by Sorin Mcdermott MD) Amputation of second toe, right, traumatic Dr Don 04/03/2020 due to ulcer and DM RH Hypertriglyceridemia (08/14/13) Obesity (BMI 30-39.9) (10/30/11) Surgical History Arthroscopy (04/24/04) right knee Family History Mother Diabetes Alcohol abuse Personal history of malignant neoplasm breast Father No problems noted. Social History Smoking/Tobacco Use Status: Current every day Tobacco Type: cigarettes Tobacco: How many years used: 45 Quit status: considering quitting Smoking risk assessment performed?: Yes Alcohol Intake: never Drug use: Rarely Substance use type: marijuana Adopted: Yes Caregiver/Support person: No Household members: family and friend(s) Housing: house Number of Children: 3 Communication Needs: Hard of Hearing Current gender identity: female What is your relationship status?: Panel score (0-1 are the most socially isolated patients): 1 What type of physical activity do you participate in: none Seatbelt use: always 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 Working smoke detector in home: Yes Carbon monox detector in home: Yes Do you feel safe at home: Yes Do you feel safe in your relationship?: Yes Exam Const General: no acute distress Orientation: alert HENMT Head: normal to inspection Ears: no periauricular adenopathy General nose exam: external nose normal Mouth: moist mucous membranes Eyes General: appearance normal, both eyes and all related structures Neck Neck: normal visual inspection Resp Effort & Inspection: normal respiratory effort and able to speak in complete sentences Cardio Rate: regular rate Skin General skin exam: no rashes or lesions noted Neuro General: patient alert and patient oriented x3 Extrem General: normal to inspection Psych Mental Status: mental status grossly normal Course Vital Signs Vital signs: Vital Signs Temperature 36.4 C L 02/21/22 23:36 Pulse 81 02/21/22 23:36 Respiratory Rate 16 02/21/22 23:36 Blood Pressure 205/86 H 02/21/22 23:36 Pulse Oximetry 95 02/21/22 23:36 Temperature 36.4 C L 02/21/22 23:36 Temperature Source Temporal Artery Scan 02/21/22 23:36 Pulse 81 02/21/22 23:36 Respiratory Rate 16 02/21/22 23:36 Respiratory Effort 02/21/22 23:42 Respiratory Depth Normal 02/21/22 23:42 Respiratory Pattern Normal 02/21/22 23:42 Blood Pressure 205/86 H 02/21/22 23:36 Pulse Oximetry 95 02/21/22 23:36 Oxygen Delivery Method Room Air 02/21/22 23:36 Oxygen Flow Rate 0 02/21/22 23:36 Pain Level 0 02/21/22 23:36
[2022-02-22 00:23] VITALS: BP 152/71
== END 2022-02-22 00:23 | disposition home or self-care (01) ==
PROVIDERS: Emergency Provider Emergency Medicine; PCP Nurse Practitioner
DX: H61.891 Other specified disorders of right external ear (principal); Z79.82 Long term (current) use of aspirin; I10 Essential (primary) hypertension
CPT/HCPCS: 99282

== ENCOUNTER 2022-03-13 09:50 | Day surgery (SDC) | payer MEDICARE, MEDICAID, SELFPAY ==
[2022-03-13 10:23] VITALS: BP 170/77; PULSE 60; RESP 16; TEMP 36.4; O2SAT 99
[2022-03-13] MEDS: Povidone-Iodine Soln. 118 ML BTL TP (10:57)
[2022-03-13] MEDS: Lactated Ringers 1,000 ML 80 ML IV (10:57)
--- NOTE | 2022-03-13 12:01 | W.ANESPRE ---
General Info Height: 5 ft 8 in Weight: 104.7 kg Body Mass Index (BMI): 35.1 Surgical Procedure: Operation Date: 03/13/22 13:10 Proposed Procedure Side Surgeon p Toe Amputation 3rd Toe Right Luciano Don DPM Meds Allergies and Home Medications Allergies Allergy/AdvReac Type Severity Reaction Status Date / Time Sulfa (Sulfonamide Allergy Intermediate Swelling, Verified 03/13/22 10:04 Antibiotics) difficulty breathing niacin AdvReac Intermediate HIVES Verified 03/13/22 10:04 amoxicillin AdvReac Mild VAGINAL Verified 03/13/22 10:04 INFECTION INFECTION Home Medication Medication Instructions Recorded lancing device with lancets kit #1 ea 10/24/18 lurasidone 120 mg tablet (Latuda) 120 mg PO QPM 06/26/20 lurasidone 20 mg tablet (Latuda) 20 mg PO QAM 06/26/20 blood-glucose meter (Water Innovateuch ##1 09/05/20 Ultra2 Meter) flash glucose sensor (Tag & SeeStyle #1 ea 09/11/20 Pavan 14 Day Sensor kit) cetirizine 10 mg tablet 10 mg PO DAILY #90 tabs 10/15/20 inhalational spacing device #1 ea 12/09/20 (BreatheRite MDI Spacer) diaper,brief,adult,disposable #150 ea 01/08/21 atorvastatin 10 mg tablet 10 mg PO DAILY #90 tabs 01/29/21 blood sugar diagnostic #400 ea 01/30/21 fenofibrate micronized 67 mg 67 mg PO DAILY #90 tab-caps 03/10/21 capsule linagliptin 5 mg tablet 5 mg PO DAILY #90 tabs 03/10/21 pen needle, diabetic 31 gauge x #600 ea 03/10/21 5/ flash glucose scanning reader #1 ea 05/15/21 (FreeStyle Pavan 2 [place]) pantoprazole 40 mg tablet,delayed 40 mg PO DAILY #90 tab-caps 06/19/21 release albuterol sulfate 90 mcg/actuation 2 puff inhalation Q6H PRN #18 grams 08/15/21 aerosol inhaler (Proventil HFA) fluticasone propionate 44 2 puff inhalation BID #3 multiple 08/15/21 mcg/actuation HFA aerosol inhaler units (Flovent HFA) aspirin 81 mg tablet,delayed 81 mg PO DAILY #90 tabs 08/18/21 release meloxicam 15 mg tablet 15 mg PO DAILY PRN pain #90 tabs 09/22/21 lancets 33 gauge (OneTouch Delica #100 ea 10/13/21 Lancets) nicotine 10 mg inhalation 1 inh inhalation 4-6XD PRN 10/27/21 cartridge (Nicotrol) nicotine cravings #168 ea insulin degludec 200 unit/mL (3 94 unit (0.47 mL) subcut DAILY #15 11/25/21 mL) subcutaneous pen (Tresiba mL FlexTouch U-200 insulin) alcohol swabs (Alcohol Prep Pads) 1 pad topical AC & HS #400 ea 12/10/21 nystatin 100,000 unit/gram topical 1 applic topical QID PRN Rash 12/10/21 cream under breasts #60 grams lamotrigine 100 mg tablet,extended 100 mg PO DAILY #90 tabs 01/19/22 release 24 hr lamotrigine 200 mg tablet,extended 200 mg PO HS #90 tabs 01/19/22 release 24 hr (Lamictal XR) insulin aspart U-100 100 unit/mL See Rx Instructions subcut AC #15 01/26/22 (3 mL) subcutaneous pen (Novolog mL Flexpen U-100 Insulin aspart) lisinopril 10 mg tablet 10 mg PO DAILY #90 tabs 01/26/22 lorazepam 1 mg tablet 1 mg PO BID #60 tabs 01/26/22 melatonin 10 mg tablet 20 mg PO HS PRN 01/26/22 penicillin V potassium 500 mg 500 mg PO TID #21 tabs 01/26/22 tablet semaglutide 1 mg/dose (2 mg/1.5 1 mg (0.75 mL) subcut QWEEK #3 mL 01/26/22 mL) subcutaneous pen injector citalopram 40 mg tablet 40 mg PO DAILY #90 tabs 01/29/22 ferrous sulfate 325 mg (65 mg 325 mg PO DAILY #30 tabs 02/16/22 iron) tablet metformin 1,000 mg tablet 1,000 mg PO BID #180 tabs 02/23/22 oxybutynin chloride 15 mg 15 mg PO DAILY #90 tabs 02/23/22 tablet,extended release 24 hr pregabalin 200 mg capsule 200 mg PO BID #60 caps 02/23/22 ciprofloxacin 250 mg/5 mL oral 250 mg PO 03/10/22 suspension clindamycin HCl 150 mg capsule 150 mg PO 03/10/22 desmopressin 0.2 mg tablet 0.2 mg PO 03/10/22 levofloxacin 750 mg tablet 750 mg PO 03/10/22 terbinafine HCl 250 mg tablet 250 mg PO 03/10/22 Current Visit Medications: Current Medications Generic Name Dose Route Start Last Admin Trade Name Freq PRN Reason Stop Dose Admin Sodium Chloride 500 mls @ 0 mls/hr 03/13/22 06:00 Saline 500ml Bag IV PRN PRN As Directed Cefazolin Sodium/Dextrose 2 gm in 50 mls @ 100 mls/hr 03/13/22 06:00 Ancef Duplex IVPB 03/13/22 16:00 PREOP HO Ringer's Solution 1,000 mls @ 80 mls/hr 03/13/22 06:00 03/13/22 10:57 IV 04/11/22 23:59 80 mls/hr INFUSION HO Administration IV Miscellaneous Supplies 1 each 03/13/22 06:00 Iv Access IV DIRECTED HO IV Miscellaneous Supplies 1 each 03/13/22 06:00 Iv Access IV 04/11/22 23:59 DIRECTED HO Povidone Iodine 0 ml 03/13/22 06:00 03/13/22 10:57 Povidone-Iodine Soln. 118 Ml Btl TP 1 btl DIRECTED HO Administration Sodium Chloride 0 ml 03/13/22 06:00 Normal Saline Flush 10 Ml Syr IVP PRN PRN Sodium Chloride 0 ml 03/13/22 06:00 Normal Saline Flush 10 Ml Syr IV 04/11/22 23:59 PRN PRN Sodium Chloride 0 ml 03/13/22 06:00 Normal Saline 10 Ml Vial IJ 04/11/22 23:59 DIRECTED PRN Sterile Water 0 ml 03/13/22 06:00 Water,Injection,Sterile 10 Ml Vial IJ 04/11/22 23:59 DIRECTED PRN PFSH Active Problems Active Problems: Problem Status Onset Code Bleeding from right ear H92.21 Pain of left sacroiliac joint M53.3 Low back pain M54.50 Routine gynecological examination Z01.419 Routine medical exam Z00.00 Hyperlipidemia E78.5 Daytime somnolence R40.0 Obesity E66.9 Anemia D64.9 Polypharmacy Z79.899 Memory deficit R41.3 Falls W19.XXXA Slurred speech R47.81 Dizziness R42 Blurred vision H53.8 Abnormal urine R82.90 UTI (urinary tract infection) N39.0 Mild cataract ~11/2020 H26.9 Diabetic retinopathy, nonproliferative, mild ~11/2020 E11.3299 Lung cancer screening declined by patient Z53.20 Mammogram declined Z53.20 Colon cancer screening declined Z53.20 Mixed hearing loss, bilateral ~04/01/20 H90.6 Osteomyelitis M86.9 Discharge planning issues Z02.9 Diabetes mellitus type 2 E11.9 Gastroesophageal reflux disease K21.9 Cellulitis of toe L03.039 Depressive disorder 10/30/11 F32.9 History of - section Z98.89 Chest pain R07.9 Smoker F17.200 Low HDL (under 40) E78.6 Loc osteoarth NOS-unspec 10/21/12 M19.90 Unspecified urinary incontinence 10/30/11 R32 Type II diabetes mellitus with neurological manifestations 04/10/13 E11.49 Tobacco abuse disorder 06/08/17 Z72.0 Nocturia more than twice per night 05/20/16 R35.1 Microscopic hematuria 02/25/16 R31.29 Hearing loss 04/21/13 H91.90 Essential hypertension 10/30/11 I10 Extrinsic asthma 08/26/12 J45.909 Diabetic neuropathy 11/29/13 E11.40 Anxiety state 10/30/11 F41.1 Allergic rhinitis 12/27/13 J30.9 Alcohol abuse, in remission 10/30/11 F10.11 Chest pain 02/22/13 R07.9 Anxiety F41.9 Asthma J45.909 Medical History Medical History Amputation of second toe, right, traumatic Dr Don 04/03/2020 due to ulcer and DM RH Hypertriglyceridemia (08/14/13) Obesity (BMI 30-39.9) (10/30/11) Surgical History Surgical History Arthroscopy (04/24/04) right knee Tobacco Smoking/Tobacco Use Status: Current every day Tobacco Type: cigarettes Alcohol Alcohol Intake: never Substance Use Substance use: Rarely Substance use type: marijuana Vital Signs and Lab Results Vital Signs Most Recent Vital Signs in EMR: Most Recent Vital Signs Temp Pulse Resp BP Pulse Ox 36.4 C L 60 16 170/77 H 99 03/13/22 10:23 03/13/22 10:23 03/13/22 10:23 03/13/22 10:23 03/13/22 10:23 Lab Results Blood Type / Crossmatch: No Data to Display Complete Blood Count: No Data to Display Complete Metabolic Panel: No Data to Display Liver Function Panel: No Data to Display Coagulation Panel: No Data to Display Cardiac Panel: No Data to Display Arterial Blood Gas: No Data to Display Venous Blood Gas: No Data to Display Pancreas Panel: No Data to Display Thyroid Panel: No Data to Display Infectious Disease: No Data to Display Blood Cultures: No Data to Display Toxicology Panel: No Data to Display Anesthesia Assessment and Plan Anesthesia History Personal History: No History of Anesthesia Complications Family History: No Family History of Anesthesia Complications Exercise Tolerance Exercise Tolerance: Metabolic Equivalents>4 Pertinent Negatives Pertinent Negatives: No Symptoms of GERD (Well controlled ), No Major Cardiovascular Symptoms or Complaints (Pericardial effusion 6 years ago), No Major Pulmonary Symptoms or Complaints (SMOKER 35 pack years) and No History of CVA/TIA Cardiac & Pulmonary Exam Cardiac Exam: Normal S1/S2 Heart Sounds Pulmonary Exam: Rales Present and Active Dry Cough Implantable Cardiac Device Does patient have a Pacemaker or an ICD?: No Airway Exam Known Difficult Airway: No Mallampati Class: 2 Mouth Opening: Normal (> 3cm) Thyromental Distance: Greater than 3 cm Neck Range of Motion: Full ROM Neck Circumference: Thick Teeth Condition: Generalized Poor Dentition (Missing #31, Cap #11, broken #36, chipped #26) ASA Classification ASA Score: ASA 3 Emergency Case?: No NPO Status NPO Status: NPO Clears >2 hours, Solids >8 hours Anesthesia Plan Resuscitation Status: Full Code Anesthesia Technique: General Anesthesia Airway Planned: Natural Airway Monitors Used: Standard Monitors
--- NOTE | 2022-03-13 13:13 | NUR.NOTE ---
Freeyle Home remote glucometer alarmed with sugar of 67. Asymptomatic. [place] juice given as requested. Nursing Note:
[2022-03-13] MEDS: ceFAZolin 2 GM/50 ML BAG IVPB (14:35)
[2022-03-13] MEDS: Lidocaine 1% Multi-Dose W/EPI 1/100,000 50 ML VIAL (14:46)
[2022-03-13] MEDS: Bupivacaine 0.5% Pres-Free 30 ML VIAL (14:46)
--- NOTE | 2022-03-13 14:49 | AMP_PTH ---
PATIENT: Maureen Schmitz LOC: [facility] U#:[id number] AGE/SX: 56/F ROOM: RE03/13/[address]: Luciano Don : 1965 BED: DIS: 03/13/2022 SPEC #: [id number] RECD: 03/13/22 17:45 STATUS: ANDREE REAbhijit #: [id number] DEEDEE: 03/13/22 14:[address]: Luciano Don DEPT: Surgical Specimen RECD BY: Kaur García ENTERED: 03/13/22 17:46 SP TYPE: Amputation OTHR DR: Anjana Gayle APRN Tissues: 1 - AMPUTATION FINGERS/TOES(NOT TRAUMA) Procedures: GROSS AND MICRO LEVEL 4 DECALCIFICATION Comments: [id number]
--- NOTE | 2022-03-13 15:07 | DSE_ITS ---
Date of service: 03/13/22 Time of Service: 14:08 DS: Diagnosis Discharge Diagnosis (1) Ulcer of toe due to diabetes mellitus: Start date: 03/13/22 Start time: 14:08 Status: Acute Discharge Plan Disposition Patient Disposition: HOME Condition: Good Discharge Details Reason For Visit: Amputation right third toe Attending Provider: Luciano Don Primary Care Provider: Anjana Gayle Home Meds and New Rx's Prescriptions: No Action atorvastatin 10 mg tablet 10 mg PO DAILY Qty: 90 3RF (DME) blood sugar diagnostic Strip See Dose Instructions .ROUTE .MEDSUPPLY Qty: 400 3RF Dose Instruction: As directed Rx Instructions: ac+hs testing. #400, 3 refills For E11.9 to maintain A1C <7.5 melatonin 10 mg tablet 20 mg PO HS PRN lorazepam 1 mg tablet 1 mg PO BID Qty: 60 3RF insulin aspart U-100 [Novolog Flexpen U-100 Insulin] 100 unit/mL (3 mL) insulin pen See Rx Instructions Sub-Q AC MDD 72u Qty: 15 3RF Dose Instruction: Sub-Q AC; administer 10-20u ac per Insulin schedule to manage BS with meals and to keep A1c at or below 7. Rx Instructions: Sub-Q AC; administer 10-20u ac per Insulin schedule to manage BS with meals and to keep A1c at or below 7. penicillin V potassium 500 mg tablet 500 mg PO TID Qty: 21 0RF lisinopril 10 mg tablet 10 mg PO DAILY Qty: 90 3RF fenofibrate micronized 67 mg capsule 67 mg PO DAILY Qty: 90 3RF linagliptin 5 mg tablet 5 mg PO DAILY Qty: 90 3RF (DME) pen needle, diabetic 31 gauge x 5/16 needle 1 ea Miscellaneous DAILY Qty: 600 3RF Rx Instructions: E11.40 to maintain A1C less than 7; 5mm pen needles. meloxicam 15 mg tablet 15 mg PO DAILY PRN (Reason: pain) Qty: 90 1RF alcohol swabs [Alcohol Prep Pads] Pads, Medicated 1 pad TP AC & HS Qty: 400 3RF Rx Instructions: 1 pad pre FS nystatin 100,000 unit/gram cream 1 applic topical QID PRN (Reason: Rash under breasts) Qty: 60 3RF (DME) lancing device with lancets kit See Dose Instructions .ROUTE .MEDSUPPLY Qty: 1 0RF Dose Instruction: As directed Rx Instructions: As directed Latuda 120 mg tablet 120 mg PO QPM Label Comments: 06/26/20-pt reported. rx from [facility]. Dina John. pt reports she takes 120mg at HS and 20mg in the morning. Rx Instructions: must administer with food (at least 350 calories) Latuda 20 mg tablet 20 mg PO QAM Label Comments: 06/26/20-pt reported medication. rx comes from [facility]. pt reports she takes 20mg in the morning and 120mg at HS. Rx Instructions: must administer with food (at least 350 calories) (DME) blood-glucose meter [AMS VariCodeuch Ultra2 Meter] Misc See Rx Instructions .ROUTE .MEDSUPPLY Qty: 1 0RF Rx Instructions: To check BS ac and hs for DM E11.49, to keep A1c at or below 7. (DME) FreeStyle Pavan 14 Day Sensor Kit See Rx Instructions .ROUTE .MEDSUPPLY Qty: 1 12RF Rx Instructions: As directed cetirizine 10 mg tablet 10 mg PO DAILY Qty: 90 3RF Rx Instructions: DX: ALLERGIES (DME) BreatheRite MDI Spacer Spacer See Rx Instructions .ROUTE .MEDSUPPLY Qty: 1 3RF Rx Instructions: As directed for use with MDI. Please dispense what is available/covered. (DME) diaper,brief,adult,disposable Misc See Rx Instructions .ROUTE .MEDSUPPLY Qty: 150 6RF Rx Instructions: As directed, urinary incontinence. Size XL. UP to 5/day (DME) FreeStyle Pavan 2 [place] Misc 0 .ROUTE .MEDSUPPLY Qty: 1 pantoprazole 40 mg tablet,delayed release (DR/EC) 40 mg PO DAILY Qty: 90 3RF albuterol sulfate [Proventil HFA] 90 mcg/actuation HFA aerosol inhaler 2 puff Inhalation Q6H PRN Qty: 18 1RF Rx Instructions: DX: EMERGENCY INHALER FOR ASTHMA Flovent HFA 44 mcg/actuation HFA aerosol inhaler 2 puff Inhalation BID Qty: 3 3RF aspirin 81 mg tablet,delayed release (DR/EC) 81 mg PO DAILY Qty: 90 3RF (DME) lancets [OneTouch Delica Lancets] 33 gauge misc See Dose Instructions .ROUTE .MEDSUPPLY Qty: 100 6RF Dose Instruction: As directed Rx Instructions: For E11.9 to maintain A1C<7.5. Testing ac and hs #400 3 refills Nicotrol 10 mg cartridge 1 inh inhalation 4-6XD PRN (Reason: nicotine cravings) Qty: 168 4RF Tresiba FlexTouch U-200 200 unit/mL (3 mL) insulin pen 94 unit SC DAILY Qty: 15 6RF lamotrigine 100 mg tablet extended release 24hr 100 mg PO DAILY Qty: 90 1RF Rx Instructions: takes 100mg along with 200mg ER for a total of 300mg daily. lamotrigine [Lamictal XR] 200 mg tablet extended release 24hr 200 mg PO HS Qty: 90 1RF Rx Instructions: takes 100mg along with 200mg for a total of 300mg daily. semaglutide 1 mg/dose (2 mg/1.5 mL) pen injector 1 mg SC QWEEK Qty: 3 12RF citalopram 40 mg tablet 40 mg PO DAILY Qty: 90 3RF ferrous sulfate 325 mg (65 mg iron) tablet 325 mg PO DAILY Qty: 30 12RF metformin 1,000 mg tablet 1,000 mg PO BID Qty: 180 3RF oxybutynin chloride 15 mg tablet extended release 24hr 15 mg PO DAILY Qty: 90 1RF pregabalin 200 mg capsule 200 mg PO BID Qty: 60 2RF ciprofloxacin 250 mg/5 mL Suspension,Microcapsule Recon 250 mg PO desmopressin 0.2 mg Tablet 0.2 mg PO clindamycin HCl 150 mg Capsule 150 mg PO terbinafine HCl 250 mg Tablet 250 mg PO levofloxacin 750 mg Tablet 750 mg PO Discharge Instructions Activity:: Elevate Remove Dressings/Wound Care:: Do Not Remove Shower/Bathe:: Cover Diet:: Carb Counting Discharge Orders Discharge Orders: Discharge Order (Routine); Ordered 03/13/22 Ordered By: Luciano Don DS: Summary Time Spent with Patient providing and/or coordinating discharge services: Less than 30 minutes Status at Discharge Functional status at discharge: independent ambulation Overall status at discharge: patient is back to baseline Mental Status: mental status grossly normal Speech and Movement: speech and movement normal Mood: congruent mood Affect: normal affect Exam Psych Mental Status: mental status grossly normal Speech and Movement: speech and movement normal Mood: congruent mood Affect: normal affect DS: Data Vitals/I&O Vitals and I&O: Vital Signs Temperature 36.4 C L 03/13/22 10:23 Pulse 60 03/13/22 10:23 Pulse Rhythm Regular 03/13/22 10:23 Respiratory Rate 16 03/13/22 10:23 Respiratory Depth Normal 03/13/22 10:23 Blood Pressure 170/77 H 03/13/22 10:23 Pulse Oximetry 99 03/13/22 10:23 Oxygen Delivery Method Room Air 03/13/22 10:23 Oxygen Flow Rate 0 03/13/22 10:23 Pain Level 0 03/13/22 10:23 Intake & Output 03/12/22 03/13/22 03/13/22 18:59 06:59 18:59 Intake Total 550 / 550 Balance 550 / 550 Weight 104.7 kg Intake: IV 550 / 550 [facility] All Active Problems Ulcer of toe due to diabetes mellitus (Acute) Bleeding from right ear (Acute) Pain of left sacroiliac joint (Acute) Low back pain (Acute) Routine gynecological examination (Acute) Routine medical exam (Acute) Hyperlipidemia (Acute) Daytime somnolence (Acute) Obesity (Chronic) Anemia (Chronic) Polypharmacy (Acute) Memory deficit (Acute) Falls (Acute) Slurred speech (Acute) Dizziness (Acute) Blurred vision (Acute) Abnormal urine (Acute) UTI (urinary tract infection) (Acute) Mild cataract (Acute ~11/2020) Diabetic retinopathy, nonproliferative, mild (Acute ~11/2020) OD-mild OS-none Lung cancer screening declined by patient (Acute) Mammogram declined (Acute) Colon cancer screening declined (Acute) Mixed hearing loss, bilateral (Acute ~04/01/20) Osteomyelitis (Acute) Discharge planning issues (Acute) Diabetes mellitus type 2 (Active) Gastroesophageal reflux disease (Active) Cellulitis of toe (Acute) Depressive disorder (Chronic 10/30/11) [facility] Don Silva, oracle architect History of - section (Active) Chest pain (Acute) Smoker (Acute) Low HDL (under 40) (Acute) 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 Unspecified urinary incontinence (Acute 10/30/11) Type II diabetes mellitus with neurological manifestations (Acute 04/10/13) Tobacco abuse disorder (Acute 06/08/17) Nocturia more than twice per night (Acute 05/20/16) Microscopic hematuria (Acute 02/25/16) Hearing loss (Acute 04/21/13) B/L HEARING AIDS Essential hypertension (Acute 10/30/11) Extrinsic asthma (Acute 08/26/12) Diabetic neuropathy (Acute 11/29/13) Lexie 10/2013 Anxiety state (Acute 10/30/11) [facility] Don Silva, oracle architect Allergic rhinitis (Acute 12/27/13) Alcohol abuse, in remission (Acute 10/30/11) Chest pain (Active 02/22/13) [place] ruled out. Anxiety (Active) Asthma (Active) Medical History Amputation of second toe, right, traumatic Dr Don 04/03/2020 due to ulcer and DM RH Hypertriglyceridemia (08/14/13) Obesity (BMI 30-39.9) (10/30/11) Surgical History Arthroscopy (04/24/04) right knee Family History Mother Diabetes Alcohol abuse Personal history of malignant neoplasm breast Father No problems noted. Social History Smoking/Tobacco Use Status: Current every day Tobacco Type: cigarettes Tobacco: How many years used: 45 Quit status: considering quitting Smoking risk assessment performed?: Yes Alcohol Intake: never Drug use: Rarely Substance use type: marijuana Adopted: Yes Caregiver/Support person: No Household members: family and friend(s) Housing: house Number of Children: 3 Communication Needs: Hard of Hearing Current gender identity: female What is your relationship status?: Panel score (0-1 are the most socially isolated patients): 1 What type of physical activity do you participate in: none Seatbelt use: always Drive intox or ride w/intox diesel pile 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
[2022-03-13 15:09] VITALS: BP 152/83; PULSE 64; RESP 16; TEMP 36.5; O2SAT 96
--- NOTE | 2022-03-13 15:11 | ROE_ITS ---
Date of service: 03/13/22 Time of Service: 14:11 Operative Note Operative Note DATE OF PROCEDURE: 03/13/22 PRE-OP DIAGNOSIS: Chronic ulcer probable osteomyelitis right third toe PROCEDURE: Amputation right third toe through the proximal interphalangeal joint SURGEON: Luciano Don Refer to Anesthesia Record ESTIMATED BLOOD LOSS: 0 PATHOLOGY: other COMPLICATIONS: None Patient was transported to: same day Patient's condition: stable Indications: 56-year-old diabetic female with chronic ulceration affecting the right third toe. Multiple rounds of infection. Bone has been exposed within the base of the wound. She is being brought to the OR for surgical amputation of the right third toe at the proximal interphalangeal joint level. She understands risk and complications pertaining to pain, scarring, infection, nerve injury, persistent infection requiring revisional procedures and she understands the permanency of the dictation. All questions have been answered in detail. Informed consents been obtained. Procedure Description: Maureen was brought to the operative suite placed in the supine position with the right foot prepped and draped in the usual sterile podiatric fashion. Timeout was performed. Local blockade of the right third toe was achieved with 10 cc of a 50: 50 mixture 1% lidocaine with 1-100,000 epinephrine 0.5% Marcaine plain. Attention was directed to the right third toe with 2 converging transverse incisions were placed at the PIPJ level so as to afford dorsal and plantar flaps amputation. With a #15 scalpel the incision was with deepened the extensor tendon was released as was the joint capsule at the PIPJ level the incisions were carried down medially and laterally and plantarly leaving more tissue plantarly so as to bring up a flap the flexor tendons were visualized transversely incised retracted plantarly the plantar joint capsule was released and the distal component of the third toe removed from the operative field. This was sent to pathology. Copious irrigation of the surgical site performed the cartilaginous material of the head of the proximal phalanx was removed all rough and bony edges rasped smooth. The extensor and flexor tendons were then repaired end-to-end with 3-0 Vicryl and the skin was coapted with far near near far 4-0 nylon suture technique the skin came together without undue stress and in good opposition Xeroform gauze fluff compression dressings were then applied Maureen left the OR vital signs stable vascular status intact she will be followed by myself next week in the office Dictated with French naturally speaking not reviewed for montessori lead teacher accuracy
== END 2022-03-13 15:31 | disposition home or self-care (01) ==
PROVIDERS: PCP Nurse Practitioner; Visit Provider Podiatrist
PROC: (CPT 28825; principal; 2022-03-13 13:00)
DX: E11.621 Type 2 diabetes mellitus with foot ulcer (principal); L97.519 Non-pressure chronic ulcer of other part of right foot with unspecified severity; L90.5 Scar conditions and fibrosis of skin
CPT/HCPCS: 28825; 88300; 88305; 88311; J0690

== ENCOUNTER 2022-07-15 14:39 | Outpatient (REF) | payer MEDICARE, MEDICAID, SELFPAY | END 2022-07-15 14:40 | disposition home or self-care (01) | LOC: LBN 14:39 | PROVIDERS: PCP Nurse Practitioner; Visit Provider Nurse Practitioner | DX: D64.9 Anemia, unspecified (principal); E55.9 Vitamin D deficiency, unspecified; R31.29 Other microscopic hematuria; R53.83 Other fatigue | CPT/HCPCS: 87077; 87086; 87186 ==

== ENCOUNTER 2022-07-17 00:55 | Outpatient (CLI) | payer MEDICARE, MEDICAID, SELFPAY ==
[2022-07-17 12:29] LABS: HCT 41.5 % (36.0-46.0); HGB 13.4 g/dL (11.2-15.7); MCH 28.6 pg (27.0-33.0); MCHC 32.3 % (32.0-36.0); MCV 89 fL (80-95); MPV 11.7 fL (8.0-11.0); Platelet Count 235 10^3/uL (130-400); RBC 4.69 10^6/uL (3.93-5.22); RDW 14.1 % (11.7-14.6); RDW-SD 45.1 fL; WBC 10.31 10^3/uL (4.4-10.8)
[2022-07-17 13:15] LABS: ALT 20 U/L (14-59); AST 19 U/L (15-37); Albumin 4.1 g/dL (3.4-5.0); Alkaline Phosphatase 76 U/L (46-116); BUN 11 mg/dL (7-18); Bilirubin, Total 0.4 mg/dL (0.2-1.0); CREATININE 0.8 mg/dL (0.55-1.02); Calcium 9.5 mg/dL (8.5-10.1); Chloride 103 mmol/L (98-107); Estimated GFR 84.82 (mL/min/1.73m2); Ferritin 30 ng/mL (8-252); Glucose 97 mg/dL (74-106); Sodium 141 mmol/L (136-145); TSH (W/Ref FT4) 1.34 uIU/mL (0.36-3.74); Total Protein 8.2 g/dL (6.4-8.2); Vitamin B12 465 pg/mL (193-986)
[2022-07-20 06:01] LABS: Vitamin D 25 Total 38.1 ng/mL (30-100)
[2022-07-20 11:44] LABS: HIV-1/2 Ag & Ab Screen Negative (Negative)
[2022-07-20 11:51] LABS: Hepatitis C Ab w Rflx HCV PCR Negative (Negative)
== END 2022-07-17 00:56 | disposition home or self-care (01) ==
LOC: LBO 00:55
PROVIDERS: PCP Nurse Practitioner; Visit Provider Nurse Practitioner
DX: I10 Essential (primary) hypertension (principal); E11.40 Type 2 diabetes mellitus with diabetic neuropathy, unspecified; D64.9 Anemia, unspecified; E55.9 Vitamin D deficiency, unspecified; R07.89 Other chest pain; R53.83 Other fatigue; Z79.899 Other long term (current) drug therapy; Z11.59 Encounter for screening for other viral diseases; Z11.4 Encounter for screening for human immunodeficiency virus [HIV]
CPT/HCPCS: 36415; 80053; 82306; 85027; 86803; 87389; 82607; 82728; 84443

== ENCOUNTER 2022-11-01 13:18 | Emergency (ER) | payer MEDICARE, MEDICAID, SELFPAY ==
[2022-11-01 13:22] VITALS: BP 200/81; PULSE 79; RESP 17; TEMP 36.3; O2SAT 97
--- NOTE | 2022-11-01 13:33 | DI.CT_ITS ---
Exam(s) CT RENAL COLIC WO EXAM: CT RENAL COLIC WO CLINICAL HISTORY: right flank pain. TECHNIQUE: Imaging Protocol: Axial computed tomography images with coronal and sagittal reformatted images were created and reviewed. CONTRAST MATERIAL: Noncontrast COMPARISON: CT UPPER ABD W/WO CONTRAST(P) from 01/08/2017 FINDINGS: ABDOMEN: Lung Bases: Normal where visualized. Liver: Enlarged, fatty infiltration.. No measurable mass. Gallbladder and biliary tract: Single calcified stone noted no biliary dilation. Pancreas: Normal density, no calcifications or inflammatory process. Spleen: Normal. Kidneys: Normal size, contour and axis. No radiodense stones or obstructive uropathy. No masses seen. Adrenal glands: Stable right adrenal adenoma. Abdominal Aorta: Abdominal portion non-dilated. Lymph nodes: Stable lymph node in the hollie hepatis measuring 3 cm greatest dimension. PELVIS: Bladder: Symmetric distention, no gross wall thickening. No evidence of stones.No visible mass. Bowel: No obstruction or bowel wall thickening. Moderate quantity of stool. Appendix normal. Reproductive: Unremarkable. Peritoneal cavity: No ascites, collection or mesenteric inflammatory response. Bones: Degenerative disc changes at L2-3, L4-5 and L5-S1. IMPRESSION: No evidence of urinary tract calculi or hydronephrosis. no acute abnormality identified. RADIATION DOSE DELIVERED: 1,174.58mGy.cm Total DLP DATA REPOSITORY: All CT scans at this facility are submitted to the National Radiology Data Registry (NRDR) Dose Index Registry (DIR) with the [employer] (ACR). RADIATION OPTIMIZATION: All CT scans at this facility use at least one of these dose optimization te chniques: automated exposure control; mA and/or kV adjustment per patient size (includes targeted exa ms where dose is matched to clinical indication); or iterative reconstruction.
--- NOTE | 2022-11-01 13:34 | ED.GENADUL_ITS ---
Discharge Plan Disposition Patient Disposition: Home Condition: Stable Discharge Details Clinical Impression: Pyelonephritis Primary Care Provider: Anjana Gayle ED Provider: Sorin Mcdermott Home Meds and New Rx's Prescriptions: New levofloxacin 750 mg tablet 750 mg PO DAILY Qty: 5 0RF phenazopyridine [Pyridium] 200 mg tablet 200 mg PO TID PRNQty: 6 0RF Continued atorvastatin 10 mg tablet 10 mg PO DAILY Qty: 90 3RF melatonin 10 mg tablet 20 mg PO HS PRN insulin aspart U-100 [Novolog Flexpen U-100 Insulin] 100 unit/mL (3 mL) insulin pen See Rx Instructions Sub-Q AC MDD 72u Qty: 15 3RF Dose Instruction: Sub-Q AC; administer 10-20u ac per Insulin schedule to manage BS with meals and to keep A1c at or below 7. Rx Instructions: Sub-Q AC; administer 10-20u ac per Insulin schedule to manage BS with meals and to keep A1c at or below 7. lisinopril 10 mg tablet 10 mg PO DAILY Qty: 90 3RF semaglutide 2 mg/dose (8 mg/3 mL) pen injector 2 mg SC QWEEK Qty: 3 12RF nystatin 100,000 unit/gram cream 1 applic topical QID PRN (Reason: Rash under breasts) Qty: 60 5RF linagliptin 5 mg tablet 5 mg PO DAILY Qty: 90 3RF alcohol swabs [Alcohol Prep Pads] Pads, Medicated 1 pad TP AC & HS Qty: 400 3RF Rx Instructions: 1 pad pre FS cetirizine 10 mg tablet 10 mg PO DAILY Qty: 90 3RF Rx Instructions: DX: ALLERGIES fluticasone propionate [Flovent HFA] 44 mcg/actuation HFA aerosol inhaler 2 puff Inhalation BID Qty: 3 3RF insulin degludec [Tresiba FlexTouch U-200] 200 unit/mL (3 mL) insulin pen 94 unit SC DAILY Qty: 15 6RF Nicotrol 10 mg cartridge 1 inh inhalation 4-6XD PRN (Reason: nicotine cravings) Qty: 168 4RF oxybutynin chloride 15 mg tablet extended release 24hr 15 mg PO DAILY Qty: 90 1RF probiotic gummies 1 gummy PO DAILY nitrofurantoin monohyd/m-cryst [Macrobid] 100 mg capsule 100 mg PO BID Qty: 10 0RF Rx Instructions: must administer with a meal/food pregabalin 200 mg capsule 200 mg PO BID Qty: 60 2RF (DME) BreatheRite MDI Spacer Spacer See Rx Instructions .ROUTE .MEDSUPPLY Qty: 1 3RF Rx Instructions: As directed for use with MDI. Please dispense what is available/covered. (DME) FreeStyle Pavan 2 [place] Misc 0 .ROUTE .MEDSUPPLY Qty: 1 albuterol sulfate [Proventil HFA] 90 mcg/actuation HFA aerosol inhaler 2 puff Inhalation Q6H PRN Qty: 18 1RF Rx Instructions: DX: EMERGENCY INHALER FOR ASTHMA citalopram 40 mg tablet 40 mg PO DAILY Qty: 90 3RF ferrous sulfate 325 mg (65 mg iron) tablet 325 mg PO DAILY Qty: 30 12RF metformin 1,000 mg tablet 1,000 mg PO BID Qty: 180 3RF (DME) pen needle, diabetic 31 gauge x 5/16 needle 1 ea Miscellaneous DAILY Qty: 600 3RF Rx Instructions: E11.40 to maintain A1C less than 7; 5mm pen needles. fenofibrate micronized 67 mg capsule See Rx Instructions .ROUTE .COMPLEX Qty: 90 3RF Dose Instruction: TAKE ONE CAPSULE BY MOUTH EVERY DAY Rx Instructions: TAKE ONE CAPSULE BY MOUTH EVERY DAY (DME) Prevail Underwear Misc See Rx Instructions .ROUTE .COMPLEX Qty: 96 12RF Dose Instruction: USE DIRECTED UP TO 100 PER MONTH Rx Instructions: USE DIRECTED UP TO 100 PER MONTH (DME) FreeStyle Pavan 14 Day Sensor Kit See Rx Instructions .ROUTE .MEDSUPPLY Qty: 1 12RF Rx Instructions: As directed (DME) blood-glucose meter [OneTouch Verio Meter] Misc See Rx Instructions .ROUTE .MEDSUPPLY Qty: 1 0RF Rx Instructions: E11.9 to maintain A1C <7.5, test QD, prn when needing to verify CGM reading per engraver set up operator directions (DME) lancing device with lancets [OneTouch Delica Plus Lanc Dev] Kit See Rx Instructions .ROUTE .MEDSUPPLY Qty: 1 1RF Rx Instructions: E11.9 to maintain A1C <7.5, test QD, prn when needing to verify CGM reading per engraver set up operator directions (DME) OneTouch Verio test strips Strip See Rx Instructions .ROUTE .MEDSUPPLY Qty: 25 5RF Rx Instructions: E11.9 to maintain A1C <7.5, test QD, prn when needing to verify CGM reading per engraver set up operator directions (DME) lancets [OneTouch Delica Plus Lancet] 33 gauge misc See Rx Instructions .ROUTE .MEDSUPPLY Qty: 100 1RF Rx Instructions: E11.9 to maintain A1C <7.5, test QD, prn when needing to verify CGM reading per engraver set up operator directions pantoprazole 40 mg tablet,delayed release (DR/EC) 40 mg PO DAILY Qty: 90 3RF lamotrigine [Lamictal XR] 200 mg tablet extended release 24hr 200 mg PO HS Qty: 90 1RF Rx Instructions: takes 100mg along with 200mg for a total of 300mg daily. lamotrigine 100 mg tablet extended release 24hr 100 mg PO DAILY Qty: 90 1RF Rx Instructions: takes 100mg along with 200mg ER for a total of 300mg daily. semaglutide 1 mg/dose (4 mg/3 mL) pen injector 2 mg subcut QWEEK Qty: 6 2RF Rx Instructions: While 2mg on backorder lorazepam 1 mg tablet 1 mg PO BID Qty: 60 2RF Latuda 20 mg tablet 20 mg PO QAM Qty: 90 1RF Rx Instructions: must administer with food (at least 350 calories) Latuda 120 mg tablet 120 mg PO QPM Qty: 90 1RF Rx Instructions: must administer with food (at least 350 calories) meloxicam 15 mg tablet See Rx Instructions .ROUTE .COMPLEX Qty: 90 1RF Dose Instruction: TAKE ONE TABLET BY MOUTH EVERY DAY NEEDED FOR PAIN Rx Instructions: TAKE ONE TABLET BY MOUTH EVERY DAY NEEDED FOR PAIN desmopressin 0.2 mg Tablet 0.2 mg PO DAILY Discharge Instructions Instructions: Kidney Infection (ED) Additional Instructions: if you are not improving in a few days follow up with your primary care provider if you feel more ill, have severe worsening pain or persistent vomiting return to the emergency department Medical Decision Making 57 yo female with with hx of hld, dm, who comes in with 2 weeks of suprapubic pain and right cva area pain. Denies fevers, chills, n/v. She denies chest pain, dyspnea. She arrives stable speaking clearly and appears well on exam. She has mild suprapubic tenderness and also has right cva tenderness. No other abdominal tenderness elsewhere. Concern for possible kidney stone vs pyelo, will obtain ua, cbc, cmp, lipase and also ct renal colic and reassess. labs consistent with uti and given right cva tenderness suspect pyelonephritis, ct negative for acute findings. She is stable in no distress sitting up in bed. She has no abdominal tenderness, tolerating po, stable vitals. She is stable for d/c, will start on levofloxacin and advised to f/u with pcp, return precautions given Differential Diagnosis Differential Diagnosis: kidney stone, pyelo Medical Records Medical records reviewed: Yes I reviewed the patient's medical records. Imaging Data Radiologic Study: Attestation: I personally reviewed and interpreted this imaging study as follows: Imaging: CT Scan Radiologist's impression: IMPRESSION: 1. No obstructive uropathy or renal calculus. 2. Stable hepatomegaly measures 23 cm in craniocaudal dimension. Lab Data Lab results reviewed: Yes I reviewed the patient's lab results. HPI General Mode of arrival: ambulatory . Date/Time Provider Initiated Documentation: 11/01/22 13:22 . Limitations to Documentation: no limitations . Information obtained by: patient . History of Present Illness 57 year old F presents to the emergency department with the chief complaint of lower abdomen pain, described as moderate, Patient started experiencing this week(s) (2) and it has been constant. No relieving factors improve symptom(s), No exacerbating factors reported . Patient notes denies fever/chills. Patient did receive the following treatments prior to arrival, none Related Data Home Medications Medication Instructions Recorded Confirmed inhalational spacing device #1 ea 12/09/20 11/01/22 (BreatheRite MDI Spacer) atorvastatin 10 mg tablet 10 mg PO DAILY #90 tabs 01/29/21 11/01/22 linagliptin 5 mg tablet 5 mg PO DAILY #90 tabs 03/10/21 11/01/22 flash glucose scanning reader #1 ea 05/15/21 11/01/22 (FreeStyle Pavan 2 [place]) albuterol sulfate 90 mcg/actuation 2 puff inhalation Q6H PRN #18 grams 08/15/21 11/01/22 aerosol inhaler (Proventil HFA) alcohol swabs (Alcohol Prep Pads) 1 pad topical AC & HS #400 ea 12/10/21 11/01/22 insulin aspart U-100 100 unit/mL See Rx Instructions subcut AC #15 01/26/22 11/01/22 (3 mL) subcutaneous pen (Novolog mL Flexpen U-100 Insulin aspart) lisinopril 10 mg tablet 10 mg PO DAILY #90 tabs 01/26/22 11/01/22 melatonin 10 mg tablet 20 mg PO HS PRN 01/26/22 11/01/22 citalopram 40 mg tablet 40 mg PO DAILY #90 tabs 01/29/22 11/01/22 ferrous sulfate 325 mg (65 mg 325 mg PO DAILY #30 tabs 02/16/22 11/01/22 iron) tablet metformin 1,000 mg tablet 1,000 mg PO BID #180 tabs 02/23/22 11/01/22 desmopressin 0.2 mg tablet 0.2 mg PO DAILY 03/10/22 11/01/22 pen needle, diabetic 31 gauge x #600 ea 03/18/22 11/01/2203/09 fenofibrate micronized 67 mg See Rx Instructions .Route 04/13/22 11/01/22 capsule .COMPLEX #90 caps diaper,brief,adult,disposable #96 ea 05/12/22 11/01/22 (Prevail Underwear) nystatin 100,000 unit/gram topical 1 applic topical QID PRN Rash 05/19/22 11/01/22 cream under breasts #60 grams semaglutide 2 mg/dose (8 mg/3 mL) 2 mg (0.75 mL) subcut QWEEK #3 mL 05/19/22 11/01/22 subcutaneous pen injector flash glucose sensor (FreeStyle #1 ea 06/03/22 11/01/22 Pavan 14 Day Sensor kit) blood sugar diagnostic (OneTouch #25 ea 06/05/22 11/01/22 Verio test strips) blood-glucose meter (OneTouch #1 ea 06/05/22 11/01/22 Verio Meter) lancets 33 gauge (OneTouch Delica #100 ea 06/05/22 11/01/22 Plus Lancet) lancing device with lancets kit #1 ea 06/05/22 11/01/22 (OneTouch Delica Plus Lancing Device kit) pantoprazole 40 mg tablet,delayed 40 mg PO DAILY #90 tab-caps 06/15/22 11/01/22 release nitrofurantoin 100 mg PO BID #10 caps 07/15/22 11/01/22 monohydrate/macrocrystals 100 mg capsule (Macrobid) probiotic gummies 1 gummy PO DAILY 07/15/22 11/01/22 lamotrigine 100 mg tablet,extended 100 mg PO DAILY #90 tabs 07/20/22 11/01/22 release 24 hr lamotrigine 200 mg tablet,extended 200 mg PO HS #90 tabs 07/20/22 11/01/22 release 24 hr (Lamictal XR) cetirizine 10 mg tablet 10 mg PO DAILY #90 tabs 08/19/22 11/01/22 fluticasone propionate 44 2 puff inhalation BID #3 multiple 08/19/22 11/01/22 mcg/actuation HFA aerosol inhaler units (Flovent HFA) insulin degludec 200 unit/mL (3 94 unit (0.47 mL) subcut DAILY #15 08/19/22 11/01/22 mL) subcutaneous pen (Tresiba mL FlexTouch U-200 insulin) nicotine 10 mg inhalation 1 inh inhalation 4-6XD PRN 08/19/22 11/01/22 cartridge (Nicotrol) nicotine cravings #168 ea oxybutynin chloride 15 mg 15 mg PO DAILY #90 tabs 08/19/22 11/01/22 tablet,extended release 24 hr semaglutide 1 mg/dose (4 mg/3 mL) 2 mg (1.5 mL) subcut QWEEK #6 mL 08/20/22 11/01/22 subcutaneous pen injector lorazepam 1 mg tablet 1 mg PO BID #60 tabs 09/01/22 11/01/22 lurasidone 120 mg tablet (Latuda) 120 mg PO QPM #90 tabs 09/08/22 11/01/22 lurasidone 20 mg tablet (Latuda) 20 mg PO QAM #90 tabs 09/08/22 11/01/22 meloxicam 15 mg tablet See Rx Instructions .Route 09/21/22 11/01/22 .COMPLEX #90 tabs pregabalin 200 mg capsule 200 mg PO BID #60 caps 10/01/22 11/01/22 levofloxacin 750 mg tablet 750 mg PO DAILY #5 tabs 11/01/22 phenazopyridine 200 mg tablet 200 mg PO TID PRN #6 tabs 11/01/22 (Pyridium) Previous Rx's Medication Instructions Recorded inhalational spacing device #1 ea 12/09/20 (BreatheRite MDI Spacer) atorvastatin 10 mg tablet 10 mg PO DAILY #90 tabs 01/29/21 linagliptin 5 mg tablet 5 mg PO DAILY #90 tabs 03/10/21 albuterol sulfate 90 mcg/actuation 2 puff inhalation Q6H PRN #18 grams 08/15/21 aerosol inhaler (Proventil HFA) alcohol swabs (Alcohol Prep Pads) 1 pad topical AC & HS #400 ea 12/10/21 insulin aspart U-100 100 unit/mL See Rx Instructions subcut AC #15 01/26/22 (3 mL) subcutaneous pen (Novolog mL Flexpen U-100 Insulin aspart) lisinopril 10 mg tablet 10 mg PO DAILY #90 tabs 01/26/22 citalopram 40 mg tablet 40 mg PO DAILY #90 tabs 01/29/22 ferrous sulfate 325 mg (65 mg 325 mg PO DAILY #30 tabs 02/16/22 iron) tablet metformin 1,000 mg tablet 1,000 mg PO BID #180 tabs 02/23/22 pen needle, diabetic 31 gauge x #600 ea 03/18/2203/09 fenofibrate micronized 67 mg See Rx Instructions .Route 04/13/22 capsule .COMPLEX #90 caps diaper,brief,adult,disposable #96 ea 05/12/22 (Prevail Underwear) nystatin 100,000 unit/gram topical 1 applic topical QID PRN Rash 05/19/22 cream under breasts #60 grams semaglutide 2 mg/dose (8 mg/3 mL) 2 mg (0.75 mL) subcut QWEEK #3 mL 05/19/22 subcutaneous pen injector flash glucose sensor (FreeStyle #1 ea 06/03/22 Pavan 14 Day Sensor kit) blood sugar diagnostic (OneTouch #25 ea 06/05/22 Verio test strips) blood-glucose meter (OneTouch #1 ea 06/05/22 Verio Meter) lancets 33 gauge (OneTouch Delica #100 ea 06/05/22 Plus Lancet) lancing device with lancets kit #1 ea 06/05/22 (OneTouch Delica Plus Lancing Device kit) pantoprazole 40 mg tablet,delayed 40 mg PO DAILY #90 tab-caps 06/15/22 release nitrofurantoin 100 mg PO BID #10 caps 07/15/22 monohydrate/macrocrystals 100 mg capsule (Macrobid) lamotrigine 100 mg tablet,extended 100 mg PO DAILY #90 tabs 07/20/22 release 24 hr lamotrigine 200 mg tablet,extended 200 mg PO HS #90 tabs 07/20/22 release 24 hr (Lamictal XR) cetirizine 10 mg tablet 10 mg PO DAILY #90 tabs 08/19/22 fluticasone propionate 44 2 puff inhalation BID #3 multiple 08/19/22 mcg/actuation HFA aerosol inhaler units (Flovent HFA) insulin degludec 200 unit/mL (3 94 unit (0.47 mL) subcut DAILY #15 08/19/22 mL) subcutaneous pen (Tresiba mL FlexTouch U-200 insulin) nicotine 10 mg inhalation 1 inh inhalation 4-6XD PRN 08/19/22 cartridge (Nicotrol) nicotine cravings #168 ea oxybutynin chloride 15 mg 15 mg PO DAILY #90 tabs 08/19/22 tablet,extended release 24 hr semaglutide 1 mg/dose (4 mg/3 mL) 2 mg (1.5 mL) subcut QWEEK #6 mL 08/20/22 subcutaneous pen injector lorazepam 1 mg tablet 1 mg PO BID #60 tabs 09/01/22 lurasidone 120 mg tablet (Latuda) 120 mg PO QPM #90 tabs 09/08/22 lurasidone 20 mg tablet (Latuda) 20 mg PO QAM #90 tabs 09/08/22 meloxicam 15 mg tablet See Rx Instructions .Route 09/21/22 .COMPLEX #90 tabs pregabalin 200 mg capsule 200 mg PO BID #60 caps 10/01/22 levofloxacin 750 mg tablet 750 mg PO DAILY #5 tabs 11/01/22 phenazopyridine 200 mg tablet 200 mg PO TID PRN #6 tabs 01/08/23 (Pyridium) Allergies Allergy/AdvReac Type Severity Reaction Status Date / Time Sulfa (Sulfonamide Allergy Intermediate Swelling, Verified 11/01/22 13:25 Antibiotics) difficulty breathing niacin AdvReac Intermediate HIVES Verified 11/01/22 13:25 amoxicillin AdvReac Mild VAGINAL Verified 11/01/22 13:25 INFECTION INFECTION General Stated Complaint: FlankPain JOSE: 4 Review of Systems All systems reviewed & are unremarkable except as noted in HPI and below Constitutional Constitutional: Denies chills, Denies fever(s) and Denies weakness Cardiovascular Cardiovascular: Denies chest pain and Denies dyspnea Respiratory Respiratory: Denies cough and Denies dyspnea Gastrointestinal Gastrointestinal: Denies nausea and Denies vomiting Musculoskeletal Musculoskeletal: Denies joint swelling Integumentary/Breasts Skin/Breast: Denies rash Neurologic Neurologic: Denies weakness [facility] All Active Problems (Updated 11/01/22 @ 14:52 by Sorin Mcdermott MD) Pyelonephritis (Acute) Corns and callosities (Acute) Nail dystrophy (Acute) Dysuria (Acute) Ulcer of toe due to diabetes mellitus (Acute) Pain of left sacroiliac joint (Acute) Low back pain (Acute) Routine gynecological examination (Acute) Routine medical exam (Acute) Hyperlipidemia (Acute) Daytime somnolence (Acute) Obesity (Chronic) Anemia (Chronic) Polypharmacy (Acute) Memory deficit (Acute) Falls (Acute) Slurred speech (Acute) Dizziness (Acute) Blurred vision (Acute) Abnormal urine (Acute) UTI (urinary tract infection) (Acute) Mild cataract (Acute ~11/2020) Diabetic retinopathy, nonproliferative, mild (Acute ~11/2020) OD-mild OS-none Lung cancer screening declined by patient (Acute) Mammogram declined (Acute) Colon cancer screening declined (Acute) Mixed hearing loss, bilateral (Acute ~04/01/20) Osteomyelitis (Acute) Discharge planning issues (Acute) Diabetes mellitus type 2 (Active) Gastroesophageal reflux disease (Active) Cellulitis of toe (Acute) Depressive disorder (Chronic 10/30/11) [facility] Don Silva, stripper soft plastic History of - section (Active) Chest pain (Acute) Smoker (Acute) Low HDL (under 40) (Acute) 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 Unspecified urinary incontinence (Acute 10/30/11) Type II diabetes mellitus with neurological manifestations (Acute 04/10/13) Tobacco abuse disorder (Acute 06/08/17) Nocturia more than twice per night (Acute 05/20/16) Microscopic hematuria (Acute 02/25/16) Hearing loss (Acute 04/21/13) B/L HEARING AIDS Essential hypertension (Acute 10/30/11) Extrinsic asthma (Acute 08/26/12) Diabetic neuropathy (Acute 11/29/13) Lexie 10/2013 Anxiety state (Acute 10/30/11) [facility] oDn Silva, stripper soft plastic Allergic rhinitis (Acute 12/27/13) Alcohol abuse, in remission (Acute 10/30/11) Chest pain (Active 02/22/13) MO ruled out. Anxiety (Active) Asthma (Active) Medical History Amputation of second toe, right, traumatic Dr Don 04/03/2020 due to ulcer and DM [facility] Hypertriglyceridemia (08/14/13) Obesity (BMI 30-39.9) (10/30/11) Surgical History Arthroscopy (04/24/04) right knee Family History Mother Diabetes Alcohol abuse Personal history of malignant neoplasm breast Father No problems noted. Social History Smoking/Tobacco Use Status: Current every day Tobacco Type: cigarettes Tobacco: How many years used: 45 Quit status: considering quitting Smoking risk assessment performed?: Yes Alcohol Intake: never Drug use: Rarely Substance use type: marijuana Adopted: Yes Caregiver/Support person: No Household members: family and friend(s) Housing: house Number of Children: 3 Communication Needs: Hard of Hearing Current gender identity: female What is your relationship status?: Panel score (0-1 are the most socially isolated patients): 1 What type of physical activity do you participate in: none Seatbelt use: always Drive intox or ride w/intox operator and truck driver: No Working smoke detector in home: Yes Carbon monox detector in home: Yes Do you feel safe at home: Yes Do you feel safe in your relationship?: Yes Exam Const General: no acute distress Orientation: alert HENMT Head: normal to inspection Ears: external ears normal General nose exam: external nose normal Mouth: moist mucous membranes Eyes General: appearance normal, both eyes and all related structures Neck Neck: normal visual inspection Resp Effort & Inspection: normal respiratory effort and able to speak in complete sentences Cardio Rate: regular rate GI Palpation: soft, not firm and no guarding Back/Spine/Pelvis Back: CVA tenderness Skin General skin exam: no rashes or lesions noted Neuro General: patient alert and patient oriented x3 Extrem General: normal to inspection Psych Mental Status: mental status grossly normal Course Vital Signs Vital signs: Vital Signs Temperature 36.3 C L 11/01/22 13:22 Pulse 79 11/01/22 13:22 Respiratory Rate 17 11/01/22 13:22 Blood Pressure 200/81 H 11/01/22 13:22 Pulse Oximetry 97 11/01/22 13:22 Temperature 36.3 C L 11/01/22 13:22 Temperature Source Temporal Artery Scan 11/01/22 13:22 Pulse 79 11/01/22 13:22 Respiratory Rate 17 11/01/22 13:22 Respiratory Effort 11/01/22 13:24 Blood Pressure 200/81 H 11/01/22 13:22 Blood Pressure Position Sitting 11/01/22 13:22 Pulse Oximetry 97 11/01/22 13:22 Oxygen Delivery Method Room Air 11/01/22 13:22 Oxygen Flow Rate 0 11/01/22 13:22 Pain Level 9 11/01/22 13:22
[2022-11-01 13:54] LABS: Abs Immature Grans 0.06 10^3/uL (0.0-0.06); Absolute Basophil Count 0.05 10^3/uL (0.0-0.2); Absolute Eosinophil Count 0.22 10^3/uL (0.0-0.7); Absolute Lymphocyte Count 3.09 10^3/uL (1.2-3.4); Absolute Monocyte Count 0.56 10^3/uL (0.1-0.8); Absolute Neutrophil Count 4.66 10^3/uL (1.2-6.7); Basophils % 0.6; Eosinophils % 2.5; HCT 40.4 % (36.0-46.0); HGB 13.5 g/dL (11.2-15.7); Immature Grans % 0.7; Lymphocytes % 35.8; MCH 29.5 pg (27.0-33.0); MCHC 33.4 % (32.0-36.0); MCV 88 fL (80-95); MPV 11.3 fL (8.0-11.0); Monocytes % 6.5; Neutrophils % 53.9; Platelet Count 248 10^3/uL (130-400); RBC 4.57 10^6/uL (3.93-5.22); RDW 13.5 % (11.7-14.6); RDW-SD 43.9 fL; WBC 8.64 10^3/uL (4.4-10.8)
[2022-11-01 13:55] LABS: Bilirubin Negative (Negative); Blood Trace-lysed (Negative); Clarity Sl Cloudy (Clear); Glucose Negative (Negative); Ketones Negative (Negative); Leukocyte Esterase Large (Negative); Nitrite Positive (Negative); Specific Gravity 1.015 (1.005-1.025); Urobilinogen 0.2 EU/dL (Up TO 0.2)
[2022-11-01 14:03] LABS: Bacteria Many HPF (Negative); Epithelial Cells Few HPF (Negative); RBC 0-2 HPF (0-2); WBC >50 HPF (0-5)
[2022-11-01 14:04] LABS: C & S Indicated? Yes; Casts Negative LPF (Negative); Crystals Negative HPF (Negative); Mucus Negative (Negative)
[2022-11-01 14:09] LABS: ALT 17 U/L (14-59); AST 19 U/L (15-37); Albumin 4.2 g/dL (3.4-5.0); Alkaline Phosphatase 78 U/L (46-116); Anion Gap 6.5 mmol/L (3-11); BUN 10 mg/dL (7-18); Bilirubin, Total 0.5 mg/dL (0.2-1.0); CO2 28.5 mmol/L (21.0-32.0); CREATININE 0.8 mg/dL (0.55-1.02); Calcium 9.1 mg/dL (8.5-10.1); Chloride 104 mmol/L (98-107); Estimated GFR 84.82 (mL/min/1.73m2); Glucose 89 mg/dL (74-106); Lipase 130 U/L (73-393); Potassium 4.2 mmol/L (3.5-5.1); Sodium 139 mmol/L (136-145); Total Protein 7.9 g/dL (6.4-8.2)
--- NOTE | 2022-11-01 14:44 | DI.VRAD_ITS ---
PROCEDURE INFORMATION: Exam: CT Abdomen And Pelvis Without Contrast Exam date and time: 11/01/2022 1:56 PM Age: 57 years old Clinical indication: Other: Right flank pain TECHNIQUE: Imaging protocol: Computed tomography of the abdomen and pelvis without contrast. Radiation optimization: All CT scans at this facility use at least one of these dose optimization techniques: automated exposure control; mA and/or kV adjustment per patient size (includes targeted exams where dose is matched to clinical indication); or iterative reconstruction. COMPARISON: 1. CT UPPER ABD W/WO CONTRAST(P) 01/08/2017 10:[address] ABD PELVIS WITH CONTRAST 12/25/2016 6:34 PM FINDINGS: Liver: Stable hepatomegaly measures 23 cm in craniocaudal dimension. Gallbladder and bile ducts: Cholelithiasis. Pancreas: Normal. No ductal dilation. Spleen: Normal. No splenomegaly. Adrenal glands: Right adrenal adenoma measures 2 x 1.8 cm. Left adrenal gland unremarkable. Kidneys and ureters: No obstructive uropathy or renal calculus. Stomach and bowel: Unremarkable. No obstruction. No mucosal thickening. Appendix: No evidence of appendicitis. Intraperitoneal space: Unremarkable. No free air. No significant fluid collection. Vasculature: Unremarkable. No abdominal aortic aneurysm. Lymph nodes: Stable hollie hepatis lymphadenopathy, with largest lymph node measuring 3 x 1.9 cm. Urinary bladder: Unremarkable as visualized. Reproductive: Unremarkable as visualized. Bones/joints: Unremarkable. No acute fracture. Soft tissues: Unremarkable. IMPRESSION: 1. No obstructive uropathy or renal calculus. 2. Stable hepatomegaly measures 23 cm in craniocaudal dimension. Dictated and Authenticated by: Steffi Garza MD. Ordering:CAMPOS Rowell MD
[2022-11-01] MEDS: levoFLOXacin 500 MG, levoFLOXacin 250 MG 750 MG PO (14:57)
[2022-11-01] MEDS: Phenazopyridine 200 MG TAB PO (14:57)
[2022-11-01 15:00] VITALS: BP 140/74; PULSE 65; RESP 18; O2SAT 96
== END 2022-11-01 15:07 | disposition home or self-care (01) ==
PROVIDERS: Emergency Provider Emergency Medicine; PCP Nurse Practitioner
DX: N12 Tubulo-interstitial nephritis, not specified as acute or chronic (principal); E78.5 Hyperlipidemia, unspecified; E11.9 Type 2 diabetes mellitus without complications; Z79.84 Long term (current) use of oral hypoglycemic drugs; Z79.4 Long term (current) use of insulin
CPT/HCPCS: 36415; 80053; 83690; 87077; 96360; 99284; 74176; 81003; 81015; 85025; 87086; 87186

== ENCOUNTER → 2022-11-03 13:43 | Outpatient (BNVA) | payer MEDICARE, MEDICAID, SELFPAY | PROVIDERS: PCP Nurse Practitioner; Referring Provider Nurse Practitioner; Visit Provider Nurse Practitioner Adult Health | DX: E11.319 Type 2 diabetes mellitus with unspecified diabetic retinopathy without macular edema (principal); E11.42 Type 2 diabetes mellitus with diabetic polyneuropathy; Z79.4 Long term (current) use of insulin; I10 Essential (primary) hypertension; F17.210 Nicotine dependence, cigarettes, uncomplicated; F39 Unspecified mood [affective] disorder; G43.009 Migraine without aura, not intractable, without status migrainosus | CPT/HCPCS: 99204; 99214 ==

== ENCOUNTER 2022-11-12 11:59 | Outpatient (REF) | payer MEDICARE, MEDICAID, SELFPAY ==
[2022-12-23 08:50] LABS: Result See Comments
== END 2022-11-12 12:00 | disposition home or self-care (01) ==
LOC: LBN 11:59
PROVIDERS: PCP Nurse Practitioner; Visit Provider Nurse Practitioner
DX: R10.9 Unspecified abdominal pain (principal)
CPT/HCPCS: 87077; 87186; 87086

== ENCOUNTER 2022-11-25 01:53 | Outpatient (CLI) | payer MEDICARE, MEDICAID, SELFPAY ==
--- NOTE | 2022-11-25 14:25 | DI.MRI_ITS ---
Exam(s) MR BRAIN WO EXAM: MR BRAIN WO CLINICAL HISTORY: new daily migraines,G43.009. TECHNIQUE: Multiplanar multisequence MRI of the brain was performed. CONTRAST MATERIAL: Noncontrast COMPARISON: CT CT HEAD WO from 01/08/2021 FINDINGS: VENTRICLES AND EXTRA AXIAL SPACES: Normal in size and morphology for the patient's age. HEMORRHAGE: None. CEREBRAL PARENCHYMA: No focus of restricted diffusion to suggest acute infarct. No space-occupying le iker identified. MIDLINE SHIFT: None. BRAINSTEM/CEREBELLUM: Normal. CALVARIUM: Normal. VISUALIZED PARANASAL SINUSES/MASTOIDS: Clear. Orbits and pituitary are unremarkable. IMPRESSION: Unremarkable MRI of the brain. DATA REPOSITORY:
== END 2022-11-25 02:13 ==
PROVIDERS: PCP Nurse Practitioner; Visit Provider Nurse Practitioner Adult Health
DX: G43.009 Migraine without aura, not intractable, without status migrainosus (principal)
CPT/HCPCS: 70551

== ENCOUNTER → 2022-12-07 10:48 | Outpatient (BNVA) | payer MEDICARE, MEDICAID, SELFPAY | PROVIDERS: PCP Nurse Practitioner; Referring Provider Nurse Practitioner; Visit Provider Nurse Practitioner Adult Health | DX: G43.009 Migraine without aura, not intractable, without status migrainosus (principal); J45.909 Unspecified asthma, uncomplicated; F39 Unspecified mood [affective] disorder; G89.29 Other chronic pain; Z72.0 Tobacco use | CPT/HCPCS: 99213; 99214 ==

== ENCOUNTER 2022-12-09 11:55 | Outpatient (REF) | payer MEDICARE, MEDICAID, SELFPAY | END 2022-12-09 11:56 | disposition home or self-care (01) | LOC: LBN 11:55 | PROVIDERS: PCP Nurse Practitioner; Visit Provider Nurse Practitioner | DX: R31.29 Other microscopic hematuria (principal) | CPT/HCPCS: 87077; 87086; 87186 ==

== ENCOUNTER 2023-01-26 01:22 | Outpatient (CLI) | payer MEDICARE, MEDICAID, SELFPAY ==
--- NOTE | 2023-01-26 13:30 | DI.CTLCSR_ITS ---
Exam(s) CT CHEST LUNG CANCER SCREEN EXAM: CT CHEST LUNG CANCER SCREEN CLINICAL HISTORY: Screening for lung cancer,smoker, F17.210 TECHNIQUE: Imaging Protocol: Axial computed tomography images with coronal and sagittal reformatted images were created and reviewed. Low dose screening protocol. COMPARISON: CR XR CHEST 2V PA LATERAL from 01/08/2022 FINDINGS: Tracheobronchial tree: No bronchiectasis or mucus plugging.. Mediastinum and Claudia: No dominant adenopathy or fluid collection. Pulmonary parenchyma: No consolidation or dominant measurable mass. No visible emphysematous changes. Lung Nodules: None. Pleura: No effusion. No pneumothorax. Heart: The heart is not dilated. Mild coronary artery calcifications are seen. Aorta: Thoracic aorta non-dilated. Upper abdomen: Stable right adrenal adenoma. Bones: Degenerative disc changes. Soft Tissues: Unremarkable. IMPRESSION: No suspicious pulmonary nodules. Lung RADS Cat 1 - Negative: No nodules and definitely benign nodules Lung-RADS 1.0 CATEGORIES: Category 0 - Prior chest CT exam(s) being located for comparison. Category 1 - Annual screening in 12 months. No nodules or definitely benign nodules. Category 2 - Annual screening in 12 months. Benign appearance. Nodules with low likelihood of becomin g active cancer. Category 3 - 6-month follow-up. Probably benign. Short-term follow-up suggested. Nodules with low lik elihood of becoming active cancer. Category 4A - 3-month follow-up and CT/PET if >8 mm in size. Suspicious finding. Findings which requi re additional testing. Category 4B - Findings which require additional testing and tissue sampling. Category 4X - Category 3 or 4 nodules with additional features or imaging findings that increases the suspicion of malignancy. Modifier S- Potentially clinically significant findings (non lung cancer) RADIATION DOSE DELIVERED: 81.23mGy.cm Total DLP DATA REPOSITORY: All CT scans at this facility are submitted to the National Radiology Data Registry (NRDR) Dose Index Registry (DIR) with the [employer] ([employer]). RADIATION OPTIMIZATION: All CT scans at this facility use at least one of these dose optimization te chniques: automated exposure control; mA and/or kV adjustment per patient size (includes targeted exa ms where dose is matched to clinical indication); or iterative reconstruction.
== END 2023-01-26 01:42 ==
LOC: DI 01:22
PROVIDERS: PCP Nurse Practitioner; Visit Provider Nurse Practitioner
DX: Z12.2 Encounter for screening for malignant neoplasm of respiratory organs (principal); F17.210 Nicotine dependence, cigarettes, uncomplicated
CPT/HCPCS: 71271

== ENCOUNTER → 2023-02-09 12:44 | Outpatient (BNVA) | payer MEDICARE, MEDICAID, SELFPAY | PROVIDERS: PCP Nurse Practitioner; Referring Provider Nurse Practitioner; Visit Provider Nurse Practitioner Gerontology | DX: R31.29 Other microscopic hematuria (principal); Z87.440 Personal history of urinary (tract) infections | CPT/HCPCS: 51798; 81003; 99214 ==

== ENCOUNTER 2023-02-09 20:00 | Outpatient (REF) | payer MEDICARE, MEDICAID, SELFPAY | END 2023-02-09 20:01 | disposition home or self-care (01) | LOC: NCHCN 20:00 | PROVIDERS: PCP Nurse Practitioner; Visit Provider Nurse Practitioner Gerontology | DX: R39.89 Other symptoms and signs involving the genitourinary system (principal); R31.29 Other microscopic hematuria | CPT/HCPCS: 87077; 87086; 87186 ==

== ENCOUNTER 2023-02-20 15:42 | Emergency (ER) | payer MEDICARE, MEDICAID, SELFPAY ==
[2023-02-20 15:44] VITALS: BP 172/80; PULSE 79; RESP 18; TEMP 36.5; O2SAT 96
--- NOTE | 2023-02-20 16:15 | DI.CT_ITS ---
Exam(s) CT ABDOMEN PELVIS WO EXAM: CT ABDOMEN PELVIS WO CLINICAL HISTORY: Left flank pain. TECHNIQUE: Imaging Protocol: Axial computed tomography images with coronal and sagittal reformatted images were created and reviewed. COMPARISON: CT CT RENAL COLIC WO from 11/01/2022 FINDINGS: ABDOMEN: Lung Bases: Normal where visualized. Liver: There is fatty infiltration of the liver. There is hepatomegaly. No measurable mass. Gallbladder and biliary tract: Cholelithiasis. No biliary ductal dilatation. Pancreas: Normal density, no abnormal calcifications or inflammatory process. Spleen: Normal. Kidneys: Normal size, contour and axis.No radiodense stones or obstructive uropathy. No masses seen. Adrenal glands: There is a stable 2 cm hypodense right adrenal mass consistent with an adenoma. No f ollow-up is recommended. The left adrenal gland is unremarkable. Lymph nodes: Within normal limits. Abdominal Aorta: Abdominal portion non-dilated. Atherosclerosis. PELVIS: Bladder:Symmetric distention, no gross wall thickening. Bowel: No obstruction or bowel wall thickening. No evidence of appendicitis. Peritoneal cavity: No ascites, collection or mesenteric inflammatory response. No free air. Reproductive organs: Unremarkable as visualized. Bones: Within normal limits. Soft Tissues: Within normal limits. IMPRESSION: 1. No evidence of nephrolithiasis or hydronephrosis. 2. No acute abnormality seen to account for symptoms. RADIATION DOSE DELIVERED: 1,187.13mGy.cm Total DLP DATA REPOSITORY: All CT scans at this facility are submitted to the National Radiology Data Registry (NRDR) Dose Index Registry (DIR) with the [employer] ([employer]). RADIATION OPTIMIZATION: All CT scans at this facility use at least one of these dose optimization te chniques: automated exposure control; mA and/or kV adjustment per patient size (includes targeted exa ms where dose is matched to clinical indication); or iterative reconstruction.
[2023-02-20 16:16] LABS: Bilirubin Negative (Negative); Blood Small (Negative); Clarity Clear (Clear); Glucose Negative (Negative); Ketones Trace mg/dL (Negative); Leukocyte Esterase Small (Negative); Nitrite Negative (Negative); Specific Gravity 1.025 (1.005-1.025); Urobilinogen 0.2 mg/dL (Up to 0.2)
--- NOTE | 2023-02-20 16:21 | W.ED.GENAD ---
Discharge Plan Disposition Patient Disposition: Home Discharge Details Clinical Impression: Left flank pain, Hypomagnesemia Primary Care Provider: Anjana Gayle ED Provider: Odalis Puga Home Meds and New Rx's Prescriptions: Continued atorvastatin 10 mg tablet 10 mg PO DAILY Qty: 90 3RF melatonin 10 mg tablet 20 mg PO HS PRN insulin aspart U-100 [Novolog FlexPen U-100 Insulin] 100 unit/mL (3 mL) insulin pen See Rx Instructions Sub-Q AC MDD 72u Qty: 15 3RF Dose Instruction: Sub-Q AC; administer 10-20u ac per Insulin schedule to manage BS with meals and to keep A1c at or below 7. Rx Instructions: Sub-Q AC; administer 10-20u ac per Insulin schedule to manage BS with meals and to keep A1c at or below 7. nystatin 100,000 unit/gram cream 1 applic topical QID PRN (Reason: Rash under breasts) Qty: 60 5RF One-A-Day Womens Formula 18 mg iron-400 mcg-500 mg tablet 1 tab PO DAILY Hair, Skin and Nails (biotin) 10,000 mcg tablet,chewable PO Patient Comments: dose unknown insulin degludec [Tresiba FlexTouch U-200] 200 unit/mL (3 mL) insulin pen 80 unit SC DAILY cyclobenzaprine 5 mg tablet 5 mg PO QHS PRN (Reason: muscle spasm) Qty: 90 3RF linagliptin 5 mg tablet 5 mg PO DAILY Qty: 90 3RF cetirizine 10 mg tablet 10 mg PO DAILY Qty: 90 3RF Rx Instructions: DX: ALLERGIES fluticasone propionate [Flovent HFA] 44 mcg/actuation HFA aerosol inhaler 2 puff Inhalation BID Qty: 3 3RF probiotic gummies 1 gummy PO DAILY ferrous sulfate 325 mg (65 mg iron) tablet 325 mg PO DAILY Qty: 90 3RF vitamin b 3 PO Emgality Pen 120 mg/mL pen injector 240 mg subcut ONCE Qty: 2 0RF Rx Instructions: as a single dose; administer as two 120 mg injections at separate sites Golo PO 3XD PRN (DME) BreatheRite MDI Spacer Spacer See Rx Instructions .ROUTE .MEDSUPPLY Qty: 1 3RF Rx Instructions: As directed for use with MDI. Please dispense what is available/covered. albuterol sulfate [Proventil HFA] 90 mcg/actuation HFA aerosol inhaler 2 puff Inhalation Q6H PRN Qty: 18 1RF Rx Instructions: DX: EMERGENCY INHALER FOR ASTHMA (DME) pen needle, diabetic 31 gauge x 5/16 needle 1 ea Miscellaneous DAILY Qty: 600 3RF Rx Instructions: E11.40 to maintain A1C less than 7; 5mm pen needles. fenofibrate micronized 67 mg capsule See Rx Instructions .ROUTE .COMPLEX Qty: 90 3RF Dose Instruction: TAKE ONE CAPSULE BY MOUTH EVERY DAY Rx Instructions: TAKE ONE CAPSULE BY MOUTH EVERY DAY ([facility] [place]) FreeStyle Pavan 14 Day Sensor Kit See Rx Instructions .ROUTE .MEDSUPPLY Qty: 1 12RF Rx Instructions: As directed ([facility] [place]) blood-glucose meter [OneTouch Verio Meter] Misc See Rx Instructions .ROUTE .MEDSUPPLY Qty: 1 0RF Rx Instructions: E11.9 to maintain A1C <7.5, test QD, prn when needing to verify CGM reading per bow string maker directions ([facility] [place]) lancing device with lancets [OneTouch Delica Plus Lanc Dev] Kit See Rx Instructions .ROUTE .MEDSUPPLY Qty: 1 1RF Rx Instructions: E11.9 to maintain A1C <7.5, test QD, prn when needing to verify CGM reading per bow string maker directions ([facility] [place]) lancets [OneTouch Delica Plus Lancet] 33 gauge misc See Rx Instructions .ROUTE .MEDSUPPLY Qty: 100 1RF Rx Instructions: E11.9 to maintain A1C <7.5, test QD, prn when needing to verify CGM reading per bow string maker directions pantoprazole 40 mg tablet,delayed release (DR/EC) 40 mg PO DAILY Qty: 90 3RF semaglutide 1 mg/dose (4 mg/3 mL) pen injector 2 mg subcut QWEEK Qty: 6 2RF Rx Instructions: While 2mg on backorder lurasidone [Latuda] 20 mg tablet 20 mg PO QAM Qty: 90 1RF Rx Instructions: must administer with food (at least 350 calories) lurasidone [Latuda] 120 mg tablet 120 mg PO QPM Qty: 90 1RF Rx Instructions: must administer with food (at least 350 calories) meloxicam 15 mg tablet See Rx Instructions .ROUTE .COMPLEX Qty: 90 1RF Dose Instruction: TAKE ONE TABLET BY MOUTH EVERY DAY NEEDED FOR PAIN Rx Instructions: TAKE ONE TABLET BY MOUTH EVERY DAY NEEDED FOR PAIN (DME) Prevail Underwear Misc See Rx Instructions .ROUTE .COMPLEX Qty: 96 12RF Dose Instruction: USE DIRECTED UP TO 100 PER MONTH Rx Instructions: USE DIRECTED UP TO 100 PER MONTH size L lorazepam 1 mg tablet 1 mg PO BID Qty: 60 2RF (DME) FreeStyle Pavan 2 [place] Misc 0 .ROUTE .MEDSUPPLY Qty: 1 0RF Rx Instructions: As directed (DME) OneTouch Verio test strips Strip See Rx Instructions .ROUTE .MEDSUPPLY Qty: 25 5RF Rx Instructions: E11.9 to maintain A1C <7.5, test QD, prn when needing to verify CGM reading per bow string maker directions alcohol swabs [Alcohol Prep Pads] Pads, Medicated 1 pad TP AC & HS Qty: 400 3RF Rx Instructions: 1 pad pre FS pregabalin 200 mg capsule 200 mg PO BID Qty: 60 2RF lamotrigine 200 mg tablet extended release 24hr See Rx Instructions .ROUTE .COMPLEX Qty: 90 1RF Dose Instruction: TAKE ONE TABLET BY MOUTH AT BEDTIME (WITH 100MG DOSE FOR A TOTAL DAILY DOSE OF 300MG) Rx Instructions: TAKE ONE TABLET BY MOUTH AT BEDTIME (WITH 100MG DOSE FOR A TOTAL DAILY DOSE OF 300MG) lisinopril 10 mg tablet See Rx Instructions .ROUTE .COMPLEX Qty: 90 3RF Dose Instruction: TAKE ONE TABLET BY MOUTH EVERY DAY Rx Instructions: TAKE ONE TABLET BY MOUTH EVERY DAY citalopram 40 mg tablet See Rx Instructions .ROUTE .COMPLEX Qty: 90 3RF Dose Instruction: TAKE ONE TABLET BY MOUTH EVERY DAY Rx Instructions: TAKE ONE TABLET BY MOUTH EVERY DAY lamotrigine 100 mg tablet extended release 24hr See Rx Instructions .ROUTE .COMPLEX Qty: 90 1RF Dose Instruction: TAKE ONE TABLET BY MOUTH EVERY DAY (ALONG WITH 200MG DOSE FOR A TOTAL DAILY DOSE OF 300MG) Rx Instructions: TAKE ONE TABLET BY MOUTH EVERY DAY (ALONG WITH 200MG DOSE FOR A TOTAL DAILY DOSE OF 300MG) oxybutynin chloride 15 mg tablet extended release 24hr See Rx Instructions .ROUTE .COMPLEX Qty: 90 1RF Dose Instruction: TAKE ONE TABLET BY MOUTH EVERY DAY Rx Instructions: TAKE ONE TABLET BY MOUTH EVERY DAY cephalexin 500 mg tablet 500 mg PO TID Qty: 21 0RF Rx Instructions: Take as directed to treat UTI metformin 1,000 mg tablet 1,000 mg PO BID Qty: 180 3RF desmopressin 0.2 mg Tablet 0.2 mg PO DAILY Discharge Instructions Instructions: Costochondritis (ED), Hypomagnesemia (ED) Additional Instructions: No evidence of kidney stones or UTI today on your work-up, no explanation to your pain. No bowel obstruction or signs of infection. Your magnesium was a little bit low today. Please increase foods high in magnesium over the next few days. Follow up with primary care provider in 3-5 days. Return to ED sooner if any worsening or concerns. Increase oral fluids. Please take Tylenol or Ibuprofen with food every 4-6 hours as needed for pain and swelling. Referrals: Anjana Gayle NP [Primary Care Provider] - 3 days Medical Decision Making 57-year-old female presents with chief complaint of left flank pain which radiates over into her anterior abdomen. CBC CMP lipase urinalysis ordered. Will consider CT. Differential diagnosis includes but not limited to kidney stone, UTI, pyelonephritis, diverticulitis CBC shows no leukocytosis, CMP largely within normal limits magnesium is low at 1.5 urinalysis shows trace ketones small blood 3-5 RBCs squamous contamination so no culture is indicated at this time. Patient has no complaints of dysuria. 400 of magnesium oxide p.o. was given and 50 mg of Toradol. Discussed results. CT abdomen pelvis shows no evidence for explanation of symptoms no kidney stones or UTI. No diverticulitis. No acute abnormality. Patient reports that she has been coughing a lot and pain increases with movement which could indicate costochondritis or a strained muscle. Discussed results with patient and family who verbalized understanding. Discussed tricked return instructions and follow-up care. They verbalized understanding. This text was generated using Corhythmation system, please disregard any oddities of phrase or misspellings. Imaging Data Radiologic Study: Imaging: CT Scan Radiologist's impression: FINDINGS: Liver: Fatty, enlarged liver. Liver measures nearly 25 cm in length. Gallbladder and bile ducts: Gallstone. Gallbladder contracted. Pancreas: Normal. No ductal dilation. Spleen: Spleen upper limits of normal in size. Adrenal glands: Normal. No mass. Kidneys and ureters: Normal. No hydronephrosis. Stomach and bowel: Unremarkable. No obstruction. No mucosal thickening. Appendix: No evidence of appendicitis. Intraperitoneal space: Unremarkable. No free air. No significant fluid collection. Vasculature: Mild atherosclerotic change noted in the vasculature. Lymph nodes: Unremarkable. No enlarged lymph nodes. Urinary bladder: Bladder is not well distended. Reproductive: Unremarkable as visualized. Bones/joints: Moderate lumbar spondylosis. Lumbar spondylosis particularly at L1-L2 and L4-L5. Soft tissues: Unremarkable. IMPRESSION: No acute abnormality seen to account for symptoms Lab Data Lab results reviewed: Yes I reviewed the patient's lab results. Labs: Laboratory Tests Range/Units 02/20/23 02/20/23 02/20/23 15:45 16:26 16:26 WBC (4.4-10.8) 10^3/uL 10.29 RBC (3.93-5.22) 10^6/uL 5.01 Hgb (11.2-15.7) g/dL 14.9 Hct (36.0-46.0) % 44.8 MCV (80-95) fL 89 MCH (27.0-33.0) pg 29.7 MCHC (32.0-36.0) % 33.3 RDW (11.7-14.6) % 13.2 Plt Count (130-400) 10^3/uL 246 MPV (8.0-11.0) fL 11.3 H Immature Gran % 0.4 Neutrophils % 52.3 Lymphocytes % 37.3 Monocytes % 6.1 Eosinophils % 3.3 Basophils % 0.6 Nucleated RBC % (0.0-0.3) % 0.0 Absolute Neutrophils (1.2-6.7) 10^3/uL 5.38 Absolute Lymphocytes (1.2-3.4) 10^3/uL 3.84 H Absolute Monocytes (0.1-0.8) 10^3/uL 0.63 Absolute Eosinophils (0.0-0.7) 10^3/uL 0.34 Absolute Basophils (0.0-0.2) 10^3/uL 0.06 Sodium (136-145) mmol/L 144 Potassium (3.5-5.1) mmol/L 3.9 Chloride (98-107) mmol/L 105 Carbon Dioxide (21.0-32.0) mmol/L 31.6 Anion Gap (3-11) mmol/L 7.4 BUN (7-18) mg/dL 16 Creatinine (0.55-1.02) mg/dL 1.0 Est GFR (CKD-EPI 2020) (mL/min/1.73m2) 64.90 Glucose (74-106) mg/dL 131 H Calcium (8.5-10.1) mg/dL 10.1 Magnesium (1.8-2.4) mg/dL 1.5 L Total Bilirubin (0.2-1.0) mg/dL 0.3 AST (15-37) U/L 41 H ALT (14-59) U/L 55 Alkaline Phosphatase (46-116) U/L 92 Total Protein (6.4-8.2) g/dL 8.4 H Albumin (3.4-5.0) g/dL 4.2 Lipase (16-77) U/L 59 Urine Color (Yellow) Yellow Urine Clarity (Clear) Clear Urine pH (5-8) 6.0 Ur Specific [place] (1.005-1.025) 1.025 Urine Protein (Negative) mg/dL 100 H Urine Ketones (Negative) mg/dL Trace H Urine Blood (Negative) Small H Urine Nitrite (Negative) Negative Urine Bilirubin (Negative) Negative Urine Urobilinogen (Up to 0.2) mg/dL 0.2 Ur Leukocyte Esterase (Negative) Small H Urine RBC (0-2) HPF 3-5 H Urine WBC (0-5) HPF 5-10 Ur Epithelial Cells (Negative) HPF Many Urine Crystals (Negative) HPF Negative Urine Bacteria (Negative) HPF Few Urine Casts (Negative) LPF 0-2 Hyaline Urine Mucus (Negative) Negative Ur Culture Indicated? No/Sq. Contamination Urine Glucose (Negative) mg/dL Negative HPI General Mode of arrival: ambulatory. Date/Time Provider Initiated Documentation: 02/20/23 15:54. Limitations to Documentation: no limitations. Information obtained by: patient, RN notes reviewed and old records reviewed. HPI Narrative: 57-year-old female presents with left flank pain which began this morning she reports that 2 hours ago began to worsen and now is radiating to the periumbilical area. She denies any nausea vomiting diarrhea or any other associated symptoms. She does have a past medical history of obesity, hyper triglyceride type 2 diabetes, hypertension, asthma, GERD. She is a smoker. Related Data Home Medications Medication Instructions Recorded Confirmed inhalational spacing device #1 ea 12/09/20 12/07/22 (BreatheRite MDI Spacer) atorvastatin 10 mg tablet 10 mg PO DAILY #90 tabs 01/29/21 12/07/22 linagliptin 5 mg tablet 5 mg PO DAILY #90 tabs 03/10/21 12/07/22 albuterol sulfate 90 mcg/actuation 2 puff inhalation Q6H PRN #18 grams 08/15/21 12/07/22 aerosol inhaler (Proventil HFA) insulin aspart U-100 100 unit/mL See Rx Instructions subcut AC #15 01/26/22 12/07/22 (3 mL) subcutaneous pen (Novolog mL FlexPen U-100 Insulin aspart) melatonin 10 mg tablet 20 mg PO HS PRN 01/26/22 12/07/22 desmopressin 0.2 mg tablet 0.2 mg PO DAILY 03/10/22 12/07/22 pen needle, diabetic 31 gauge x #600 ea 03/18/22 12/07/22/16 fenofibrate micronized 67 mg See Rx Instructions .Route 04/13/22 12/07/22 capsule .COMPLEX #90 caps nystatin 100,000 unit/gram topical 1 applic topical QID PRN Rash 05/19/22 12/07/22 cream under breasts #60 grams flash glucose sensor (FreeStyle #1 ea 06/03/22 12/07/22 Pavan 14 Day Sensor kit) blood-glucose meter (OneTouch #1 ea 06/05/22 12/07/22 Verio Meter) lancets 33 gauge (OneTouch Delica #100 ea 06/05/22 12/07/22 Plus Lancet) lancing device with lancets kit #1 ea 06/05/22 12/07/22 (OneTouch Delica Plus Lancing Device kit) pantoprazole 40 mg tablet,delayed 40 mg PO DAILY #90 tab-caps 06/15/22 12/07/22 release probiotic gummies 1 gummy PO DAILY 07/15/22 12/07/22 cetirizine 10 mg tablet 10 mg PO DAILY #90 tabs 08/19/22 12/07/22 fluticasone propionate 44 2 puff inhalation BID #3 multiple 08/19/22 12/07/22 mcg/actuation HFA aerosol inhaler units (Flovent HFA) semaglutide 1 mg/dose (4 mg/3 mL) 2 mg (1.5 mL) subcut QWEEK #6 mL 08/20/22 12/07/22 subcutaneous pen injector lurasidone 120 mg tablet (Latuda) 120 mg PO QPM #90 tabs 09/08/22 12/07/22 lurasidone 20 mg tablet (Latuda) 20 mg PO QAM #90 tabs 09/08/22 12/07/22 meloxicam 15 mg tablet See Rx Instructions .Route 09/21/22 12/07/22 .COMPLEX #90 tabs biotin 10,000 mcg chewable tablet mcg PO 11/03/22 12/07/22 (Hair, Skin and Nails (biotin)) insulin degludec 200 unit/mL (3 80 unit subcut DAILY 11/03/22 12/07/22 mL) subcutaneous pen (Tresiba FlexTouch U-200 insulin) [id number] carb-vit K 1 tab PO DAILY 11/03/22 12/07/22 18 mg iron-400 mcg-500 mg tablet (One-A-Day Womens Formula) ferrous sulfate 325 mg (65 mg 325 mg PO DAILY #90 tabs 11/12/22 12/07/22 iron) tablet diaper,brief,adult,disposable #96 ea 11/25/22 12/07/22 (Prevail Underwear) lorazepam 1 mg tablet 1 mg PO BID #60 tabs 11/30/22 12/07/22 blood sugar diagnostic (OneTouch #25 ea 12/03/22 12/07/22 Verio test strips) flash glucose scanning reader #1 ea 12/03/22 12/07/22 (FreeStyle Pavan 2 [place]) galcanezumab-gnlm 120 mg/mL 240 mg (2 mL) subcut ONCE #2 mL 12/07/22 12/07/22 subcutaneous pen injector (Emgality Pen) vitamin b 3 PO 12/07/22 12/07/22 cyclobenzaprine 5 mg tablet 5 mg PO QHS PRN muscle spasm #90 12/09/22 12/09/22 tabs alcohol swabs (Alcohol Prep Pads) 1 pad topical AC & HS #400 ea 12/24/22 pregabalin 200 mg capsule 200 mg PO BID #60 caps 01/01/23 lamotrigine 200 mg tablet,extended See Rx Instructions .Route 01/04/23 release 24 hr .COMPLEX #90 tabs lisinopril 10 mg tablet See Rx Instructions .Route 01/04/23 .COMPLEX #90 tabs citalopram 40 mg tablet See Rx Instructions .Route 02/01/23 .COMPLEX #90 tabs lamotrigine 100 mg tablet,extended See Rx Instructions .Route 02/01/23 release 24 hr .COMPLEX #90 tabs oxybutynin chloride 15 mg See Rx Instructions .Route 02/04/23 tablet,extended release 24 hr .COMPLEX #90 tabs [place] PO 3XD PRN 02/09/23 cephalexin 500 mg tablet 500 mg PO TID #21 tabs 02/12/23 metformin 1,000 mg tablet 1,000 mg PO BID #180 tabs 02/15/23 Previous Rx's Medication Instructions Recorded inhalational spacing device #1 ea 12/09/20 (BreatheRite MDI Spacer) atorvastatin 10 mg tablet 10 mg PO DAILY #90 tabs 01/29/21 linagliptin 5 mg tablet 5 mg PO DAILY #90 tabs 03/10/21 albuterol sulfate 90 mcg/actuation 2 puff inhalation Q6H PRN #18 grams 08/15/21 aerosol inhaler (Proventil HFA) insulin aspart U-100 100 unit/mL See Rx Instructions subcut AC #15 01/26/22 (3 mL) subcutaneous pen (Novolog mL FlexPen U-100 Insulin aspart) pen needle, diabetic 31 gauge x #600 ea 03/18/2203/09 fenofibrate micronized 67 mg See Rx Instructions .Route 04/13/22 capsule .COMPLEX #90 caps nystatin 100,000 unit/gram topical 1 applic topical QID PRN Rash 05/19/22 cream under breasts #60 grams flash glucose sensor (FreeStyle #1 ea 06/03/22 Pavan 14 Day Sensor kit) blood-glucose meter (Vibrant Commercial TechnologiesTouch #1 ea 06/05/22 Verio Meter) lancets 33 gauge (OneTouch Delica #100 ea 06/05/22 Plus Lancet) lancing device with lancets kit #1 ea 06/05/22 (OneTouch Delica Plus Lancing Device kit) pantoprazole 40 mg tablet,delayed 40 mg PO DAILY #90 tab-caps 06/15/22 release cetirizine 10 mg tablet 10 mg PO DAILY #90 tabs 08/19/22 fluticasone propionate 44 2 puff inhalation BID #3 multiple 08/19/22 mcg/actuation HFA aerosol inhaler units (Flovent HFA) semaglutide 1 mg/dose (4 mg/3 mL) 2 mg (1.5 mL) subcut QWEEK #6 mL 08/20/22 subcutaneous pen injector lurasidone 120 mg tablet (Latuda) 120 mg PO QPM #90 tabs 09/08/22 lurasidone 20 mg tablet (Latuda) 20 mg PO QAM #90 tabs 09/08/22 meloxicam 15 mg tablet See Rx Instructions .Route 09/21/22 .COMPLEX #90 tabs ferrous sulfate 325 mg (65 mg 325 mg PO DAILY #90 tabs 11/12/22 iron) tablet diaper,brief,adult,disposable #96 ea 11/25/22 (Prevail Underwear) lorazepam 1 mg tablet 1 mg PO BID #60 tabs 11/30/22 blood sugar diagnostic (OneTouch #25 ea 12/03/22 Verio test strips) flash glucose scanning reader #1 ea 12/03/22 (FreeKeyMeyle Pavan 2 [place]) galcanezumab-gnlm 120 mg/mL 240 mg (2 mL) subcut ONCE #2 mL 12/07/22 subcutaneous pen injector (Emgality Pen) cyclobenzaprine 5 mg tablet 5 mg PO QHS PRN muscle spasm #90 12/09/22 tabs alcohol swabs (Alcohol Prep Pads) 1 pad topical AC & HS #400 ea 12/24/22 pregabalin 200 mg capsule 200 mg PO BID #60 caps 01/01/23 lamotrigine 200 mg tablet,extended See Rx Instructions .Route 01/04/23 release 24 hr .COMPLEX #90 tabs lisinopril 10 mg tablet See Rx Instructions .Route 01/04/23 .COMPLEX #90 tabs citalopram 40 mg tablet See Rx Instructions .Route 02/01/23 .COMPLEX #90 tabs lamotrigine 100 mg tablet,extended See Rx Instructions .Route 02/01/23 release 24 hr .COMPLEX #90 tabs oxybutynin chloride 15 mg See Rx Instructions .Route 02/04/23 tablet,extended release 24 hr .COMPLEX #90 tabs cephalexin 500 mg tablet 500 mg PO TID #21 tabs 02/12/23 metformin 1,000 mg tablet 1,000 mg PO BID #180 tabs 02/15/23 Allergies Allergy/AdvReac Type Severity Reaction Status Date / Time Sulfa (Sulfonamide Allergy Intermediate Swelling, Verified 02/09/23 12:47 Antibiotics) difficulty breathing niacin AdvReac Intermediate HIVES Verified 02/09/23 12:47 amoxicillin AdvReac Mild VAGINAL Verified 02/09/23 12:47 INFECTION INFECTION General Stated Complaint: Abd Prob JOSE: 3 Review of Systems All systems reviewed & are unremarkable except as noted in HPI and below Gastrointestinal Gastrointestinal: Reports abdominal pain Genitourinary Genitourinary: Reports flank pain PFSH All Active Problems (Updated 02/20/23 @ 17:42 by Odalis Puga NP) Left flank pain (Acute) Hypomagnesemia (Acute) Chest pain (Active 02/22/13) MT ruled out. 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 Diabetic neuropathy (Acute 11/29/13) Lexie 10/2013 Extrinsic asthma (Acute 08/26/12) Essential hypertension (Acute 10/30/11) Hearing loss (Acute 04/21/13) B/L HEARING AIDS Microscopic hematuria (Acute 02/25/16) Nocturia more than twice per night (Acute 05/20/16) Tobacco abuse disorder (Acute 06/08/17) Type II diabetes mellitus with neurological manifestations (Acute 04/10/13) Unspecified urinary incontinence (Acute 10/30/11) 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 Low HDL (under 40) (Acute) Smoker (Acute) Chest pain (Acute) Mixed hearing loss, bilateral (Acute ~04/01/20) Cellulitis of toe (Acute) Discharge planning issues (Acute) Osteomyelitis (Acute) Colon cancer screening declined (Acute) Mammogram declined (Acute) Lung cancer screening declined by patient (Acute) Diabetic retinopathy, nonproliferative, mild (Acute ~11/2020) OD-mild OS-none Mild cataract (Acute ~11/2020) UTI (urinary tract infection) (Acute) Abnormal urine (Acute) Blurred vision (Acute) Dizziness (Acute) Slurred speech (Acute) Falls (Acute) Memory deficit (Acute) Polypharmacy (Acute) Anemia (Chronic) Obesity (Chronic) Daytime somnolence (Acute) Hyperlipidemia (Acute) Routine medical exam (Acute) Routine gynecological examination (Acute) Low back pain (Acute) Pain of left sacroiliac joint (Acute) Ulcer of toe due to diabetes mellitus (Acute) Dysuria (Acute) Nail dystrophy (Acute) Corns and callosities (Acute) Migraine headache without aura (Acute) Medical History Amputation of second toe, right, traumatic Dr Don 04/03/2020 due to ulcer and DM RH Hypertriglyceridemia (08/14/13) Obesity (BMI 30-39.9) (10/30/11) Surgical History Arthroscopy (04/24/04) right knee Family History Mother Diabetes Alcohol abuse Personal history of malignant neoplasm breast Brother Cancer Bladder Sister Cancer Bladder Social History Smoking/Tobacco Use Status: Current every day Tobacco Type: cigarettes Tobacco: How many years used: 45 Quit status: considering quitting Smoking risk assessment performed?: Yes Alcohol Intake: never Drug use: Rarely Substance use type: marijuana Adopted: Yes Caregiver/Support person: No Household members: family and friend(s) Housing: house Number of Children: 3 Communication Needs: Hard of Hearing Current gender identity: female What is your relationship status?: Panel score (0-1 are the most socially isolated patients): 1 What type of physical activity do you participate in: none Seatbelt use: always Drive intox or ride w/intox food service driver: No Working smoke detector in home: Yes Carbon monox detector in home: Yes Do you feel safe at home: Yes Do you feel safe in your relationship?: Yes Exam Narrative Exam Narrative: Constitutional: Alert and oriented x3. Appears stated age. Normal body habitus. Head: Normocephalic, no trauma. Eyes: Pupils PERRL, Red reflex noted, EOM's intact. Eyelids symmetrical without lesions, discharge, or swelling. ENT: Bilateral TM's WNL, External ear normal to inspection, no mastoid TTP, swelling, or erythema, Nasal turbinates WNL, no nasal discharge. Normal dentition, Posterior pharynx WNL, no exudate. Chest: RRR, Normal S1, S2, distal pulses intact. Resp: Lungs clear to auscultation bilaterally, no wheezes, rales, or rhonchi. Abdomen: Soft, non-distended, Normoactive bowel sounds all 4 quads. Musculoskeletal: Normal gait, 5/5 strength to all four extremities. Skin: No suspicious rashes or lesions. Capillary refill less than 2 sec. Neurologic: Cranial nerves II-XII intact. Alert and oriented x 3. Motor: No deficits noted. Sensory: Intact bilaterally all 4 extremities. Reflexes: DTR's intact bilaterally.. Hematologic/Lymphatic: No ecchymosis, no lymphadenopathy. Course Vital Signs Vital signs: Vital Signs Temperature 36.5 C 02/20/23 15:44 Pulse 79 02/20/23 15:44 Respiratory Rate 18 02/20/23 15:44 Blood Pressure 172/80 H 02/20/23 15:44 Pulse Oximetry 96 02/20/23 15:44 Temperature 36.5 C 02/20/23 15:44 Temperature Source Skin 02/20/23 15:44 Pulse 79 02/20/23 15:44 Respiratory Rate 18 02/20/23 15:44 Blood Pressure 172/80 H 02/20/23 15:44 Blood Pressure Position Sitting 02/20/23 15:44 Pulse Oximetry 96 02/20/23 15:44 Oxygen Delivery Method Room Air 02/20/23 15:44 Oxygen Flow Rate 0 02/20/23 15:44 Pain Level 10 02/20/23 15:44 Comment denies otc relief 02/20/23 15:44 Lab/Test Results Lab/Test Results: Laboratory Tests Range/Units 02/20/23 15:45 Urine Color (Yellow) Yellow Urine Clarity (Clear) Clear Urine pH (5-8) 6.0 Ur Specific [place] (1.005-1.025) 1.025 Urine Protein (Negative) mg/dL 100 H Urine Ketones (Negative) mg/dL Trace H Urine Blood (Negative) Small H Urine Nitrite (Negative) Negative Urine Bilirubin (Negative) Negative Urine Urobilinogen (Up to 0.2) mg/dL 0.2 Ur Leukocyte Esterase (Negative) Small H Urine Glucose (Negative) mg/dL Negative
[2023-02-20 16:27] LABS: Bacteria Few HPF (Negative); C & S Indicated? No/Sq. Contamination; Casts 0-2 Hyaline LPF (Negative); Crystals Negative HPF (Negative); Epithelial Cells Many HPF (Negative); Mucus Negative (Negative)
[2023-02-20 16:36] LABS: Abs Immature Grans 0.04 10^3/uL (0.0-0.06); Absolute Basophil Count 0.06 10^3/uL (0.0-0.2); Absolute Eosinophil Count 0.34 10^3/uL (0.0-0.7); Absolute Lymphocyte Count 3.84 10^3/uL (1.2-3.4); Absolute Monocyte Count 0.63 10^3/uL (0.1-0.8); Absolute Neutrophil Count 5.38 10^3/uL (1.2-6.7); Basophils % 0.6; Eosinophils % 3.3; HCT 44.8 % (36.0-46.0); HGB 14.9 g/dL (11.2-15.7); Immature Grans % 0.4; Lymphocytes % 37.3; MCH 29.7 pg (27.0-33.0); MCHC 33.3 % (32.0-36.0); MCV 89 fL (80-95); MPV 11.3 fL (8.0-11.0); Monocytes % 6.1; Neutrophils % 52.3; Platelet Count 246 10^3/uL (130-400); RBC 5.01 10^6/uL (3.93-5.22); RDW 13.2 % (11.7-14.6); RDW-SD 43.5 fL; WBC 10.29 10^3/uL (4.4-10.8)
[2023-02-20 16:51] LABS: ALT 55 U/L (14-59); AST 41 U/L (15-37); Albumin 4.2 g/dL (3.4-5.0); Alkaline Phosphatase 92 U/L (46-116); Anion Gap 7.4 mmol/L (3-11); BUN 16 mg/dL (7-18); Bilirubin, Total 0.3 mg/dL (0.2-1.0); CO2 31.6 mmol/L (21.0-32.0); Calcium 10.1 mg/dL (8.5-10.1); Chloride 105 mmol/L (98-107); Glucose 131 mg/dL (74-106); Lipase 59 U/L (16-77); Magnesium 1.5 mg/dL (1.8-2.4); Potassium 3.9 mmol/L (3.5-5.1); Sodium 144 mmol/L (136-145); Total Protein 8.4 g/dL (6.4-8.2)
--- NOTE | 2023-02-20 16:54 | DI.VRAD_ITS ---
PROCEDURE INFORMATION: Exam: CT Abdomen And Pelvis Without Contrast Exam date and time: 02/20/2023 4:37 PM Age: 57 years old Clinical indication: Other: Left flank pain TECHNIQUE: Imaging protocol: Computed tomography of the abdomen and pelvis without contrast. COMPARISON: CT RENAL COLIC WO 11/01/2022 1:56 PM FINDINGS: Liver: Fatty, enlarged liver. Liver measures nearly 25 cm in length. Gallbladder and bile ducts: Gallstone. Gallbladder contracted. Pancreas: Normal. No ductal dilation. Spleen: Spleen upper limits of normal in size. Adrenal glands: Normal. No mass. Kidneys and ureters: Normal. No hydronephrosis. Stomach and bowel: Unremarkable. No obstruction. No mucosal thickening. Appendix: No evidence of appendicitis. Intraperitoneal space: Unremarkable. No free air. No significant fluid collection. Vasculature: Mild atherosclerotic change noted in the vasculature. Lymph nodes: Unremarkable. No enlarged lymph nodes. Urinary bladder: Bladder is not well distended. Reproductive: Unremarkable as visualized. Bones/joints: Moderate lumbar spondylosis. Lumbar spondylosis particularly at L1-L2 and L4-L5. Soft tissues: Unremarkable. IMPRESSION: No acute abnormality seen to account for symptoms. Dictated and Authenticated by: Elana Abel MD. Ordering:GER Jacobo MD
[2023-02-20] MEDS: Magnesium Oxide 400 MG TAB PO (17:39)
[2023-02-20] MEDS: Ketorolac 15 MG/ML VIAL IVP (17:39)
[2023-02-20 18:07] VITALS: BP 150/76; PULSE 86; RESP 20; O2SAT 94
== END 2023-02-20 18:07 | disposition home or self-care (01) ==
PROVIDERS: Emergency Provider Registered Nurse Emergency; PCP Nurse Practitioner
DX: R10.9 Unspecified abdominal pain (principal); E83.42 Hypomagnesemia
CPT/HCPCS: 80053; 83690; 96374; 99284; 74176; 81003; 81015; 83735; 85025; J1885

== ENCOUNTER → 2023-04-07 14:47 | Outpatient (BNVA) | payer MEDICARE, MEDICAID, SELFPAY | PROVIDERS: PCP Nurse Practitioner; Referring Provider Nurse Practitioner; Visit Provider Nurse Practitioner Gerontology | DX: N95.2 Postmenopausal atrophic vaginitis (principal); Z87.440 Personal history of urinary (tract) infections | CPT/HCPCS: 51701; 81003; 99213 ==

== ENCOUNTER 2023-04-07 16:37 | Outpatient (REF) | payer MEDICARE, MEDICAID, SELFPAY ==
[2023-04-07 16:22] LABS: Bilirubin Small (Negative); Blood Small (Negative); Clarity Cloudy (Clear); Glucose Negative (Negative); Ketones 15 mg/dL (Negative); Leukocyte Esterase Small (Negative); Nitrite Positive (Negative); Urobilinogen 0.2 mg/dL (Up to 0.2); pH 5.5 (5-8)
[2023-04-07 16:40] LABS: Bacteria Many HPF (Negative); C & S Indicated? C&S Done As Ordered; Casts Negative LPF (Negative); Crystals Negative HPF (Negative); Epithelial Cells Negative HPF (Negative); Mucus Negative (Negative); RBC 0-2 HPF (0-2); WBC 20-50 HPF (0-5)
== END 2023-04-07 16:38 | disposition home or self-care (01) ==
LOC: LBN 16:37
PROVIDERS: PCP Nurse Practitioner; Visit Provider Nurse Practitioner Gerontology
DX: R31.9 Hematuria, unspecified (principal)
CPT/HCPCS: 87077; 81003; 81015; 87086; 87186

== ENCOUNTER 2023-05-27 19:18 | Outpatient (REF) | payer MEDICARE, MEDICAID, SELFPAY | END 2023-05-27 19:19 | disposition home or self-care (01) | LOC: LBN 19:18 | PROVIDERS: PCP Nurse Practitioner; Visit Provider Nurse Practitioner | DX: R35.0 Frequency of micturition (principal); R39.89 Other symptoms and signs involving the genitourinary system; R82.998 Other abnormal findings in urine | CPT/HCPCS: 87077; 87086; 87186 ==

== ENCOUNTER → 2023-07-13 15:15 | Outpatient (BNVA) | payer MEDICARE, MEDICAID, SELFPAY | PROVIDERS: PCP Nurse Practitioner; Referring Provider Nurse Practitioner; Visit Provider Nurse Practitioner Gerontology | DX: R31.29 Other microscopic hematuria (principal); R82.998 Other abnormal findings in urine; Z87.440 Personal history of urinary (tract) infections; E11.42 Type 2 diabetes mellitus with diabetic polyneuropathy | CPT/HCPCS: 81003; 99213 ==

== ENCOUNTER 2023-07-13 17:32 | Outpatient (REF) | payer MEDICARE, MEDICAID, SELFPAY | END 2023-07-13 17:33 | disposition home or self-care (01) | LOC: LBN 17:32 | PROVIDERS: PCP Nurse Practitioner; Visit Provider Nurse Practitioner Gerontology | DX: R31.9 Hematuria, unspecified (principal) | CPT/HCPCS: 87077; 87086; 87186 ==

== ENCOUNTER 2023-08-09 04:45 | Outpatient (CLI) | payer MEDICARE, MEDICAID, SELFPAY ==
[2023-08-09 13:51] LABS: Abs Immature Grans 0.05 10^3/uL (0.0-0.06); Absolute Basophil Count 0.03 10^3/uL (0.0-0.2); Absolute Eosinophil Count 0.27 10^3/uL (0.0-0.7); Absolute Lymphocyte Count 2.75 10^3/uL (1.2-3.4); Absolute Monocyte Count 0.44 10^3/uL (0.1-0.8); Absolute Neutrophil Count 4.39 10^3/uL (1.2-6.7); Basophils % 0.4; Eosinophils % 3.4; HGB 13.3 g/dL (11.2-15.7); Immature Grans % 0.6; Lymphocytes % 34.7; MCH 29.7 pg (27.0-33.0); MCHC 33.3 % (32.0-36.0); MCV 89 fL (80-95); Monocytes % 5.5; Neutrophils % 55.4; Platelet Count 191 10^3/uL (130-400); RBC 4.48 10^6/uL (3.93-5.22); RDW 12.8 % (11.7-14.6); RDW-SD 42.3 fL; WBC 7.93 10^3/uL (4.4-10.8)
[2023-08-09 14:44] LABS: ALT 52 U/L (14-59); AST 36 U/L (15-37); Albumin 3.8 g/dL (3.4-5.0); Alkaline Phosphatase 92 U/L (46-116); Anion Gap 9.8 mmol/L (3-11); BUN 13 mg/dL (7-18); Bilirubin, Total 0.4 mg/dL (0.2-1.0); CO2 26.2 mmol/L (21.0-32.0); CREATININE 0.8 mg/dL (0.55-1.02); Calcium 9.2 mg/dL (8.5-10.1); Chloride 102 mmol/L (98-107); Glucose 243 mg/dL (74-106); Magnesium 1.6 mg/dL (1.8-2.4); Potassium 3.9 mmol/L (3.5-5.1); Sodium 138 mmol/L (136-145); TSH (W/Ref FT4) 1.29 uIU/mL (0.36-3.74); Total Protein 7.8 g/dL (6.4-8.2); Vitamin B12 472 pg/mL (193-986)
[2023-08-09 15:07] LABS: Vitamin D 25 Total 33.8 ng/mL (30-100)
[2023-08-10 13:02] LABS: Lyme Ab w Rflx to Lyme Confirm Positive (Negative)
[2023-08-10 16:41] LABS: Lyme IgG Ab Negative (Negative); Lyme IgM Ab Positive (Negative)
[2023-08-11 23:05] LABS: Anaplasma phagocytophilum Negative (Negative); B. miyamotoi PCR Negative (Negative); Babesia divergens/MO-1 Negative (Negative); Babesia duncani Negative (Negative); Babesia microti Negative (Negative); Ehrlichia chaffeensis Negative (Negative); Ehrlichia ewingii/canis Negative (Negative); Ehrlichia muris eauclairensis Negative (Negative)
== END 2023-08-09 04:46 | disposition home or self-care (01) ==
LOC: LBO 04:45
PROVIDERS: PCP Nurse Practitioner; Visit Provider Nurse Practitioner
DX: E55.9 Vitamin D deficiency, unspecified (principal); R23.2 Flushing; F41.1 Generalized anxiety disorder
CPT/HCPCS: 36415; 80053; 82306; 86617; 87798; 82607; 83735; 84443; 85025; 86618

== ENCOUNTER → 2023-08-11 01:28 | Outpatient (CLI) | payer MEDICARE, MEDICAID, SELFPAY ==
--- NOTE | 2023-08-11 14:20 | DI.MAMMO_ITS ---
Exam(s) MAMMO SCREENING EXAM: MAMMO SCREENING CLINICAL HISTORY: screening,z12.39 TECHNIQUE: Bilateral full field digital CC and MLO mammographic images were obtained with 3D tomosyn thesis and utilizing computer aided detection (CAD). COMPARISON: Available for comparison. FINDINGS: Masses/Architectural Distortion: None seen. Microcalcifications: No suspicious pleomorphic-type are seen. Skin Thickening/Nipple Retraction: None. IMPRESSION: 1. No significant interval change with no specific features of malignancy noted. 2. Unless there is more urgent need, screening mammography is recommended, as per [employer] guidelines. BI-RADS Category 1 - Negative Breast Density - Category B - Scattered areas of fibroglandular density Breast density category C or D implies that the patient has dense breast tissue. Dense breast tissue is very common and is not abnormal but dense breast tissue can make it harder to find cancer on a ma mmogram. Also, dense breast tissue may increase their breast cancer risk. This information about the result of the mammogram report was provided to the patient to raise their awareness. Use this report when you speak with the patient about their risks for breast cancer, which includes their family hist ory. At that time, you may recommend for more screening tests (Ultrasound or MRI) as they might be us eful based on their risk. A negative radiographic report should not delay biopsy if a dominant or clinically suspicious mass is present. Up to ten percent of cancers are not identified on mammography. A negative report may reinforce clinical impression. Adenosis and dense breasts may obscure an underlying neoplasm. False positive reports average 6 to 10%. Patient will receive a letter notifying them of these results.
== END ==
PROVIDERS: PCP Nurse Practitioner; Visit Provider Nurse Practitioner
DX: Z12.31 Encounter for screening mammogram for malignant neoplasm of breast (principal); R92.323 Mammographic fibroglandular density, bilateral breasts
CPT/HCPCS: 77063; 77067

== ENCOUNTER 2023-08-24 21:24 | Outpatient (REF) | payer MEDICARE, MEDICAID, SELFPAY ==
[2023-08-24 20:54] LABS: COVID-19 PCR Negative (Negative); Influenza A PCR Negative (Negative); Influenza B PCR Negative (Negative); RSV PCR Negative (Negative)
[2023-08-24 20:56] LABS: Source Nasopharynx
== END 2023-08-24 21:25 | disposition home or self-care (01) ==
LOC: LBN 21:24
PROVIDERS: PCP Nurse Practitioner; Visit Provider Nurse Practitioner
DX: J06.9 Acute upper respiratory infection, unspecified (principal)
CPT/HCPCS: 87637

== ENCOUNTER 2023-09-29 12:23 | Outpatient (REF) | payer MEDICARE, MEDICAID, SELFPAY | END 2023-09-29 12:24 | disposition home or self-care (01) | LOC: LBN 12:23 | PROVIDERS: PCP Nurse Practitioner; Visit Provider Nurse Practitioner Adult Health | DX: N39.0 Urinary tract infection, site not specified (principal); R30.0 Dysuria; R82.998 Other abnormal findings in urine | CPT/HCPCS: 87077; 87086; 87186 ==

== ENCOUNTER → 2023-10-12 14:20 | Outpatient (BNVA) | payer MEDICARE, MEDICAID, SELFPAY | PROVIDERS: PCP Nurse Practitioner; Referring Provider Nurse Practitioner; Visit Provider Nurse Practitioner Gerontology | DX: R31.29 Other microscopic hematuria (principal); R82.998 Other abnormal findings in urine | CPT/HCPCS: 81003; 99213 ==

== ENCOUNTER 2023-10-12 20:24 | Outpatient (REF) | payer MEDICARE, MEDICAID, SELFPAY | END 2023-10-12 20:25 | disposition home or self-care (01) | LOC: LBN 20:24 | PROVIDERS: PCP Nurse Practitioner; Visit Provider Nurse Practitioner Gerontology | DX: R31.9 Hematuria, unspecified (principal) | CPT/HCPCS: 87086 ==

== ENCOUNTER → 2023-10-20 13:44 | Outpatient (BNVA) | payer MEDICARE, MEDICAID, SELFPAY | PROVIDERS: PCP Nurse Practitioner; Referring Provider Nurse Practitioner; Visit Provider Nurse Practitioner Gerontology | DX: R30.0 Dysuria (principal); R31.29 Other microscopic hematuria | CPT/HCPCS: 99442 ==

== ENCOUNTER → 2023-11-04 13:02 | Outpatient (BNVA) | payer MEDICARE, MEDICAID, SELFPAY | PROVIDERS: PCP Nurse Practitioner; Referring Provider Nurse Practitioner; Visit Provider Podiatrist | DX: B35.1 Tinea unguium (principal); L84 Corns and callosities; E11.49 Type 2 diabetes mellitus with other diabetic neurological complication; Z89.421 Acquired absence of other right toe(s); R20.9 Unspecified disturbances of skin sensation; L60.3 Nail dystrophy; R23.1 Pallor; L65.9 Nonscarring hair loss, unspecified; R09.89 Other specified symptoms and signs involving the circulatory and respiratory systems; R60.0 Localized edema | CPT/HCPCS: 11056; 11721 ==

== ENCOUNTER → 2023-11-10 01:00 | Outpatient (CLI) | payer MEDICARE, MEDICAID, SELFPAY ==
--- NOTE | 2023-11-10 10:40 | DI.US_ITS ---
Exam(s) US RENAL EXAM: US RENAL CLINICAL HISTORY: Bladder pain/hx of calculi,HEMATURIA,R31.29,R30.0. TECHNIQUE: Wheatley scale, color and spectral Doppler were used. COMPARISON: CT CT ABDOMEN PELVIS WO from 02/20/2023 FINDINGS: Exam limited by patient body habitus. Renal size in cm: Right: 12.5 left: 12.3 Echogenicity: Normal Hydronephrosis: No Cyst or mass: No Nephrolithiasis: No gross evidence of large stones. Small stones would be easily missed. The liver is noted to be quite enlarged and shows hepatic steatosis. Bladder:Normal. Prevoid vol: 409 cc Postvoid vol:61 cc IMPRESSION: No evidence of renal calculi or hydronephrosis. DATA REPOSITORY:
[2023-11-10 14:27] LABS: Bilirubin Negative (Negative); Blood Trace-intact (Negative); Clarity Sl Cloudy (Clear); Glucose Negative (Negative); Ketones Negative (Negative); Leukocyte Esterase Moderate (Negative); Nitrite Positive (Negative); Urobilinogen 0.2 mg/dL (Up to 0.2)
[2023-11-10 14:34] LABS: WBC >50 HPF (0-5)
[2023-11-10 14:35] LABS: Bacteria Many HPF (Negative); C & S Indicated? C&S Done As Ordered; Casts Negative LPF (Negative); Crystals Negative HPF (Negative); Epithelial Cells Many HPF (Negative); Mucus Negative (Negative)
== END ==
PROVIDERS: PCP Nurse Practitioner; Visit Provider Nurse Practitioner Gerontology
DX: R31.29 Other microscopic hematuria
CPT/HCPCS: 76770; 87077; 81003; 81015; 87086; 87186

== ENCOUNTER 2024-01-09 12:25 | Emergency (ER) | payer MEDICARE, MEDICAID, SELFPAY ==
[2024-01-09 12:29] VITALS: BP 155/62; PULSE 66; RESP 16; TEMP 36.1; O2SAT 96
--- NOTE | 2024-01-09 12:56 | W.ED.GENAD ---
Discharge Plan Disposition Patient Disposition: Home Condition: Stable Discharge Details Clinical Impression: Diabetic infection of right foot Primary Care Provider: Anjana Gayle ED Provider: Sorin Mcdermott Home Meds and New Rx's Prescriptions: New clindamycin HCl 150 mg capsule 450 mg PO TID 7 Days Qty: 63 0RF Continued nystatin 100,000 unit/gram cream 1 applic topical QID PRN (Reason: Rash under breasts) Qty: 60 5RF One-A-Day Womens Formula 18 mg iron-400 mcg-500 mg tablet 1 tab PO DAILY Hair, Skin and Nails (biotin) 10,000 mcg tablet,chewable 10,000 mcg PO DAILY Patient Comments: dose unknown psyllium husk [Metamucil] 0.4 gram capsule 0.4 g PO DAILY estradiol 0.01 % (0.1 mg/gram) cream 1 g vaginal DIRECTED Qty: 60 3RF Rx Instructions: Insert a pea sized amount vaginally daily at night for 2 weeks, then reduce to 2 times per week magnesium oxide 400 mg magnesium tablet 400 mg PO DAILY Qty: 90 3RF atorvastatin 10 mg tablet 10 mg PO DAILY Qty: 90 3RF fenofibrate micronized 67 mg capsule See Rx Instructions .ROUTE .COMPLEX Qty: 90 3RF Dose Instruction: TAKE ONE CAPSULE BY MOUTH EVERY DAY Rx Instructions: TAKE ONE CAPSULE BY MOUTH EVERY DAY lisinopril 40 mg tablet 40 mg PO DAILY Qty: 90 3RF linagliptin 5 mg tablet 5 mg PO DAILY Qty: 90 3RF fluticasone propionate [Flovent HFA] 44 mcg/actuation HFA aerosol inhaler 2 puff Inhalation BID Qty: 3 3RF prednisone 10 mg tablet 10 mg PO DAILY 5 Days Qty: 5 0RF clonidine HCl 0.1 mg tablet 0.1 mg PO BID Qty: 60 1RF aripiprazole [Abilify] 2 mg tablet 2 mg PO QHS Qty: 30 2RF (DME) BreatheRite MDI Spacer Spacer See Rx Instructions .ROUTE .MEDSUPPLY Qty: 1 3RF Rx Instructions: As directed for use with MDI. Please dispense what is available/covered. (DME) FreeStyle Pavan 14 Day Sensor Kit See Rx Instructions .ROUTE .MEDSUPPLY Qty: 1 12RF Rx Instructions: As directed (DME) blood-glucose meter [OneTouch Verio Meter] Misc See Rx Instructions .ROUTE .MEDSUPPLY Qty: 1 0RF Rx Instructions: E11.9 to maintain A1C <7.5, test QD, prn when needing to verify CGM reading per binding bench worker directions (DME) lancing device with lancets [OneTouch Delica Plus Lanc Dev] Kit See Rx Instructions .ROUTE .MEDSUPPLY Qty: 1 1RF Rx Instructions: E11.9 to maintain A1C <7.5, test QD, prn when needing to verify CGM reading per binding bench worker directions (DME) [facility] See Rx Instructions .ROUTE .COMPLEX Qty: 96 12RF Dose Instruction: USE DIRECTED UP TO 100 PER MONTH Rx Instructions: USE DIRECTED UP TO 100 PER MONTH size L (DME) FreeStyle Pavan 2 [facility] [place] .ROUTE .MEDSUPPLY Qty: 1 0RF Rx Instructions: As directed citalopram 40 mg tablet See Rx Instructions .ROUTE .COMPLEX Qty: 90 3RF Dose Instruction: TAKE ONE TABLET BY MOUTH EVERY DAY Rx Instructions: TAKE ONE TABLET BY MOUTH EVERY DAY metformin 1,000 mg tablet 1,000 mg PO BID Qty: 180 3RF insulin degludec 200 unit/mL (3 mL) insulin pen 80 unit subcut DAILY (DME) pen needle, diabetic [BD Ultra-Fine Short Pen Needle] 31 gauge x 5/16 needle See Rx Instructions .ROUTE .COMPLEX Qty: 600 3RF Dose Instruction: USE TO TEST SIX TIMES PER DAY TO MAINTAIN A1C LESS THAN 7 Rx Instructions: USE TO TEST SIX TIMES PER DAY TO MAINTAIN A1C LESS THAN 7 (DME) OneTouch Verio test strips Strip See Rx Instructions .ROUTE .MEDSUPPLY Qty: 100 5RF Rx Instructions: E11.9 to maintain A1C <7.5, test QD pantoprazole 40 mg tablet,delayed release (DR/EC) See Rx Instructions .ROUTE .COMPLEX Qty: 90 3RF Dose Instruction: TAKE ONE TABLET BY MOUTH EVERY DAY Rx Instructions: TAKE ONE TABLET BY MOUTH EVERY DAY cetirizine 10 mg tablet See Rx Instructions .ROUTE .COMPLEX Qty: 90 3RF Dose Instruction: TAKE ONE TABLET BY MOUTH EVERY DAY FOR ALLERGIES Rx Instructions: TAKE ONE TABLET BY MOUTH EVERY DAY FOR ALLERGIES lurasidone 20 mg tablet See Rx Instructions .ROUTE .COMPLEX Qty: 90 1RF Dose Instruction: TAKE ONE TABLET BY MOUTH EVERY MORNING - MUST ADMINISTER WITH FOOD ( AT LEAST 350 CALORIES ) Rx Instructions: TAKE ONE TABLET BY MOUTH EVERY MORNING - MUST ADMINISTER WITH FOOD ( AT LEAST 350 CALORIES ) lurasidone 120 mg tablet See Rx Instructions .ROUTE .COMPLEX Qty: 90 1RF Dose Instruction: TAKE ONE TABLET BY MOUTH EVERY EVENING - MUST ADMINISTER WITH FOOD ( AT LEAST 350 CALORIES) Rx Instructions: TAKE ONE TABLET BY MOUTH EVERY EVENING - MUST ADMINISTER WITH FOOD ( AT LEAST 350 CALORIES) (DME) lancets [OneTouch Delica Plus Lancet] 33 gauge misc See Rx Instructions .ROUTE .COMPLEX Qty: 100 1RF Dose Instruction: USE ONCE DAILY Rx Instructions: USE ONCE DAILY ferrous sulfate [FeroSul] 325 mg (65 mg iron) tablet See Rx Instructions .ROUTE .COMPLEX Qty: 90 3RF Dose Instruction: TAKE ONE TABLET BY MOUTH EVERY DAY Rx Instructions: TAKE ONE TABLET BY MOUTH EVERY DAY lamotrigine 100 mg tablet extended release 24hr See Rx Instructions .ROUTE .COMPLEX Qty: 90 1RF Dose Instruction: TAKE ONE TABLET BY MOUTH EVERY DAY (ALONG WITH 200MG DOSE FOR A TOTAL DAILY DOSE OF 300MG) Rx Instructions: TAKE ONE TABLET BY MOUTH EVERY DAY (ALONG WITH 200MG DOSE FOR A TOTAL DAILY DOSE OF 300MG) lamotrigine 200 mg tablet extended release 24hr See Rx Instructions .ROUTE .COMPLEX Qty: 90 1RF Dose Instruction: TAKE ONE TABLET BY MOUTH AT BEDTIME (WITH 100MG DOSE FOR A TOTAL DAILY DOSE OF 300MG) Rx Instructions: TAKE ONE TABLET BY MOUTH AT BEDTIME (WITH 100MG DOSE FOR A TOTAL DAILY DOSE OF 300MG) pregabalin 200 mg capsule 200 mg PO BID Qty: 60 2RF Fiasp FlexTouch U-100 Insulin 100 unit/mL (3 mL) insulin pen 1 sliding scale dose subcut AC Qty: 15 12RF Rx Instructions: Sub-Q AC; administer 10-20u ac per Insulin schedule to manage BS with meals and to keep A1c at or below 7. cyclobenzaprine 5 mg tablet See Rx Instructions .ROUTE .COMPLEX Qty: 90 3RF Dose Instruction: TAKE ONE TABLET BY MOUTH AT BEDTIME NEEDED FOR MUSCLE SPASMS Rx Instructions: TAKE ONE TABLET BY MOUTH AT BEDTIME NEEDED FOR MUSCLE SPASMS meloxicam 15 mg tablet See Rx Instructions .ROUTE .COMPLEX Qty: 90 1RF Dose Instruction: TAKE ONE TABLET BY MOUTH EVERY DAY NEEDED FOR PAIN Rx Instructions: TAKE ONE TABLET BY MOUTH EVERY DAY NEEDED FOR PAIN alcohol swabs [Alcohol Prep Pads] Pads, Medicated 1 pad TP AC & HS Qty: 400 3RF Rx Instructions: 1 pad pre FS albuterol sulfate [Ventolin HFA] 90 mcg/actuation HFA aerosol inhaler See Rx Instructions .ROUTE .COMPLEX Qty: 18 6RF Dose Instruction: INHALE TWO PUFFS BY MOUTH EVERY 6 HOURS NEEDED Rx Instructions: INHALE TWO PUFFS BY MOUTH EVERY 6 HOURS NEEDED Mounjaro 2.5 mg/0.5 mL pen injector 2.5 mg subcut QWEEK 28 Days Qty: 2 0RF Hold Instructions: On back order insulin degludec [Tresiba FlexTouch U-200] 200 unit/mL (3 mL) insulin pen 80 unit subcut DAILY Rx Instructions: INJECT 94 UNITS SUBCUTANEOUSLY ONCE DAILY cholecalciferol (vitamin D3) [Vitamin D3] 50 mcg (2,000 unit) capsule 2,000 unit PO DAILY black cohosh 540 mg capsule 20 mg PO DAILY Mounjaro 2.5 mg/0.5 mL pen injector 2.5 mg subcut QWEEK HPI General Mode of arrival: ambulatory. Date/Time Provider Initiated Documentation: 01/09/24 12:27. Limitations to Documentation: no limitations. Information obtained by: patient. History of Present Illness 58 year old F presents to the emergency department with the chief complaint of Right fourth toe infection, Patient started experiencing this day(s) (5) and it has been constant. No relieving factors improve symptom(s), No exacerbating factors reported . Patient notes no other symptoms.. Related Data Home Medications Medication Instructions Recorded Confirmed inhalational spacing device #1 ea 12/09/20 11/17/23 (BreatheRite MDI Spacer) linagliptin 5 mg tablet 5 mg PO DAILY #90 tabs 03/10/21 01/09/24 nystatin 100,000 unit/gram topical 1 applic topical QID PRN Rash 05/19/22 01/09/24 cream under breasts #60 grams flash glucose sensor (FreeStyle #1 ea 06/03/22 11/17/23 Pavan 14 Day Sensor kit) blood-glucose meter (OneTouch #1 ea 06/05/22 11/17/23 Verio Meter) lancing device with lancets kit #1 ea 06/05/22 11/17/23 (OneTouch Delica Plus Lancing Device kit) fluticasone propionate 44 2 puff inhalation BID #3 multiple 08/19/22 01/09/24 mcg/actuation HFA aerosol inhaler units (Flovent HFA) biotin 10,000 mcg chewable tablet 10,000 mcg PO DAILY 11/03/22 01/09/24 (Hair, Skin and Nails (biotin)) [id number] carb-vit K 1 tab PO DAILY 11/03/22 01/09/24 18 mg iron-400 mcg-500 mg tablet (One-A-Day Womens Formula) diaper,brief,adult,disposable #96 ea 11/25/22 11/17/23 (Prevail Underwear) flash glucose scanning reader #1 ea 12/03/22 11/17/23 (FreeVia6 Pavan 2 [place]) citalopram 40 mg tablet See Rx Instructions .Route 02/01/23 01/09/24 .COMPLEX #90 tabs metformin 1,000 mg tablet 1,000 mg PO BID #180 tabs 02/15/23 01/09/24 atorvastatin 10 mg tablet 10 mg PO DAILY #90 tabs 03/15/23 01/09/24 fenofibrate micronized 67 mg See Rx Instructions .Route 03/15/23 01/09/24 capsule .COMPLEX #90 caps estradiol 0.01% (0.1 mg/gram) 1 g vaginal DIRECTED #60 grams 04/07/23 01/09/24 vaginal cream psyllium husk 0.4 gram capsule 0.4 g PO DAILY 04/07/23 01/09/24 (Metamucil) insulin degludec 200 unit/mL (3 80 unit subcut DAILY 05/06/23 01/09/24 mL) subcutaneous pen pen needle, diabetic 31 gauge x #600 ea 05/11/23 11/17/2316 (BD Ultra-Fine Short Pen Needle) blood sugar diagnostic (OneTouch #100 ea 05/14/23 11/17/23 Verio test strips) magnesium oxide 400 mg PO DAILY #90 tabs 05/27/23 01/09/24 pantoprazole 40 mg tablet,delayed See Rx Instructions .Route 05/31/23 01/09/24 release .COMPLEX #90 tabs cetirizine 10 mg tablet See Rx Instructions .Route 07/12/23 01/09/24 .COMPLEX #90 tabs lurasidone 20 mg tablet See Rx Instructions .Route 08/09/23 01/09/24 .COMPLEX #90 tabs lurasidone 120 mg tablet See Rx Instructions .Route 08/23/23 01/09/24 .COMPLEX #90 tabs lisinopril 40 mg tablet 40 mg PO DAILY #90 tabs 09/01/23 01/09/24 ferrous sulfate 325 mg (65 mg See Rx Instructions .Route 09/27/23 01/09/24 iron) tablet (FeroSul) .COMPLEX #90 tabs lancets 33 gauge (OneTouch Delica #100 ea 09/27/23 11/17/23 Plus Lancet) lamotrigine 100 mg tablet,extended See Rx Instructions .Route 11/22/23 01/09/24 release 24 hr .COMPLEX #90 tabs lamotrigine 200 mg tablet,extended See Rx Instructions .Route 11/22/23 01/09/24 release 24 hr .COMPLEX #90 tabs pregabalin 200 mg capsule 200 mg PO BID #60 caps 11/22/23 01/09/24 insulin aspart 1 sliding scale dose subcut AC #15 11/24/23 01/09/24 (niacinamide)(U-100) 100 unit/mL(3 mL mL) subcutaneous pen (Fiasp FlexTouch U-100 Insulin) cyclobenzaprine 5 mg tablet See Rx Instructions .Route 11/29/23 01/09/24 .COMPLEX #90 tabs aripiprazole 2 mg tablet (Abilify) 2 mg PO QHS #30 tabs 12/02/23 01/09/24 clonidine HCl 0.1 mg tablet 0.1 mg PO BID for anxiety #60 tabs 12/02/23 01/09/24 meloxicam 15 mg tablet See Rx Instructions .Route 12/20/23 01/09/24 .COMPLEX #90 tabs alcohol swabs (Alcohol Prep Pads) 1 pad topical AC & HS #400 ea 12/24/23 01/09/24 albuterol sulfate 90 mcg/actuation See Rx Instructions .Route 01/03/24 01/09/24 aerosol inhaler (Ventolin HFA) .COMPLEX #18 grams prednisone 10 mg tablet 10 mg PO DAILY 5 days #5 tabs 01/07/24 01/09/24 tirzepatide 2.5 mg/0.5 mL 2.5 mg (0.5 mL) subcut QWEEK 4 01/07/24 01/09/24 subcutaneous pen injector weeks #2 mL (Mounjaro) black cohosh 540 mg capsule 20 mg PO DAILY 01/09/24 01/09/24 cholecalciferol (vitamin D3) 50 2,000 unit PO DAILY 01/09/24 01/09/24 mcg (2,000 unit) capsule (Vitamin D3) clindamycin HCl 150 mg capsule 450 mg (3 x 150 mg) PO TID 7 days 01/09/24 #63 caps insulin degludec 200 unit/mL (3 80 unit subcut DAILY 01/09/24 01/09/24 mL) subcutaneous pen (Tresiba FlexTouch U-200 insulin) tirzepatide 2.5 mg/0.5 mL 2.5 mg subcut QWEEK 01/09/24 01/09/24 subcutaneous pen injector (Edwinuncain) Previous Rx's Medication Instructions Recorded inhalational spacing device #1 ea 12/09/20 (BreatheRite MDI Spacer) linagliptin 5 mg tablet 5 mg PO DAILY #90 tabs 03/10/21 nystatin 100,000 unit/gram topical 1 applic topical QID PRN Rash 05/19/22 cream under breasts #60 grams flash glucose sensor (FreeStyle #1 ea 06/03/22 Pavan 14 Day Sensor kit) blood-glucose meter (OneTouch #1 ea 06/05/22 Verio Meter) lancing device with lancets kit #1 ea 06/05/22 (OneTouch Delica Plus Lancing Device kit) fluticasone propionate 44 2 puff inhalation BID #3 multiple 08/19/22 mcg/actuation HFA aerosol inhaler units (Flovent HFA) diaper,brief,adult,disposable #96 ea 11/25/22 (Prevail Underwear) flash glucose scanning reader #1 ea 12/03/22 (FreeStyle Pavan 2 [place]) citalopram 40 mg tablet See Rx Instructions .Route 02/01/23 .COMPLEX #90 tabs metformin 1,000 mg tablet 1,000 mg PO BID #180 tabs 02/15/23 atorvastatin 10 mg tablet 10 mg PO DAILY #90 tabs 03/15/23 fenofibrate micronized 67 mg See Rx Instructions .Route 03/15/23 capsule .COMPLEX #90 caps estradiol 0.01% (0.1 mg/gram) 1 g vaginal DIRECTED #60 grams 04/07/23 vaginal cream pen needle, diabetic 31 gauge x #600 ea 05/11/23/ (BD Ultra-Fine Short Pen Needle) blood sugar diagnostic (OneTouch #100 ea 05/14/23 Verio test strips) magnesium oxide 400 mg PO DAILY #90 tabs 05/27/23 pantoprazole 40 mg tablet,delayed See Rx Instructions .Route 05/31/23 release .COMPLEX #90 tabs cetirizine 10 mg tablet See Rx Instructions .Route 07/12/23 .COMPLEX #90 tabs lurasidone 20 mg tablet See Rx Instructions .Route 08/09/23 .COMPLEX #90 tabs lurasidone 120 mg tablet See Rx Instructions .Route 08/23/23 .COMPLEX #90 tabs lisinopril 40 mg tablet 40 mg PO DAILY #90 tabs 09/01/23 ferrous sulfate 325 mg (65 mg See Rx Instructions .Route 09/27/23 iron) tablet (FeroSul) .COMPLEX #90 tabs lancets 33 gauge (OneTouch Delica #100 ea 09/27/23 Plus Lancet) lamotrigine 100 mg tablet,extended See Rx Instructions .Route 11/22/23 release 24 hr .COMPLEX #90 tabs lamotrigine 200 mg tablet,extended See Rx Instructions .Route 11/22/23 release 24 hr .COMPLEX #90 tabs pregabalin 200 mg capsule 200 mg PO BID #60 caps 11/22/23 insulin aspart 1 sliding scale dose subcut AC #15 11/24/23 (niacinamide)(U-100) 100 unit/mL(3 mL mL) subcutaneous pen (Fiasp FlexTouch U-100 Insulin) cyclobenzaprine 5 mg tablet See Rx Instructions .Route 11/29/23 .COMPLEX #90 tabs aripiprazole 2 mg tablet (Abilify) 2 mg PO QHS #30 tabs 12/02/23 clonidine HCl 0.1 mg tablet 0.1 mg PO BID for anxiety #60 tabs 12/02/23 meloxicam 15 mg tablet See Rx Instructions .Route 12/20/23 .COMPLEX #90 tabs alcohol swabs (Alcohol Prep Pads) 1 pad topical AC & HS #400 ea 12/24/23 albuterol sulfate 90 mcg/actuation See Rx Instructions .Route 01/03/24 aerosol inhaler (Ventolin HFA) .COMPLEX #18 grams prednisone 10 mg tablet 10 mg PO DAILY 5 days #5 tabs 01/07/24 tirzepatide 2.5 mg/0.5 mL 2.5 mg (0.5 mL) subcut QWEEK 4 01/07/24 subcutaneous pen injector weeks #2 mL (Mounjaro) clindamycin HCl 150 mg capsule 450 mg (3 x 150 mg) PO TID 7 days 01/09/24 #63 caps Allergies Allergy/AdvReac Type Severity Reaction Status Date / Time Sulfa (Sulfonamide Allergy Intermediate Swelling, Verified 01/09/24 12:34 Antibiotics) difficulty breathing niacin AdvReac Intermediate HIVES Verified 01/09/24 12:34 amoxicillin AdvReac Mild VAGINAL Verified 01/09/24 12:34 INFECTION INFECTION General Stated Complaint: Cellulitis JOSE: 3 Review of Systems All systems reviewed & are unremarkable except as noted in HPI and below Constitutional Constitutional: Denies chills, Denies fever(s) and Denies weakness Cardiovascular Cardiovascular: Denies chest pain and Denies dyspnea Respiratory Respiratory: Denies cough and Denies dyspnea Gastrointestinal Gastrointestinal: Denies abdominal pain, Denies nausea and Denies vomiting Neurologic Neurologic: Denies weakness Exam Const General: no acute distress Orientation: alert HENAL Head: normal to inspection Ears: external ears normal General nose exam: external nose normal Mouth: moist mucous membranes Eyes General: appearance normal, both eyes and all related structures Neck Neck: normal visual inspection Resp Effort & Inspection: normal respiratory effort and able to speak in complete sentences Cardio Rate: regular rate Neuro General: patient alert and patient oriented x3 Extrem General: capillary refill normal and no cyanosis Psych Mental Status: mental status grossly normal Course Vital Signs Vital signs: Vital Signs Temperature 36.1 C L 01/09/24 12:29 Pulse 66 01/09/24 12:29 Respiratory Rate 16 01/09/24 12:29 Blood Pressure 155/62 H 01/09/24 12:29 Pulse Oximetry 96 01/09/24 12:29 Temperature 36.1 C L 01/09/24 12:29 Temperature Source Skin 01/09/24 12:29 Pulse 66 01/09/24 12:29 Respiratory Rate 16 01/09/24 12:29 Blood Pressure 155/62 H 01/09/24 12:29 Blood Pressure Position Sitting 01/09/24 12:29 Pulse Oximetry 96 01/09/24 12:29 Oxygen Delivery Method Room Air 01/09/24 12:29 Oxygen Flow Rate 0 01/09/24 12:29 Pain Level 5 01/09/24 12:29 Medical Decision Making 58-year-old female with a history of diabetes and prior diabetic foot infections comes in with several days of worsening right fourth toe redness and discomfort. He states 1 to 2 weeks ago she accidentally hit her toe on the side of her bed, denied falling or other injuries. She has not had any fevers or chills. She arrives ambulatory and appears well. Right fourth toe is erythematous, no area of fluctuance to suggest current abscess. There is no tunneling lesions she does have an abrasion on the plantar surface of the toe but is very superficial. Will start antibiotics for diabetic foot infection given no tunneling doubt osteomyelitis at this time. She states she has a oxyacetylene welder she can follow-up with this week. Return precautions given Differential Diagnosis Differential Diagnosis: Diabetic infection, cellulitis Quality:SDOH Health Related Social Needs: No Data to Display PFSH All Active Problems (Updated 01/09/24 @ 12:59 by Sorin Mcdermott MD) Diabetic infection of right foot (Acute) Acute bronchitis (Acute) History of amputation of lesser toe of right foot (Acute) Onychomycosis (Acute) Ulcer of right foot limited to breakdown of skin (Acute) Leukocytes in urine (Acute) Migraine headache without aura (Acute) Corns and callosities (Acute) Nail dystrophy (Acute) Dysuria (Acute) Ulcer of toe due to diabetes mellitus (Acute) Pain of left sacroiliac joint (Acute) Low back pain (Acute) Routine gynecological examination (Acute) Routine medical exam (Acute) Hyperlipidemia (Acute) Daytime somnolence (Acute) Obesity (Chronic) Anemia (Chronic) Polypharmacy (Acute) Memory deficit (Acute) Falls (Acute) Slurred speech (Acute) Dizziness (Acute) Blurred vision (Acute) Abnormal urine (Acute) UTI (urinary tract infection) (Acute) Mild cataract (Acute ~11/2020) Diabetic retinopathy, nonproliferative, mild (Acute ~11/2020) OD-mild OS-none Lung cancer screening declined by patient (Acute) Mammogram declined (Acute) Colon cancer screening declined (Acute) Osteomyelitis (Acute) Discharge planning issues (Acute) Cellulitis of toe (Acute) Mixed hearing loss, bilateral (Acute ~04/01/20) Chest pain (Acute) Smoker (Acute) Low HDL (under 40) (Acute) 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 Unspecified urinary incontinence (Acute 10/30/11) Type II diabetes mellitus with neurological manifestations (Acute 04/10/13) Tobacco abuse disorder (Acute 06/08/17) Nocturia more than twice per night (Acute 05/20/16) Microscopic hematuria (Acute 02/25/16) Hearing loss (Acute 04/21/13) B/L HEARING AIDS Essential hypertension (Acute 10/30/11) Extrinsic asthma (Acute 08/26/12) Diabetic neuropathy (Acute 11/29/13) Lexie 10/2013 Depressive disorder (Chronic 10/30/11) [facility] 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 Medical History Amputation of second toe, right, traumatic Dr Don 04/03/2020 due to ulcer and DM RH Obesity (BMI 30-39.9) (10/30/11) Hypertriglyceridemia (08/14/13) Surgical History Arthroscopy (04/24/04) right knee Family History Mother Diabetes Alcohol abuse Personal history of malignant neoplasm breast Brother Cancer Bladder Sister Cancer Bladder Social History Smoking/Tobacco Use Status: Current every day Tobacco Type: cigarettes Tobacco: How many years used: 45 Quit status: considering quitting Smoking risk assessment performed?: Yes Alcohol Intake: never Drug use: Rarely Substance use type: marijuana Adopted: Yes Caregiver/Support person: No Household members: family and friend(s) Housing: house Number of Children: 3 Communication Needs: Hard of Hearing Current gender identity: female What is your relationship status?: Panel score (0-1 are the most socially isolated patients): 1 What type of physical activity do you participate in: none Seatbelt use: always Drive intox or ride w/intox new car driver: No Working smoke detector in home: Yes Carbon monox detector in home: Yes Do you feel safe at home: Yes Do you feel safe in your relationship?: Yes
[2024-01-09] MEDS: Clindamycin 150 MG CAP 450 MG PO (13:03)
== END 2024-01-09 13:12 | disposition home or self-care (01) ==
PROVIDERS: Emergency Provider Emergency Medicine; PCP Nurse Practitioner
DX: L08.9 Local infection of the skin and subcutaneous tissue, unspecified (principal); E11.9 Type 2 diabetes mellitus without complications; Z89.421 Acquired absence of other right toe(s); Z79.84 Long term (current) use of oral hypoglycemic drugs; Z79.4 Long term (current) use of insulin
CPT/HCPCS: 99283

== ENCOUNTER → 2024-01-11 13:35 | Outpatient (BNVA) | payer MEDICARE, MEDICAID, SELFPAY | PROVIDERS: PCP Nurse Practitioner; Referring Provider Nurse Practitioner; Visit Provider Podiatrist | DX: M86.9 Osteomyelitis, unspecified (principal); E11.621 Type 2 diabetes mellitus with foot ulcer; E11.628 Type 2 diabetes mellitus with other skin complications; L08.9 Local infection of the skin and subcutaneous tissue, unspecified; E11.49 Type 2 diabetes mellitus with other diabetic neurological complication; L03.115 Cellulitis of right lower limb | CPT/HCPCS: 10060; 99214 ==

== ENCOUNTER 2024-01-11 14:29 | Outpatient (REF) | payer MEDICARE, MEDICAID, SELFPAY | END 2024-01-11 14:30 | disposition home or self-care (01) | LOC: LBN 14:29 | PROVIDERS: PCP Nurse Practitioner; Visit Provider Podiatrist | DX: L03.031 Cellulitis of right toe (principal); M86.171 Other acute osteomyelitis, right ankle and foot | CPT/HCPCS: 87077; 87070; 87075; 87205 ==

== ENCOUNTER 2024-01-11 14:33 | Inpatient (IN) | payer MEDICARE, MEDICAID, SELFPAY ==
[2024-01-11 14:41] VITALS: BP 180/71; PULSE 87; RESP 16; TEMP 36.3; O2SAT 97
--- NOTE | 2024-01-11 14:45 | DI.RAD_ITS ---
Exam(s) XR FOOT RT COMPLETE EXAM: XR FOOT RT COMPLETE CLINICAL HISTORY: ?4th toe osteo. TECHNIQUE: 2D digital imaging was performed. Three views. COMPARISON: MR MR LOWER EXTREMITY RT WO/W from 04/01/2020 CR XR TOE RT SECOND from 04/01/2020 FINDINGS: BONES: No acute fracture is present. There has been prior amputation of the distal and middle phalang es of the 2nd and 3rd toes. There is marked bony destruction of the distal phalanx of the 4th toe wi th surrounding soft tissue swelling. Findings are consistent with osteomyelitis. The proximal and m iddle phalanges appear intact. JOINTS: No dislocation present. There is now severe joint space narrowing at the 1st MTP joint and p eriarticular spurring. There is some deformity at the base of the proximal phalanx. There is some f lattening of the 1st metatarsal head. There are lucencies on both sides of the joint which may be se condary to severe degenerative changes however osteomyelitis is not excluded. Findings have progress ed significantly from the prior exam. There are degenerative changes at the interphalangeal joint of the great toe but no significant acute erosions. SOFT TISSUE: Marked soft tissue swelling of the 4th toe. Densities noted which likely on the skin. IMPRESSION: Findings consistent with osteomyelitis of the distal phalanx of the 4th toe. Lucencies at the 1st MT P joint could be related to severe degenerative changes versus osteomyelitis. DATA REPOSITORY: RADIATION DOSE DELIVERED:
[2024-01-11 14:47] VITALS: BP 180/70; PULSE 87; RESP 16; TEMP 36.3; O2SAT 97
--- NOTE | 2024-01-11 14:55 | W.ED.GENAD ---
Discharge Plan Disposition Patient Disposition: Admit to [facility] Condition: Stable Discharge Details Chief Complaint: Cellulitis Clinical Impression: Diabetic infection of right foot Primary Care Provider: Anjana Gayle ED Provider: Sorin Mcdermott [place] Meds and New Rx's Prescriptions: No Action nystatin 100,000 unit/gram cream 1 applic topical QID PRN (Reason: Rash under breasts) Qty: 60 5RF One-A-Day Womens Formula 18 mg iron-400 mcg-500 mg tablet 1 tab PO DAILY Hair, Skin and Nails (biotin) 10,000 mcg tablet,chewable 10,000 mcg PO DAILY Patient Comments: dose unknown psyllium husk [Metamucil] 0.4 gram capsule 0.4 g PO DAILY estradiol 0.01 % (0.1 mg/gram) cream 1 g vaginal DIRECTED Qty: 60 3RF Rx Instructions: Insert a pea sized amount vaginally daily at night for 2 weeks, then reduce to 2 times per week magnesium oxide 400 mg magnesium tablet 400 mg PO DAILY Qty: 90 3RF atorvastatin 10 mg tablet 10 mg PO DAILY Qty: 90 3RF fenofibrate micronized 67 mg capsule See Rx Instructions .ROUTE .COMPLEX Qty: 90 3RF Dose Instruction: TAKE ONE CAPSULE BY MOUTH EVERY DAY Rx Instructions: TAKE ONE CAPSULE BY MOUTH EVERY DAY lisinopril 40 mg tablet 40 mg PO DAILY Qty: 90 3RF linagliptin 5 mg tablet 5 mg PO DAILY Qty: 90 3RF fluticasone propionate [Flovent HFA] 44 mcg/actuation HFA aerosol inhaler 2 puff Inhalation BID Qty: 3 3RF prednisone 10 mg tablet 10 mg PO DAILY 5 Days Qty: 5 0RF hair skin and nails PO clonidine HCl 0.1 mg tablet 0.1 mg PO BID Qty: 60 1RF aripiprazole [Abilify] 2 mg tablet 2 mg PO QHS Qty: 30 2RF (DME) BreatheRite MDI Spacer Spacer See Rx Instructions .ROUTE .MEDSUPPLY Qty: 1 3RF Rx Instructions: As directed for use with MDI. Please dispense what is available/covered. (DME) FreeStyle Pavan 14 Day Sensor Kit See Rx Instructions .ROUTE .MEDSUPPLY Qty: 1 12RF Rx Instructions: As directed (DME) blood-glucose meter [OneTouch Verio Meter] Misc See Rx Instructions .ROUTE .MEDSUPPLY Qty: 1 0RF Rx Instructions: E11.9 to maintain A1C <7.5, test QD, prn when needing to verify CGM reading per diesel engine operator directions (DME) lancing device with lancets [OneTouch Delica Plus Lanc Dev] Kit See Rx Instructions .ROUTE .MEDSUPPLY Qty: 1 1RF Rx Instructions: E11.9 to maintain A1C <7.5, test QD, prn when needing to verify CGM reading per diesel engine operator directions (DME) Prevail Underwear Misc See Rx Instructions .ROUTE .COMPLEX Qty: 96 12RF Dose Instruction: USE DIRECTED UP TO 100 PER MONTH Rx Instructions: USE DIRECTED UP TO 100 PER MONTH size L (DME) FreeStyle Pavan [address] [place] [facility] .ROUTE .MEDSUPPLY Qty: 1 0RF Rx Instructions: As directed citalopram 40 mg tablet See Rx Instructions .ROUTE .COMPLEX Qty: 90 3RF Dose Instruction: TAKE ONE TABLET BY MOUTH EVERY DAY Rx Instructions: TAKE ONE TABLET BY MOUTH EVERY DAY metformin 1,000 mg tablet 1,000 mg PO BID Qty: 180 3RF insulin degludec 200 unit/mL (3 mL) insulin pen 80 unit subcut DAILY (DME) pen needle, diabetic [BD Ultra-Fine Short Pen Needle] 31 gauge x 5/16 needle See Rx Instructions .ROUTE .COMPLEX Qty: 600 3RF Dose Instruction: USE TO TEST SIX TIMES PER DAY TO MAINTAIN A1C LESS THAN 7 Rx Instructions: USE TO TEST SIX TIMES PER DAY TO MAINTAIN A1C LESS THAN 7 (DME) OneTouch Verio test strips Strip See Rx Instructions .ROUTE .MEDSUPPLY Qty: 100 5RF Rx Instructions: E11.9 to maintain A1C <7.5, test QD pantoprazole 40 mg tablet,delayed release (DR/EC) See Rx Instructions .ROUTE .COMPLEX Qty: 90 3RF Dose Instruction: TAKE ONE TABLET BY MOUTH EVERY DAY Rx Instructions: TAKE ONE TABLET BY MOUTH EVERY DAY cetirizine 10 mg tablet See Rx Instructions .ROUTE .COMPLEX Qty: 90 3RF Dose Instruction: TAKE ONE TABLET BY MOUTH EVERY DAY FOR ALLERGIES Rx Instructions: TAKE ONE TABLET BY MOUTH EVERY DAY FOR ALLERGIES lurasidone 20 mg tablet See Rx Instructions .ROUTE .COMPLEX Qty: 90 1RF Dose Instruction: TAKE ONE TABLET BY MOUTH EVERY MORNING - MUST ADMINISTER WITH FOOD ( AT LEAST 350 CALORIES ) Rx Instructions: TAKE ONE TABLET BY MOUTH EVERY MORNING - MUST ADMINISTER WITH FOOD ( AT LEAST 350 CALORIES ) lurasidone 120 mg tablet See Rx Instructions .ROUTE .COMPLEX Qty: 90 1RF Dose Instruction: TAKE ONE TABLET BY MOUTH EVERY EVENING - MUST ADMINISTER WITH FOOD ( AT LEAST 350 CALORIES) Rx Instructions: TAKE ONE TABLET BY MOUTH EVERY EVENING - MUST ADMINISTER WITH FOOD ( AT LEAST 350 CALORIES) (DME) lancets [OneTouch Delica Plus Lancet] 33 gauge misc See Rx Instructions .ROUTE .COMPLEX Qty: 100 1RF Dose Instruction: USE ONCE DAILY Rx Instructions: USE ONCE DAILY ferrous sulfate [FeroSul] 325 mg (65 mg iron) tablet See Rx Instructions .ROUTE .COMPLEX Qty: 90 3RF Dose Instruction: TAKE ONE TABLET BY MOUTH EVERY DAY Rx Instructions: TAKE ONE TABLET BY MOUTH EVERY DAY lamotrigine 100 mg tablet extended release 24hr See Rx Instructions .ROUTE .COMPLEX Qty: 90 1RF Dose Instruction: TAKE ONE TABLET BY MOUTH EVERY DAY (ALONG WITH 200MG DOSE FOR A TOTAL DAILY DOSE OF 300MG) Rx Instructions: TAKE ONE TABLET BY MOUTH EVERY DAY (ALONG WITH 200MG DOSE FOR A TOTAL DAILY DOSE OF 300MG) lamotrigine 200 mg tablet extended release 24hr See Rx Instructions .ROUTE .COMPLEX Qty: 90 1RF Dose Instruction: TAKE ONE TABLET BY MOUTH AT BEDTIME (WITH 100MG DOSE FOR A TOTAL DAILY DOSE OF 300MG) Rx Instructions: TAKE ONE TABLET BY MOUTH AT BEDTIME (WITH 100MG DOSE FOR A TOTAL DAILY DOSE OF 300MG) pregabalin 200 mg capsule 200 mg PO BID Qty: 60 2RF Fiasp FlexTouch U-100 Insulin 100 unit/mL (3 mL) insulin pen 1 sliding scale dose subcut AC Qty: 15 12RF Rx Instructions: Sub-Q AC; administer 10-20u ac per Insulin schedule to manage BS with meals and to keep A1c at or below 7. cyclobenzaprine 5 mg tablet See Rx Instructions .ROUTE .COMPLEX Qty: 90 3RF Dose Instruction: TAKE ONE TABLET BY MOUTH AT BEDTIME NEEDED FOR MUSCLE SPASMS Rx Instructions: TAKE ONE TABLET BY MOUTH AT BEDTIME NEEDED FOR MUSCLE SPASMS meloxicam 15 mg tablet See Rx Instructions .ROUTE .COMPLEX Qty: 90 1RF Dose Instruction: TAKE ONE TABLET BY MOUTH EVERY DAY NEEDED FOR PAIN Rx Instructions: TAKE ONE TABLET BY MOUTH EVERY DAY NEEDED FOR PAIN alcohol swabs [Alcohol Prep Pads] Pads, Medicated 1 pad TP AC & HS Qty: 400 3RF Rx Instructions: 1 pad pre FS albuterol sulfate [Ventolin HFA] 90 mcg/actuation HFA aerosol inhaler See Rx Instructions .ROUTE .COMPLEX Qty: 18 6RF Dose Instruction: INHALE TWO PUFFS BY MOUTH EVERY 6 HOURS NEEDED Rx Instructions: INHALE TWO PUFFS BY MOUTH EVERY 6 HOURS NEEDED Mounjaro 2.5 mg/0.5 mL pen injector 2.5 mg subcut QWEEK 28 Days Qty: 2 0RF Hold Instructions: On back order insulin degludec [Tresiba FlexTouch U-200] 200 unit/mL (3 mL) insulin pen 80 unit subcut DAILY Rx Instructions: INJECT 94 UNITS SUBCUTANEOUSLY ONCE DAILY cholecalciferol (vitamin D3) [Vitamin D3] 50 mcg (2,000 unit) capsule 2,000 unit PO DAILY black cohosh 540 mg capsule 20 mg PO DAILY Mounjaro 2.5 mg/0.5 mL pen injector 2.5 mg subcut QWEEK clindamycin HCl 150 mg capsule 450 mg PO TID 7 Days Qty: 63 0RF HPI General Date/Time Provider Initiated Documentation: 01/11/24 14:34. Limitations to Documentation: no limitations. Information obtained by: patient. History of Present Illness 58 year old F presents to the emergency department with the chief complaint of Right fourth toe redness swelling, described as moderate, Patient started experiencing this day(s) (5) and it has been constant. No relieving factors improve symptom(s), No exacerbating factors reported . Patient notes denies fever/chills. Patient did receive the following treatments prior to arrival, none Related Data Home Medications Medication Instructions Recorded Confirmed inhalational spacing device #1 ea 12/09/20 01/11/24 (BreatheRite MDI Spacer) linagliptin 5 mg tablet 5 mg PO DAILY #90 tabs 03/10/21 01/11/24 nystatin 100,000 unit/gram topical 1 applic topical QID PRN Rash 05/19/22 01/11/24 cream under breasts #60 grams flash glucose sensor (FreeStyle #1 ea 06/03/22 01/11/24 Pavan 14 Day Sensor kit) blood-glucose meter (OneTouch #1 ea 06/05/22 01/11/24 Verio Meter) lancing device with lancets kit #1 ea 06/05/22 01/11/24 (OneTouch Delica Plus Lancing Device kit) fluticasone propionate 44 2 puff inhalation BID #3 multiple 08/19/22 01/11/24 mcg/actuation HFA aerosol inhaler units (Flovent HFA) biotin 10,000 mcg chewable tablet 10,000 mcg PO DAILY 11/03/22 01/11/24 (Hair, Skin and Nails (biotin)) [id number] carb-vit K 1 tab PO DAILY 11/03/22 01/11/24 18 mg iron-400 mcg-500 mg tablet (One-A-Day Womens Formula) diaper,brief,adult,disposable #96 ea 11/25/22 01/11/24 (Prevail Underwear) flash glucose scanning reader #1 ea 12/03/22 01/11/24 (FreeStyle [place] [address] [place]) citalopram 40 mg tablet See Rx Instructions .Route 02/01/23 01/11/24 .COMPLEX #90 tabs metformin 1,000 mg tablet 1,000 mg PO BID #180 tabs 02/15/23 01/11/24 atorvastatin 10 mg tablet 10 mg PO DAILY #90 tabs 03/15/23 01/11/24 fenofibrate micronized 67 mg See Rx Instructions .Route 03/15/23 01/11/24 capsule .COMPLEX #90 caps estradiol 0.01% (0.1 mg/gram) 1 g vaginal DIRECTED #60 grams 04/07/23 01/11/24 vaginal cream psyllium husk 0.4 gram capsule 0.4 g PO DAILY 04/07/23 01/11/24 (Metamucil) insulin degludec 200 unit/mL (3 80 unit subcut DAILY 05/06/23 01/11/24 mL) subcutaneous pen pen needle, diabetic 31 gauge x #600 ea 05/11/23 01/11/2416 (BD Ultra-Fine Short Pen Needle) blood sugar diagnostic (OneTouch #100 ea 05/14/23 01/11/24 Verio test strips) magnesium oxide 400 mg PO DAILY #90 tabs 05/27/23 01/11/24 pantoprazole 40 mg tablet,delayed See Rx Instructions .Route 05/31/23 01/11/24 release .COMPLEX #90 tabs cetirizine 10 mg tablet See Rx Instructions .Route 07/12/23 01/11/24 .COMPLEX #90 tabs lurasidone 20 mg tablet See Rx Instructions .Route 08/09/23 01/11/24 .COMPLEX #90 tabs lurasidone 120 mg tablet See Rx Instructions .Route 08/23/23 01/11/24 .COMPLEX #90 tabs lisinopril 40 mg tablet 40 mg PO DAILY #90 tabs 09/01/23 01/11/24 ferrous sulfate 325 mg (65 mg See Rx Instructions .Route 09/27/23 01/11/24 iron) tablet (FeroSul) .COMPLEX #90 tabs lancets 33 gauge (OneTouch Delica #100 ea 09/27/23 01/11/24 Plus Lancet) lamotrigine 100 mg tablet,extended See Rx Instructions .Route 11/22/23 01/11/24 release 24 hr .COMPLEX #90 tabs lamotrigine 200 mg tablet,extended See Rx Instructions .Route 11/22/23 01/11/24 release 24 hr .COMPLEX #90 tabs pregabalin 200 mg capsule 200 mg PO BID #60 caps 11/22/23 01/11/24 insulin aspart 1 sliding scale dose subcut AC #15 11/24/23 01/11/24 (niacinamide)(U-100) 100 unit/mL(3 mL mL) subcutaneous pen (Fiasp FlexTouch U-100 Insulin) cyclobenzaprine 5 mg tablet See Rx Instructions .Route 11/29/23 01/11/24 .COMPLEX #90 tabs aripiprazole 2 mg tablet (Abilify) 2 mg PO QHS #30 tabs 12/02/23 01/11/24 clonidine HCl 0.1 mg tablet 0.1 mg PO BID for anxiety #60 tabs 12/02/23 01/11/24 meloxicam 15 mg tablet See Rx Instructions .Route 12/20/23 01/11/24 .COMPLEX #90 tabs alcohol swabs (Alcohol Prep Pads) 1 pad topical AC & HS #400 ea 12/24/23 01/11/24 albuterol sulfate 90 mcg/actuation See Rx Instructions .Route 01/03/24 01/11/24 aerosol inhaler (Ventolin HFA) .COMPLEX #18 grams prednisone 10 mg tablet 10 mg PO DAILY 5 days #5 tabs 01/07/24 01/11/24 tirzepatide 2.5 mg/0.5 mL 2.5 mg (0.5 mL) subcut QWEEK 4 01/07/24 01/11/24 subcutaneous pen injector weeks #2 mL (Mounjaro) black cohosh 540 mg capsule 20 mg PO DAILY 01/09/24 01/11/24 cholecalciferol (vitamin D3) 50 2,000 unit PO DAILY 01/09/24 01/11/24 mcg (2,000 unit) capsule (Vitamin D3) clindamycin HCl 150 mg capsule 450 mg (3 x 150 mg) PO TID 7 days 01/09/24 01/11/24 #63 caps insulin degludec 200 unit/mL (3 80 unit subcut DAILY 01/09/24 01/11/24 mL) subcutaneous pen (Tresiba FlexTouch U-200 insulin) tirzepatide 2.5 mg/0.5 mL 2.5 mg subcut QWEEK 01/09/24 01/11/24 subcutaneous pen injector (Mounjaro) hair skin and nails PO 01/11/24 01/11/24 Previous Rx's Medication Instructions Recorded inhalational spacing device #1 ea 12/09/20 (BreatheRite MDI Spacer) linagliptin 5 mg tablet 5 mg PO DAILY #90 tabs 03/10/21 nystatin 100,000 unit/gram topical 1 applic topical QID PRN Rash 05/19/22 cream under breasts #60 grams flash glucose sensor (FreeStyle #1 ea 06/03/22 Pavan 14 Day Sensor kit) blood-glucose meter (OneTouch #1 ea 06/05/22 Verio Meter) lancing device with lancets kit #1 ea 06/05/22 (OneTouch Delica Plus Lancing Device kit) fluticasone propionate 44 2 puff inhalation BID #3 multiple 08/19/22 mcg/actuation HFA aerosol inhaler units (Flovent HFA) diaper,brief,adult,disposable #96 ea 11/25/22 (Prevail Underwear) flash glucose scanning reader #1 ea 12/03/22 (FreeStyle [place]avan [address] [place]) citalopram 40 mg tablet See Rx Instructions .Route 02/01/23 .COMPLEX #90 tabs metformin 1,000 mg tablet 1,000 mg PO BID #180 tabs 02/15/23 atorvastatin 10 mg tablet 10 mg PO DAILY #90 tabs 03/15/23 fenofibrate micronized 67 mg See Rx Instructions .Route 03/15/23 capsule .COMPLEX #90 caps estradiol 0.01% (0.1 mg/gram) 1 g vaginal DIRECTED #60 grams 04/07/23 vaginal cream pen needle, diabetic 31 gauge x #600 ea 05/11/2303/09 (BD Ultra-Fine Short Pen Needle) blood sugar diagnostic (OneTouch #100 ea 05/14/23 Verio test strips) magnesium oxide 400 mg PO DAILY #90 tabs 05/27/23 pantoprazole 40 mg tablet,delayed See Rx Instructions .Route 05/31/23 release .COMPLEX #90 tabs cetirizine 10 mg tablet See Rx Instructions .Route 07/12/23 .COMPLEX #90 tabs lurasidone 20 mg tablet See Rx Instructions .Route 08/09/23 .COMPLEX #90 tabs lurasidone 120 mg tablet See Rx Instructions .Route 08/23/23 .COMPLEX #90 tabs lisinopril 40 mg tablet 40 mg PO DAILY #90 tabs 09/01/23 ferrous sulfate 325 mg (65 mg See Rx Instructions .Route 09/27/23 iron) tablet (FeroSul) .COMPLEX #90 tabs lancets 33 gauge (OneTouch Delica #100 ea 09/27/23 Plus Lancet) lamotrigine 100 mg tablet,extended See Rx Instructions .Route 11/22/23 release 24 hr .COMPLEX #90 tabs lamotrigine 200 mg tablet,extended See Rx Instructions .Route 11/22/23 release 24 hr .COMPLEX #90 tabs pregabalin 200 mg capsule 200 mg PO BID #60 caps 11/22/23 insulin aspart 1 sliding scale dose subcut AC #15 11/24/23 (niacinamide)(U-100) 100 unit/mL(3 mL mL) subcutaneous pen (Fiasp FlexTouch U-100 Insulin) cyclobenzaprine 5 mg tablet See Rx Instructions .Route 11/29/23 .COMPLEX #90 tabs aripiprazole 2 mg tablet (Abilify) 2 mg PO QHS #30 tabs 12/02/23 clonidine HCl 0.1 mg tablet 0.1 mg PO BID for anxiety #60 tabs 12/02/23 meloxicam 15 mg tablet See Rx Instructions .Route 12/20/23 .COMPLEX #90 tabs alcohol swabs (Alcohol Prep Pads) 1 pad topical AC & HS #400 ea 12/24/23 albuterol sulfate 90 mcg/actuation See Rx Instructions .Route 01/03/24 aerosol inhaler (Ventolin HFA) .COMPLEX #18 grams prednisone 10 mg tablet 10 mg PO DAILY 5 days #5 tabs 01/07/24 tirzepatide 2.5 mg/0.5 mL 2.5 mg (0.5 mL) subcut QWEEK 4 01/07/24 subcutaneous pen injector weeks #2 mL (Mounjaro) clindamycin HCl 150 mg capsule 450 mg (3 x 150 mg) PO TID 7 days 01/09/24 #63 caps Allergies Allergy/AdvReac Type Severity Reaction Status Date / Time Sulfa (Sulfonamide Allergy Intermediate Swelling, Verified 01/11/24 14:37 Antibiotics) difficulty breathing niacin AdvReac Intermediate HIVES Verified 01/11/24 14:37 amoxicillin AdvReac Mild VAGINAL Verified 01/11/24 14:37 INFECTION INFECTION General Stated Complaint: Cellulitis JOSE: 3 Review of Systems All systems reviewed & are unremarkable except as noted in HPI and below Constitutional Constitutional: Denies chills, Denies fever(s) and Denies weakness Cardiovascular Cardiovascular: Denies chest pain and Denies dyspnea Respiratory Respiratory: Denies cough and Denies dyspnea Gastrointestinal Gastrointestinal: Denies abdominal pain, Denies nausea and Denies vomiting Integumentary/Breasts Skin/Breast: Reports rash Neurologic Neurologic: Denies weakness Psychiatric Psychiatric: Denies depression Exam Const General: no acute distress Orientation: alert HENMT Head: normal to inspection Ears: external ears normal General nose exam: external nose normal Mouth: moist mucous membranes Eyes General: appearance normal, both eyes and all related structures Neck Neck: normal visual inspection Resp Effort & Inspection: normal respiratory effort and able to speak in complete sentences Cardio Rate: regular rate Skin General skin exam: no rashes or lesions noted Neuro General: patient alert and patient oriented x3 Extrem General: no clubbing, cyanosis or edema Psych Mental Status: mental status grossly normal Course Vital Signs Vital signs: Vital Signs Temperature 36.3 C L 01/11/24 14:41 Pulse 87 01/11/24 14:41 Respiratory Rate 16 01/11/24 14:41 Blood Pressure 180/71 H 01/11/24 14:41 Pulse Oximetry 97 01/11/24 14:41 Temperature 36.3 C L 01/11/24 14:47 Temperature Source Temporal Artery Scan 01/11/24 14:47 Pulse 87 01/11/24 14:47 Respiratory Rate 16 01/11/24 14:47 Respiratory Effort Normal, Non-Labored 01/11/24 14:47 Blood Pressure 180/70 H 01/11/24 14:47 Blood Pressure Position Sitting 01/11/24 14:47 Pulse Oximetry 97 01/11/24 14:47 Oxygen Delivery Method Room Air 01/11/24 14:47 Oxygen Flow Rate 0 01/11/24 14:41 Pain Level 2 01/11/24 14:47 Comment foot numbness at baseline 01/11/24 14:41 Lab/Test Results Lab/Test Results: 01/11/24 14:41 Blood Blood Culture - Pending 01/11/24 14:41 Blood Blood Culture - Pending Medical Decision Making 58-year-old female with a history of diabetes, who comes in from the podiatry office after she had an I&D of a right fourth toe abscess and was sent in for admission for IV antibiotics. She states her right toe started becoming red and swollen on last Wednesday, was started on clindamycin this weekend, she states she feels the swelling is little bit better but went to the sleep tech who drained an abscess and is concerned for osteomyelitis was sent her here. Patient denies any severe pain but also has neuropathy in her foot. She denies any fevers or chills, the right fourth toe is red and swollen, will proceed with CBC, inflammatory markers, CMP, and x-ray of her foot. Labs show white count of 13, sed rate normal, CRP elevated. X-ray on my read shows likely osteomyelitis. Discussed with Dr. Peralta from podiatry who requests hospitalist admission and she will consult. Ordered Vanco and initially Zosyn but after talking with hospitalist Dr. Vasquez request cefepime instead of Zosyn. Patient will be admitted for IV antibiotics and podiatry consult. Differential Diagnosis Differential Diagnosis: Cellulitis, diabetic foot infection, osteo Medical Records Medical records reviewed: Yes I reviewed the patient's medical records. Imaging Data Radiologic Study: Attestation: I personally reviewed and interpreted this imaging study as follows: Imaging: X-Ray My impression: Likely osteomyelitis of fourth digit Lab Data Lab results reviewed: Yes I reviewed the patient's lab results. Quality:SDOH Health Related Social Needs: No Data to Display PFSH All Active Problems (Updated 01/11/24 @ 15:52 by Sorin Mcdermott MD) Diabetic infection of right foot (Acute) Abscess of foot (Acute) Cellulitis (Acute) Osteomyelitis of fourth toe of right foot (Acute) Diabetic infection of right foot (Acute) Acute bronchitis (Acute) History of amputation of lesser toe of right foot (Acute) Onychomycosis (Acute) Ulcer of right foot limited to breakdown of skin (Acute) Leukocytes in urine (Acute) Migraine headache without aura (Acute) Corns and callosities (Acute) Nail dystrophy (Acute) Dysuria (Acute) Ulcer of toe due to diabetes mellitus (Acute) Pain of left sacroiliac joint (Acute) Low back pain (Acute) Routine gynecological examination (Acute) Routine medical exam (Acute) Hyperlipidemia (Acute) Daytime somnolence (Acute) Obesity (Chronic) Anemia (Chronic) Polypharmacy (Acute) Memory deficit (Acute) Falls (Acute) Slurred speech (Acute) Dizziness (Acute) Blurred vision (Acute) Abnormal urine (Acute) UTI (urinary tract infection) (Acute) Mild cataract (Acute ~11/2020) Diabetic retinopathy, nonproliferative, mild (Acute ~11/2020) OD-mild OS-none Lung cancer screening declined by patient (Acute) Mammogram declined (Acute) Colon cancer screening declined (Acute) Osteomyelitis (Acute) Discharge planning issues (Acute) Cellulitis of toe (Acute) Mixed hearing loss, bilateral (Acute ~04/01/20) Chest pain (Acute) Smoker (Acute) Low HDL (under 40) (Acute) 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 Unspecified urinary incontinence (Acute 10/30/11) Type II diabetes mellitus with neurological manifestations (Acute 04/10/13) Tobacco abuse disorder (Acute 06/08/17) Nocturia more than twice per night (Acute 05/20/16) Microscopic hematuria (Acute 02/25/16) Hearing loss (Acute 04/21/13) B/L HEARING AIDS Essential hypertension (Acute 10/30/11) Extrinsic asthma (Acute 08/26/12) Diabetic neuropathy (Acute 11/29/13) Lexie 10/2013 Depressive disorder (Chronic 10/30/11) [facility] 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 Medical History Amputation of second toe, right, traumatic Dr Don 04/03/2020 due to ulcer and DM RH Obesity (BMI 30-39.9) (10/30/11) Hypertriglyceridemia (08/14/13) Surgical History Arthroscopy (04/24/04) right knee Family History Mother Diabetes Alcohol abuse Personal history of malignant neoplasm breast Brother Cancer Bladder Sister Cancer Bladder Social History Smoking/Tobacco Use Status: Current every day Tobacco Type: cigarettes Tobacco: How many years used: 45 Quit status: considering quitting Smoking risk assessment performed?: Yes Alcohol Intake: never Drug use: Rarely Substance use type: marijuana Adopted: Yes Caregiver/Support person: No Household members: family and friend(s) Housing: house Number of Children: 3 Communication Needs: Hard of Hearing Current gender identity: female What is your relationship status?: Panel score (0-1 are the most socially isolated patients): 1 What type of physical activity do you participate in: none Seatbelt use: always Drive intox or ride w/intox hammer driver: No Working smoke detector in home: Yes Carbon monox detector in home: Yes Do you feel safe at home: Yes Do you feel safe in your relationship?: Yes
[2024-01-11 15:13] LABS: BE (Venous) 5 mmol/L (-2-3); HCO3 (Venous) 30 mmol/L (23-28); O2 Sat (Venous) 68 %; TCO2 (Venous) 27 mmol/L (24-29); pCO2 (Venous) 49 mmHg (41-51); pO2 (Venous) 30 mmHg
[2024-01-11 15:14] LABS: Absolute Basophil Count 0.04 10^3/uL (0.0-0.2); Absolute Eosinophil Count 0.03 10^3/uL (0.0-0.7); Absolute Monocyte Count 0.98 10^3/uL (0.1-0.8); Basophils % 0.3; Eosinophils % 0.2; HCT 40.4 % (36.0-46.0); HGB 13.2 g/dL (11.2-15.7); Immature Grans % 0.7; Lymphocytes % 15.7; MCH 29.5 pg (27.0-33.0); MCHC 32.7 % (32.0-36.0); MCV 90 fL (80-95); MPV 11.7 fL (8.0-11.0); Monocytes % 7.3; Neutrophils % 75.8; Platelet Count 225 10^3/uL (130-400); RBC 4.47 10^6/uL (3.93-5.22); RDW 12.8 % (11.7-14.6); RDW-SD 42.5 fL; WBC 13.39 10^3/uL (4.4-10.8)
[2024-01-11 15:16] LABS: Absolute Neutrophil Count 10.15 10^3/uL (1.2-6.7); ESR 23 mm/hr (0-30)
[2024-01-11 15:36] LABS: ALT 18 U/L (14-59); AST 15 U/L (15-37); Albumin 3.8 g/dL (3.4-5.0); Alkaline Phosphatase 92 U/L (46-116); Anion Gap 8.6 mmol/L (3-11); BUN 11 mg/dL (7-18); Bilirubin, Total 0.6 mg/dL (0.2-1.0); C-Reactive Protein 7.18 mg/dL (<or=0.5); CO2 29.4 mmol/L (21.0-32.0); CREATININE 0.7 mg/dL (0.55-1.02); Calcium 9.7 mg/dL (8.5-10.1); Chloride 101 mmol/L (98-107); Estimated GFR 98.95 (mL/min/1.73m2); Glucose 121 mg/dL (74-106); Magnesium 1.6 mg/dL (1.8-2.4); Potassium 4.4 mmol/L (3.5-5.1); Sodium 139 mmol/L (136-145); Total Protein 8.3 g/dL (6.4-8.2)
[2024-01-11 15:45] LABS: Procalcitonin 0.2 ng/mL
[2024-01-11] MEDS: VANCOMYCIN 1,000 MG in Normal Saline 250 ML 166.6666 MG IVPB (15:55)
--- NOTE | 2024-01-11 16:00 | W.PM.HP.N ---
Date of service: 01/11/24 Time of Service: 16:00 Assessment and Plan Assessment and plan (1) Osteomyelitis of fourth toe of right foot: Status: Acute Assessment and plan: - Patient presented from podiatry office for rapidly worsening right fourth toe cellulitis that developed abscess and was able to probe to the bone while in podiatry office -Follow-up culture results -X-ray and emergency department highly suggestive of osteomyelitis of the right fourth toe -Started on Vanco and cefepime will continue -Consult podiatry, appreciate additional input and intervention -Patient likely to require a prolonged course of IV antibiotics (2) Hyperlipidemia: Status: Acute Assessment and plan: - Continue home statin (3) Obesity: Status: Chronic Assessment and plan: - Recommend ongoing weight loss discussion with PCP (4) Type II diabetes mellitus with neurological manifestations: Status: Acute Assessment and plan: - Hold home glipizide and metformin -Continue home long-acting insulin 80 units daily -Carb consistent diet, sliding scale insulin (5) Anxiety: Status: Active Assessment and plan: - Continue home citalopram, clonidine, Lamictal, lurasidone and other psychiatric medications/regimen (6) Depression: Status: Chronic Assessment and plan: - As noted above (7) Essential hypertension: Status: Acute Assessment and plan: - Continue home lisinopril History of Present Illness History of Present Illness Chief Complaint: sent by Podiatry for right 4th toe infection Narrative: 58o female with PMH bipolar disorder, depression, genrealized anxiety, IDDM with peripheral neuropathy and s/p amputation of right 5th toe, obesity, HTN, and HLD who was sent to the ED by Podiatry after excision and drainge of right 4th toe abscess with concerns for osteomyelitis and need for IV antibiotic therapy. Patient was seen at [facility] ED on 01/09/2024 with concerns for right 4th toe infection. She was diagnosed with cellulitis and was discharged with clindamycin. However, she was seen in the Podiatry office today where she was noted to have a significant abscess over the right 4th toe that required I&D and was noted to have probed down to the bone, concerning for osteomyelitis. While at Podiatry wound cultures were taken and sent to pathology. She denies any fever, chills, lightheadedness, dizziness, nausea or vomiting. In the ED the patient was noted as being hypertensive with BPs in the 180's systolic but with otherwise normal vital signs. Her WBC was elevated to 13.9, ESR 23, CRP 7.18. Xray of the right foot showed findings concerning for osteomyelitis of the distal phalanx of the 4th toe as well as lucencies at the 1st MTP joint which could be osteo versus DJD. The patient was started on vanc and cefepime, and Emergency Room Physician paged hospitalist for admission of a patient with right 4th toe osteomyelitis requiring antibiotic therapy. Review of Systems All systems reviewed & are unremarkable except as noted in HPI and below PFSH All Active Problems (Updated 01/11/24 @ 16:15 by Marlon Vasquez MD) Depression (Chronic) Diabetic infection of right foot (Acute) Abscess of foot (Acute) Cellulitis (Acute) Osteomyelitis of fourth toe of right foot (Acute) Diabetic infection of right foot (Acute) Acute bronchitis (Acute) History of amputation of lesser toe of right foot (Acute) Onychomycosis (Acute) Ulcer of right foot limited to breakdown of skin (Acute) Leukocytes in urine (Acute) Migraine headache without aura (Acute) Corns and callosities (Acute) Nail dystrophy (Acute) Dysuria (Acute) Ulcer of toe due to diabetes mellitus (Acute) Pain of left sacroiliac joint (Acute) Low back pain (Acute) Routine gynecological examination (Acute) Routine medical exam (Acute) Hyperlipidemia (Acute) Daytime somnolence (Acute) Obesity (Chronic) Anemia (Chronic) Polypharmacy (Acute) Memory deficit (Acute) Falls (Acute) Slurred speech (Acute) Dizziness (Acute) Blurred vision (Acute) Abnormal urine (Acute) UTI (urinary tract infection) (Acute) Mild cataract (Acute ~11/2020) Diabetic retinopathy, nonproliferative, mild (Acute ~11/2020) OD-mild OS-none Lung cancer screening declined by patient (Acute) Mammogram declined (Acute) Colon cancer screening declined (Acute) Osteomyelitis (Acute) Discharge planning issues (Acute) Cellulitis of toe (Acute) Mixed hearing loss, bilateral (Acute ~04/01/20) Chest pain (Acute) Smoker (Acute) Low HDL (under 40) (Acute) 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 Unspecified urinary incontinence (Acute 10/30/11) Type II diabetes mellitus with neurological manifestations (Acute 04/10/13) Tobacco abuse disorder (Acute 06/08/17) Nocturia more than twice per night (Acute 05/20/16) Microscopic hematuria (Acute 02/25/16) Hearing loss (Acute 04/21/13) B/L HEARING AIDS Essential hypertension (Acute 10/30/11) Extrinsic asthma (Acute 08/26/12) Diabetic neuropathy (Acute 11/29/13) Lexie 10/2013 Depressive disorder (Chronic 10/30/11) [facility] 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 Medical History Amputation of second toe, right, traumatic Dr Don 04/03/2020 due to ulcer and DM RH Obesity (BMI 30-39.9) (10/30/11) Hypertriglyceridemia (08/14/13) Surgical History Arthroscopy (04/24/04) right knee Family History Mother Diabetes Alcohol abuse Personal history of malignant neoplasm breast Brother Cancer Bladder Sister Cancer Bladder Social History Smoking/Tobacco Use Status: Current every day Tobacco Type: cigarettes Tobacco: How many years used: 45 Quit status: considering quitting Smoking risk assessment performed?: Yes Alcohol Intake: never Drug use: Rarely Substance use type: marijuana Adopted: Yes Caregiver/Support person: No Household members: family and friend(s) Housing: house Number of Children: 3 Communication Needs: Hard of Hearing Current gender identity: female What is your relationship status?: Panel score (0-1 are the most socially isolated patients): 1 What type of physical activity do you participate in: none Seatbelt use: always 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 Working smoke detector in home: Yes Carbon monox detector in home: Yes Do you feel safe at home: Yes Do you feel safe in your relationship?: Yes Meds Allergies and Home Medications Allergies Allergy/AdvReac Type Severity Reaction Status Date / Time Sulfa (Sulfonamide Allergy Intermediate Swelling, Verified 01/11/24 14:37 Antibiotics) difficulty breathing niacin AdvReac Intermediate HIVES Verified 01/11/24 14:37 amoxicillin AdvReac Mild VAGINAL Verified 01/11/24 14:37 INFECTION INFECTION Home Medications Medication Instructions Recorded Confirmed Type inhalational spacing device #1 ea 12/09/20 01/11/24 Rx (BreatheRite MDI Spacer) linagliptin 5 mg tablet 5 mg PO DAILY #90 tabs 03/10/21 01/11/24 Rx nystatin 100,000 unit/gram topical 1 applic topical QID PRN Rash 05/19/22 01/11/24 Rx cream under breasts #60 grams flash glucose sensor (FreeStyle #1 ea 06/03/22 01/11/24 Rx Pavan 14 Day Sensor kit) blood-glucose meter (TranspondTouch #1 ea 06/05/22 01/11/24 Rx Verio Meter) lancing device with lancets kit #1 ea 06/05/22 01/11/24 Rx (OneTouch Delica Plus Lancing Device kit) fluticasone propionate 44 2 puff inhalation BID #3 multiple 08/19/22 01/11/24 Rx mcg/actuation HFA aerosol inhaler units (Flovent HFA) biotin 10,000 mcg chewable tablet 10,000 mcg PO DAILY 11/03/22 01/11/24 History (Hair, Skin and Nails (biotin)) lvikigar-cxm-zilv-FA-Ca carb-vit K 1 tab PO DAILY 11/03/22 01/11/24 History 18 mg iron-400 mcg-500 mg tablet (One-A-Day Womens Formula) diaper,brief,adult,disposable #96 ea 11/25/22 01/11/24 Rx (Prevail Underwear) flash glucose scanning reader #1 ea 12/03/22 01/11/24 Rx (FreeStyle [place]avan 2 [place]) citalopram 40 mg tablet See Rx Instructions .Route 02/01/23 01/11/24 Rx .COMPLEX #90 tabs metformin 1,000 mg tablet 1,000 mg PO BID #180 tabs 02/15/23 01/11/24 Rx atorvastatin 10 mg tablet 10 mg PO DAILY #90 tabs 03/15/23 01/11/24 Rx fenofibrate micronized 67 mg See Rx Instructions .Route 03/15/23 01/11/24 Rx capsule .COMPLEX #90 caps estradiol 0.01% (0.1 mg/gram) 1 g vaginal DIRECTED #60 grams 04/07/23 01/11/24 Rx vaginal cream psyllium husk 0.4 gram capsule 0.4 g PO DAILY 04/07/23 01/11/24 History (Metamucil) insulin degludec 200 unit/mL (3 80 unit subcut DAILY 05/06/23 01/11/24 History mL) subcutaneous pen pen needle, diabetic 31 gauge x #600 ea 05/11/23 01/11/24 Rx /16 (BD Ultra-Fine Short Pen Needle) blood sugar diagnostic (OneTouch #100 ea 05/14/23 01/11/24 Rx Verio test strips) magnesium oxide 400 mg PO DAILY #90 tabs 05/27/23 01/11/24 Rx pantoprazole 40 mg tablet,delayed See Rx Instructions .Route 05/31/23 01/11/24 Rx release .COMPLEX #90 tabs cetirizine 10 mg tablet See Rx Instructions .Route 07/12/23 01/11/24 Rx .COMPLEX #90 tabs lurasidone 20 mg tablet See Rx Instructions .Route 08/09/23 01/11/24 Rx .COMPLEX #90 tabs lurasidone 120 mg tablet See Rx Instructions .Route 08/23/23 01/11/24 Rx .COMPLEX #90 tabs lisinopril 40 mg tablet 40 mg PO DAILY #90 tabs 09/01/23 01/11/24 Rx ferrous sulfate 325 mg (65 mg See Rx Instructions .Route 09/27/23 01/11/24 Rx iron) tablet (FeroSul) .COMPLEX #90 tabs lancets 33 gauge (OneTouch Patti #100 ea 09/27/23 01/11/24 Rx Plus Lancet) lamotrigine 100 mg tablet,extended See Rx Instructions .Route 11/22/23 01/11/24 Rx release 24 hr .COMPLEX #90 tabs lamotrigine 200 mg tablet,extended See Rx Instructions .Route 11/22/23 01/11/24 Rx release 24 hr .COMPLEX #90 tabs pregabalin 200 mg capsule 200 mg PO BID #60 caps 11/22/23 01/11/24 Rx insulin aspart 1 sliding scale dose subcut AC #15 11/24/23 01/11/24 Rx (niacinamide)(U-100) 100 unit/mL(3 mL mL) subcutaneous pen (Fiasp FlexTouch U-100 Insulin) cyclobenzaprine 5 mg tablet See Rx Instructions .Route 11/29/23 01/11/24 Rx .COMPLEX #90 tabs aripiprazole 2 mg tablet (Abilify) 2 mg PO QHS #30 tabs 12/02/23 01/11/24 Rx clonidine HCl 0.1 mg tablet 0.1 mg PO BID for anxiety #60 tabs 12/02/23 01/11/24 Rx meloxicam 15 mg tablet See Rx Instructions .Route 12/20/23 01/11/24 Rx .COMPLEX #90 tabs alcohol swabs (Alcohol Prep Pads) 1 pad topical AC & HS #400 ea 12/24/23 01/11/24 Rx albuterol sulfate 90 mcg/actuation See Rx Instructions .Route 01/03/24 01/11/24 Rx aerosol inhaler (Ventolin HFA) .COMPLEX #18 grams prednisone 10 mg tablet 10 mg PO DAILY 5 days #5 tabs 01/07/24 01/11/24 Rx tirzepatide 2.5 mg/0.5 mL 2.5 mg (0.5 mL) subcut QWEEK 4 01/07/24 01/11/24 Rx subcutaneous pen injector weeks #2 mL (Maricruz) black cohosh 540 mg capsule 20 mg PO DAILY 01/09/24 01/11/24 History cholecalciferol (vitamin D3) 50 2,000 unit PO DAILY 01/09/24 01/11/24 History mcg (2,000 unit) capsule (Vitamin D3) clindamycin HCl 150 mg capsule 450 mg (3 x 150 mg) PO TID 7 days 01/09/24 01/11/24 Rx #63 caps insulin degludec 200 unit/mL (3 80 unit subcut DAILY 01/09/24 01/11/24 History mL) subcutaneous pen (Tresiba FlexTouch U-200 insulin) tirzepatide 2.5 mg/0.5 mL 2.5 mg subcut QWEEK 01/09/24 01/11/24 History subcutaneous pen injector (Edwinuncain) hair skin and nails PO 01/11/24 01/11/24 History Exam Narrative Exam Narrative: Obese female lying in bed in no acute distress, ANO x 4, heart regular rhythm, lungs clear to auscultation bilaterally, abdomen obese, soft, nontender, nondistended, right foot wrapped in bandage without surrounding erythema or Results Labs 01/12/24 06:12 01/12/24 06:12 Labs: Laboratory Results - last 24 hr 01/11/24 15:03 WBC 13.39 H RBC 4.47 Hgb 13.2 Hct 40.4 MCV 90 MCH 29.5 MCHC 32.7 RDW 12.8 Plt Count 225 MPV 11.7 H Immature Gran % 0.7 Neutrophils % 75.8 Lymphocytes % 15.7 Monocytes % 7.3 Eosinophils % 0.2 Basophils % 0.3 Nucleated RBC % 0.0 Absolute Neutrophils 10.15 H Absolute Lymphocytes 2.10 Absolute Monocytes 0.98 H Absolute Eosinophils 0.03 Absolute Basophils 0.04 ESR 23 VBG pH 7.40 VBG pCO2 49 VBG pO2 30 VBG HCO3 30 H VBG Total CO2 27 VBG O2 Saturation 68 VBG Base Excess 5 H Sodium 139 Potassium 4.4 Chloride 101 Carbon Dioxide 29.4 Anion Gap 8.6 BUN 11 Creatinine 0.7 Est GFR (CKD-EPI 2020) 98.95 Glucose 121 H Calcium 9.7 Magnesium 1.6 L Total Bilirubin 0.6 AST 15 ALT 18 Alkaline Phosphatase 92 C-Reactive Protein 7.18 H Total Protein 8.3 H Albumin 3.8 Procalcitonin 0.2 Last Vital Signs Temp 97.3 F L 01/11/24 14:47 Pulse 87 01/11/24 14:47 Resp 16 01/11/24 14:47 BP 180/70 H 01/11/24 14:47 Pulse Ox 97 01/11/24 14:47 Time Spent Time spent with Patient: >75 minutes Time was spent: preparing to see the patient(eg.review tests), obtaining and/or reviewing separately otained hiistory, ordering medications,tests, procedures, referring, communicating with other health dialysis patient care technician, indepentently interpreting results, counseling the patient and care coordination
[2024-01-11] MEDS: CEFEPIME 2 GM in Normal Saline 100 ML IVPB ×2 (16:09→23:17)
[2024-01-11 16:40] VITALS: PULSE 70; RESP 16; TEMP 36.4; O2SAT 96
[2024-01-11 16:49] VITALS: BP 174/73; PULSE 80; RESP 18; TEMP 38.7; O2SAT 96
[2024-01-11 17:28] LABS: Bilirubin Color Interference (Negative); Blood Color Interference (Negative); Clarity Clear (Clear); Glucose Color Interference mg/dL (Negative); Ketones Color Interference mg/dL (Negative); Leukocyte Esterase Color Interference (Negative); Nitrite Color Interference (Negative); Specific Gravity 1.012 (1.005-1.025); Urobilinogen Color Interference mg/dL (Up to 0.2)
[2024-01-11 17:29] LABS: Bacteria Rare HPF (Negative); C & S Indicated? No/Sq. Contamination; Casts Negative LPF (Negative); Crystals Negative HPF (Negative); Epithelial Cells Moderate HPF (Negative); Mucus Negative (Negative); WBC 0-2 HPF (0-5)
[2024-01-11 19:40] VITALS: BP 177/80; PULSE 77; RESP 20; TEMP 37.7; O2SAT 93
[2024-01-11] MEDS: MAGNESIUM SULFATE 1 GM/100 ML BAG IVPB (19:58)
[2024-01-11 20:39] LABS: Vancomycin, Random 19.4 ug/mL
[2024-01-11] MEDS: ARIPiprazole 2 MG TAB PO (21:28)
[2024-01-11] MEDS: lamoTRIgine 100 MG TAB 300 MG PO (21:28)
[2024-01-11] MEDS: Pregabalin 100 MG CAP 200 MG PO (21:28)
[2024-01-11] MEDS: cloNIDine 0.1 MG TAB PO (21:28)
[2024-01-11] MEDS: Normal Saline Flush 10 ML SYR IVP (21:29)
[2024-01-11 23:19] VITALS: BP 149/53; PULSE 78; RESP 18; TEMP 36.7; O2SAT 94
[2024-01-12] VITALS (10 sets, daily range): BP systolic 107–173; BP diastolic 68–78; PULSE 56–79; RESP 17–20; TEMP 36.4–37.7; O2SAT 91–96; BMI 34.6
[2024-01-12] MEDS: VANCOMYCIN 1,000 MG in Normal Saline 250 ML 166.667 MG IVPB (00:02)
[2024-01-12 06:18] LABS: HCT 38.9 % (36.0-46.0); HGB 12.7 g/dL (11.2-15.7); MCH 29.3 pg (27.0-33.0); MCHC 32.6 % (32.0-36.0); MCV 90 fL (80-95); MPV 11.4 fL (8.0-11.0); Platelet Count 213 10^3/uL (130-400); RBC 4.33 10^6/uL (3.93-5.22); RDW 12.6 % (11.7-14.6); RDW-SD 41.9 fL
[2024-01-12 06:42] LABS: Anion Gap 10.6 mmol/L (3-11); BUN 9 mg/dL (7-18); CO2 28.4 mmol/L (21.0-32.0); CREATININE 0.9 mg/dL (0.55-1.02); Calcium 9.4 mg/dL (8.5-10.1); Chloride 102 mmol/L (98-107); Estimated GFR 73.19 (mL/min/1.73m2); Glucose 109 mg/dL (74-106); Magnesium 1.8 mg/dL (1.8-2.4); Potassium 3.8 mmol/L (3.5-5.1); Sodium 141 mmol/L (136-145)
[2024-01-12] MEDS: Normal Saline Flush 10 ML SYR IVP ×2 (08:04→21:04)
[2024-01-12] MEDS: cloNIDine 0.1 MG TAB PO ×2 (08:05→21:01)
[2024-01-12] MEDS: Atorvastatin 10 MG TAB PO (08:05)
[2024-01-12] MEDS: Pregabalin 100 MG CAP 200 MG PO ×2 (08:05→21:00)
[2024-01-12] MEDS: Lurasidone 20 MG TAB PO (08:05)
[2024-01-12] MEDS: predniSONE 10 MG TAB PO (08:05)
[2024-01-12] MEDS: Citalopram 20 MG TAB 40 MG PO (08:06)
[2024-01-12] MEDS: Lisinopril 20 MG TAB 40 MG PO (08:06)
[2024-01-12] MEDS: Pantoprazole 40 MG TABCR PO (08:06)
--- NOTE | 2024-01-12 08:44 | W.PODCONSULT ---
Date of service: 01/12/24 Time of Service: 08:00 Assessment and Plan Assessment and plan (1) Diabetic infection of right foot: Status: Acute (2) Abscess of foot: Status: Acute (3) Cellulitis: Status: Acute (4) Osteomyelitis of fourth toe of right foot: Status: Acute (5) History of amputation of lesser toe of right foot: Status: Acute (6) Ulcer of right foot with necrosis of bone: Status: Acute Assessment and plan: Patient was seen bedside today. Chart was reviewed. X-ray imaging was reviewed. X-rays demonstrate osteomyelitis to the tip of the right fourth toe to the distal phalanx. I discussed this with the patient today. She was advised that due to the infection has not evolved she will require at least 6 weeks of IV antibiotics if we were to treat this conservatively however given the amount of swelling, purulence, drainage the dimensions of the wound I recommend amputation of the right fourth toe. Likely, a partial amputation will suffice. She does have a history of amputations to the right foot secondary to infection Patient understands and agrees. Patient has been n.p.o. since midnight except for meds. Will proceed with surgical intervention consisting amputation of the right fourth toe in the OR today around noon. Discussed this with Dr. Vasquez Will continue to follow. History of Present Illness Narrative: 66-year-old female patient with past medical history significant for bipolar disorder, depression, generalized anxiety, IDDM, Neuropathy, amputation, amputation of multiple toes of multiple toes secondary to infection was seen in office yesterday on 01/11/2024 for a new wound to the right fourth toe. Patient states that she presented to the ER on for infection to the right fourth toe she was given clindamycin which she has been taking. She states that the toe does appear to be better however the redness persists. In office she was noted to have a wound to the right fourth toe which probes to bone there was purulence from the wound. Patient was instructed to present to the ER for an admit for IV antibiotics imaging and surgical intervention. Patient currently resting comfortably. She offers no pedal complaints other than the right fourth toe. PFSH All Active Problems (Updated 01/12/24 @ 09:24 by Khadra Peralta DPM) Ulcer of right foot with necrosis of bone (Acute) Depression (Chronic) Diabetic infection of right foot (Acute) Abscess of foot (Acute) Cellulitis (Acute) Osteomyelitis of fourth toe of right foot (Acute) Diabetic infection of right foot (Acute) Acute bronchitis (Acute) History of amputation of lesser toe of right foot (Acute) Onychomycosis (Acute) Ulcer of right foot limited to breakdown of skin (Acute) Chest pain (Active 02/22/13) [place] ruled out. Diabetes mellitus type 2 (Active) Anxiety (Active) Asthma (Active) Gastroesophageal reflux disease (Active) History of - section (Active) Alcohol abuse, in remission (Acute 10/30/11) Allergic rhinitis (Acute 12/27/13) Anxiety state (Acute 10/30/11) [facility] Don Silva, front office spec Depressive disorder (Chronic 10/30/11) [facility] Don Silva, front office spec Diabetic neuropathy (Acute 11/29/13) Lexie 10/2013 Extrinsic asthma (Acute 08/26/12) Essential hypertension (Acute 10/30/11) Hearing loss (Acute 04/21/13) B/L HEARING AIDS Microscopic hematuria (Acute 02/25/16) Nocturia more than twice per night (Acute 05/20/16) Tobacco abuse disorder (Acute 06/08/17) Type II diabetes mellitus with neurological manifestations (Acute 04/10/13) Unspecified urinary incontinence (Acute 10/30/11) 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 Low HDL (under 40) (Acute) Smoker (Acute) Chest pain (Acute) Mixed hearing loss, bilateral (Acute ~04/01/20) Cellulitis of toe (Acute) Discharge planning issues (Acute) Osteomyelitis (Acute) Colon cancer screening declined (Acute) Mammogram declined (Acute) Lung cancer screening declined by patient (Acute) Diabetic retinopathy, nonproliferative, mild (Acute ~11/2020) OD-mild OS-none Mild cataract (Acute ~11/2020) UTI (urinary tract infection) (Acute) Abnormal urine (Acute) Blurred vision (Acute) Dizziness (Acute) Slurred speech (Acute) Falls (Acute) Memory deficit (Acute) Polypharmacy (Acute) Anemia (Chronic) Obesity (Chronic) Daytime somnolence (Acute) Hyperlipidemia (Acute) Routine medical exam (Acute) Routine gynecological examination (Acute) Low back pain (Acute) Pain of left sacroiliac joint (Acute) Ulcer of toe due to diabetes mellitus (Acute) Dysuria (Acute) Nail dystrophy (Acute) Corns and callosities (Acute) Migraine headache without aura (Acute) Leukocytes in urine (Acute) Medical History Amputation of second toe, right, traumatic Dr Don 04/03/2020 due to ulcer and DM RH Obesity (BMI 30-39.9) (10/30/11) Hypertriglyceridemia (08/14/13) Surgical History Arthroscopy (04/24/04) right knee Family History Mother Diabetes Alcohol abuse Personal history of malignant neoplasm breast Brother Cancer Bladder Sister Cancer Bladder Social History Smoking/Tobacco Use Status: Current every day Tobacco Type: cigarettes Tobacco: How many years used: 45 Quit status: considering quitting Smoking risk assessment performed?: Yes Alcohol Intake: never Drug use: Rarely Substance use type: marijuana Adopted: Yes Caregiver/Support person: No Household members: family and friend(s) Housing: house Number of Children: 3 Communication Needs: Hard of Hearing Current gender identity: female What is your relationship status?: Panel score (0-1 are the most socially isolated patients): 1 What type of physical activity do you participate in: none Seatbelt use: always Drive 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 Thin shiny skin noted with skin discoloration, and hyperpigmentary skin changes Musc Other: R 2nd and 3rd distal digital amputations with Lesser digital deformities noted, reducible, with prominent metatarsal heads plantarly. Decreased ROM of bilateral ankle joints is noted. No other significant musculoskeletal abnormalities noted. No pain to palpation. Skin Other: Nails 1-5 left foot are elongated, dystrophic, thickened, discolored, with some incurvated, with subungual debris, and without pain to palpation today. No surrounding erythema, purulence, fluctuance or signs of infection noted. Inflammatory hyperkeratotic skin lesions noted bilateral plantar medial 1st metatarsal heads, plantar medial hallucal IPJs, and plantar medial heels, with no open wounds, ulcerations, blisters, or other dermatological concerns. Full-thickness ulceration with probe to bone noted to the right fourth toe plantar laterally, there is a 1 cm x 1 cm x 1 cm wound noted with a necrotic base, there is periwound erythema erythema extends to the level of the metatarsal necks 2 3 and 4, there is skin blistering noted to the right fourth toe with seropurulent drainage expressed upon debridement of this area. No fluctuance noted there is no bogginess noted here. Neuro Other: Protective sensation decreased ~50% via [place] Jasvir 5.07 monofilament. Negative tinel?s sign. Muscle strength 5/5. No other neurological deficits Results Last Vital Signs Temp 99.3 F 01/12/24 07:38 Pulse 71 01/12/24 07:38 Resp 18 01/12/24 07:38 BP 173/76 H 01/12/24 07:38 Pulse Ox 96 01/12/24 07:38 Labs 01/12/24 06:12 01/12/24 06:12 Labs: Laboratory Results - last 24 hr 01/11/24 01/11/24 01/11/24 15:03 16:55 20:10 WBC 13.39 H RBC 4.47 Hgb 13.2 Hct 40.4 MCV 90 MCH 29.5 MCHC 32.7 RDW 12.8 Plt Count 225 MPV 11.7 H Immature Gran % 0.7 Neutrophils % 75.8 Lymphocytes % 15.7 Monocytes % 7.3 Eosinophils % 0.2 Basophils % 0.3 Nucleated RBC % 0.0 Absolute Neutrophils 10.15 H Absolute Lymphocytes 2.10 Absolute Monocytes 0.98 H Absolute Eosinophils 0.03 Absolute Basophils 0.04 ESR 23 VBG pH 7.40 VBG pCO2 49 VBG pO2 30 VBG HCO3 30 H VBG Total CO2 27 VBG O2 Saturation 68 VBG Base Excess 5 H Sodium 139 Potassium 4.4 Chloride 101 Carbon Dioxide 29.4 Anion Gap 8.6 BUN 11 Creatinine 0.7 Est GFR (CKD-EPI 2020) 98.95 Glucose 121 H Calcium 9.7 Magnesium 1.6 L Total Bilirubin 0.6 AST 15 ALT 18 Alkaline Phosphatase 92 C-Reactive Protein 7.18 H Total Protein 8.3 H Albumin 3.8 Procalcitonin 0.2 Urine Color [place] Urine Clarity Clear Urine pH Not Applicable Ur Specific [place] 1.012 Urine Protein Color Interference Urine Ketones Color Interference Urine Blood Color Interference Urine Nitrite Color Interference Urine Bilirubin Color Interference Urine Urobilinogen Color Interference Ur Leukocyte Esterase Color Interference Urine RBC 3-5 H Urine WBC 0-2 Ur Epithelial Cells Moderate Urine Crystals Negative Urine Bacteria Rare Urine Casts Negative Urine Mucus Negative Ur Culture Indicated? No/Sq. Contamination Urine Glucose Color Interference Random Vancomycin 19.4 01/12/24 06:12 WBC 11.70 H RBC 4.33 Hgb 12.7 Hct 38.9 MCV 90 MCH 29.3 MCHC 32.6 RDW 12.6 Plt Count 213 MPV 11.4 H Immature Gran % Neutrophils % Lymphocytes % Monocytes % Eosinophils % Basophils % Nucleated RBC % Absolute Neutrophils Absolute Lymphocytes Absolute Monocytes Absolute Eosinophils Absolute Basophils ESR VBG pH VBG pCO2 VBG pO2 VBG HCO3 VBG Total CO2 VBG O2 Saturation VBG Base Excess Sodium 141 Potassium 3.8 Chloride 102 Carbon Dioxide 28.4 Anion Gap 10.6 BUN 9 Creatinine 0.9 Est GFR (CKD-EPI 2020) 73.19 Glucose 109 H Calcium 9.4 Magnesium 1.8 Total Bilirubin AST ALT Alkaline Phosphatase C-Reactive Protein Total Protein Albumin Procalcitonin Urine Color Urine Clarity Urine pH Ur Specific [place] Urine Protein Urine Ketones Urine Blood Urine Nitrite Urine Bilirubin Urine Urobilinogen Ur Leukocyte Esterase Urine RBC Urine WBC Ur Epithelial Cells Urine Crystals Urine Bacteria Urine Casts Urine Mucus Ur Culture Indicated? Urine Glucose Random Vancomycin Imaging Imaging Studies: Patient Name: Maureen Schmitz Unit #: [id number] Loc: ER Ordering Provider: Sorin Mcdermott M.D. Status: REG ER Primary Care Provider: Anjana Gayle NP Date of Exam: 01/11/24 Sex: F Admission Date: 01/11/24 : 1965. Age: 58 1 Exam(s) XR FOOT RT COMPLETE EXAM: XR FOOT RT COMPLETE CLINICAL HISTORY: ?4th toe osteo. TECHNIQUE: 2D digital imaging was performed. Three views. COMPARISON: MR MR LOWER EXTREMITY RT WO/W from 04/01/2020 CR XR TOE RT SECOND from 04/01/2020 FINDINGS: BONES: No acute fracture is present. There has been prior amputation of the distal and middle phalanges of the 2nd and 3rd toes. There is marked bony destruction of the distal phalanx of the 4th toe with surrounding soft tissue swelling. Findings are consistent with osteomyelitis. The proximal and middle phalanges appear intact. JOINTS: No dislocation present. There is now severe joint space narrowing at the 1st MTP joint and periarticular spurring. There is some deformity at the base of the proximal phalanx. There is some flattening of the 1st metatarsal head. There are lucencies on both sides of the joint which may be secondary to severe degenerative changes however osteomyelitis is not excluded. Findings have progressed significantly from the prior exam. There are degenerative changes at the interphalangeal joint of the great toe but no significant acute erosions. SOFT TISSUE: Marked soft tissue swelling of the 4th toe. Densities noted which likely on the skin. IMPRESSION: Findings consistent with osteomyelitis of the distal phalanx of the 4th toe. Lucencies at the 1st MTP joint could be related to severe degenerative changes versus osteomyelitis. Pain in the left heel she is DATA REPOSITORY: RADIATION DOSE DELIVERED: Ordered By: Sorin Mcdermott M.D.
[2024-01-12] MEDS: CEFEPIME 2 GM in Normal Saline 100 ML IVPB ×3 (08:49→23:49)
[2024-01-12] MEDS: Insulin Glargine 300 UNITS/3 ML PEN 32 UNITS SC ×2 (08:55→21:01)
[2024-01-12] MEDS: Mometasone 220 MCG 14 DOSE INHALER IH (09:13)
--- NOTE | 2024-01-12 10:33 | INITIAL_ITS ---
Date of service: 01/12/24 Time of Service: 10:33 Care Management Initial Assmt Initial Assessment REASON FOR HOSPITALIZATION:: Osteomyelitis PREVIOUS FUNCTIONAL STATUS/SOCIAL/FAMILY SUPPORTS:: Maureen (aka. Rita or Frank) resides in [facility] with her partner Dennis. She has 3 adult children that live locally, and identifies Dennis as her primary support. Rita is independent with her ADL's/IADLS at baseline. She drives and owns a car. She is unemployed and describes herself as mentally disabled and receives social security. CURRENT FUNCTIONAL STATUS:: Maureen was sitting up in bed visiting with her partner when CM met with her. Rita verbalizes that she is planning on going down to the OR around noon to have her toe amputated. She's had 2 other toes amputated and is familiar with this process. Per patient she is familiar with [facility] as a resource, if needed in the future. Rita has no concerns at this time. ADVANCE DIRECTIVES:: On File, [facility] is Dennis Acevedo Has patient been provided with info about the portal/API?: Yes Did the patient sign up for the portal?: Yes (Prior to admission) CODE STATUS:: Full Code INSURANCE COVERAGE / FINANCIAL ISSUES:: Medicaid Medicare CURRENT HOME/COMMUNITY SERVICES/EQUIPMENT:: None PRIMARY CARE PHYSICIAN:: Anjana Gayle POTENTIAL DISCHARGE NEEDS:: Evaluation for further needs PATIENT/FAMILY EDUCATION NEEDS:: Review discharge instructions, limitations, medications and plan to follow up with community providers. Discuss ask me three and goals of self care. ANTICIPATED BARRIERS TO DISCHARGE:: None Identified at this time TRANSPORTATION:: Via private vehicle with s/o Dennis PLAN:: Rita went to the OR for a toe amputation, cultures are pending. Anticipate, Rita will discharge home on ABX when medically clear. New [facility] RN/PT, if needed. She will transport via private vehicle with her partner and follow up with community providers and her discharge plan of care as recomm ended. CM will continue to follow. PFSH All Active Problems (Updated 01/12/24 @ 09:24 by Khadra Peralta DPM) Ulcer of right foot with necrosis of bone (Acute) Depression (Chronic) Diabetic infection of right foot (Acute) Abscess of foot (Acute) Cellulitis (Acute) Osteomyelitis of fourth toe of right foot (Acute) Diabetic infection of right foot (Acute) Acute bronchitis (Acute) History of amputation of lesser toe of right foot (Acute) Onychomycosis (Acute) Ulcer of right foot limited to breakdown of skin (Acute) Leukocytes in urine (Acute) Migraine headache without aura (Acute) Corns and callosities (Acute) Nail dystrophy (Acute) Dysuria (Acute) Ulcer of toe due to diabetes mellitus (Acute) Pain of left sacroiliac joint (Acute) Low back pain (Acute) Routine gynecological examination (Acute) Routine medical exam (Acute) Hyperlipidemia (Acute) Daytime somnolence (Acute) Obesity (Chronic) Anemia (Chronic) Polypharmacy (Acute) Memory deficit (Acute) Falls (Acute) Slurred speech (Acute) Dizziness (Acute) Blurred vision (Acute) Abnormal urine (Acute) UTI (urinary tract infection) (Acute) Mild cataract (Acute ~11/2020) Diabetic retinopathy, nonproliferative, mild (Acute ~11/2020) OD-mild OS-none Lung cancer screening declined by patient (Acute) Mammogram declined (Acute) Colon cancer screening declined (Acute) Osteomyelitis (Acute) Discharge planning issues (Acute) Cellulitis of toe (Acute) Mixed hearing loss, bilateral (Acute ~04/01/20) Chest pain (Acute) Smoker (Acute) Low HDL (under 40) (Acute) 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 Unspecified urinary incontinence (Acute 10/30/11) Type II diabetes mellitus with neurological manifestations (Acute 04/10/13) Tobacco abuse disorder (Acute 06/08/17) Nocturia more than twice per night (Acute 05/20/16) Microscopic hematuria (Acute 02/25/16) Hearing loss (Acute 04/21/13) B/L HEARING AIDS Essential hypertension (Acute 10/30/11) Extrinsic asthma (Acute 08/26/12) Diabetic neuropathy (Acute 11/29/13) Lexie 10/2013 Depressive disorder (Chronic 10/30/11) [facility] Don Silva, supervisor scenic arts Anxiety state (Acute 10/30/11) [facility] Don Silva, supervisor scenic arts Allergic rhinitis (Acute 12/27/13) Alcohol abuse, 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 Medical History Amputation of second toe, right, traumatic Dr Don 04/03/2020 due to ulcer and DM RH Obesity (BMI 30-39.9) (10/30/11) Hypertriglyceridemia (08/14/13) Surgical History Arthroscopy (04/24/04) right knee Family History Mother Diabetes Alcohol abuse Personal history of malignant neoplasm breast Brother Cancer Bladder Sister Cancer Bladder Social History Smoking/Tobacco Use Status: Current every day Tobacco Type: cigarettes Tobacco: How many years used: 45 Quit status: considering quitting Smoking risk assessment performed?: Yes Alcohol Intake: never Drug use: Rarely Substance use type: marijuana Adopted: Yes Caregiver/Support person: No Household members: family and friend(s) Housing: house Number of Children: 3 Communication Needs: Hard of Hearing Current gender identity: female What is your relationship status?: Panel score (0-1 are the most socially isolated patients): 1 What type of physical activity do you participate in: none Seatbelt use: always 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 Working smoke detector in home: Yes Carbon monox detector in home: Yes Do you feel safe at home: Yes Do you feel safe in your relationship?: Yes SDOH(Care Management) Screening Will the Patient Participate in the Screening?: Yes Do you worry about having a steady place to live?: no Problems where you live: no known problems In the past 12 months, have you had to go without electric, gas, oil or water in your home?: no Have you or anyone in your house had to go without enough food to eat?: no Has lack of transportation kept you from medical appointments or from doing things needed for daily living?: no Has anyone in your support network made you feel unsafe for any reason?: no
[2024-01-12] MEDS: VANCOMYCIN/WATER (PEG) 1 GM/200 ML BAG IVPB (11:59)
--- NOTE | 2024-01-12 12:18 | W.ANESPRE ---
General Info Date of Service Date Performed: 01/12/24 Height: 5 ft 8 in Weight: 103.3 kg Body Mass Index (BMI): 34.6 Surgical Procedure: Operation Date: 01/12/24 12:10 Proposed Procedure Side Surgeon p Toe Amputation, 4th Toe Right Khadra Peralta DPM Meds Allergies and Home Medications Allergies Allergy/AdvReac Type Severity Reaction Status Date / Time Sulfa (Sulfonamide Allergy Intermediate Swelling, Verified 01/11/24 14:37 Antibiotics) difficulty breathing niacin AdvReac Intermediate HIVES Verified 01/11/24 14:37 amoxicillin AdvReac Mild VAGINAL Verified 01/11/24 14:37 INFECTION INFECTION Home Medication Medication Instructions Recorded inhalational spacing device #1 ea 12/09/20 (BreatheRite MDI Spacer) linagliptin 5 mg tablet 5 mg PO DAILY #90 tabs 03/10/21 nystatin 100,000 unit/gram topical 1 applic topical QID PRN Rash 05/19/22 cream under breasts #60 grams flash glucose sensor (Qriketyle #1 ea 06/03/22 Pavan 14 Day Sensor kit) blood-glucose meter (CapLinkedTouch #1 ea 06/05/22 Verio Meter) lancing device with lancets kit #1 ea 06/05/22 (OneTouch Delica Plus Lancing Device kit) fluticasone propionate 44 2 puff inhalation BID #3 multiple 08/19/22 mcg/actuation HFA aerosol inhaler units (Flovent HFA) biotin 10,000 mcg chewable tablet 10,000 mcg PO DAILY 11/03/22 (Hair, Skin and Nails (biotin)) ykywiqyz-zwo-kypq-FA-Ca carb-vit K 1 tab PO DAILY 11/03/22 18 mg iron-400 mcg-500 mg tablet (One-A-Day Womens Formula) diaper,brief,adult,disposable #96 ea 11/25/22 (Prevail Underwear) flash glucose scanning reader #1 ea 12/03/22 (FreeStyle [place]avan 2 [place]) citalopram 40 mg tablet See Rx Instructions .Route 02/01/23 .COMPLEX #90 tabs metformin 1,000 mg tablet 1,000 mg PO BID #180 tabs 02/15/23 atorvastatin 10 mg tablet 10 mg PO DAILY #90 tabs 03/15/23 fenofibrate micronized 67 mg See Rx Instructions .Route 03/15/23 capsule .COMPLEX #90 caps estradiol 0.01% (0.1 mg/gram) 1 g vaginal DIRECTED #60 grams 04/07/23 vaginal cream psyllium husk 0.4 gram capsule 0.4 g PO DAILY 04/07/23 (Metamucil) insulin degludec 200 unit/mL (3 80 unit subcut DAILY 05/06/23 mL) subcutaneous pen pen needle, diabetic 31 gauge x #600 ea 05/11/23/ (BD Ultra-Fine Short Pen Needle) blood sugar diagnostic (OneTouch #100 ea 05/14/23 Verio test strips) magnesium oxide 400 mg PO DAILY #90 tabs 05/27/23 pantoprazole 40 mg tablet,delayed See Rx Instructions .Route 05/31/23 release .COMPLEX #90 tabs cetirizine 10 mg tablet See Rx Instructions .Route 07/12/23 .COMPLEX #90 tabs lurasidone 20 mg tablet See Rx Instructions .Route 08/09/23 .COMPLEX #90 tabs lurasidone 120 mg tablet See Rx Instructions .Route 08/23/23 .COMPLEX #90 tabs lisinopril 40 mg tablet 40 mg PO DAILY #90 tabs 09/01/23 ferrous sulfate 325 mg (65 mg See Rx Instructions .Route 09/27/23 iron) tablet (FeroSul) .COMPLEX #90 tabs lancets 33 gauge (OneTouch Delica #100 ea 09/27/23 Plus Lancet) lamotrigine 100 mg tablet,extended See Rx Instructions .Route 11/22/23 release 24 hr .COMPLEX #90 tabs lamotrigine 200 mg tablet,extended See Rx Instructions .Route 11/22/23 release 24 hr .COMPLEX #90 tabs pregabalin 200 mg capsule 200 mg PO BID #60 caps 11/22/23 insulin aspart 1 sliding scale dose subcut AC #15 11/24/23 (niacinamide)(U-100) 100 unit/mL(3 mL mL) subcutaneous pen (Fiasp FlexTouch U-100 Insulin) cyclobenzaprine 5 mg tablet See Rx Instructions .Route 11/29/23 .COMPLEX #90 tabs aripiprazole 2 mg tablet (Abilify) 2 mg PO QHS #30 tabs 12/02/23 clonidine HCl 0.1 mg tablet 0.1 mg PO BID for anxiety #60 tabs 12/02/23 meloxicam 15 mg tablet See Rx Instructions .Route 12/20/23 .COMPLEX #90 tabs alcohol swabs (Alcohol Prep Pads) 1 pad topical AC & HS #400 ea 12/24/23 albuterol sulfate 90 mcg/actuation See Rx Instructions .Route 01/03/24 aerosol inhaler (Ventolin HFA) .COMPLEX #18 grams prednisone 10 mg tablet 10 mg PO DAILY 5 days #5 tabs 01/07/24 tirzepatide 2.5 mg/0.5 mL 2.5 mg (0.5 mL) subcut QWEEK 4 01/07/24 subcutaneous pen injector weeks #2 mL (Mounjaro) black cohosh 540 mg capsule 20 mg PO DAILY 01/09/24 cholecalciferol (vitamin D3) 50 2,000 unit PO DAILY 01/09/24 mcg (2,000 unit) capsule (Vitamin D3) clindamycin HCl 150 mg capsule 450 mg (3 x 150 mg) PO TID 7 days 01/09/24 #63 caps insulin degludec 200 unit/mL (3 80 unit subcut DAILY 01/09/24 mL) subcutaneous pen (Tresiba FlexTouch U-200 insulin) tirzepatide 2.5 mg/0.5 mL 2.5 mg subcut QWEEK 01/09/24 subcutaneous pen injector (Mounjaro) hair skin and nails PO 01/11/24 Current Visit Medications: Current Medications Generic Name Dose Route Start Last Admin Trade Name Freq PRN Reason Stop Dose Admin Acetaminophen 0 mg 01/11/24 16:53 Acetaminophen 325 Mg Tab PO Q4H PRN PRN Albuterol Sulfate 0 puff 01/11/24 16:53 Albuterol Hfa 8 Gm 60 Puff Inh IH Q6H PRN PRN Aripiprazole 2 mg 01/11/24 22:00 01/11/24 21:28 Aripiprazole 2 Mg Tab PO 2 mg HS HO Administration Atorvastatin Calcium 10 mg 01/12/24 08:30 01/12/24 08:05 Atorvastatin 10 Mg Tab PO 10 mg DAILY HO Administration Citalopram Hydrobromide 40 mg 01/12/24 08:30 01/12/24 08:06 Citalopram 20 Mg Tab PO 40 mg DAILY HO Administration Clonidine 0.1 mg 01/11/24 20:00 01/12/24 08:05 Clonidine 0.1 Mg Tab PO 0.1 mg BID HO Administration Cyclobenzaprine HCl 5 mg 01/11/24 17:15 Cyclobenzaprine 10 Mg Tab PO HS PRN PRN Device 1 each 01/11/24 16:53 Inhaler, Assist Device MC DIRECTED [facility] Dextrose 0 gm 01/11/24 16:53 Glucose Oral Gel 15 Gm/37.5 Gm Tube PO DIRECTED PRN Dextrose/Water 0 gm 01/11/24 16:53 Dextrose 50%-Water 25 Gm/50 Ml Syr IVP DIRECTED PRN Docusate Sodium 100 mg 01/11/24 16:53 Docusate Sodium 100 Mg Cap PO TID PRN PRN Cefepime HCl 2 gm/ Sodium 100 mls @ 200 mls/hr 01/12/24 00:00 01/12/24 08:49 Chloride IVPB 200 mls/hr Q8H [facility] Administration Vancomycin/PEG/NADA/Lysine/Water 1 gm in 200 mls @ 133.333 mls/hr 01/12/24 12:00 01/12/24 11:59 Vancocin Injection IVPB 133.333 mls/hr Q12H [facility] Administration IV Miscellaneous Supplies 1 each 01/11/24 16:53 Iv Access IV DIRECTED [facility] Insulin Aspart 0 units 01/11/24 17:00 01/12/24 08:18 Insulin Aspart 300 Units/3 Ml Pen SC Not Given 0800,1200,1700 [facility] Protocol Insulin Glargine 32 units 01/12/24 08:30 01/12/24 08:55 Insulin Glargine 300 Units/3 Ml Pen SC 32 units BID HO Administration Lamotrigine 300 mg 01/11/24 22:00 01/11/24 21:28 Lamotrigine 100 Mg Tab PO 300 mg HS HO Administration Lisinopril 40 mg 01/12/24 08:30 01/12/24 08:06 Lisinopril 20 Mg Tab PO 40 mg DAILY HO Administration Lurasidone HCl 20 mg 01/12/24 08:30 01/12/24 08:05 Lurasidone 20 Mg Tab PO 20 mg DAILY HO Administration Lurasidone HCl 120 mg 01/11/24 20:00 01/11/24 21:29 Lurasidone 40 Mg Tab PO Not Given QPM [facility] Mometasone Furoate 0 puff 01/12/24 08:30 01/12/24 09:13 Mometasone 220 Mcg 14 Dose Inhaler IH 1 puff DAILY HO Administration Pantoprazole Sodium 40 mg 01/12/24 07:30 01/12/24 08:06 Pantoprazole 40 Mg Tabcr PO 40 mg DAILY@0730 HO Administration Polyethylene Glycol 17 gm 01/11/24 16:53 Polyethylene Glycol 3350 17 Gm Packet PO DAILY PRN PRN Constipation Prednisone 10 mg 01/12/24 08:30 01/12/24 08:05 Prednisone 10 Mg Tab PO 10 mg DAILY HO Administration Pregabalin 200 mg 01/11/24 20:00 01/12/24 08:05 Pregabalin 100 Mg Cap PO 200 mg BID HO Administration Sodium Chloride 0 ml 01/11/24 16:53 Normal Saline Flush 10 Ml Syr IVP PRN PRN Sodium Chloride 0 ml 01/11/24 20:00 01/12/24 08:04 Normal Saline Flush 10 Ml Syr IVP 10 ml BID HO Administration Sodium Chloride 0 ml 01/11/24 16:53 Normal Saline 10 Ml Vial IJ DIRECTED PRN PFSH Active Problems Active Problems: Problem Status Onset Code Ulcer of right foot with necrosis of bone L97.514 Depression F32.A Diabetic infection of right foot E11.628, L08.9 Abscess of foot L02.619 Cellulitis L03.90 Osteomyelitis of fourth toe of right foot M86.9 Diabetic infection of right foot E11.628, L08.9 Acute bronchitis J20.9 History of amputation of lesser toe of right foot Z89.421 Onychomycosis B35.1 Ulcer of right foot limited to breakdown of skin L97.511 Leukocytes in urine R82.998 Migraine headache without aura G43.009 Corns and callosities L84 Nail dystrophy L60.3 Dysuria R30.0 Ulcer of toe due to diabetes mellitus E11.621, L97.509 Pain of left sacroiliac joint M53.3 Low back pain M54.50 Routine gynecological examination Z01.419 Routine medical exam Z00.00 Hyperlipidemia E78.5 Daytime somnolence R40.0 Obesity E66.9 Anemia D64.9 Polypharmacy Z79.899 Memory deficit R41.3 Falls W19.XXXA Slurred speech R47.81 Dizziness R42 Blurred vision H53.8 Abnormal urine R82.90 UTI (urinary tract infection) N39.0 Mild cataract ~11/2020 H26.9 Diabetic retinopathy, nonproliferative, mild ~11/2020 E11.3299 Lung cancer screening declined by patient Z53.20 Mammogram declined Z53.20 Colon cancer screening declined Z53.20 Osteomyelitis M86.9 Discharge planning issues Z02.9 Cellulitis of toe L03.039 Mixed hearing loss, bilateral ~04/01/20 H90.6 Chest pain R07.9 Smoker F17.200 Low HDL (under 40) E78.6 Loc osteoarth NOS-unspec 10/21/12 M19.90 Unspecified urinary incontinence 10/30/11 R32 Type II diabetes mellitus with neurological manifestations 04/10/13 E11.49 Tobacco abuse disorder 06/08/17 Z72.0 Nocturia more than twice per night 05/20/16 R35.1 Microscopic hematuria 02/25/16 R31.29 Hearing loss 04/21/13 H91.90 Essential hypertension 10/30/11 I10 Extrinsic asthma 08/26/12 J45.909 Diabetic neuropathy 11/29/13 E11.40 Depressive disorder 10/30/11 F32.9 Anxiety state 10/30/11 F41.1 Allergic rhinitis 12/27/13 J30.9 Alcohol abuse, in remission 10/30/11 F10.11 History of - section Z98.89 Gastroesophageal reflux disease K21.9 Asthma J45.909 Anxiety F41.9 Diabetes mellitus type 2 E11.9 Chest pain 02/22/13 R07.9 Medical History Medical History Amputation of second toe, right, traumatic Dr Don 04/03/2020 due to ulcer and DM RH Obesity (BMI 30-39.9) (10/30/11) Hypertriglyceridemia (08/14/13) Surgical History Surgical History Arthroscopy (04/24/04) right knee Tobacco Smoking/Tobacco Use Status: Current every day Tobacco Type: cigarettes Alcohol Alcohol Intake: never Substance Use Substance use: Rarely Substance use type: marijuana Vital Signs and Lab Results Vital Signs Most Recent Vital Signs in EMR: Most Recent Vital Signs Temp Pulse Resp BP Pulse Ox 37.7 C H 69 18 107/68 93 01/12/24 11:36 01/12/24 11:36 01/12/24 11:36 01/12/24 11:36 01/12/24 11:36 Point of Care Results Point of Care Results: Finger Stick Blood Glucose 140 01/12/24 11:05 Lab Results 01/12/24 06:12 01/12/24 06:12 Blood Type / Crossmatch: No Data to Display Complete Blood Count: White Blood Count 11.70 10^3/uL (4.4-10.8) H 01/12/24 06:12 Red Blood Count 4.33 10^6/uL (3.93-5.22) 01/12/24 06:12 Hemoglobin 12.7 g/dL (11.2-15.7) 01/12/24 06:12 Hematocrit 38.9 % (36.0-46.0) 01/12/24 06:12 Platelet Count 213 10^3/uL (130-400) 01/12/24 06:12 Complete Metabolic Panel: Sodium 141 mmol/L (136-145) 01/12/24 06:12 Potassium 3.8 mmol/L (3.5-5.1) 01/12/24 06:12 Chloride 102 mmol/L (98-107) 01/12/24 06:12 Carbon Dioxide 28.4 mmol/L (21.0-32.0) 01/12/24 06:12 BUN 9 mg/dL (7-18) 01/12/24 06:12 Creatinine 0.9 mg/dL (0.55-1.02) 01/12/24 06:12 Est GFR (CKD-EPI 2020) 73.19 (mL/min/1.73m2) 01/12/24 06:12 Magnesium 1.8 mg/dL (1.8-2.4) 01/12/24 06:12 Calcium 9.4 mg/dL (8.5-10.1) 01/12/24 06:12 Albumin 3.8 g/dL (3.4-5.0) 01/11/24 15:03 Glucose 109 mg/dL (74-106) H 01/12/24 06:12 C-Reactive Protein 7.18 mg/dL (<or=0.5) H 01/11/24 15:03 Liver Function Panel: Alanine Aminotransferase (ALT/SGPT) 18 U/L (14-59) 01/11/24 15:03 Aspartate Amino Transf (AST/SGOT) 15 U/L (15-37) 01/11/24 15:03 Coagulation Panel: No Data to Display Cardiac Panel: No Data to Display Arterial Blood Gas: No Data to Display Venous Blood Gas: Venous Blood pH 7.40 (7.31-7.41) 01/11/24 15:03 Venous Blood Partial Pressure O2 30 mmHg 01/11/24 15:03 Venous Blood Partial Pressure CO2 49 mmHg (41-51) 01/11/24 15:03 Venous Blood Oxygen Saturation 68 % 01/11/24 15:03 Venous Blood HCO3 30 mmol/L (23-28) H 01/11/24 15:03 Venous Blood Base Excess 5 mmol/L (-2-3) H 01/11/24 15:03 Venous Blood Total Carbon Dioxide 27 mmol/L (24-29) 01/11/24 15:03 Pancreas Panel: No Data to Display Thyroid Panel: No Data to Display Infectious Disease: No Data to Display Blood Cultures: No Data to Display Toxicology Panel: No Data to Display Imaging and Studies Imaging and Studies Study information below may be from another EMR and interpreted by another provider. Please see original notes in EMR for more complete details. Echocardiogram Summary: 03/03/18 Summary: 1. Left ventricle: The cavity size was normal. Systolic function was normal. The estimated ejection fraction was 60-65%. Diastolic parameters were normal for age. There was no evidence of elevated ventricular filling pressure by Doppler parameters. 2. Right ventricle: The cavity size was normal. Wall thickness was normal. Systolic function was normal. 3. Atrial septum: No defect or patent foramen ovale was identified. 4. Pulmonary arteries: Pulmonary systolic pressure was in the range of 30mm Hg to 40mm Hg. 5. Inferior vena cava: The vessel was patent and normal in size. The respirophasic diameter changes were in the normal range (greater than or equal to 50%), consistent with normal central venous pressure. Anesthesia Assessment and Plan Anesthesia History Personal History: No History of Anesthesia Complications Family History: No Family History of Anesthesia Complications Exercise Tolerance Exercise Tolerance: Metabolic Equivalents<4 Pertinent Negatives Pertinent Negatives: No Symptoms of GERD, No Major Cardiovascular Symptoms or Complaints and No Major Pulmonary Symptoms or Complaints Cardiac & Pulmonary Exam Cardiac Exam: Normal S1/S2 Heart Sounds Pulmonary Exam: Clear Bilateral Breath Sounds and Other (bringing up phlegm, unable to smoke since admission) Cardiac and Pulmonary Comment:: Bringing up phlegm, unable to smoke since admission, lungs clear posterior Implantable Cardiac Device Does patient have a Pacemaker or an ICD?: No Airway Exam Known Difficult Airway: No Mallampati Class: 3 Mouth Opening: Normal (> 3cm) Thyromental Distance: Greater than 3 cm Neck Range of Motion: Full ROM Neck Circumference: Normal Teeth Condition: Generalized Poor Dentition (none loose per pt, some missing) ASA Classification ASA Score: ASA 3 Emergency Case?: No NPO Status NPO Status: NPO Clears >2 hours, Solids >8 hours Anesthesia Plan Resuscitation Status: Full Code Anesthesia Technique: General Anesthesia Airway Planned: Natural Airway Monitors Used: Standard Monitors
--- NOTE | 2024-01-12 12:48 | W.PM.PROGNOT ---
Date of Service Date of service: 01/12/24 Time of Service: 12:48 Assessment and Plan Assessment and plan (1) Osteomyelitis of fourth toe of right foot: Status: Acute Assessment and plan: - Patient presented from podiatry office for rapidly worsening right fourth toe cellulitis that developed abscess and was able to probe to the bone while in podiatry office -Follow-up culture results -X-ray and emergency department highly suggestive of osteomyelitis of the right fourth toe -Started on Vanco and cefepime will continue -Consult podiatry; plan for right 4th toe amputation today -Will discuss antibiotic course with Podiatry (2) Hyperlipidemia: Status: Acute Assessment and plan: - Continue home statin (3) Obesity: Status: Chronic Assessment and plan: - Recommend ongoing weight loss discussion with PCP (4) Type II diabetes mellitus with neurological manifestations: Status: Acute Assessment and plan: - Hold home glipizide and metformin -Continue home long-acting insulin 80 units daily -Carb consistent diet, sliding scale insulin (5) Anxiety: Status: Active Assessment and plan: - Continue home citalopram, clonidine, Lamictal, lurasidone and other psychiatric medications/regimen (6) Depression: Status: Chronic Assessment and plan: - As noted above (7) Essential hypertension: Status: Acute Assessment and plan: - Continue home lisinopril Subjective Subjective Interval history since last seen: Patient states that she is feeling well this morning, and is actually looking forward to her toe agitation later this afternoon with podiatry. Otherwise she has no other complaints or concerns at this time. Exam Narrative Exam Narrative: Obese female lying in bed in no acute distress, ANO x 4, heart regular rhythm, lungs clear to auscultation bilaterally, abdomen obese, soft, nontender, nondistended, right foot wrapped in bandage without surrounding erythema or Objective Last Vital Signs Temp 99.9 F H 01/12/24 11:36 Pulse 69 01/12/24 11:36 Resp 18 01/12/24 11:36 BP 107/68 01/12/24 11:36 Pulse Ox 93 01/12/24 11:36 Laboratory Results - last 24 hr 01/11/24 01/11/24 01/11/24 15:03 16:55 20:10 WBC 13.39 H RBC 4.47 Hgb 13.2 Hct 40.4 MCV 90 MCH 29.5 MCHC 32.7 RDW 12.8 Plt Count 225 MPV 11.7 H Immature Gran % 0.7 Neutrophils % 75.8 Lymphocytes % 15.7 Monocytes % 7.3 Eosinophils % 0.2 Basophils % 0.3 Nucleated RBC % 0.0 Absolute Neutrophils 10.15 H Absolute Lymphocytes 2.10 Absolute Monocytes 0.98 H Absolute Eosinophils 0.03 Absolute Basophils 0.04 ESR 23 VBG pH 7.40 VBG pCO2 49 VBG pO2 30 VBG HCO3 30 H VBG Total CO2 27 VBG O2 Saturation 68 VBG Base Excess 5 H Sodium 139 Potassium 4.4 Chloride 101 Carbon Dioxide 29.4 Anion Gap 8.6 BUN 11 Creatinine 0.7 Est GFR (CKD-EPI 2020) 98.95 Glucose 121 H Calcium 9.7 Magnesium 1.6 L Total Bilirubin 0.6 AST 15 ALT 18 Alkaline Phosphatase 92 C-Reactive Protein 7.18 H Total Protein 8.3 H Albumin 3.8 Procalcitonin 0.2 Urine Color [place] Urine Clarity Clear Urine pH Not Applicable Ur Specific [place] 1.012 Urine Protein Color Interference Urine Ketones Color Interference Urine Blood Color Interference Urine Nitrite Color Interference Urine Bilirubin Color Interference Urine Urobilinogen Color Interference Ur Leukocyte Esterase Color Interference Urine RBC 3-5 H Urine WBC 0-2 Ur Epithelial Cells Moderate Urine Crystals Negative Urine Bacteria Rare Urine Casts Negative Urine Mucus Negative Ur Culture Indicated? No/Sq. Contamination Urine Glucose Color Interference Random Vancomycin 19.4 01/12/24 06:12 WBC 11.70 H RBC 4.33 Hgb 12.7 Hct 38.9 MCV 90 MCH 29.3 MCHC 32.6 RDW 12.6 Plt Count 213 MPV 11.4 H Immature Gran % Neutrophils % Lymphocytes % Monocytes % Eosinophils % Basophils % Nucleated RBC % Absolute Neutrophils Absolute Lymphocytes Absolute Monocytes Absolute Eosinophils Absolute Basophils ESR VBG pH VBG pCO2 VBG pO2 VBG HCO3 VBG Total CO2 VBG O2 Saturation VBG Base Excess Sodium 141 Potassium 3.8 Chloride 102 Carbon Dioxide 28.4 Anion Gap 10.6 BUN 9 Creatinine 0.9 Est GFR (CKD-EPI 2020) 73.19 Glucose 109 H Calcium 9.4 Magnesium 1.8 Total Bilirubin AST ALT Alkaline Phosphatase C-Reactive Protein Total Protein Albumin Procalcitonin Urine Color Urine Clarity Urine pH Ur Specific [place] Urine Protein Urine Ketones Urine Blood Urine Nitrite Urine Bilirubin Urine Urobilinogen Ur Leukocyte Esterase Urine RBC Urine WBC Ur Epithelial Cells Urine Crystals Urine Bacteria Urine Casts Urine Mucus Ur Culture Indicated? Urine Glucose Random Vancomycin Time Spent with Patient Time Spent with Patient: >50 minutes Time was spent: preparing to see the patient(eg.review tests), obtaining and/or reviewing separately otained hiistory, ordering medications,tests, procedures, referring, communicating with other health complex care nurse practitioner, indepentently interpreting results, counseling the patient and care coordination
[2024-01-12] MEDS: Lidocaine 1% Pres-Free 30 ML VIAL (13:00)
--- NOTE | 2024-01-12 13:11 | AMP_PTH ---
PATIENT: Maureen Schmitz LOC: U#:[id number] AGE/SX: 58/F ROOM: RE01/11/[address]: Marlon Vasquez MD : [id number] BED: A DIS: 01/14/2024 SPEC #: [id number] RECD: 01/12/24 17:28 STATUS: ANDREE REQ #: [id number] DEEDEE: 01/12/24 13:[address]: Marlon Vasquez DEPT: Surgical Specimen RECD BY: Kaur García ENTERED: 01/12/24 17:30 SP TYPE: Amputation OTHR DR: Mei Gayle APRN Tissues: 1 - AMPUTATION FINGERS/TOES(NOT TRAUMA) 2 - BONE BX/CURRETTE NOT PATH FRACTURE 3 - BONE BX/CURRETTE NOT PATH FRACTURE Procedures: GROSS AND MICRO LEVEL 4 GROSS AND MICRO LEVEL 5 GROSS AND MICRO LEVEL 3 DECALCIFICATION Comments: [id number]
--- NOTE | 2024-01-12 13:30 | ROE_ITS ---
Date of service: 01/12/24 Time of Service: 01:00 Operative Note Operative Note DATE OF PROCEDURE: 01/12/24 PRE-OP DIAGNOSIS: Osteomyelitis right 4th toe with abscess and cellulitis POST-OP DIAGNOSIS: same PROCEDURE: Partial amputation, right 4th toe with drainage of abscess SURGEON: Khadra Peralta Refer to Anesthesia Record Local block with 20mL 1% Lidocaine plain pre op ESTIMATED BLOOD LOSS: 0 PATHOLOGY: other (Bone cultures and bone margins from right 4th toe; Cultures taken and sent. Bone specimen sent for cutlures) TOURNIQUET TIME: 19 COMPLICATIONS: None Patient was transported to: PACU Patient's condition: stable Implants: None Indications: This is a 58-year-old female patient with recent ulceration infection to the right fourth toe. Patient has been on antibiotics however the cellulitis is swelling and abscess persists. There is probe to bone noted at this time. X- rays positive for osteomyelitis to the distal phalanx of the right fourth toe. The toe was noted to be severely swollen pink and blue. Malodor noted to the foot. Findings: Extensive soft tissue and bone necrosis, cellulitis to MPJ level however no abscess proximal to the PIPJ level Procedure Description: Patient was identified in preop holding. Consent form was signed reviewed in chart. I discussed the risks benefits and possible complications of the procedure in detail with the patient including but not limited to pain, nerve pain, delayed healing, nonhealing, need for further surgery limitation, risk for DVT, PE, stroke, [place] or . Patient consented to the procedure. The site was marked. Patient was then brought to the operating room placed on the operating table in supine position. After induction of anesthesia, the right foot was cleansed with alcohol and a proximal local block was performed using 20 mL of 1% lidocaine plain. An ankle tourniquet was then applied. The right lower extremity was then scrubbed prepped and draped in usual aseptic manner. Attention was then directed to the dorsal aspect of the right foot where a tennis racquet type incision was planned over the right fourth toe with a skin marker. Incision was then made using sterile #15 blade incision with improvement to the level of bone, the bone was then freed of all soft tissue attachments. The right fourth toe was disarticulated at the level of the PIPJ and passed from the operative field. Soft tissue necrosis was noted at this level which was resected. The head of the proximal phalanx was then resected using bone cutters to help reapproximate the skin edges. Further necrotic tissue was removed using a sterile 15 blade. Soft tissue cultures were then obtained. Bone margins were sent to pathology. The distal phalanx was sent to pathology and microbiology. The incision site was then irrigated with copious nonsterile saline. The incision was then reapproximated using 3-0 Prolene. The tourniquet was then deflated. dressings were then applied with Xeroform gauze, 4 x 4, Kerlix and David wrap. Patient tolerated procedure anesthesia well with vital signs and resting status intact to the right lower extremity. She was transferred to PACU for further monitoring to be transferred back to the floor when stable. Patient is taking the right lower extremity dressings clean dry and intact. She is to be partial weightbearing to the right foot with heel touch only.
--- NOTE | 2024-01-12 14:33 | W.ANESPOSTOP ---
Postoperative Evaluation Date, Time and Location Date Performed: 01/12/24 Time Performed: 14:07 Patient Location: Med/Surg Vital Signs Most Recent Imported Vital Signs: Most Recent Vital Signs Temp Pulse Resp BP Pulse Ox 36.9 C 62 18 130/71 91 L 01/12/24 14:23 01/12/24 14:23 01/12/24 14:23 01/12/24 14:23 01/12/24 14:23 Pain Score Most Recent Pain Score: Most Recent Pain Score Pain Level 0 01/12/24 14:23 Assessment Mental Status: Awake (Alert & Oriented to Patient Baseline) Airway and Respiratory Function: Patent airway with normal (patient baseline) respiratory exam Cardiovascular Function: Hemodynamically Stable Hydration Status: Adequately Hydrated Nausea & Vomiting: No Nausea or Vomiting Pain: Pt. Denies Any Pain Peripheral Nerve Block: Patient did not receive a nerve block
--- NOTE | 2024-01-12 14:38 | NUR.NOTE ---
Took pt down to OR at 12:15pm, pt returned to M/S 13:35pm, awake and no pain. Nursing Note:
[2024-01-12] MEDS: lamoTRIgine 100 MG TAB 300 MG PO (21:00)
[2024-01-12] MEDS: ARIPiprazole 2 MG TAB PO (21:00)
[2024-01-12] MEDS: Lurasidone 40 MG TAB 120 MG PO (21:00)
[2024-01-13] MEDS: VANCOMYCIN/WATER (PEG) 1 GM/200 ML BAG IVPB ×2 (00:43→13:35)
[2024-01-13 03:18] VITALS: BP 153/96; PULSE 62; RESP 17; TEMP 35.5; O2SAT 93
[2024-01-13 07:27] LABS: HCT 40.2 % (36.0-46.0); MCH 29.2 pg (27.0-33.0); MCHC 32.3 % (32.0-36.0); MCV 90 fL (80-95); MPV 11.7 fL (8.0-11.0); Platelet Count 226 10^3/uL (130-400); RBC 4.45 10^6/uL (3.93-5.22); RDW 12.3 % (11.7-14.6); RDW-SD 41.3 fL; WBC 8.15 10^3/uL (4.4-10.8)
[2024-01-13 07:35] VITALS: BP 160/70; PULSE 62; RESP 16; TEMP 36; O2SAT 95
[2024-01-13 07:36] LABS: Anion Gap 8.7 mmol/L (3-11); BUN 13 mg/dL (7-18); CO2 30.3 mmol/L (21.0-32.0); CREATININE 0.8 mg/dL (0.55-1.02); Calcium 9.5 mg/dL (8.5-10.1); Chloride 104 mmol/L (98-107); Glucose 120 mg/dL (74-106); Potassium 3.9 mmol/L (3.5-5.1); Sodium 143 mmol/L (136-145)
[2024-01-13] MEDS: Mometasone 220 MCG 14 DOSE INHALER IH (07:48)
--- NOTE | 2024-01-13 08:11 | DI.MRI_ITS ---
Exam(s) MR LOWER EXTREMITY RT WO/W EXAM: MR LOWER EXTREMITY RT WO/W CLINICAL HISTORY: R foot wound. TECHNIQUE: Multiplanar multisequence MRI was performed. CONTRAST MATERIAL: IV Contrast: 20 mL of Dotarem contrast administered. COMPARISON: Plain films 11 January 2024 FINDINGS: BONES/JOINTS: Status post amputation of the middle and distal phalanges of the 2nd, 3rd and 4th toes. The amputation of the 4th toe has occurred since the previous plain films. No evidence of fracture . No abnormal marrow signal. No abnormal enhancement within the marrow. Severe degenerative change s are noted at 1st MTP joint. There are no findings to suggest osteomyelitis. MUSCULOTENDINOUS STRUCTURES: Visualized portion of the planar fascia is unremarkable. The visualized intrinsic muscles and tendons of the foot are unremarkable. SOFT TISSUES: Marked soft tissue edema around the 4th toe. No drainable abscess. Soft tissue edema also seen at dorsum of foot. IMPRESSION: Soft tissue edema around the remnant of the 4th toe. No evidence of abscess. DATA REPOSITORY:
[2024-01-13] MEDS: Normal Saline Flush 10 ML SYR IVP ×3 (08:12→19:55)
[2024-01-13] MEDS: Insulin Glargine 300 UNITS/3 ML PEN 32 UNITS SC ×2 (08:13→19:55)
[2024-01-13] MEDS: Pantoprazole 40 MG TABCR PO (08:17)
[2024-01-13] MEDS: cloNIDine 0.1 MG TAB PO ×2 (08:17→19:55)
[2024-01-13] MEDS: Atorvastatin 10 MG TAB PO (08:17)
[2024-01-13] MEDS: Lurasidone 20 MG TAB PO (08:17)
[2024-01-13] MEDS: Citalopram 20 MG TAB 40 MG PO (08:17)
[2024-01-13] MEDS: Lisinopril 20 MG TAB 40 MG PO (08:17)
[2024-01-13] MEDS: CEFEPIME 2 GM in Normal Saline 100 ML IVPB ×2 (08:18→15:58)
[2024-01-13] MEDS: predniSONE 10 MG TAB PO (08:18)
[2024-01-13] MEDS: Pregabalin 100 MG CAP 200 MG PO ×2 (08:18→19:55)
[2024-01-13] MEDS: Gadoterate meglumine 20 ML SYRINGE IVP (11:32)
--- NOTE | 2024-01-13 12:18 | PDOC.CMPRO ---
Date of service: 01/13/24 Time of Service: 12:18 Care Management Progress Note Progress Note Text Progress Note Text: S/O: Rita was sitting up on the edge of her bed when CM met with her; her partner was in the room visiting. She stated that surgery went well today, and per MD, the MRI she had today did not show any further concern. She stated that she will remain at [facility] overnight for continued IV antibiotic therapy, and that she will likely be ready for discharge tomorrow. She reports that she is looking forward to returning home, and does not feel that she will require any community services upon discharge. She stated that she has had a previous toe amputation with Dr. Mahmood, therefore she is aware of the protocols that she will need to follow at home. CM will continue to follow. A: Rita is a 58 year old female admitted to [facility] on 01/11/24 with osteomyelitis of right 4th toe. P: Anticipate Rita will return home once medically cleared with no additional services. She will transport via private vehicle by her partner, and will follow up with podiatry, her PCP and discharge plan of care. CM will continue to follow. SDOH(Care Management) Screening Will the Patient Participate in the Screening?: Yes Do you worry about having a steady place to live?: no Problems where you live: no known problems In the past 12 months, have you had to go without electric, gas, oil or water in your home?: no Have you or anyone in your house had to go without enough food to eat?: no Has lack of transportation kept you from medical appointments or from doing things needed for daily living?: no Has anyone in your support network made you feel unsafe for any reason?: no
--- NOTE | 2024-01-13 12:21 | W.PM.PROGNOT ---
Date of Service Date of service: 01/13/24 Time of Service: 07:55 Assessment and Plan Assessment and plan (1) Diabetic infection of right foot: Status: Acute (2) Abscess of foot: Status: Acute (3) Cellulitis: Status: Acute (4) Osteomyelitis of fourth toe of right foot: Status: Acute (5) History of amputation of lesser toe of right foot: Status: Acute (6) Ulcer of right foot with necrosis of bone: Status: Acute Assessment and plan: Patient was seen bedside today. White count trending down now which is optimistic. However, there is increased edema and erythema today concerning for residual infection. I did obtain an MRI, which has been completed. I received a phone call from Dr. Singer - she states there is no evidence for a drainable abscess at this time however there is presence of edema. Final report pending. Cultures pending. With this, I recommend continuing IV antibiotics (vanc and cefepime) for now. I discussed this with the medicine team if there is improvement tomorrow she may be okay for discharge with p.o. antibiotics. They have agreed to monitor the patient (I am out of town starting tomorrow, however available to consult virtually, for 1.5 weeks- will also discuss with Gen Surg). Dressings applied with xeroform gauze, 4x4, kerlix and RADHA wrap. Nursing to continue daily dressing changes. Patient to remain NWB to the right foot. May heel touch for transfers. Patient to follow up with me in office in 2 week. Recommend follow up with her PCP w/in 5 days of discharge from the hospital. Subjective Subjective Interval history since last seen: Patient was seen bedside today resting comfortably. She is status post OR partial amputation of the right fourth toe date of surgery 06/13/2024. Denies any bleeding or pain. No acute events overnight Exam Extrem Other: Cardio Other: DP/ PT pulses 1/4, CFT slightly delayed, pedal hair decreased, delayed proximal to distal cooling, changes in skin texture and turgor, nails discolored and dystrophic. Thin shiny skin noted with skin discoloration, and hyperpigmentary skin changes Musc Other: R 2nd and 3rd distal digital amputations with Lesser digital deformities noted, reducible, with prominent metatarsal heads plantarly. Decreased ROM of bilateral ankle joints is noted. No other significant musculoskeletal abnormalities noted. No pain to palpation. Skin Other: Nails 1-5 left foot are elongated, dystrophic, thickened, discolored, with some incurvated, with subungual debris, and without pain to palpation today. No surrounding erythema, purulence, fluctuance or signs of infection noted. Inflammatory hyperkeratotic skin lesions noted bilateral plantar medial 1st metatarsal heads, plantar medial hallucal IPJs, and plantar medial heels, with no open wounds, ulcerations, blisters, or other dermatological concerns. Right fourth toe is status post partial amputation, incision site is intact there is some skin sloughing noted dorsally there is increased edema and erythema noted today to the toe however forefoot erythema noted to be decreasing, no purulence noted just charge no bogginess noted at this time no crepitus no fluctuance Neuro Other: Protective sensation decreased ~50% via [place] Jasvir 5.07 monofilament. Negative tinel?s sign. Muscle strength 5/5. No other neurological deficits Objective Last Vital Signs Temp 96.8 F L 01/13/24 07:35 Pulse 62 01/13/24 07:35 Resp 16 01/13/24 07:35 BP 160/70 H 01/13/24 07:35 Pulse Ox 95 01/13/24 07:35 Laboratory Results - last 24 hr 01/13/24 07:10 WBC 8.15 RBC 4.45 Hgb 13.0 Hct 40.2 MCV 90 MCH 29.2 MCHC 32.3 RDW 12.3 Plt Count 226 MPV 11.7 H Sodium 143 Potassium 3.9 Chloride 104 Carbon Dioxide 30.3 Anion Gap 8.7 BUN 13 Creatinine 0.8 Est GFR (CKD-EPI 2020) 84.30 Glucose 120 H Calcium 9.5 Time Spent with Patient Time Spent with Patient: >50 minutes Time was spent: preparing to see the patient(eg.review tests), obtaining and/or reviewing separately otained hiistory, ordering medications,tests, procedures, referring, communicating with other health acute care nursing assistant, indepentently interpreting results, counseling the patient and care coordination
--- NOTE | 2024-01-13 12:36 | PHA.REVIEW2 ---
Pharmacy Admission Review Admission Clinical Review Admission Pharmacy Review: Ulcer of right foot with necrosis of bone (Acute) Diabetic infection of right foot (Acute) Abscess of foot (Acute) Cellulitis (Acute) Osteomyelitis of fourth toe of right foot (Acute) History of amputation of lesser toe of right foot (Acute) Hyperlipidemia (Acute) Type II diabetes mellitus with neurological manifestations (Acute 04/10/13) Essential hypertension (Acute 10/30/11) Anxiety (Active) Sulfa (Sulfonamide Antibiotics) Allergy (Intermediate, Verified 01/11/24 14:37) Swelling, difficulty breathing niacin Adverse Reaction (Intermediate, Verified 01/11/24 14:37) HIVES amoxicillin Adverse Reaction (Mild, Verified 01/11/24 14:37) VAGINAL INFECTION INFECTION Resuscitation Status Full Code Height 5 ft 8 in Weight 103.3 kg Comments Comments/Follow Ups: POD #1 toe amputation, per morning meeting foot was looking worse today. Patient may require further surgery. Pharmacy Admission Review Renal Dosing Renal Dosing: BUN 13 mg/dL (7-18) 01/13/24 07:10 Creatinine 0.8 mg/dL (0.55-1.02) 01/13/24 07:10 Medications needing adjustments: Reviewed (CrCl 75.23 mL/min) Anticoagulation Anticoagulation: Hgb 13.0 g/dL (11.2-15.7) 01/13/24 07:10 Hct 40.2 % (36.0-46.0) 01/13/24 07:10 Plt Count 226 10^3/uL (130-400) 01/13/24 07:10 Creatinine 0.8 mg/dL (0.55-1.02) 01/13/24 07:10 DVT Prophylaxis: Reviewed (None at this time, POD#1 toe amputation and may require another procedure) Relevant Labs Relevant Labs: ESR 23 mm/hr (0-30) 01/11/24 15:03 Sodium 143 mmol/L (136-145) 01/13/24 07:10 Potassium 3.9 mmol/L (3.5-5.1) 01/13/24 07:10 Chloride 104 mmol/L (98-107) 01/13/24 07:10 Magnesium 1.8 mg/dL (1.8-2.4) 01/12/24 06:12 C-Reactive Protein 7.18 mg/dL (<or=0.5) H 01/11/24 15:03 Electrolytes, C-Reactive P, ESR: Reviewed DM Control DM Control: Glucose 120 mg/dL (74-106) H 01/13/24 07:10 Finger Stick Blood Glucose 126 1217 Finger Stick Blood Glucose 126 1217 Finger Stick Blood Glucose 123 0813 Finger Stick Blood Glucose 123 0733 Finger Stick Blood Glucose 123 0729 Finger Stick Blood Glucose 123 0729 DM Control: Reviewed Insulin Dosing, Diabetic Medication: Has order for SS insulin and glargine 32 units at bedtime Cardiac Review Cardiac Review: Blood Pressure 160/70 0735 Blood Pressure 153/96 0318 BP, HR, EF%: Reviewed (HR WNL, BP 160/70) QTc Review QTc: Reviewed (No EKG on file) IV to PO Switch IV Medications: Reviewed (IV cefepime and vancomycin) Home Meds Home Med List reviewed: Reviewed Relevent Home Meds Not ordered & why?: glipizide (on hold per H+P), metformin (on hold per H+P), cetirizine, vitamin D3, estradiol cream (twice weekly), fenofibrate, Flovent (has order for Asmanex - formulary substitution), ferrous sulfate, Fiasp (on hold per H+P), Tresiba (on hold per H+P), magnesium, meloxicam (PRN) and Mounjaro Current Meds Current Medication Order Review: Intervened Comments: Order was put in for lamotrigine IR 300mg HS from patients home med list. Patient actually takes 300mg XR at home which we do not carry. Reached out to provider and nursing. Patient is having the medication sent in tomorrow and will receive one more dose of the IR tabs tonight to get through. Pharmacy Antibiotic Review Pharmacy Antibiotic Activity: C/S review and Reviewed, no change Comments: Patient continues on cefepime and vancomycin, day 2. Current vancomycin dose is 1000mg q12h with predicted AUC of 536 and trough of 11.3. Level pending due to improved kidney function. Blood cultures showing no growth at 24 hours, initial toe cultures grew gram positive with repeat pending. WBC has decreased from 11.7 to 8.15. Comments Comments/Follow Ups: POD #1 toe amputation, per morning meeting foot was looking worse today. Patient may require further surgery.
--- NOTE | 2024-01-13 12:47 | W.PM.PROGNOT ---
Date of Service Date of service: 01/13/24 Time of Service: 12:50 Assessment and Plan Assessment and plan (1) Osteomyelitis of fourth toe of right foot: Status: Acute Assessment and plan: -Patient presented from podiatry office for rapidly worsening right fourth toe cellulitis that developed abscess and was able to probe to the bone while in podiatry office -Preliminary culture results showing mixed yoel, follow-up final culture results -X-ray and emergency department highly suggestive of osteomyelitis of the right fourth toe -Started on Vanco and cefepime will continue -Consult podiatry; status post right fourth toe amputation on 01/12/2024 -As discussed with podiatry, surgical wound appears more swollen and erythematous than expected, will continue IV antibiotics and monitor patient overnight, if wound has improved we will plan to discharge with p.o. antibiotic regimen tomorrow 01/14/2024 (2) Hyperlipidemia: Status: Acute Assessment and plan: - Continue home statin (3) Obesity: Status: Chronic Assessment and plan: - Recommend ongoing weight loss discussion with PCP (4) Type II diabetes mellitus with neurological manifestations: Status: Acute Assessment and plan: - Hold home glipizide and metformin -Continue home long-acting insulin 80 units daily -Carb consistent diet, sliding scale insulin (5) Anxiety: Status: Active Assessment and plan: - Continue home citalopram, clonidine, Lamictal, lurasidone and other psychiatric medications/regimen (6) Depression: Status: Chronic Assessment and plan: - As noted above (7) Essential hypertension: Status: Acute Assessment and plan: - Continue home lisinopril Subjective Subjective Interval history since last seen: The patient states that she continues to feel well, but does believe that her surgical wound and surrounding area does look a little worse as compared to preoperatively. She is in agreement to stay at least 1 additional night to continue IV antibiotics and to monitor her wound. Otherwise she has no other complaints or concerns at this Exam Narrative Exam Narrative: Obese female lying in bed in no acute distress, ANO x 4, heart regular rhythm, lungs clear to auscultation bilaterally, abdomen obese, soft, nontender, nondistended, right foot wrapped in bandage without surrounding erythema, but please see Dr. Peralta's note for full details on postoperative wound Objective Last Vital Signs Temp 96.8 F L 01/13/24 07:35 Pulse 62 01/13/24 07:35 Resp 16 01/13/24 07:35 BP 160/70 H 01/13/24 07:35 Pulse Ox 95 01/13/24 07:35 Laboratory Results - last 24 hr 01/13/24 07:10 WBC 8.15 RBC 4.45 Hgb 13.0 Hct 40.2 MCV 90 MCH 29.2 MCHC 32.3 RDW 12.3 Plt Count 226 MPV 11.7 H Sodium 143 Potassium 3.9 Chloride 104 Carbon Dioxide 30.3 Anion Gap 8.7 BUN 13 Creatinine 0.8 Est GFR (CKD-EPI 2020) 84.30 Glucose 120 H Calcium 9.5 Time Spent with Patient Time Spent with Patient: >50 minutes Time was spent: preparing to see the patient(eg.review tests), obtaining and/or reviewing separately otained hiistory, ordering medications,tests, procedures, referring, communicating with other health clinical manager home care, indepentently interpreting results, counseling the patient and care coordination
[2024-01-13 13:33] LABS: Vancomycin, Trough 8.3 ug/mL (10.0-20.0)
[2024-01-13 15:19] VITALS: BP 151/62; PULSE 63; RESP 20; TEMP 36.9; O2SAT 95
--- NOTE | 2024-01-13 15:43 | NUR.NOTE ---
Nursing Note: Critical lab value received: Anaerobic bottle positive; gram stain shows GRAM POSTIVE COCCI IN CHAINS CC notified.
[2024-01-13] MEDS: Insulin Aspart 300 UNITS/3 ML PEN SC (16:35)
[2024-01-13 17:51] VITALS: BP 158/64; PULSE 56
[2024-01-13] MEDS: Lurasidone 40 MG TAB 120 MG PO (19:54)
[2024-01-13 20:04] VITALS: BP 150/68; PULSE 60; RESP 16; TEMP 37.1; O2SAT 94
[2024-01-13] MEDS: lamoTRIgine 100 MG TAB 300 MG PO (22:51)
[2024-01-13 22:52] VITALS: BP 167/75; PULSE 59; RESP 15; TEMP 36.1; O2SAT 94
[2024-01-13] MEDS: ARIPiprazole 2 MG TAB PO (22:52)
[2024-01-14] MEDS: CEFEPIME 2 GM in Normal Saline 100 ML IVPB ×2 (00:16→08:50)
[2024-01-14] MEDS: VANCOMYCIN/WATER (PEG) 750 MG/150 ML BAG 100 MG IVPB (01:17)
[2024-01-14 03:28] VITALS: BP 120/50; PULSE 60; RESP 18; TEMP 36.3; O2SAT 93
[2024-01-14 06:36] LABS: HCT 40.9 % (36.0-46.0); HGB 13.3 g/dL (11.2-15.7); MCH 29.4 pg (27.0-33.0); MCHC 32.5 % (32.0-36.0); MCV 91 fL (80-95); MPV 11.8 fL (8.0-11.0); Platelet Count 243 10^3/uL (130-400); RBC 4.52 10^6/uL (3.93-5.22); RDW 12.2 % (11.7-14.6); RDW-SD 40.5 fL; WBC 9.04 10^3/uL (4.4-10.8)
[2024-01-14 06:48] LABS: Anion Gap 8.8 mmol/L (3-11); BUN 15 mg/dL (7-18); CO2 29.2 mmol/L (21.0-32.0); CREATININE 0.8 mg/dL (0.55-1.02); Calcium 9.5 mg/dL (8.5-10.1); Chloride 108 mmol/L (98-107); Glucose 112 mg/dL (74-106); Potassium 3.7 mmol/L (3.5-5.1); Sodium 146 mmol/L (136-145)
[2024-01-14 07:31] VITALS: BP 154/78; PULSE 65; RESP 16; TEMP 37; O2SAT 95
[2024-01-14] MEDS: Mometasone 220 MCG 14 DOSE INHALER IH (07:44)
[2024-01-14] MEDS: cloNIDine 0.1 MG TAB PO (08:12)
[2024-01-14] MEDS: Pantoprazole 40 MG TABCR PO (08:13)
[2024-01-14] MEDS: predniSONE 10 MG TAB PO (08:14)
[2024-01-14] MEDS: Atorvastatin 10 MG TAB PO (08:14)
[2024-01-14] MEDS: Lisinopril 20 MG TAB 40 MG PO (08:15)
[2024-01-14] MEDS: Pregabalin 100 MG CAP 200 MG PO (08:15)
[2024-01-14] MEDS: Lurasidone 20 MG TAB PO (08:15)
[2024-01-14] MEDS: Citalopram 20 MG TAB 40 MG PO (08:15)
[2024-01-14] MEDS: Normal Saline Flush 10 ML SYR IVP (08:16)
[2024-01-14] MEDS: Insulin Glargine 300 UNITS/3 ML PEN 32 UNITS SC (08:18)
--- NOTE | 2024-01-14 09:02 | DSE_ITS ---
Date of service: 01/14/24 Time of Service: 10:15 DS: Diagnosis Discharge Diagnosis (1) Osteomyelitis of fourth toe of right foot: Status: Acute Asessment and Plan: -Patient presented from podiatry office for rapidly worsening right fourth toe cellulitis that developed abscess and was able to probe to the bone while in podiatry office -Preliminary culture results showing mixed yoel, follow-up final culture results -X-ray and emergency department highly suggestive of osteomyelitis of the right fourth toe -Started on Vanco and cefepime will continue -Consult podiatry; status post right fourth toe amputation on 01/12/2024 -Postop wound edema surrounding cellulitis significantly improved as compared to yesterday -Patient will be discharged with additional 7 days of Keflex and doxycycline (2) Abscess of foot: Status: Acute Asessment and Plan: -as noted above (3) Cellulitis: Status: Acute Asessment and Plan: -as noted above (4) History of amputation of lesser toe of right foot: Status: Acute (5) Ulcer of right foot with necrosis of bone: Status: Acute Discharge Plan Disposition Patient Disposition: Home Condition: Good Discharge Details Reason For Visit: Osteomyelitis of right 4th toe Admit Date/Time: 01/11/24 15:59 Admit Provider: Marlon Vasquez Attending Provider: Marlon Vasquez Primary Care Provider: Anjana Gayle Hospital Course Hospital Course: Patient presented from podiatry clinic with concern for right fourth toe osteomyelitis which was confirmed on imaging and resulted in amputation on 01/12/2024. Patient was noted to have some increased erythema postop day 1 I added an additional 24 hours of IV antibiotics. However, on the morning of 01/14/2024 erythema significantly improved it was determined that the patient was stable for discharge home with an additional 1 week of p.o. antibiotics. Home Meds and New Rx's Prescriptions: New cephalexin 500 mg capsule 500 mg PO QID 7 Days Qty: 28 0RF doxycycline hyclate 100 mg capsule 100 mg PO BID 7 Days Qty: 14 0RF Continued nystatin 100,000 unit/gram cream 1 applic topical QID PRN (Reason: Rash under breasts) Qty: 60 5RF One-A-Day Womens Formula 18 mg iron-400 mcg-500 mg tablet 1 tab PO DAILY Hair, Skin and Nails (biotin) 10,000 mcg tablet,chewable 10,000 mcg PO DAILY Patient Comments: dose unknown psyllium husk [Metamucil] 0.4 gram capsule 0.4 g PO DAILY estradiol 0.01 % (0.1 mg/gram) cream 1 g vaginal DIRECTED Qty: 60 3RF Rx Instructions: Insert a pea sized amount vaginally daily at night for 2 weeks, then reduce to 2 times per week atorvastatin 10 mg tablet 10 mg PO DAILY Qty: 90 3RF fenofibrate micronized 67 mg capsule See Rx Instructions .ROUTE .COMPLEX Qty: 90 3RF Dose Instruction: TAKE ONE CAPSULE BY MOUTH EVERY DAY Rx Instructions: TAKE ONE CAPSULE BY MOUTH EVERY DAY lisinopril 40 mg tablet 40 mg PO DAILY Qty: 90 3RF linagliptin 5 mg tablet 5 mg PO DAILY Qty: 90 3RF fluticasone propionate [Flovent HFA] 44 mcg/actuation HFA aerosol inhaler 2 puff Inhalation BID Qty: 3 3RF prednisone 10 mg tablet 10 mg PO DAILY 5 Days Qty: 5 0RF clonidine HCl 0.1 mg tablet 0.1 mg PO BID Qty: 60 1RF aripiprazole [Abilify] 2 mg tablet 2 mg PO QHS Qty: 30 2RF (DME) BreatheRite MDI Spacer Spacer See Rx Instructions .ROUTE .MEDSUPPLY Qty: 1 3RF Rx Instructions: As directed for use with MDI. Please dispense what is available/covered. (DME) FreeStyle Pavan 14 Day Sensor Kit See Rx Instructions .ROUTE .MEDSUPPLY Qty: 1 12RF Rx Instructions: As directed (DME) blood-glucose meter [OneTouch Verio Meter] Misc See Rx Instructions .ROUTE .MEDSUPPLY Qty: 1 0RF Rx Instructions: E11.9 to maintain A1C <7.5, test QD, prn when needing to verify CGM reading per medical chemist directions (DME) lancing device with lancets [OneTouch Delica Plus Lanc Dev] Kit See Rx Instructions .ROUTE .MEDSUPPLY Qty: 1 1RF Rx Instructions: E11.9 to maintain A1C <7.5, test QD, prn when needing to verify CGM reading per medical chemist directions (DME) Prevail Underwear Misc See Rx Instructions .ROUTE .COMPLEX Qty: 96 12RF Dose Instruction: USE DIRECTED UP TO 100 PER MONTH Rx Instructions: USE DIRECTED UP TO 100 PER MONTH size L (DME) FreeStyle Pavan 2 [place] Misc 0 .ROUTE .MEDSUPPLY Qty: 1 0RF Rx Instructions: As directed citalopram 40 mg tablet See Rx Instructions .ROUTE .COMPLEX Qty: 90 3RF Dose Instruction: TAKE ONE TABLET BY MOUTH EVERY DAY Rx Instructions: TAKE ONE TABLET BY MOUTH EVERY DAY metformin 1,000 mg tablet 1,000 mg PO BID Qty: 180 3RF (DME) pen needle, diabetic [BD Ultra-Fine Short Pen Needle] 31 gauge x 5/16 needle See Rx Instructions .ROUTE .COMPLEX Qty: 600 3RF Dose Instruction: USE TO TEST SIX TIMES PER DAY TO MAINTAIN A1C LESS THAN 7 Rx Instructions: USE TO TEST SIX TIMES PER DAY TO MAINTAIN A1C LESS THAN 7 (DME) OneTouch Verio test strips Strip See Rx Instructions .ROUTE .MEDSUPPLY Qty: 100 5RF Rx Instructions: E11.9 to maintain A1C <7.5, test QD pantoprazole 40 mg tablet,delayed release (DR/EC) See Rx Instructions .ROUTE .COMPLEX Qty: 90 3RF Dose Instruction: TAKE ONE TABLET BY MOUTH EVERY DAY Rx Instructions: TAKE ONE TABLET BY MOUTH EVERY DAY cetirizine 10 mg tablet See Rx Instructions .ROUTE .COMPLEX Qty: 90 3RF Dose Instruction: TAKE ONE TABLET BY MOUTH EVERY DAY FOR ALLERGIES Rx Instructions: TAKE ONE TABLET BY MOUTH EVERY DAY FOR ALLERGIES lurasidone 20 mg tablet See Rx Instructions .ROUTE .COMPLEX Qty: 90 1RF Dose Instruction: TAKE ONE TABLET BY MOUTH EVERY MORNING - MUST ADMINISTER WITH FOOD ( AT LEAST 350 CALORIES ) Rx Instructions: TAKE ONE TABLET BY MOUTH EVERY MORNING - MUST ADMINISTER WITH FOOD ( AT LEAST 350 CALORIES ) lurasidone 120 mg tablet See Rx Instructions .ROUTE .COMPLEX Qty: 90 1RF Dose Instruction: TAKE ONE TABLET BY MOUTH EVERY EVENING - MUST ADMINISTER WITH FOOD ( AT LEAST 350 CALORIES) Rx Instructions: TAKE ONE TABLET BY MOUTH EVERY EVENING - MUST ADMINISTER WITH FOOD ( AT LEAST 350 CALORIES) (DME) lancets [OneTouch Delica Plus Lancet] 33 gauge misc See Rx Instructions .ROUTE .COMPLEX Qty: 100 1RF Dose Instruction: USE ONCE DAILY Rx Instructions: USE ONCE DAILY ferrous sulfate [FeroSul] 325 mg (65 mg iron) tablet See Rx Instructions .ROUTE .COMPLEX Qty: 90 3RF Dose Instruction: TAKE ONE TABLET BY MOUTH EVERY DAY Rx Instructions: TAKE ONE TABLET BY MOUTH EVERY DAY lamotrigine 100 mg tablet extended release 24hr See Rx Instructions .ROUTE .COMPLEX Qty: 90 1RF Dose Instruction: TAKE ONE TABLET BY MOUTH EVERY DAY (ALONG WITH 200MG DOSE FOR A TOTAL DAILY DOSE OF 300MG) Rx Instructions: TAKE ONE TABLET BY MOUTH EVERY DAY (ALONG WITH 200MG DOSE FOR A TOTAL DAILY DOSE OF 300MG) lamotrigine 200 mg tablet extended release 24hr See Rx Instructions .ROUTE .COMPLEX Qty: 90 1RF Dose Instruction: TAKE ONE TABLET BY MOUTH AT BEDTIME (WITH 100MG DOSE FOR A TOTAL DAILY DOSE OF 300MG) Rx Instructions: TAKE ONE TABLET BY MOUTH AT BEDTIME (WITH 100MG DOSE FOR A TOTAL DAILY DOSE OF 300MG) pregabalin 200 mg capsule 200 mg PO BID Qty: 60 2RF Fiasp FlexTouch U-100 Insulin 100 unit/mL (3 mL) insulin pen 1 sliding scale dose subcut AC Qty: 15 12RF Rx Instructions: Sub-Q AC; administer 10-20u ac per Insulin schedule to manage BS with meals and to keep A1c at or below 7. cyclobenzaprine 5 mg tablet See Rx Instructions .ROUTE .COMPLEX Qty: 90 3RF Dose Instruction: TAKE ONE TABLET BY MOUTH AT BEDTIME NEEDED FOR MUSCLE SPASMS Rx Instructions: TAKE ONE TABLET BY MOUTH AT BEDTIME NEEDED FOR MUSCLE SPASMS meloxicam 15 mg tablet See Rx Instructions .ROUTE .COMPLEX Qty: 90 1RF Dose Instruction: TAKE ONE TABLET BY MOUTH EVERY DAY NEEDED FOR PAIN Rx Instructions: TAKE ONE TABLET BY MOUTH EVERY DAY NEEDED FOR PAIN alcohol swabs [Alcohol Prep Pads] Pads, Medicated 1 pad TP AC & HS Qty: 400 3RF Rx Instructions: 1 pad pre FS albuterol sulfate [Ventolin HFA] 90 mcg/actuation HFA aerosol inhaler See Rx Instructions .ROUTE .COMPLEX Qty: 18 6RF Dose Instruction: INHALE TWO PUFFS BY MOUTH EVERY 6 HOURS NEEDED Rx Instructions: INHALE TWO PUFFS BY MOUTH EVERY 6 HOURS NEEDED Mounjaro 2.5 mg/0.5 mL pen injector 2.5 mg subcut QWEEK 28 Days Qty: 2 0RF Hold Instructions: On back order insulin degludec [Tresiba FlexTouch U-200] 200 unit/mL (3 mL) insulin pen 80 unit subcut DAILY Rx Instructions: INJECT 94 UNITS SUBCUTANEOUSLY ONCE DAILY cholecalciferol (vitamin D3) [Vitamin D3] 50 mcg (2,000 unit) capsule 2,000 unit PO DAILY black cohosh 540 mg capsule 20 mg PO DAILY clindamycin HCl 150 mg capsule 450 mg PO TID 7 Days Qty: 63 0RF magnesium oxide 400 mg (241.3 mg magnesium) tablet 400 mg PO DAILY Patient Comments: TAKE ONE TABLET BY MOUTH EVERY DAY Discharge Instructions Stand Alone Forms: Nursing Discharge Form Referrals: Anjana Gayle NP [Primary Care Provider] - 02/03/24 1:00 pm Activity:: Activity as Tolerated Equipment/Supplies:: No Equipment Needed Diet:: As Tolerated Discharge Orders Discharge Orders: Discharge Order (Routine); Ordered 01/14/24 Ordered By: Marlon Vasquez DS: Summary Time Spent with Patient providing and/or coordinating discharge services: Greater than 30 minutes Status at Discharge Functional status at discharge: independent ambulation Overall status at discharge: patient is back to baseline Mental Status: mental status grossly normal Speech and Movement: speech and movement normal Mood: congruent mood Affect: normal affect Quality:SDOH Health Related Social Needs: No Data to Display Exam Narrative Exam Narrative: Obese female lying in bed in no acute distress, ANO x 4, heart regular rhythm, lungs clear to auscultation bilaterally, abdomen obese, soft, nontender, nondistended, right foot with improved erythema as compared to previous day, surgical wound dry, without drainage Psych Mental Status: mental status grossly normal Speech and Movement: speech and movement normal Mood: congruent mood Affect: normal affect DS: Data Vitals/I&O Vitals and I&O: Vital Signs Temperature 98.6 F 01/14/24 07:31 Temperature Source Tympanic 01/14/24 07:31 Pulse 65 01/14/24 07:31 Pulse Rhythm Regular 01/14/24 03:38 Respiratory Rate 16 01/14/24 07:31 Respiratory Effort Normal, Non-Labored 01/14/24 03:38 Respiratory Depth Normal 01/14/24 03:38 Respiratory Pattern Normal 01/14/24 03:38 Blood Pressure 154/78 H 01/14/24 07:31 Blood Pressure Position Sitting 01/11/24 14:47 Pulse Oximetry 95 01/14/24 07:31 Oxygen Delivery Method Room Air 01/14/24 07:31 Oxygen Flow Rate 0 01/14/24 07:31 Pain Level 0 01/14/24 07:31 Comment Will inform RN of BP 01/14/24 07:31 Intake & Output 01/13/24 01/14/24 01/14/24 17:59 05:59 17:59 Intake Total 600 / 600 360 / 960 Output Total 1150 / 1150 1250 / 2400 300 / 300 Balance -550 / -550 -890 / -1440 -300 / -300 Intake: IV 200 / 200 260 / 460 Oral 400 / 400 100 / 500 Output: Urine 1150 / 1150 1250 / 2400 300 / 300 Other: Urine Color Yellow Yellow Yellow Urine Appearance Clear Clear Clear Urine Odor Normal Normal Comment 200 pt said she had 600 ml in the hat but dumped it out. Voiding Methods Toilet Toilet Toilet Data Completed and Pending Labs on day of discharge: Labs from last 24 hours 01/14/24 01/14/24 01/13/24 17:00 05:40 12:55 WBC 9.04 RBC 4.52 Hgb 13.3 Hct 40.9 MCV 91 MCH 29.4 MCHC 32.5 RDW 12.2 Plt Count 243 MPV 11.8 H Sodium 146 H Potassium 3.7 Chloride 108 H Carbon Dioxide 29.2 Anion Gap 8.8 BUN 15 Creatinine 0.8 Est GFR (CKD-EPI 2020) 84.30 Glucose 112 H Calcium 9.5 Vancomycin Trough Pending 8.3 L 01/12/24 13:11 Toe - Right Fourth Digit Anaerobic Culture - Pending 01/12/24 13:11 Toe - Right Fourth Digit Anaerobic Culture - Pending Preliminary micro results at discharge 01/11/24 15:03 Blood Culture - Preliminary Blood NO GROWTH 48 HOURS 01/11/24 15:15 Blood Culture - Preliminary Blood Gram Positive Cocci 01/12/24 13:11 Surgical Culture - Preliminary Toe - Right Fourth Digit Gram Positive Yoel,Mixed 01/12/24 13:11 Surgical Culture - Preliminary Toe - Right Fourth Digit Gram Positive Yoel,Mixed 01/12/24 13:11 Anaerobic Culture - Pending Toe - Right Fourth Digit 01/12/24 13:11 Anaerobic Culture - Pending Toe - Right Fourth Digit PFSH All Active Problems (Updated 01/12/24 @ 09:24 by Khadra Peralta DPM) Ulcer of right foot with necrosis of bone (Acute) Depression (Chronic) Diabetic infection of right foot (Acute) Abscess of foot (Acute) Cellulitis (Acute) Osteomyelitis of fourth toe of right foot (Acute) Diabetic infection of right foot (Acute) Acute bronchitis (Acute) History of amputation of lesser toe of right foot (Acute) Onychomycosis (Acute) Ulcer of right foot limited to breakdown of skin (Acute) Leukocytes in urine (Acute) Migraine headache without aura (Acute) Corns and callosities (Acute) Nail dystrophy (Acute) Dysuria (Acute) Ulcer of toe due to diabetes mellitus (Acute) Pain of left sacroiliac joint (Acute) Low back pain (Acute) Routine gynecological examination (Acute) Routine medical exam (Acute) Hyperlipidemia (Acute) Daytime somnolence (Acute) Obesity (Chronic) Anemia (Chronic) Polypharmacy (Acute) Memory deficit (Acute) Falls (Acute) Slurred speech (Acute) Dizziness (Acute) Blurred vision (Acute) Abnormal urine (Acute) UTI (urinary tract infection) (Acute) Mild cataract (Acute ~11/2020) Diabetic retinopathy, nonproliferative, mild (Acute ~11/2020) OD-mild OS-none Lung cancer screening declined by patient (Acute) Mammogram declined (Acute) Colon cancer screening declined (Acute) Osteomyelitis (Acute) Discharge planning issues (Acute) Cellulitis of toe (Acute) Mixed hearing loss, bilateral (Acute ~04/01/20) Chest pain (Acute) Smoker (Acute) Low HDL (under 40) (Acute) 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 Unspecified urinary incontinence (Acute 10/30/11) Type II diabetes mellitus with neurological manifestations (Acute 04/10/13) Tobacco abuse disorder (Acute 06/08/17) Nocturia more than twice per night (Acute 05/20/16) Microscopic hematuria (Acute 02/25/16) Hearing loss (Acute 04/21/13) B/L HEARING AIDS Essential hypertension (Acute 10/30/11) Extrinsic asthma (Acute 08/26/12) Diabetic neuropathy (Acute 11/29/13) Lexie 10/2013 Depressive disorder (Chronic 10/30/11) [facility] 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 Medical History Amputation of second toe, right, traumatic Dr Shipleyletty 04/03/2020 due to ulcer and DM RH Obesity (BMI 30-39.9) (10/30/11) Hypertriglyceridemia (08/14/13) Surgical History Arthroscopy (04/24/04) right knee Family History Mother Diabetes Alcohol abuse Personal history of malignant neoplasm breast Brother Cancer Bladder Sister Cancer Bladder Social History Smoking/Tobacco Use Status: Current every day Tobacco Type: cigarettes Tobacco: How many years used: 45 Quit status: considering quitting Smoking risk assessment performed?: Yes Alcohol Intake: never Drug use: Rarely Substance use type: marijuana Adopted: Yes Caregiver/Support person: No Household members: family and friend(s) Housing: house Number of Children: 3 Communication Needs: Hard of Hearing Current gender identity: female What is your relationship status?: Panel score (0-1 are the most socially isolated patients): 1 What type of physical activity do you participate in: none Seatbelt use: always Drive intox or ride w/intox regional driver: No Working smoke detector in home: Yes Carbon monox detector in home: Yes Do you feel safe at home: Yes Do you feel safe in your relationship?: Yes Time Spent with Patient Time Spent with Patient: <45 minutes Time was spent: preparing to see the patient(eg.review tests), obtaining and/or reviewing separately otained hiistory, ordering medications,tests, procedures, referring, communicating with other health acute care registered nurse, indepentently interpreting results, counseling the patient and care coordination
--- NOTE | 2024-01-14 10:11 | PDOC.CMDIS ---
Date of service: 01/14/24 Time of Service: 10:11 LACE Index Scoring Tool Questions: Length of Stay (in days): 3 Was the patient admitted via the E.D.?: Yes Comorbidities: Diabetes w/o Complication E.D. Visits: 1 Answers: Total Score: 8 Risk of Readmission: Low Risk Care Management Discharge Plan Reason for Hospitalization: Osteomyelitis Discharge Plan: Maureen will return home today with no new services. Her partner will drive her home via private vehicle. She will follow up with her PCP and discharge plan of care. She is happy to be going home. Patient/Family Education Needs: Review discharge instructions and limitations, discussion of self care needs including ask me three. [facility] Health Related Social Needs: No Data to Display
== END 2024-01-14 10:32 | disposition home or self-care (01) | DRG 617 ==
LOC: ER 16:17 → MS 16:42
PROVIDERS: Podiatrist; Admitting Provider Family Medicine; Emergency Provider Emergency Medicine; PCP Nurse Practitioner; Visit Provider Family Medicine
PROC: 0Y6V0Z1 Detachment at Right 4th Toe, High, Open Approach (ICD-10-PCS; CPT 28825; principal; 2024-01-12 12:00)
DX: E11.69 Type 2 diabetes mellitus with other specified complication (principal); L02.611 Cutaneous abscess of right foot; L03.115 Cellulitis of right lower limb; M86.171 Other acute osteomyelitis, right ankle and foot; E66.9 Obesity, unspecified; E78.5 Hyperlipidemia, unspecified; E11.42 Type 2 diabetes mellitus with diabetic polyneuropathy; E11.621 Type 2 diabetes mellitus with foot ulcer; F32.A Depression, unspecified; I10 Essential (primary) hypertension; E11.628 Type 2 diabetes mellitus with other skin complications; L97.514 Non-pressure chronic ulcer of other part of right foot with necrosis of bone; F41.1 Generalized anxiety disorder; Z79.4 Long term (current) use of insulin; G43.009 Migraine without aura, not intractable, without status migrainosus; M54.50 Low back pain, unspecified; D64.9 Anemia, unspecified; R41.3 Other amnesia; Z79.899 Other long term (current) drug therapy; R29.6 Repeated falls; E11.3291 Type 2 diabetes mellitus with mild nonproliferative diabetic retinopathy without macular edema, right eye; H90.6 Mixed conductive and sensorineural hearing loss, bilateral; J30.9 Allergic rhinitis, unspecified; K21.9 Gastro-esophageal reflux disease without esophagitis; F17.210 Nicotine dependence, cigarettes, uncomplicated; E78.1 Pure hyperglyceridemia; F12.90 Cannabis use, unspecified, uncomplicated
CPT/HCPCS: 28825; 00123; 10060; 36415; 80048; 80053; 82805; 84145; 85027; 85652; 87040; 87077; 88305; 94640; 96365; 96368; 99214; 99222; 99285; 73630; 73720; 80202; 81003; 81015; 83735; 85025; 86140; 87070; 87075; 87186; 87205; 88304; 88307; 88311; 94664; 99223; 99233; 99238; J0692; J1815; J2001; J2250; J2405; J2704; J3370; J3372; J3475; J7512

== ENCOUNTER → 2024-01-20 09:54 | Outpatient (BNVA) | payer MEDICARE, MEDICAID, SELFPAY | PROVIDERS: PCP Nurse Practitioner; Referring Provider Nurse Practitioner; Visit Provider Physical Therapy Assistant | DX: E11.628 Type 2 diabetes mellitus with other skin complications (principal); L08.9 Local infection of the skin and subcutaneous tissue, unspecified; Z51.89 Encounter for other specified aftercare | CPT/HCPCS: 99213 ==

== ENCOUNTER → 2024-01-27 13:05 | Outpatient (BNVA) | payer MEDICARE, MEDICAID, SELFPAY | PROVIDERS: PCP Nurse Practitioner; Referring Provider Nurse Practitioner; Visit Provider Podiatrist | DX: E11.621 Type 2 diabetes mellitus with foot ulcer; E11.628 Type 2 diabetes mellitus with other skin complications; L08.9 Local infection of the skin and subcutaneous tissue, unspecified; L03.90 Cellulitis, unspecified; E11.49 Type 2 diabetes mellitus with other diabetic neurological complication; M86.8X7 Other osteomyelitis, ankle and foot | CPT/HCPCS: 11042; 97597 ==

== ENCOUNTER → 2024-02-10 09:53 | Outpatient (BNVA) | payer MEDICARE, MEDICAID, SELFPAY | PROVIDERS: PCP Nurse Practitioner; Referring Provider Nurse Practitioner; Visit Provider Podiatrist | DX: Z98.890 Other specified postprocedural states (principal); M86.9 Osteomyelitis, unspecified; E11.621 Type 2 diabetes mellitus with foot ulcer; L97.509 Non-pressure chronic ulcer of other part of unspecified foot with unspecified severity; E11.628 Type 2 diabetes mellitus with other skin complications; L08.9 Local infection of the skin and subcutaneous tissue, unspecified; E11.49 Type 2 diabetes mellitus with other diabetic neurological complication; L03.90 Cellulitis, unspecified; L02.619 Cutaneous abscess of unspecified foot; B35.1 Tinea unguium; L60.3 Nail dystrophy | CPT/HCPCS: 11721 ==

== ENCOUNTER → 2024-02-10 14:51 | Outpatient (BNVA) | payer MEDICARE, MEDICAID, SELFPAY | PROVIDERS: PCP Nurse Practitioner; Referring Provider Nurse Practitioner; Visit Provider Nurse Practitioner Gerontology | DX: R31.29 Other microscopic hematuria (principal); N39.0 Urinary tract infection, site not specified | CPT/HCPCS: 11721; 51798; 81003; 99213 ==

== ENCOUNTER 2024-03-02 11:53 | Emergency (ER) | payer MEDICARE, MEDICAID, SELFPAY ==
[2024-03-02 12:07] VITALS: BP 154/51; PULSE 60; RESP 16; TEMP 36.1; O2SAT 99
--- NOTE | 2024-03-02 12:13 | W.ED.GENAD ---
Discharge Plan Disposition Patient Disposition: Home Condition: Stable Discharge Details Clinical Impression: Left knee pain Primary Care Provider: Anjana Gayle ED Provider: Hema Eller Home Meds and New Rx's Prescriptions: Continued nystatin 100,000 unit/gram cream 1 applic topical QID PRN (Reason: Rash under breasts) Qty: 60 5RF One-A-Day Womens Formula 18 mg iron-400 mcg-500 mg tablet 1 tab PO DAILY Hair, Skin and Nails (biotin) 10,000 mcg tablet,chewable 10,000 mcg PO DAILY Patient Comments: dose unknown psyllium husk [Metamucil] 0.4 gram capsule 0.4 g PO DAILY fenofibrate micronized 67 mg capsule See Rx Instructions .ROUTE .COMPLEX Qty: 90 3RF Dose Instruction: TAKE ONE CAPSULE BY MOUTH EVERY DAY Rx Instructions: TAKE ONE CAPSULE BY MOUTH EVERY DAY lisinopril 40 mg tablet 40 mg PO DAILY Qty: 90 3RF linagliptin 5 mg tablet 5 mg PO DAILY Qty: 90 3RF fluticasone propionate [Flovent HFA] 44 mcg/actuation HFA aerosol inhaler 2 puff Inhalation BID Qty: 3 3RF estradiol 0.01 % (0.1 mg/gram) cream 1 g vaginal DIRECTED Qty: 60 3RF Rx Instructions: Insert a pea sized amount vaginally at night x4 a week clonidine HCl 0.1 mg tablet 0.1 mg PO BID Qty: 60 1RF aripiprazole [Abilify] 2 mg tablet 2 mg PO QHS Qty: 30 1RF ketoconazole 2 % cream 1 applic topical DAILY Qty: 120 6RF Rx Instructions: Apply to toenails once daily (DME) BreatheRite MDI Spacer Spacer See Rx Instructions .ROUTE .MEDSUPPLY Qty: 1 3RF Rx Instructions: As directed for use with MDI. Please dispense what is available/covered. (DME) FreeStyle [place]avan 14 Day Sensor Kit See Rx Instructions .ROUTE .MEDSUPPLY Qty: 1 12RF Rx Instructions: As directed (DME) blood-glucose meter [OneTouch Verio Meter] [facility] See Rx Instructions .ROUTE .MEDSUPPLY Qty: 1 0RF Rx Instructions: E11.9 to maintain A1C <7.5, test QD, prn when needing to verify CGM reading per hood maker directions (DME) lancing device with lancets [OneTouch Delica Plus Lanc Dev] Kit See Rx Instructions .ROUTE .MEDSUPPLY Qty: 1 1RF Rx Instructions: E11.9 to maintain A1C <7.5, test QD, prn when needing to verify CGM reading per hood maker directions (DME) Prevail Underwear Misc See Rx Instructions .ROUTE .COMPLEX Qty: 96 12RF Dose Instruction: USE DIRECTED UP TO 100 PER MONTH Rx Instructions: USE DIRECTED UP TO 100 PER MONTH size L (DME) FreeStyle [place] 2 [place] Misc 0 .ROUTE .MEDSUPPLY Qty: 1 0RF Rx Instructions: As directed (DME) pen needle, diabetic [BD Ultra-Fine Short Pen Needle] 31 gauge x 5/16 needle See Rx Instructions .ROUTE .COMPLEX Qty: 600 3RF Dose Instruction: USE TO TEST SIX TIMES PER DAY TO MAINTAIN A1C LESS THAN 7 Rx Instructions: USE TO TEST SIX TIMES PER DAY TO MAINTAIN A1C LESS THAN 7 (DME) InfoxelTouch Verio test strips Strip See Rx Instructions .ROUTE .MEDSUPPLY Qty: 100 5RF Rx Instructions: E11.9 to maintain A1C <7.5, test QD pantoprazole 40 mg tablet,delayed release (DR/EC) See Rx Instructions .ROUTE .COMPLEX Qty: 90 3RF Dose Instruction: TAKE ONE TABLET BY MOUTH EVERY DAY Rx Instructions: TAKE ONE TABLET BY MOUTH EVERY DAY cetirizine 10 mg tablet See Rx Instructions .ROUTE .COMPLEX Qty: 90 3RF Dose Instruction: TAKE ONE TABLET BY MOUTH EVERY DAY FOR ALLERGIES Rx Instructions: TAKE ONE TABLET BY MOUTH EVERY DAY FOR ALLERGIES lurasidone 120 mg tablet See Rx Instructions .ROUTE .COMPLEX Qty: 90 1RF Dose Instruction: TAKE ONE TABLET BY MOUTH EVERY EVENING - MUST ADMINISTER WITH FOOD ( AT LEAST 350 CALORIES) Rx Instructions: TAKE ONE TABLET BY MOUTH EVERY EVENING - MUST ADMINISTER WITH FOOD ( AT LEAST 350 CALORIES) (DME) lancets [OneTouch Delica Plus Lancet] 33 gauge misc See Rx Instructions .ROUTE .COMPLEX Qty: 100 1RF Dose Instruction: USE ONCE DAILY Rx Instructions: USE ONCE DAILY ferrous sulfate [FeroSul] 325 mg (65 mg iron) tablet See Rx Instructions .ROUTE .COMPLEX Qty: 90 3RF Dose Instruction: TAKE ONE TABLET BY MOUTH EVERY DAY Rx Instructions: TAKE ONE TABLET BY MOUTH EVERY DAY lamotrigine 100 mg tablet extended release 24hr See Rx Instructions .ROUTE .COMPLEX Qty: 90 1RF Dose Instruction: TAKE ONE TABLET BY MOUTH EVERY DAY (ALONG WITH 200MG DOSE FOR A TOTAL DAILY DOSE OF 300MG) Rx Instructions: TAKE ONE TABLET BY MOUTH EVERY DAY (ALONG WITH 200MG DOSE FOR A TOTAL DAILY DOSE OF 300MG) lamotrigine 200 mg tablet extended release 24hr See Rx Instructions .ROUTE .COMPLEX Qty: 90 1RF Dose Instruction: TAKE ONE TABLET BY MOUTH AT BEDTIME (WITH 100MG DOSE FOR A TOTAL DAILY DOSE OF 300MG) Rx Instructions: TAKE ONE TABLET BY MOUTH AT BEDTIME (WITH 100MG DOSE FOR A TOTAL DAILY DOSE OF 300MG) pregabalin 200 mg capsule 200 mg PO BID Qty: 60 2RF Fiasp FlexTouch U-100 Insulin 100 unit/mL (3 mL) insulin pen 1 sliding scale dose subcut AC Qty: 15 12RF Rx Instructions: Sub-Q AC; administer 10-20u ac per Insulin schedule to manage BS with meals and to keep A1c at or below 7. cyclobenzaprine 5 mg tablet See Rx Instructions .ROUTE .COMPLEX Qty: 90 3RF Dose Instruction: TAKE ONE TABLET BY MOUTH AT BEDTIME NEEDED FOR MUSCLE SPASMS Rx Instructions: TAKE ONE TABLET BY MOUTH AT BEDTIME NEEDED FOR MUSCLE SPASMS meloxicam 15 mg tablet See Rx Instructions .ROUTE .COMPLEX Qty: 90 1RF Dose Instruction: TAKE ONE TABLET BY MOUTH EVERY DAY NEEDED FOR PAIN Rx Instructions: TAKE ONE TABLET BY MOUTH EVERY DAY NEEDED FOR PAIN alcohol swabs [Alcohol Prep Pads] Pads, Medicated 1 pad TP AC & HS Qty: 400 3RF Rx Instructions: 1 pad pre FS albuterol sulfate [Ventolin HFA] 90 mcg/actuation HFA aerosol inhaler See Rx Instructions .ROUTE .COMPLEX Qty: 18 6RF Dose Instruction: INHALE TWO PUFFS BY MOUTH EVERY 6 HOURS NEEDED Rx Instructions: INHALE TWO PUFFS BY MOUTH EVERY 6 HOURS NEEDED lurasidone 20 mg tablet See Rx Instructions .ROUTE .COMPLEX Qty: 90 1RF Dose Instruction: TAKE ONE TABLET BY MOUTH EVERY MORNING - MUST ADMINISTER WITH FOOD ( AT LEAST 350 CALORIES ) Rx Instructions: TAKE ONE TABLET BY MOUTH EVERY MORNING - MUST ADMINISTER WITH FOOD ( AT LEAST 350 CALORIES ) citalopram 40 mg tablet See Rx Instructions .ROUTE .COMPLEX Qty: 90 3RF Dose Instruction: TAKE ONE TABLET BY MOUTH EVERY DAY Rx Instructions: TAKE ONE TABLET BY MOUTH EVERY DAY magnesium oxide 400 mg (241.3 mg magnesium) tablet See Rx Instructions .ROUTE .COMPLEX Qty: 90 3RF Dose Instruction: TAKE ONE TABLET BY MOUTH EVERY DAY Rx Instructions: TAKE ONE TABLET BY MOUTH EVERY DAY metformin 1,000 mg tablet See Rx Instructions .ROUTE .COMPLEX Qty: 180 3RF Dose Instruction: TAKE ONE TABLET BY MOUTH TWICE A DAY Rx Instructions: TAKE ONE TABLET BY MOUTH TWICE A DAY atorvastatin 10 mg tablet See Rx Instructions .ROUTE .COMPLEX Qty: 90 3RF Dose Instruction: TAKE ONE TABLET BY MOUTH EVERY DAY Rx Instructions: TAKE ONE TABLET BY MOUTH EVERY DAY Mounjaro 2.5 mg/0.5 mL pen injector 2.5 mg subcut QWEEK 28 Days Qty: 2 0RF Hold Instructions: On back order insulin degludec [Tresiba FlexTouch U-200] 200 unit/mL (3 mL) insulin pen 80 unit subcut DAILY Rx Instructions: INJECT 94 UNITS SUBCUTANEOUSLY ONCE DAILY cholecalciferol (vitamin D3) [Vitamin D3] 50 mcg (2,000 unit) capsule 2,000 unit PO DAILY black cohosh 540 mg capsule 20 mg PO DAILY Discharge Instructions Instructions: Arthritis (ED) Additional Instructions: You were seen in the emergency department for your left knee pain. Your x-ray shows no acute fracture, but shows a moderate arthritis as well as a joint effusion. This is possible for an internal knee injury that may need evaluation by orthopedics. Please use therapeutic dosing of Tylenol (acetamenophen) & Advil (ibuprofen) in an alternating fashion as follows: Take 1000mg of Tylenol every 6 hours without missing doses- that is 4 times per day. [place] in between the Tylenol dosings, take 400-600mg of Advil also on a 6 hour schedule, that is also 4 times per day. The daily maximum dosing of Tylenol is 4000mg, and the daily maximum dosing of Advil is 2400mg. This is safe to do for weeks. Please note that some common cold medications & prescription pain medications may contain acetamenophen and you need to read OTC drug labels and factor that in to maximum daily dosings. Rest, ice, compress and elevate the knee often to reduce swelling and thus improving her pain. You may purchase [id number] topical Voltaren gel a topical anti-inflammatory to aid in pain of arthritis. Please return to the emergency department for any severe increase in pain especially with redness and warmth to the joint, inability to ambulate or move the lower leg. Referrals: [facility] [Provider Group] Anjana Gayle NP [Primary Care Provider] - Discharge Data Discharge Date/Time-TO BE ENTERED AT DEPARTURE: 03/02/24 13:40 HPI General Date/Time Provider Initiated Documentation: 03/02/24 11:59. HPI Narrative: 58 year-old female presents to ED today by POV/ambulating with a chief complaint of L knee pain, fell on it 3 months ago with onset over the past few days, worse overnight. Quality described as pain with weight-bearing, having to use a cane, no radiation to numbness/tingling, distally, unilateral leg swelling, redness/warmth to touch, inability to ambulate. Severity is described as moderate. Palliating factors include nothing specific attempted. Provoking factors include nothing specific. Events leading up to the incident/Associated Symptoms: Patient has had cortisone shots to this knee prior to fall 3 months ago. Patient not anticoagulated. Related Data Home Medications Medication Instructions Recorded Confirmed inhalational spacing device #1 ea 12/09/20 03/02/24 (BreatheRite MDI Spacer) linagliptin 5 mg tablet 5 mg PO DAILY #90 tabs 03/10/21 03/02/24 nystatin 100,000 unit/gram topical 1 applic topical QID PRN Rash 05/19/22 03/02/24 cream under breasts #60 grams flash glucose sensor (FreeStyle #1 ea 06/03/22 03/02/24 Pavan 14 Day Sensor kit) blood-glucose meter (OneTouch #1 ea 06/05/22 03/02/24 Verio Meter) lancing device with lancets kit #1 ea 06/05/22 03/02/24 (OneTouch Delica Plus Lancing Device kit) fluticasone propionate 44 2 puff inhalation BID #3 multiple 08/19/22 03/02/24 mcg/actuation HFA aerosol inhaler units (Flovent HFA) biotin 10,000 mcg chewable tablet 10,000 mcg PO DAILY 11/03/22 03/02/24 (Hair, Skin and Nails (biotin)) iosnkrke-[id number]-Ca carb-vit K 1 tab PO DAILY 11/03/22 03/02/24 18 mg iron-400 mcg-500 mg tablet (One-A-Day Womens Formula) diaper,brief,adult,disposable #96 ea 11/25/22 03/02/24 (Prevail Underwear) flash glucose scanning reader #1 ea 12/03/22 03/02/24 (FreeStyle [place] 2 [place]) fenofibrate micronized 67 mg See Rx Instructions .Route 03/15/23 03/02/24 capsule .COMPLEX #90 caps psyllium husk 0.4 gram capsule 0.4 g PO DAILY 04/07/23 03/02/24 (Metamucil) pen needle, diabetic 31 gauge x #600 ea 05/11/23 03/02/2403/09 (BD Ultra-Fine Short Pen Needle) blood sugar diagnostic (OneTouch #100 ea 05/14/23 03/02/24 Verio test strips) pantoprazole 40 mg tablet,delayed See Rx Instructions .Route 05/31/23 03/02/24 release .COMPLEX #90 tabs cetirizine 10 mg tablet See Rx Instructions .Route 07/12/23 03/02/24 .COMPLEX #90 tabs lurasidone 120 mg tablet See Rx Instructions .Route 08/23/23 03/02/24 .COMPLEX #90 tabs lisinopril 40 mg tablet 40 mg PO DAILY #90 tabs 09/01/23 03/02/24 ferrous sulfate 325 mg (65 mg See Rx Instructions .Route 09/27/23 03/02/24 iron) tablet (FeroSul) .COMPLEX #90 tabs lancets 33 gauge (OneTouch Delica #100 ea 09/27/23 03/02/24 Plus Lancet) lamotrigine 100 mg tablet,extended See Rx Instructions .Route 11/22/23 03/02/24 release 24 hr .COMPLEX #90 tabs lamotrigine 200 mg tablet,extended See Rx Instructions .Route 11/22/23 03/02/24 release 24 hr .COMPLEX #90 tabs pregabalin 200 mg capsule 200 mg PO BID #60 caps 11/22/23 03/02/24 insulin aspart 1 sliding scale dose subcut AC #15 11/24/23 03/02/24 (niacinamide)(U-100) 100 unit/mL(3 mL mL) subcutaneous pen (Fiasp FlexTouch U-100 Insulin) cyclobenzaprine 5 mg tablet See Rx Instructions .Route 11/29/23 03/02/24 .COMPLEX #90 tabs meloxicam 15 mg tablet See Rx Instructions .Route 12/20/23 03/02/24 .COMPLEX #90 tabs alcohol swabs (Alcohol Prep Pads) 1 pad topical AC & HS #400 ea 12/24/23 03/02/24 albuterol sulfate 90 mcg/actuation See Rx Instructions .Route 01/03/24 03/02/24 aerosol inhaler (Ventolin HFA) .COMPLEX #18 grams black cohosh 540 mg capsule 20 mg PO DAILY 01/09/24 03/02/24 cholecalciferol (vitamin D3) 50 2,000 unit PO DAILY 01/09/24 03/02/24 mcg (2,000 unit) capsule (Vitamin D3) insulin degludec 200 unit/mL (3 80 unit subcut DAILY 01/09/24 03/02/24 mL) subcutaneous pen (Tresiba FlexTouch U-200 insulin) citalopram 40 mg tablet See Rx Instructions .Route 01/31/24 03/02/24 .COMPLEX #90 tabs lurasidone 20 mg tablet See Rx Instructions .Route 01/31/24 03/02/24 .COMPLEX #90 tabs magnesium oxide 400 mg (241.3 mg See Rx Instructions .Route 02/02/24 03/02/24 magnesium) tablet .COMPLEX #90 tabs estradiol 0.01% (0.1 mg/gram) 1 g vaginal DIRECTED #60 grams 02/10/24 03/02/24 vaginal cream ketoconazole 2 % topical cream 1 applic topical DAILY #120 grams 02/10/24 03/02/24 metformin 1,000 mg tablet See Rx Instructions .Route 02/14/24 03/02/24 .COMPLEX #180 tabs aripiprazole 2 mg tablet (Abilify) 2 mg PO QHS #30 tabs 02/28/24 03/02/24 atorvastatin 10 mg tablet See Rx Instructions .Route 02/28/24 03/02/24 .COMPLEX #90 tabs clonidine HCl 0.1 mg tablet 0.1 mg PO BID for anxiety #60 tabs 02/28/24 03/02/24 tirzepatide 2.5 mg/0.5 mL 2.5 mg (0.5 mL) subcut QWEEK 4 02/28/24 03/02/24 subcutaneous pen injector weeks #2 mL (Maricruz) Previous Rx's Medication Instructions Recorded inhalational spacing device #1 ea 12/09/20 (BreatheRite MDI Spacer) linagliptin 5 mg tablet 5 mg PO DAILY #90 tabs 03/10/21 nystatin 100,000 unit/gram topical 1 applic topical QID PRN Rash 05/19/22 cream under breasts #60 grams flash glucose sensor (FreeStyle #1 ea 06/03/22 Pavan 14 Day Sensor kit) blood-glucose meter (OneTouch #1 ea 06/05/22 Verio Meter) lancing device with lancets kit #1 ea 06/05/22 (Mastodon Cuch Delica Plus Lancing Device kit) fluticasone propionate 44 2 puff inhalation BID #3 multiple 08/19/22 mcg/actuation HFA aerosol inhaler units (Flovent HFA) diaper,brief,adult,disposable #96 ea 11/25/22 (Prevail Underwear) flash glucose scanning reader #1 ea 12/03/22 (FreeStyle [place] 2 [place]) fenofibrate micronized 67 mg See Rx Instructions .Route 03/15/23 capsule .COMPLEX #90 caps pen needle, diabetic 31 gauge x #600 ea 05/11/23/16 (BD Ultra-Fine Short Pen Needle) blood sugar diagnostic (OneTouch #100 ea 05/14/23 Verio test strips) pantoprazole 40 mg tablet,delayed See Rx Instructions .Route 05/31/23 release .COMPLEX #90 tabs cetirizine 10 mg tablet See Rx Instructions .Route 07/12/23 .COMPLEX #90 tabs lurasidone 120 mg tablet See Rx Instructions .Route 08/23/23 .COMPLEX #90 tabs lisinopril 40 mg tablet 40 mg PO DAILY #90 tabs 09/01/23 ferrous sulfate 325 mg (65 mg See Rx Instructions .Route 09/27/23 iron) tablet (FeroSul) .COMPLEX #90 tabs lancets 33 gauge (OneTouch Delica #100 ea 09/27/23 Plus Lancet) lamotrigine 100 mg tablet,extended See Rx Instructions .Route 11/22/23 release 24 hr .COMPLEX #90 tabs lamotrigine 200 mg tablet,extended See Rx Instructions .Route 11/22/23 release 24 hr .COMPLEX #90 tabs pregabalin 200 mg capsule 200 mg PO BID #60 caps 11/22/23 insulin aspart 1 sliding scale dose subcut AC #15 11/24/23 (niacinamide)(U-100) 100 unit/mL(3 mL mL) subcutaneous pen (Fiasp FlexTouch U-100 Insulin) cyclobenzaprine 5 mg tablet See Rx Instructions .Route 11/29/23 .COMPLEX #90 tabs meloxicam 15 mg tablet See Rx Instructions .Route 12/20/23 .COMPLEX #90 tabs alcohol swabs (Alcohol Prep Pads) 1 pad topical AC & HS #400 ea 12/24/23 albuterol sulfate 90 mcg/actuation See Rx Instructions .Route 01/03/24 aerosol inhaler (Ventolin HFA) .COMPLEX #18 grams citalopram 40 mg tablet See Rx Instructions .Route 01/31/24 .COMPLEX #90 tabs lurasidone 20 mg tablet See Rx Instructions .Route 01/31/24 .COMPLEX #90 tabs magnesium oxide 400 mg (241.3 mg See Rx Instructions .Route 02/02/24 magnesium) tablet .COMPLEX #90 tabs estradiol 0.01% (0.1 mg/gram) 1 g vaginal DIRECTED #60 grams 02/10/24 vaginal cream ketoconazole 2 % topical cream 1 applic topical DAILY #120 grams 02/10/24 metformin 1,000 mg tablet See Rx Instructions .Route 02/14/24 .COMPLEX #180 tabs aripiprazole 2 mg tablet (Abilify) 2 mg PO QHS #30 tabs 02/28/24 atorvastatin 10 mg tablet See Rx Instructions .Route 02/28/24 .COMPLEX #90 tabs clonidine HCl 0.1 mg tablet 0.1 mg PO BID for anxiety #60 tabs 02/28/24 tirzepatide 2.5 mg/0.5 mL 2.5 mg (0.5 mL) subcut QWEEK 4 02/28/24 subcutaneous pen injector weeks #2 mL (Mounjaro) Allergies Allergy/AdvReac Type Severity Reaction Status Date / Time Sulfa (Sulfonamide Allergy Intermediate Swelling, Verified 03/02/24 12:04 Antibiotics) difficulty breathing niacin AdvReac Intermediate HIVES Verified 03/02/24 12:04 amoxicillin AdvReac Mild VAGINAL Verified 03/02/24 12:04 INFECTION INFECTION General Stated Complaint: Orthopedic JOSE: 3 Review of Systems All systems reviewed & are unremarkable except as noted in HPI and below Exam Narrative Exam Narrative: GENERAL APPEARANCE: Well-nourished, non-toxic, awake and alert, atraumatic, no acute distress. SKIN: Warm, pink, dry, intact, without rashes/lesions/ulcerations. HEAD: Normocephalic, atraumatic, normal hair distribution for gender/age. EYES: Normal conjunctiva, no exudates on lids/lashes. ENT: Nares patent, no circumoral cyanosis, no facial swelling NECK: Supple, trachea midline, painless cervical ROM. LUNGS/CHEST: Non-labored respirations, normal A/P diameter, symmetrical expansion, no chest wall deformity HEART (CV/PV): Regular rate, L dorsalis pedis 2+, no peripheral edema, no JVD. ABDOMEN: Soft, non-distended, no guarding. MSK: Normal ROM, no swelling/deformity to bilateral UEs or LEs, moving all extremities without weakness, no cyanosis, spine midline without tenderness, normal curvature. L LE: Diffuse tenderness to even light touch all around the knee, joint line tenderness, popliteal fossa tenderness, not cooperative with special tests of the knee, no large effusion, no unilateral calf swelling, no medial thigh tenderness NEURO: Mental Status AAOx4 - alert to person, place, time, events No facial droop, no forehead involvement. Motor: No focal weakness - strength 5/5 in bilateral UEs and LEs, proximal and distal, symmetric. Sensory: sensation intact to light touch globally. Gait antalgic. PSYCH: euthymic, cooperative, pleasant, appropriate speech Course Vital Signs Vital signs: Vital Signs Temperature 36.1 C L 03/02/24 12:07 Pulse 60 03/02/24 12:07 Respiratory Rate 16 03/02/24 12:07 Blood Pressure 154/51 H 03/02/24 12:07 Pulse Oximetry 99 03/02/24 12:07 Temperature 36.1 C L 03/02/24 12:07 Temperature Source Temporal Artery Scan 03/02/24 12:07 Pulse 60 03/02/24 12:07 Respiratory Rate 16 03/02/24 12:07 Respiratory Effort Normal, Non-Labored 03/02/24 12:10 Blood Pressure 154/51 H 03/02/24 12:07 Blood Pressure Position Sitting 03/02/24 12:07 Pulse Oximetry 99 03/02/24 12:07 Oxygen Delivery Method Room Air 03/02/24 12:07 Oxygen Flow Rate 0 03/02/24 12:07 Pain Level 10 03/02/24 12:07 Comment no pain meds today, using cane 03/02/24 12:07 Medical Decision Making This dictation utilizes [id number] dictation software and may contain unedited grammatical errors. 58 y/o F presents to ED today with a chief complaint of L knee pain, overnight worsening, denies trauma recently- did have a fall 3 months ago, history of contralateral TKA. Patient denies redness, denies warmth to touch, no R lateral calf swelling, medial thigh tenderness. Patients' medical history: Arthritis, diabetic ulcers of right foot, falls, hypertension. Family and social history: lives at home with , poor exercise habits. Pertinent exam findings / vital signs include L LE: Diffuse tenderness to even light touch all around the knee, joint line tenderness, popliteal fossa tenderness, not cooperative with special tests of the knee, no large effusion, no unilateral calf swelling, no medial thigh tenderness. Differential / pathologies of concern include sprain/strain/arthritis/internal knee injury/fracture. Diagnostic studies of: -X-ray left knee-no acute fracture, likely arthritic changes of chronic major. Interventions of: -Counseled the patient on using an David wrap, rest ice compression and elevation and follow-up with orthopedics. ED Course/Assessment/Plan: 58-year-old female presents with a fall 3 months ago now having left knee pain, suspect arthritic changes possible internal knee injury, counseled the patient on RICE therapy and scheduling outpatient follow-up with orthopedics for failure to improve, strict return criteria for any warmth to touch, pain with passive range of motion, unilateral calf swelling, medial thigh tenderness. Findings not consistent with vascular pathology, neurovascular compromise, fracture. Disposition of Left Knee Pain. Patient verbalized understanding of the plan and return to ED criteria and engaged in shared decision making. Medical Records Medical records reviewed: Yes I reviewed the patient's medical records. Imaging Data Radiologic Study: Attestation: I personally reviewed and interpreted this imaging study as follows: Imaging: X-Ray Radiologist's impression: EXAM: XR KNEE LT 3V AP,LAT,GUI CLINICAL HISTORY: L knee pain. TECHNIQUE: 2D digital imaging was performed. Three views. COMPARISON: CR RIGHT KNEE 3 VIEWS from 04/26/2013 FINDINGS: BONES: No acute fracture is present. No bony destructive lesion is seen. Chronic appearing bony density adjacent to the upper pole of the patella. Patellar enthesophyte. JOINTS: Moderate narrowing of both femoral tibial joints. Periarticular spurring noted throughout. The knee is normally aligned. A joint effusion is seen. SOFT TISSUE: Normal. IMPRESSION: Moderate degenerative changes. Quality:SDOH Health Related Social Needs: No Data to Display PFSH All Active Problems (Updated 03/02/24 @ 13:12 by ROSALINA Wood) Left knee pain (Acute) Recurrent UTI (Acute) Quit smoking within past year (Acute) QUIT, x 1 month, 02/03/24, Visit for wound check (Acute) Depression (Chronic) Cellulitis (Acute) Diabetic infection of right foot (Acute) Acute bronchitis (Acute) History of amputation of lesser toe of right foot (Acute) Onychomycosis (Acute) Ulcer of right foot limited to breakdown of skin (Acute) Leukocytes in urine (Acute) Migraine headache without aura (Acute) Corns and callosities (Acute) Nail dystrophy (Acute) Dysuria (Acute) Ulcer of toe due to diabetes mellitus (Acute) Pain of left sacroiliac joint (Acute) Low back pain (Acute) Routine gynecological examination (Acute) Routine medical exam (Acute) Hyperlipidemia (Acute) Daytime somnolence (Acute) Obesity (Chronic) Anemia (Chronic) Polypharmacy (Acute) Memory deficit (Acute) Falls (Acute) Slurred speech (Acute) Dizziness (Acute) Blurred vision (Acute) Abnormal urine (Acute) UTI (urinary tract infection) (Acute) Mild cataract (Acute ~11/2020) Diabetic retinopathy, nonproliferative, mild (Acute ~11/2020) OD-mild OS-none Lung cancer screening declined by patient (Acute) Mammogram declined (Acute) Colon cancer screening declined (Acute) Osteomyelitis (Acute) Cellulitis of toe (Acute) Mixed hearing loss, bilateral (Acute ~04/01/20) Chest pain (Acute) Smoker (Acute) QUIT, x 1 month, 02/03/24, ik Low HDL (under 40) (Acute) 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 Unspecified urinary incontinence (Acute 10/30/11) Type II diabetes mellitus with neurological manifestations (Acute 04/10/13) Tobacco abuse disorder (Acute 06/08/17) QUIT, x 1 month, 02/03/24, ik Nocturia more than twice per night (Acute 05/20/16) Microscopic hematuria (Acute 02/25/16) Hearing loss (Acute 04/21/13) B/L HEARING AIDS Essential hypertension (Acute 10/30/11) Extrinsic asthma (Acute 08/26/12) Diabetic neuropathy (Acute 11/29/13) Lexie 10/2013 Depressive disorder (Chronic 10/30/11) [facility] Don Silva, director of residential services Anxiety state (Acute 10/30/11) [facility] Don Silva, director of residential services Allergic rhinitis (Acute 12/27/13) Alcohol abuse, in remission (Acute 10/30/11) History of - section (Active) Gastroesophageal reflux disease (Active) Asthma (Active) Anxiety (Active) Diabetes mellitus type 2 (Active) Chest pain (Active 02/22/13) PA ruled out. Medical History Amputation of second toe, right, traumatic Dr Don 04/03/2020 due to ulcer and DM RH Obesity (BMI 30-39.9) (10/30/11) Hypertriglyceridemia (08/14/13) Surgical History Amputation of toe of right foot (~12/2023) 4TH TOE due to cellulitis, gangrenous necrosis, osteomyelitis Dr Peralta [facility]roscopy (04/24/04) right knee Family History Mother Diabetes Alcohol abuse Personal history of malignant neoplasm breast Brother Cancer Bladder Sister Cancer Bladder Social History Smoking/Tobacco Use Status: Current every day Tobacco Type: cigarettes Tobacco: How many years used: 45 Quit status: considering quitting Smoking risk assessment performed?: Yes Alcohol Intake: never Drug use: Rarely Substance use type: marijuana Adopted: Yes Caregiver/Support person: No Household members: family and friend(s) Housing: house Number of Children: 3 Communication Needs: Hard of Hearing Current gender identity: female What is your relationship status?: Panel score (0-1 are the most socially isolated patients): 1 What type of physical activity do you participate in: none Seatbelt use: always Drive intox or ride w/intox drive away driver: No Working smoke detector in home: Yes Carbon monox detector in home: Yes Do you feel safe at home: Yes Do you feel safe in your relationship?: Yes
--- NOTE | 2024-03-02 12:15 | DI.RAD_ITS ---
Exam(s) XR KNEE LT 3V AP,LAT,GUI EXAM: XR KNEE LT 3V AP,LAT,GUI CLINICAL HISTORY: L knee pain. TECHNIQUE: 2D digital imaging was performed. Three views. COMPARISON: CR RIGHT KNEE 3 VIEWS from 04/26/2013 FINDINGS: BONES: No acute fracture is present. No bony destructive lesion is seen. Chronic appearing bony den sity adjacent to the upper pole of the patella. Patellar enthesophyte. JOINTS: Moderate narrowing of both femoral tibial joints. Periarticular spurring noted throughout. The knee is normally aligned. A joint effusion is seen. SOFT TISSUE: Normal. IMPRESSION: Moderate degenerative changes. DATA REPOSITORY: RADIATION DOSE DELIVERED:
--- NOTE | 2024-03-02 13:30 | NUR.NOTE ---
Crutches and crutch training provided to PT. PT tolerated well Nursing Note:
[2024-03-02 13:41] VITALS: RESP 18
== END 2024-03-02 13:40 | disposition home or self-care (01) ==
PROVIDERS: Emergency Provider Physician Assistant; PCP Nurse Practitioner
DX: M25.562 Pain in left knee (principal); Z96.651 Presence of right artificial knee joint; W19.XXXA Unspecified fall, initial encounter
CPT/HCPCS: 73562; 99283

== ENCOUNTER → 2024-03-14 10:31 | Outpatient (BNVA) | payer MEDICARE, MEDICAID, SELFPAY | PROVIDERS: PCP Nurse Practitioner; Referring Provider Nurse Practitioner; Visit Provider Podiatrist | DX: E11.621 Type 2 diabetes mellitus with foot ulcer (principal); Z89.421 Acquired absence of other right toe(s); L97.511 Non-pressure chronic ulcer of other part of right foot limited to breakdown of skin; L97.512 Non-pressure chronic ulcer of other part of right foot with fat layer exposed; F17.200 Nicotine dependence, unspecified, uncomplicated; E11.49 Type 2 diabetes mellitus with other diabetic neurological complication | CPT/HCPCS: 11042 ==

== ENCOUNTER → 2024-03-30 10:56 | Outpatient (BNVA) | payer MEDICARE, MEDICAID, SELFPAY | PROVIDERS: PCP Nurse Practitioner; Referring Provider Nurse Practitioner; Visit Provider Podiatrist | DX: E11.49 Type 2 diabetes mellitus with other diabetic neurological complication; L97.512 Non-pressure chronic ulcer of other part of right foot with fat layer exposed; E11.621 Type 2 diabetes mellitus with foot ulcer; Z89.421 Acquired absence of other right toe(s); Z87.891 Personal history of nicotine dependence; L03.031 Cellulitis of right toe; R09.89 Other specified symptoms and signs involving the circulatory and respiratory systems; L65.9 Nonscarring hair loss, unspecified; R20.8 Other disturbances of skin sensation; R23.8 Other skin changes; L60.3 Nail dystrophy; B35.1 Tinea unguium; L85.1 Acquired keratosis [keratoderma] palmaris et plantaris; R60.0 Localized edema | CPT/HCPCS: 11042; 11055 ==

== ENCOUNTER 2024-03-30 12:02 | Outpatient (REF) | payer MEDICARE, MEDICAID, SELFPAY | END 2024-03-30 12:03 | disposition home or self-care (01) | LOC: LBN 12:02 | PROVIDERS: PCP Nurse Practitioner; Visit Provider Podiatrist | DX: L97.512 Non-pressure chronic ulcer of other part of right foot with fat layer exposed (principal); E11.628 Type 2 diabetes mellitus with other skin complications; L08.9 Local infection of the skin and subcutaneous tissue, unspecified; B95.7 Other staphylococcus as the cause of diseases classified elsewhere; B95.1 Streptococcus, group B, as the cause of diseases classified elsewhere; B95.0 Streptococcus, group A, as the cause of diseases classified elsewhere | CPT/HCPCS: 87077; 87070; 87075; 87186; 87205 ==

== ENCOUNTER → 2024-04-04 01:41 | Outpatient (CLI) | payer MEDICARE, MEDICAID, SELFPAY ==
--- NOTE | 2024-04-04 11:02 | DI.RAD_ITS ---
Exam(s) XR FOOT RT COMPLETE EXAM: XR FOOT RT COMPLETE CLINICAL HISTORY: ? OSTEOMYELITIS right 3rd toe,ULCER RT FOOT,l97.512. TECHNIQUE: 2D digital imaging was performed of the right foot. Three images were obtained. AP, obl ique and lateral views were obtained. COMPARISON: CR XR FOOT RT COMPLETE from 01/11/2024 FINDINGS: BONES: No acute fracture is present. Since the prior examination there has been interval resection of the 4th toe to the neck of the proximal phalanx. There is previous amputation of the 2nd and 3rd to es at the PIP joints. No destructive changes are seen at the proximal phalanx of the 3rd toe to sugg est osteomyelitis in this region. There is an enthesophyte at the posterior patella. JOINTS: There is again seen subluxation of the 1st MTP joint with subchondral cysts and osteophytes. The findings appear stable. Degenerative changes are seen at the tarsometatarsal joints. SOFT TISSUE: Normal. IMPRESSION: No findings to suggest osteomyelitis of the 3rd toe. DATA REPOSITORY: RADIATION DOSE DELIVERED:
== END ==
PROVIDERS: PCP Nurse Practitioner; Visit Provider Podiatrist
DX: L97.512 Non-pressure chronic ulcer of other part of right foot with fat layer exposed (principal); S93.144A Subluxation of metatarsophalangeal joint of right lesser toe(s), initial encounter
CPT/HCPCS: 73630

== ENCOUNTER → 2024-04-05 08:15 | Outpatient (BNVA) | payer MEDICARE, MEDICAID, SELFPAY | PROVIDERS: PCP Nurse Practitioner; Referring Provider Nurse Practitioner; Visit Provider Podiatrist | DX: L03.031 Cellulitis of right toe; E11.49 Type 2 diabetes mellitus with other diabetic neurological complication; L97.512 Non-pressure chronic ulcer of other part of right foot with fat layer exposed; E11.621 Type 2 diabetes mellitus with foot ulcer; Z89.421 Acquired absence of other right toe(s); Z87.891 Personal history of nicotine dependence | CPT/HCPCS: 11043; 11055 ==

== ENCOUNTER → 2024-04-26 12:58 | Outpatient (BNVA) | payer MEDICARE, MEDICAID, SELFPAY | PROVIDERS: PCP Nurse Practitioner; Referring Provider Nurse Practitioner; Visit Provider Podiatrist | DX: L03.031 Cellulitis of right toe (principal); E11.49 Type 2 diabetes mellitus with other diabetic neurological complication; L97.512 Non-pressure chronic ulcer of other part of right foot with fat layer exposed; E11.621 Type 2 diabetes mellitus with foot ulcer; Z89.421 Acquired absence of other right toe(s); Z87.891 Personal history of nicotine dependence | CPT/HCPCS: 11042 ==

== ENCOUNTER 2024-04-28 12:26 | Outpatient (REF) | payer MEDICARE, MEDICAID, SELFPAY | END 2024-04-28 12:27 | disposition home or self-care (01) | LOC: LBN 12:26 | PROVIDERS: PCP Nurse Practitioner; Referring Provider Nurse Practitioner Family; Visit Provider Nurse Practitioner Family | DX: R39.89 Other symptoms and signs involving the genitourinary system (principal); N39.0 Urinary tract infection, site not specified; B96.1 Klebsiella pneumoniae [K. pneumoniae] as the cause of diseases classified elsewhere | CPT/HCPCS: 87077; 87086; 87186 ==

== ENCOUNTER → 2024-05-11 09:54 | Outpatient (BNVA) | payer MEDICARE, MEDICAID, SELFPAY | PROVIDERS: PCP Nurse Practitioner; Referring Provider Nurse Practitioner; Visit Provider Podiatrist | DX: L03.031 Cellulitis of right toe (principal); E11.49 Type 2 diabetes mellitus with other diabetic neurological complication; L97.512 Non-pressure chronic ulcer of other part of right foot with fat layer exposed; E11.621 Type 2 diabetes mellitus with foot ulcer; Z87.891 Personal history of nicotine dependence | CPT/HCPCS: 11042 ==

== ENCOUNTER → 2024-06-05 09:37 | Outpatient (BNVA) | payer MEDICARE, MEDICAID, SELFPAY | PROVIDERS: PCP Nurse Practitioner; Referring Provider Nurse Practitioner; Visit Provider Podiatrist | DX: L97.512 Non-pressure chronic ulcer of other part of right foot with fat layer exposed (principal); L03.115 Cellulitis of right lower limb; E11.49 Type 2 diabetes mellitus with other diabetic neurological complication; E11.621 Type 2 diabetes mellitus with foot ulcer; Z89.421 Acquired absence of other right toe(s); Z87.891 Personal history of nicotine dependence | CPT/HCPCS: 11042; 11720 ==

== ENCOUNTER 2024-06-14 00:46 | Outpatient (CLI) | payer MEDICARE, MEDICAID, SELFPAY ==
--- NOTE | 2024-06-14 07:45 | DI.RAD_ITS ---
Exam(s) XR FOOT RT COMPLETE EXAM: XR FOOT RT COMPLETE CLINICAL HISTORY: Raised lateral hallux,neuropathic ulcer rt foot,L97.512. TECHNIQUE: 2D digital imaging was performed. Three views. COMPARISON: CR XR FOOT RT COMPLETE from 04/04/2024 FINDINGS: BONES: No acute fracture is present. Prior amputations at the 2nd, 3rd and 4th toes appear unchanged . JOINTS: Severe degenerative changes are noted at the 1st MTP joint findings appear unchanged. SOFT TISSUE: Normal. IMPRESSION: Severe degenerative changes of 1st MTP joint. Stable appearance of amputations. DATA REPOSITORY: RADIATION DOSE DELIVERED:
== END 2024-06-14 01:06 ==
LOC: DI 00:47
PROVIDERS: PCP Nurse Practitioner; Visit Provider Podiatrist
DX: L97.512 Non-pressure chronic ulcer of other part of right foot with fat layer exposed (principal)
CPT/HCPCS: 73630

== ENCOUNTER 2024-06-20 13:29 | Outpatient (REF) | payer MEDICARE, MEDICAID, SELFPAY | END 2024-06-20 13:30 | disposition home or self-care (01) | LOC: LBN 13:29 | PROVIDERS: PCP Nurse Practitioner; Visit Provider Nurse Practitioner | DX: R30.0 Dysuria (principal); R10.9 Unspecified abdominal pain; E11.9 Type 2 diabetes mellitus without complications; R39.9 Unspecified symptoms and signs involving the genitourinary system; I10 Essential (primary) hypertension; E66.9 Obesity, unspecified | CPT/HCPCS: 87077; 87086; 87186 ==

== ENCOUNTER → 2024-06-27 09:51 | Outpatient (BNVA) | payer MEDICARE, MEDICAID, SELFPAY | PROVIDERS: PCP Nurse Practitioner; Referring Provider Nurse Practitioner; Visit Provider Podiatrist | DX: L97.512 Non-pressure chronic ulcer of other part of right foot with fat layer exposed (principal); L03.031 Cellulitis of right toe; E11.49 Type 2 diabetes mellitus with other diabetic neurological complication; E11.621 Type 2 diabetes mellitus with foot ulcer; Z89.421 Acquired absence of other right toe(s); Z87.891 Personal history of nicotine dependence | CPT/HCPCS: 11042 ==

== ENCOUNTER 2024-06-27 12:45 | Outpatient (REF) | payer MEDICARE, MEDICAID, SELFPAY | END 2024-06-27 12:46 | disposition home or self-care (01) | LOC: LBN 12:45 | PROVIDERS: PCP Nurse Practitioner; Visit Provider Podiatrist | DX: L97.512 Non-pressure chronic ulcer of other part of right foot with fat layer exposed (principal); E11.621 Type 2 diabetes mellitus with foot ulcer | CPT/HCPCS: 87077; 87070; 87075; 87186; 87205 ==

== ENCOUNTER → 2024-07-18 11:00 | Outpatient (BNVA) | payer MEDICARE, MEDICAID, SELFPAY | PROVIDERS: PCP Nurse Practitioner; Referring Provider Nurse Practitioner; Visit Provider Podiatrist | DX: L97.512 Non-pressure chronic ulcer of other part of right foot with fat layer exposed (principal); E11.621 Type 2 diabetes mellitus with foot ulcer; E11.49 Type 2 diabetes mellitus with other diabetic neurological complication; Z89.421 Acquired absence of other right toe(s); Z87.891 Personal history of nicotine dependence | CPT/HCPCS: 11042 ==

== ENCOUNTER → 2024-07-31 11:03 | Outpatient (BNVA) | payer MEDICARE, MEDICAID, SELFPAY | PROVIDERS: PCP Nurse Practitioner; Referring Provider Nurse Practitioner; Visit Provider Podiatrist | DX: L97.512 Non-pressure chronic ulcer of other part of right foot with fat layer exposed (principal); E11.621 Type 2 diabetes mellitus with foot ulcer; L03.115 Cellulitis of right lower limb; E11.49 Type 2 diabetes mellitus with other diabetic neurological complication; Z89.421 Acquired absence of other right toe(s); F17.200 Nicotine dependence, unspecified, uncomplicated | CPT/HCPCS: 11042 ==

== ENCOUNTER 2024-07-31 12:16 | Outpatient (REF) | payer MEDICARE, MEDICAID, SELFPAY | END 2024-07-31 12:17 | disposition home or self-care (01) | LOC: LBN 12:16 | PROVIDERS: PCP Nurse Practitioner; Visit Provider Podiatrist | DX: E11.621 Type 2 diabetes mellitus with foot ulcer | CPT/HCPCS: 87077; 87070; 87075; 87186; 87205 ==

== ENCOUNTER 2024-08-07 01:18 | Outpatient (CLI) | payer MEDICARE, MEDICAID, SELFPAY ==
--- NOTE | 2024-08-07 11:10 | DI.RAD_ITS ---
Exam(s) XR FOOT RT COMPLETE EXAM: XR FOOT RT COMPLETE CLINICAL HISTORY: ? osteomyelitis.ulcer rt foot with fat layer exposed,L97.512. TECHNIQUE: 2D digital imaging was performed of the right foot. Three images were obtained. AP, obl ique and lateral views were obtained. COMPARISON: CR XR FOOT RT COMPLETE from 06/14/2024 FINDINGS: BONES: No acute fracture is present. No bony destructive lesion is seen. There again seen amputations of the 2nd through 5th 4th toes which appears stable. JOINTS: No dislocation present. There is also stable arthrosis of the 1st MTP joint and the interphal angeal joint of the great toe. SOFT TISSUE: There is mild soft tissue swelling of the foot. No soft tissue gas is appreciated. IMPRESSION: 1. No radiographic evidence to suggest osteomyelitis at this time. DATA REPOSITORY: RADIATION DOSE DELIVERED:
== END 2024-08-07 01:38 ==
LOC: DI 01:18
PROVIDERS: PCP Nurse Practitioner; Visit Provider Podiatrist
DX: L97.512 Non-pressure chronic ulcer of other part of right foot with fat layer exposed (principal)
CPT/HCPCS: 73630

== ENCOUNTER 2024-08-08 02:27 | Outpatient (CLI) | payer MEDICARE, MEDICAID, SELFPAY ==
[2024-08-08 11:32] LABS: Abs Immature Grans 0.04 10^3/uL (0.0-0.06); Absolute Basophil Count 0.06 10^3/uL (0.0-0.2); Absolute Eosinophil Count 0.22 10^3/uL (0.0-0.7); Absolute Lymphocyte Count 3.09 10^3/uL (1.2-3.4); Absolute Monocyte Count 0.63 10^3/uL (0.1-0.8); Absolute Neutrophil Count 4.14 10^3/uL (1.2-6.7); Basophils % 0.7 %; Eosinophils % 2.7 %; HCT 37.4 % (36.0-46.0); HGB 12.2 g/dL (11.2-15.7); Immature Grans % 0.5 %; Lymphocytes % 37.8 %; MCH 30.1 pg (27.0-33.0); MCHC 32.6 % (32.0-36.0); MCV 92 fL (80-95); MPV 11.7 fL (8.0-11.0); Monocytes % 7.7 %; Neutrophils % 50.6 %; Platelet Count 226 10^3/uL (130-400); RBC 4.05 10^6/uL (3.93-5.22); WBC 8.18 10^3/uL (4.4-10.8)
[2024-08-08 11:34] LABS: ESR 2 mm/hr (0-30)
[2024-08-08 11:59] LABS: C-Reactive Protein 0.56 mg/dL (<or=0.5)
== END 2024-08-08 02:28 | disposition home or self-care (01) ==
LOC: LBO 02:27
PROVIDERS: PCP Nurse Practitioner; Visit Provider Podiatrist
DX: L03.90 Cellulitis, unspecified (principal); L97.519 Non-pressure chronic ulcer of other part of right foot with unspecified severity; E11.621 Type 2 diabetes mellitus with foot ulcer; L08.9 Local infection of the skin and subcutaneous tissue, unspecified
CPT/HCPCS: 36415; 85652; 85025; 86140

== ENCOUNTER → 2024-08-16 13:54 | Outpatient (BNVA) | payer MEDICARE, MEDICAID, SELFPAY | PROVIDERS: PCP Nurse Practitioner; Referring Provider Nurse Practitioner; Visit Provider Podiatrist | DX: L97.512 Non-pressure chronic ulcer of other part of right foot with fat layer exposed (principal); E11.621 Type 2 diabetes mellitus with foot ulcer; L03.115 Cellulitis of right lower limb; E11.49 Type 2 diabetes mellitus with other diabetic neurological complication; Z89.421 Acquired absence of other right toe(s); Z87.891 Personal history of nicotine dependence | CPT/HCPCS: 11042 ==

== ENCOUNTER → 2024-09-07 10:31 | Outpatient (BNVA) | payer MEDICARE, MEDICAID, SELFPAY | PROVIDERS: PCP Nurse Practitioner; Referring Provider Nurse Practitioner; Visit Provider Podiatrist | DX: L97.512 Non-pressure chronic ulcer of other part of right foot with fat layer exposed (principal); L03.031 Cellulitis of right toe; E11.49 Type 2 diabetes mellitus with other diabetic neurological complication; E11.621 Type 2 diabetes mellitus with foot ulcer; Z89.421 Acquired absence of other right toe(s); Z87.891 Personal history of nicotine dependence | CPT/HCPCS: 11042; 99213 ==

== ENCOUNTER → 2024-09-07 14:51 | Outpatient (BNVA) | payer MEDICARE, MEDICAID, SELFPAY | PROVIDERS: PCP Nurse Practitioner; Visit Provider Nurse Practitioner Gerontology | DX: R31.29 Other microscopic hematuria (principal); N39.0 Urinary tract infection, site not specified; R30.0 Dysuria | CPT/HCPCS: 99213 ==

== ENCOUNTER 2024-09-11 00:59 | Outpatient (CLI) | payer MEDICARE, MEDICAID, SELFPAY ==
--- NOTE | 2024-09-11 07:00 | DI.RAD_ITS ---
Exam(s) XR FOOT RT COMPLETE EXAM: XR FOOT RT COMPLETE CLINICAL HISTORY: Right 3/5 toe ulcers,L97.512,ulcer rt foot. TECHNIQUE: 2D digital imaging was performed. Three views. COMPARISON: CR XR FOOT RT COMPLETE from 08/07/2024 FINDINGS: BONES: No acute fracture is present. No bony destructive lesion is seen. Stable appearance of amputa tions of the 2nd through 3rd toes. JOINTS: No dislocation present. Severe degenerative changes of the 1st MTP joint. Degenerative marley ges also present at the tarsal metatarsal joints. SOFT TISSUE: Soft tissue swelling over the 3rd toes. IMPRESSION: No radiographic findings of osteomyelitis. DATA REPOSITORY: RADIATION DOSE DELIVERED:
== END 2024-09-11 01:19 ==
LOC: DI 00:59
PROVIDERS: PCP Nurse Practitioner; Visit Provider Podiatrist
DX: L97.512 Non-pressure chronic ulcer of other part of right foot with fat layer exposed (principal)
CPT/HCPCS: 73630

== ENCOUNTER 2024-09-20 13:08 | Emergency (ER) | payer MEDICARE, MEDICAID, SELFPAY ==
[2024-09-20 13:09] VITALS: BP 166/77; PULSE 83; RESP 16; TEMP 36.3; O2SAT 98
--- NOTE | 2024-09-20 13:30 | DI.RAD_ITS ---
Exam(s) XR FOOT RT COMPLETE EXAM: XR FOOT RT COMPLETE CLINICAL HISTORY: Ulcer to right 5th toe, concern for osteomyelitis. TECHNIQUE: 2D digital imaging was performed. 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 With respect of the 5th toe, there is now a pathologic appearing displaced oblique fracture through t he neck of the proximal phalanx. The appearance of the distal fragment exhibits significant bone los s which is suspicious for osteomyelitis, particularly since there appears to be an overlying skin ulc er in this region. IMPRESSION: Findings in the 5th toe suspicious for osteomyelitis with pathologic fracture in the distal aspect of the proximal phalanx.. There is an overlying skin ulcer. DATA REPOSITORY: RADIATION DOSE DELIVERED:
--- NOTE | 2024-09-20 13:34 | W.ED.GENAD ---
Discharge Plan Discharge Details Chief Complaint: Cellulitis Primary Care Provider: Anjana Gayle ED Provider: Mayra Barroso Home Meds and New Rx's Prescriptions: No Action One-A-Day Womens Formula 18 mg iron-400 mcg-500 mg tablet 1 tab PO DAILY Hair, Skin and Nails (biotin) 10,000 mcg tablet,chewable 10,000 mcg PO DAILY Patient Comments: dose unknown psyllium husk [Metamucil] 0.4 gram capsule 0.4 g PO DAILY linagliptin 5 mg tablet 5 mg PO DAILY Qty: 90 3RF fluticasone propionate [Flovent HFA] 44 mcg/actuation HFA aerosol inhaler 2 puff Inhalation BID Qty: 3 3RF estradiol 0.01 % (0.1 mg/gram) cream 1 g vaginal DIRECTED Qty: 60 3RF Rx Instructions: Insert a pea sized amount vaginally at night x4 a week cyclobenzaprine 10 mg tablet See Rx Instructions .ROUTE .COMPLEX Qty: 90 3RF Dose Instruction: TAKE ONE TABLET BY MOUTH AT BEDTIME NEEDED FOR MUSCLE SPASMS Rx Instructions: TAKE ONE TABLET BY MOUTH AT BEDTIME NEEDED FOR MUSCLE SPASMS ketoconazole 2 % cream 1 applic topical DAILY Qty: 120 6RF Rx Instructions: Apply to toenails once daily rcfbsdhi-hpzm-[id number]-C-jesse-bosw 750 mg-644 mg- 30 mg-1 mg tablet See Rx Instructions PO BID Rx Instructions: orally twice a day; 2 tabs in AM and 1 tab in PM insulin degludec [Tresiba FlexTouch U-200] 200 unit/mL (3 mL) insulin pen 80 unit subcut DAILY MDD 80 units 90 Days Qty: 36 4RF Rx Instructions: Inject 80 units subcutaneously once daily as directed tirzepatide 10 mg/0.5 mL pen injector 10 mg subcut QWEEK MDD 10 mg 28 Days Qty: 2 12RF Rx Instructions: Inject 10.0 mg subcutaneously once weekly as directed trazodone 50 mg tablet 50 mg PO QHS MDD 50 mg 90 Days Qty: 90 4RF Rx Instructions: Take 1/2 tablet (25 mg) once daily at bedtime. May increase to 1 tablet with monitoring aripiprazole [Abilify] 2 mg tablet 2 mg PO QHS Qty: 90 1RF lurasidone 120 mg tablet See Rx Instructions .ROUTE .COMPLEX Qty: 90 1RF Dose Instruction: TAKE ONE TABLET BY MOUTH EVERY EVENING - MUST ADMINISTER WITH FOOD ( AT LEAST 350 CALORIES) Rx Instructions: TAKE ONE TABLET BY MOUTH EVERY EVENING - MUST ADMINISTER WITH FOOD ( AT LEAST 350 CALORIES) lamotrigine 200 mg tablet extended release 24hr See Rx Instructions .ROUTE .COMPLEX Qty: 90 1RF Dose Instruction: TAKE ONE TABLET BY MOUTH AT BEDTIME (WITH 100MG DOSE FOR A TOTAL DAILY DOSE OF 300MG) Rx Instructions: TAKE ONE TABLET BY MOUTH AT BEDTIME (WITH 100MG DOSE FOR A TOTAL DAILY DOSE OF 300MG) lamotrigine 100 mg tablet extended release 24hr See Rx Instructions .ROUTE .COMPLEX Qty: 90 1RF Dose Instruction: TAKE ONE TABLET BY MOUTH EVERY DAY (ALONG WITH 200MG DOSE FOR A TOTAL DAILY DOSE OF 300MG) Rx Instructions: TAKE ONE TABLET BY MOUTH EVERY DAY (ALONG WITH 200MG DOSE FOR A TOTAL DAILY DOSE OF 300MG) (DME) BreatheRite MDI Spacer Spacer See Rx Instructions .ROUTE .MEDSUPPLY Qty: 1 3RF Rx Instructions: As directed for use with MDI. Please dispense what is available/covered. (DME) FreeStyle Pavan 14 Day Sensor Kit See Rx Instructions .ROUTE .MEDSUPPLY Qty: 1 12RF Rx Instructions: As directed (DME) blood-glucose meter [OneTouch Verio Meter] Misc See Rx Instructions .ROUTE .MEDSUPPLY Qty: 1 0RF Rx Instructions: E11.9 to maintain A1C <7.5, test QD, prn when needing to verify CGM reading per sampling theory teacher directions (DME) lancing device with lancets [OneTouch Delica Plus Lanc Dev] Kit See Rx Instructions .ROUTE .MEDSUPPLY Qty: 1 1RF Rx Instructions: E11.9 to maintain A1C <7.5, test QD, prn when needing to verify CGM reading per sampling theory teacher directions (DME) Prevail Underwear Misc See Rx Instructions .ROUTE .COMPLEX Qty: 96 12RF Dose Instruction: USE DIRECTED UP TO 100 PER MONTH Rx Instructions: USE DIRECTED UP TO 100 PER MONTH size L (DME) FreeStyle Pavan 2 [place] Misc 0 .ROUTE .MEDSUPPLY Qty: 1 0RF Rx Instructions: As directed (DME) OneTouch Verio test strips Strip See Rx Instructions .ROUTE .MEDSUPPLY Qty: 100 5RF Rx Instructions: E11.9 to maintain A1C <7.5, test QD cetirizine 10 mg tablet See Rx Instructions .ROUTE .COMPLEX Qty: 90 3RF Dose Instruction: TAKE ONE TABLET BY MOUTH EVERY DAY FOR ALLERGIES Rx Instructions: TAKE ONE TABLET BY MOUTH EVERY DAY FOR ALLERGIES (DME) lancets [OneTouch Delica Plus Lancet] 33 gauge misc See Rx Instructions .ROUTE .COMPLEX Qty: 100 1RF Dose Instruction: USE ONCE DAILY Rx Instructions: USE ONCE DAILY Fiasp FlexTouch U-100 Insulin 100 unit/mL (3 mL) insulin pen 1 sliding scale dose subcut AC Qty: 15 12RF Rx Instructions: Sub-Q AC; administer 10-20u ac per Insulin schedule to manage BS with meals and to keep A1c at or below 7. alcohol swabs [Alcohol Prep Pads] Pads, Medicated 1 pad TP AC & HS Qty: 400 3RF Rx Instructions: 1 pad pre FS citalopram 40 mg tablet See Rx Instructions .ROUTE .COMPLEX Qty: 90 3RF Dose Instruction: TAKE ONE TABLET BY MOUTH EVERY DAY Rx Instructions: TAKE ONE TABLET BY MOUTH EVERY DAY magnesium oxide 400 mg (241.3 mg magnesium) tablet See Rx Instructions .ROUTE .COMPLEX Qty: 90 3RF Dose Instruction: TAKE ONE TABLET BY MOUTH EVERY DAY Rx Instructions: TAKE ONE TABLET BY MOUTH EVERY DAY metformin 1,000 mg tablet See Rx Instructions .ROUTE .COMPLEX Qty: 180 3RF Dose Instruction: TAKE ONE TABLET BY MOUTH TWICE A DAY Rx Instructions: TAKE ONE TABLET BY MOUTH TWICE A DAY atorvastatin 10 mg tablet See Rx Instructions .ROUTE .COMPLEX Qty: 90 3RF Dose Instruction: TAKE ONE TABLET BY MOUTH EVERY DAY Rx Instructions: TAKE ONE TABLET BY MOUTH EVERY DAY fenofibrate micronized 67 mg capsule See Rx Instructions .ROUTE .COMPLEX Qty: 90 3RF Dose Instruction: TAKE ONE CAPSULE BY MOUTH EVERY DAY Rx Instructions: TAKE ONE CAPSULE BY MOUTH EVERY DAY MediHoney (honey) 80 % gel 1 applic topical DAILY Qty: 44 2RF pantoprazole 40 mg tablet,delayed release (DR/EC) See Rx Instructions .ROUTE .COMPLEX Qty: 90 3RF Dose Instruction: TAKE ONE TABLET BY MOUTH EVERY DAY Rx Instructions: TAKE ONE TABLET BY MOUTH EVERY DAY (DME) pen needle, diabetic [BD Ultra-Fine Short Pen Needle] 31 gauge x 5/16 needle See Rx Instructions .ROUTE .COMPLEX Qty: 600 3RF Dose Instruction: USE TO TEST SIX TIMES PER DAY TO MAINTAIN A1C LESS THAN 7 Rx Instructions: USE TO TEST SIX TIMES PER DAY TO MAINTAIN A1C LESS THAN 7 albuterol sulfate 90 mcg/actuation HFA aerosol inhaler See Rx Instructions .ROUTE .COMPLEX Qty: 8.5 6RF Dose Instruction: INHALE TWO PUFFS BY MOUTH EVERY 6 HOURS NEEDED Rx Instructions: INHALE TWO PUFFS BY MOUTH EVERY 6 HOURS NEEDED Mounjaro 7.5 mg/0.5 mL pen injector See Rx Instructions .ROUTE .COMPLEX Qty: 2 3RF Dose Instruction: INJECT 0.5ML UNDER THE SKIN ONCE WEEKLY; USE AFTER COMPLETING 5MG DOSE Rx Instructions: INJECT 0.5ML UNDER THE SKIN ONCE WEEKLY; USE AFTER COMPLETING 5MG DOSE clonidine HCl 0.1 mg tablet 0.1 mg PO BID Qty: 60 2RF Santyl 250 unit/gram ointment 1 applic topical DAILY Qty: 30 3RF Rx Instructions: right 3rd toe measures (1.1cm x 0.8cm x 0.3cm) right 5th toe measures (0.3 cm x 0.5 cm). lisinopril 40 mg tablet See Rx Instructions .ROUTE .COMPLEX Qty: 90 3RF Dose Instruction: TAKE ONE TABLET BY MOUTH EVERY DAY Rx Instructions: TAKE ONE TABLET BY MOUTH EVERY DAY meloxicam 15 mg tablet See Rx Instructions .ROUTE .COMPLEX Qty: 90 1RF Dose Instruction: TAKE ONE TABLET BY MOUTH EVERY DAY NEEDED FOR PAIN Rx Instructions: TAKE ONE TABLET BY MOUTH EVERY DAY NEEDED FOR PAIN lurasidone 20 mg tablet See Rx Instructions .ROUTE .COMPLEX Qty: 90 1RF Dose Instruction: TAKE ONE TABLET BY MOUTH EVERY MORNING - MUST ADMINISTER WITH FOOD ( AT LEAST 350 CALORIES ) Rx Instructions: TAKE ONE TABLET BY MOUTH EVERY MORNING - MUST ADMINISTER WITH FOOD ( AT LEAST 350 CALORIES ) ferrous sulfate [FeroSul] 325 mg (65 mg iron) tablet See Rx Instructions .ROUTE .COMPLEX Qty: 90 3RF Dose Instruction: TAKE ONE TABLET BY MOUTH EVERY DAY Rx Instructions: TAKE ONE TABLET BY MOUTH EVERY DAY pregabalin 200 mg capsule 200 mg PO BID Qty: 56 2RF nystatin 100,000 unit/gram cream See Rx Instructions .ROUTE .COMPLEX Qty: 60 5RF Dose Instruction: APPLY TO RASH FOUR TIMES A DAY Rx Instructions: APPLY TO RASH FOUR TIMES A DAY Regranex 0.01 % gel See Rx Instructions .ROUTE .COMPLEX Qty: 15 3RF Dose Instruction: APPLY TOPICALLY TO AFFECTED AREA ONCE DAILY Rx Instructions: APPLY TOPICALLY TO AFFECTED AREA ONCE DAILY cholecalciferol (vitamin D3) [Vitamin D3] 50 mcg (2,000 unit) capsule 2,000 unit PO DAILY black cohosh 540 mg capsule 20 mg PO DAILY HPI General Date/Time Provider Initiated Documentation: 09/20/24 13:19. HPI Narrative: Maureen is a 59year old female who presents to the emergency department today for evaluation of worsening cellulitis to right fifth toe. She reports that she has had a diabetic ulcer for the last 2 months, initially started as a blister. 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 She was treated with clindamycin and Regranex, finished the prescription for clindamycin a few days ago and says that swelling, pain, and drainage from toe has worsened. She does not feel that appearance improved greatly with antibiotics. She denies fever/chills, myalgias, nausea/vomiting, change in bowel or bladder function, change in sensation to right foot. She does have diabetic neuropathy per baseline.. Past medical history is significant for T2DM, HTN, and GERD. Physical exam remarkable for erythema to the right fifth toe, shallow ulceration noted, approximately 0.5 cm diameter weeping clear serous drainage. She does have an area of macerated white skin between the fourth and fifth toes. Tenderness to palpation on plantar aspect of base of fifth toe. She does have some mild erythema and swelling to the dorsum of the right foot, especially located over the third/fourth/fifth metatarsals. No change in pedal edema per baseline. D/dx includes but is not limited to: Diabetic ulcer with cellulitis resistant to treatment, osteomyelitis, abscess, deep space infection. No red flags concerning for necrotizing fasciitis at this time. I independently interpreted the following tests: CBC notable for mild anemia, no leukocytosis noted. BMP notable for slightly elevated creatinine of 1.2, most recent was 0.8 on 01/14/2024. CRP very elevated at 10.34. Xray concerning for osteomyelitis of 5th digit. Await[address] CT for further evaluation; MRI not available at this time. Handoff report given to Odalis Garza NP. Patient is agreeable to CT this evening, but says she would not like to stay in the hospital overnight because she admission wants to be home for . She is agreeable to returning for IV antibiotics after Thanksving dinner tomorrow Related Data Home Medications ?Medication ?Instructions ?Recorded ?Confirmed inhalational spacing device #1 ea 12/09/20 09/20/24 (BreatheRite MDI Spacer) linagliptin 5 mg tablet 5 mg PO DAILY #90 tabs 03/10/21 09/20/24 flash glucose sensor (FreeStyle #1 ea 06/03/22 09/20/24 Pavan 14 Day Sensor kit) blood-glucose meter (OneTouch #1 ea 06/05/22 09/20/24 Verio Meter) lancing device with lancets kit #1 ea 06/05/22 09/20/24 (OneTouch Delica Plus Lancing Device kit) fluticasone propionate 44 2 puff inhalation BID #3 multiple 08/19/22 09/20/24 mcg/actuation HFA aerosol inhaler units (Flovent HFA) biotin 10,000 mcg chewable tablet 10,000 mcg PO DAILY 11/03/22 09/20/24 (Hair, Skin and Nails (biotin)) lctwiltd-hic-iiyt-FA-Ca carb-vit K 1 tab PO DAILY 11/03/22 09/20/24 18 mg iron-400 mcg-500 mg tablet (One-A-Day Womens Formula) diaper,brief,adult,disposable #96 ea 11/25/22 09/20/24 (Prevail Underwear) flash glucose scanning reader #1 ea 12/03/22 09/20/24 (FreeStyle Pavan 2 [place]) psyllium husk 0.4 gram capsule 0.4 g PO DAILY 04/07/23 09/20/24 (Metamucil) blood sugar diagnostic (OneTouch #100 ea 05/14/23 09/20/24 Verio test strips) cetirizine 10 mg tablet See Rx Instructions .Route 07/12/23 09/20/24 .COMPLEX #90 tabs lancets 33 gauge (OneTouch Delica #100 ea 09/27/23 09/20/24 Plus Lancet) insulin aspart 1 sliding scale dose subcut AC #15 11/24/23 09/20/24 (niacinamide)(U-100) 100 unit/mL(3 mL mL) subcutaneous pen (Fiasp FlexTouch U-100 Insulin) alcohol swabs (Alcohol Prep Pads) 1 pad topical AC & HS #400 ea 12/24/23 09/20/24 black cohosh 540 mg capsule 20 mg PO DAILY 01/09/24 09/20/24 cholecalciferol (vitamin D3) 50 2,000 unit PO DAILY 01/09/24 09/20/24 mcg (2,000 unit) capsule (Vitamin D3) citalopram 40 mg tablet See Rx Instructions .Route 01/31/24 09/20/24 .COMPLEX #90 tabs magnesium oxide 400 mg (241.3 mg See Rx Instructions .Route 02/02/24 09/20/24 magnesium) tablet .COMPLEX #90 tabs estradiol 0.01% (0.1 mg/gram) 1 g vaginal DIRECTED #60 grams 02/10/24 09/20/24 vaginal cream ketoconazole 2 % topical cream 1 applic topical DAILY #120 grams 02/10/24 09/20/24 metformin 1,000 mg tablet See Rx Instructions .Route 02/14/24 09/20/24 .COMPLEX #180 tabs atorvastatin 10 mg tablet See Rx Instructions .Route 02/28/24 09/20/24 .COMPLEX #90 tabs cyclobenzaprine 10 mg tablet See Rx Instructions .Route 03/14/24 09/20/24 .COMPLEX #90 tabs fenofibrate micronized 67 mg See Rx Instructions .Route 03/21/24 09/20/24 capsule .COMPLEX #90 caps lamotrigine 100 mg tablet,extended See Rx Instructions .Route 03/23/24 09/20/24 release 24 hr .COMPLEX #90 tabs lamotrigine 200 mg tablet,extended See Rx Instructions .Route 03/23/24 09/20/24 release 24 hr .COMPLEX #90 tabs honey 80 % topical gel (MediHoney 1 applic topical DAILY #44 mL 05/01/24 09/20/24 (honey)) pantoprazole 40 mg tablet,delayed See Rx Instructions .Route 05/02/24 09/20/24 release .COMPLEX #90 tabs pen needle, diabetic 31 gauge x #600 ea 05/16/24 09/20/2416 (BD Ultra-Fine Short Pen Needle) albuterol sulfate 90 mcg/actuation See Rx Instructions .Route 05/31/24 09/20/24 aerosol inhaler .COMPLEX #8.5 grams glucosamine 750 [id number]-gvq See Rx Instructions PO BID 06/05/24 09/20/24 no1 644 mg-C 30 mg-jesse 1 mg tablet aripiprazole 2 mg tablet (Abilify) 2 mg PO QHS #90 tabs 06/22/24 09/20/24 lurasidone 120 mg tablet See Rx Instructions .Route 06/22/24 09/20/24 .COMPLEX #90 tabs tirzepatide 7.5 mg/0.5 mL See Rx Instructions .Route 06/27/24 09/20/24 subcutaneous pen injector .COMPLEX #2 mL (Mounjaro) insulin degludec 200 unit/mL (3 80 unit (0.4 mL) subcut DAILY 90 06/30/24 09/20/24 mL) subcutaneous pen (Tresiba days #36 mL FlexTouch U-200 insulin) tirzepatide 10 mg/0.5 mL 10 mg (0.5 mL) subcut QWEEK 28 06/30/24 09/20/24 subcutaneous pen injector days #2 mL clonidine HCl 0.1 mg tablet 0.1 mg PO BID for anxiety #60 tabs 07/12/24 09/20/24 collagenase clostridium histo. 250 1 applic topical DAILY #30 grams 07/19/24 09/20/24 unit/gram topical ointment (Santyl) lisinopril 40 mg tablet See Rx Instructions .Route 07/26/24 09/20/24 .COMPLEX #90 tabs meloxicam 15 mg tablet See Rx Instructions .Route 08/07/24 09/20/24 .COMPLEX #90 tabs trazodone 50 mg tablet 50 mg PO QHS 90 days #90 tabs 08/14/24 09/20/24 lurasidone 20 mg tablet See Rx Instructions .Route 08/16/24 09/20/24 .COMPLEX #90 tabs ferrous sulfate 325 mg (65 mg See Rx Instructions .Route 08/28/24 09/20/24 iron) tablet (FeroSul) .COMPLEX #90 tabs nystatin 100,000 unit/gram topical See Rx Instructions .Route 08/28/24 09/20/24 cream .COMPLEX #60 grams pregabalin 200 mg capsule 200 mg PO BID #56 caps 08/28/24 09/20/24 becaplermin 0.01 % topical gel See Rx Instructions .Route 09/19/24 09/20/24 (Regranex) .COMPLEX #15 grams Previous Rx's ?Medication ?Instructions ?Recorded inhalational spacing device #1 ea 12/09/20 (BreatheRite MDI Spacer) linagliptin 5 mg tablet 5 mg PO DAILY #90 tabs 03/10/21 flash glucose sensor (FreeStyle #1 ea 06/03/22 Pavan 14 Day Sensor kit) blood-glucose meter (OneTouch #1 ea 06/05/22 Verio Meter) lancing device with lancets kit #1 ea 06/05/22 (OneTouch Delica Plus Lancing Device kit) fluticasone propionate 44 2 puff inhalation BID #3 multiple 08/19/22 mcg/actuation HFA aerosol inhaler units (Flovent HFA) diaper,brief,adult,disposable #96 ea 11/25/22 (Prevail Underwear) flash glucose scanning reader #1 ea 12/03/22 (FreeStyle Pavan 2 [place]) blood sugar diagnostic (OneTouch #100 ea 05/14/23 Verio test strips) cetirizine 10 mg tablet See Rx Instructions .Route 07/12/23 .COMPLEX #90 tabs lancets 33 gauge (OneTouch Delica #100 ea 09/27/23 Plus Lancet) insulin aspart 1 sliding scale dose subcut AC #15 11/24/23 (niacinamide)(U-100) 100 unit/mL(3 mL mL) subcutaneous pen (Fiasp FlexTouch U-100 Insulin) alcohol swabs (Alcohol Prep Pads) 1 pad topical AC & HS #400 ea 12/24/23 citalopram 40 mg tablet See Rx Instructions .Route 01/31/24 .COMPLEX #90 tabs magnesium oxide 400 mg (241.3 mg See Rx Instructions .Route 02/02/24 magnesium) tablet .COMPLEX #90 tabs estradiol 0.01% (0.1 mg/gram) 1 g vaginal DIRECTED #60 grams 02/10/24 vaginal cream ketoconazole 2 % topical cream 1 applic topical DAILY #120 grams 04/18/24 metformin 1,000 mg tablet See Rx Instructions .Route 02/14/24 .COMPLEX #180 tabs atorvastatin 10 mg tablet See Rx Instructions .Route 02/28/24 .COMPLEX #90 tabs cyclobenzaprine 10 mg tablet See Rx Instructions .Route 03/14/24 .COMPLEX #90 tabs fenofibrate micronized 67 mg See Rx Instructions .Route 03/21/24 capsule .COMPLEX #90 caps lamotrigine 100 mg tablet,extended See Rx Instructions .Route 03/23/24 release 24 hr .COMPLEX #90 tabs lamotrigine 200 mg tablet,extended See Rx Instructions .Route 03/23/24 release 24 hr .COMPLEX #90 tabs honey 80 % topical gel (MediHoney 1 applic topical DAILY #44 mL 05/01/24 (honey)) pantoprazole 40 mg tablet,delayed See Rx Instructions .Route 05/02/24 release .COMPLEX #90 tabs pen needle, diabetic 31 gauge x #600 ea 05/16/24 5/16 (BD Ultra-Fine Short Pen Needle) albuterol sulfate 90 mcg/actuation See Rx Instructions .Route 05/31/24 aerosol inhaler .COMPLEX #8.5 grams aripiprazole 2 mg tablet (Abilify) 2 mg PO QHS #90 tabs 06/22/24 lurasidone 120 mg tablet See Rx Instructions .Route 06/22/24 .COMPLEX #90 tabs tirzepatide 7.5 mg/0.5 mL See Rx Instructions .Route 06/27/24 subcutaneous pen injector .COMPLEX #2 mL (Mounjaro) insulin degludec 200 unit/mL (3 80 unit (0.4 mL) subcut DAILY 90 06/30/24 mL) subcutaneous pen (Tresiba days #36 mL FlexTouch U-200 insulin) tirzepatide 10 mg/0.5 mL 10 mg (0.5 mL) subcut QWEEK 28 06/30/24 subcutaneous pen injector days #2 mL clonidine HCl 0.1 mg tablet 0.1 mg PO BID for anxiety #60 tabs 07/12/24 collagenase clostridium histo. 250 1 applic topical DAILY #30 grams 07/19/24 unit/gram topical ointment (Santyl) lisinopril 40 mg tablet See Rx Instructions .Route 07/26/24 .COMPLEX #90 tabs meloxicam 15 mg tablet See Rx Instructions .Route 08/07/24 .COMPLEX #90 tabs trazodone 50 mg tablet 50 mg PO QHS 90 days #90 tabs 08/14/24 lurasidone 20 mg tablet See Rx Instructions .Route 08/16/24 .COMPLEX #90 tabs ferrous sulfate 325 mg (65 mg See Rx Instructions .Route 08/28/24 iron) tablet (FeroSul) .COMPLEX #90 tabs nystatin 100,000 unit/gram topical See Rx Instructions .Route 08/28/24 cream .COMPLEX #60 grams pregabalin 200 mg capsule 200 mg PO BID #56 caps 08/28/24 becaplermin 0.01 % topical gel See Rx Instructions .Route 09/19/24 (Regranex) .COMPLEX #15 grams Allergies Allergy/AdvReac Type Severity Reaction Status Date / Time Sulfa (Sulfonamide Allergy Intermediate Swelling, Verified 09/20/24 13:15 Antibiotics) difficulty breathing niacin AdvReac Intermediate HIVES Verified 09/20/24 13:15 amoxicillin AdvReac Mild Other (See Verified 09/20/24 13:15 Comment) General Stated Complaint: Cellulitis JOSE: 3 Review of Systems Narrative: see HPI Exam Const General: cooperative, healthy appearing, comfortable, no acute distress and well developed Orientation: alert and oriented x3 Resp Effort & Inspection: normal respiratory effort and able to speak in complete sentences Extrem Right lower extremity: normal capillary refill, edema (dorsum of foot) and foot (diabetic ulcer, lateral aspect of 5th toe, approx 5 mm) Details: normal capillary refill, tenderness Location: of the base of the 5th metatarsal and warmth Location: of the dorsal foot; no laceration, no ecchymosis, no crepitus and no foreign bodies Left lower extremity: normal to inspection and foot Details: normal capillary refill, normal to inspection and no edema Other: Course Vital Signs Vital signs: Vital Signs Temperature 36.3 C L 09/20/24 13:09 Pulse 83 09/20/24 13:09 Respiratory Rate 16 09/20/24 13:09 Blood Pressure 166/77 H 09/20/24 13:09 Pulse Oximetry 98 09/20/24 13:09 Temperature 36.3 C L 09/20/24 13:09 Pulse 83 09/20/24 13:09 Respiratory Rate 16 09/20/24 13:09 Respiratory Effort Normal, Non-Labored 09/20/24 13:13 Blood Pressure 166/77 H 09/20/24 13:09 Blood Pressure Position Sitting 09/20/24 13:09 Pulse Oximetry 98 09/20/24 13:09 Oxygen Delivery Method Room Air 09/20/24 13:09 Oxygen Flow Rate 0 09/20/24 13:09 Pain Level 6 09/20/24 13:09 Medical Decision Making Quality:SDOH Health Related Social Needs: No Data to Display PFSH All Active Problems UTI symptoms (Acute) Neuropathic ulcer of right foot with fat layer exposed (Acute) Non-healing ulcer of right foot (Acute) Chronic ulcer of right foot (Acute) Diabetic ulcer of right foot (Acute) Ulcer of right foot with fat layer exposed (Acute) Recurrent UTI (Acute) Quit smoking within past year (Acute) QUIT, x 1 month, 02/03/24, Visit for wound check (Acute) Depression (Chronic) Cellulitis (Acute) Diabetic infection of right foot (Acute) Acute bronchitis (Acute) History of amputation of lesser toe of right foot (Acute) Onychomycosis (Acute) Ulcer of right foot limited to breakdown of skin (Acute) Leukocytes in urine (Acute) Migraine headache without aura (Acute) Corns and callosities (Acute) Nail dystrophy (Acute) Dysuria (Acute) Ulcer of toe due to diabetes mellitus (Acute) Pain of left sacroiliac joint (Acute) Low back pain (Acute) Routine gynecological examination (Acute) Routine medical exam (Acute) Hyperlipidemia (Acute) Daytime somnolence (Acute) Obesity (Chronic) Anemia (Chronic) Polypharmacy (Acute) Memory deficit (Acute) Falls (Acute) Slurred speech (Acute) Dizziness (Acute) Blurred vision (Acute) Abnormal urine (Acute) UTI (urinary tract infection) (Acute) Mild cataract (Acute ~11/2020) Diabetic retinopathy, nonproliferative, mild (Acute ~11/2020) OD-mild OS-none Lung cancer screening declined by patient (Acute) Mammogram declined (Acute) Colon cancer screening declined (Acute) Osteomyelitis (Acute) Cellulitis of toe (Acute) Mixed hearing loss, bilateral (Acute ~04/01/20) Chest pain (Acute) Smoker (Acute) QUIT, x 1 month, 02/03/24, ik Low HDL (under 40) (Acute) 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 Unspecified urinary incontinence (Acute 10/30/11) Type II diabetes mellitus with neurological manifestations (Acute 04/10/13) Tobacco abuse disorder (Acute 06/08/17) QUIT, x 1 month, 02/03/24, ik Nocturia more than twice per night (Acute 05/20/16) Microscopic hematuria (Acute 02/25/16) Hearing loss (Acute 04/21/13) B/L HEARING AIDS Essential hypertension (Acute 10/30/11) Extrinsic asthma (Acute 08/26/12) Diabetic neuropathy (Acute 11/29/13) Lexie 10/2013 Depressive disorder (Chronic 10/30/11) [facility] [place]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 Medical History Amputation of second toe, right, traumatic Dr Don 04/03/2020 due to ulcer and DM RH Obesity (BMI 30-39.9) (10/30/11) Hypertriglyceridemia (08/14/13) Surgical History Amputation of toe of right foot (~12/2023) 4TH TOE due to cellulitis, gangrenous necrosis, osteomyelitis Dr Peralta Arthroscopy (04/24/04) right knee Family History Mother Diabetes Alcohol abuse Personal history of malignant neoplasm breast Brother Cancer Bladder Sister Cancer Bladder Social History Smoking/Tobacco Use Status: Current every day Tobacco Type: cigarettes Tobacco: How many years used: 45 Quit status: considering quitting Smoking risk assessment performed?: Yes Alcohol Intake: never Drug use: Current Sobriety Substance use type: does not use Adopted: Yes Caregiver/Support person: No Household members: family and friend(s) Housing: house Number of Children: 3 Communication Needs: Hard of Hearing Current gender identity: female What is your relationship status?: Panel score (0-1 are the most socially isolated patients): 1 What type of physical activity do you participate in: none Seatbelt use: always 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 She is seen by podiatry. X-ray showed concern for osteomyelitis, CT ordered. Last updated by Mayra Barroso at 09/20/24 16:04
[2024-09-20 14:09] LABS: Abs Immature Grans 0.07 10^3/uL (0.0-0.06); Absolute Basophil Count 0.04 10^3/uL (0.0-0.2); Absolute Eosinophil Count 0.13 10^3/uL (0.0-0.7); Absolute Monocyte Count 0.93 10^3/uL (0.1-0.8); Absolute Neutrophil Count 7.08 10^3/uL (1.2-6.7); BUN 16 mg/dL (7-18); Basophils % 0.4 %; C-Reactive Protein 10.34 mg/dL (<or=0.5); CREATININE 1.2 mg/dL (0.55-1.02); Calcium 9.1 mg/dL (8.5-10.1); Chloride 102 mmol/L (98-107); Eosinophils % 1.2 %; Glucose 158 mg/dL (74-106); HCT 34.1 % (36.0-46.0); HGB 10.9 g/dL (11.2-15.7); Immature Grans % 0.7 %; Lymphocytes % 23.3 %; MCH 29.2 pg (27.0-33.0); MCV 91 fL (80-95); MPV 11.8 fL (8.0-11.0); Monocytes % 8.7 %; Neutrophils % 65.7 %; Platelet Count 215 10^3/uL (130-400); Potassium 4.4 mmol/L (3.5-5.1); RBC 3.73 10^6/uL (3.93-5.22); RDW 12.2 % (11.7-14.6); Sodium 138 mmol/L (136-145); WBC 10.75 10^3/uL (4.4-10.8)
[2024-09-20 14:13] LABS: ESR 15 mm/hr (0-30)
[2024-09-20 14:34] VITALS: BP 166/77; PULSE 83; RESP 16; TEMP 36.3; O2SAT 98
--- NOTE | 2024-09-20 16:00 | DI.CT_ITS ---
Exam(s) CT LOWER EXTREMITY RT W EXAM: CT LOWER EXTREMITY RT W CLINICAL HISTORY: ?osteomyelitis of 5 digit. TECHNIQUE: Imaging Protocol: Axial computed tomography images with coronal and sagittal reformatted images were created and reviewed. CONTRAST MATERIAL: Intravenous: Omnipaque 350 Contrast volume:100 mL contrast route:IV - COMPARISON: CR XR FOOT RT COMPLETE from 09/20/2024 FINDINGS: OSSEOUS: There are degenerative osteoarthritic changes in the knee, most prominent in the medial comp artment. No fractures of the tibia and fibula. In the foot there are degenerative changes most prominent in the great toe metatarsophalangeal joint and also significant in the 2nd and 3rd tarsometatarsal joints. More distally there are amputations of the mid and distal phalanges of the 2nd, 3rd, and 4th toes. N o osteomyelitis at these levels. However, in the 5th toe there is evidence of osteomyelitis involvin g the distal aspect of the pathologically fractured proximal phalanx. There may also be involvement of the 5th distal phalanx. SOFT TISSUES: There appears to be an ulcer in the distal aspect of the 5th toe. There is subjacent e mike. IMPRESSION: Findings suspicious for osteomyelitis of the phalanges of the 5th toe. 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 Called by myself to ER provider 09/20/2024 5:15 p.m. RADIATION DOSE DELIVERED: 425.22mGy.cm Total DLP DATA REPOSITORY: All CT scans at this facility are submitted to the National Radiology Data Registry (NRDR) Dose Index Registry (DIR) with the [employer] (ACR). RADIATION OPTIMIZATION: All CT scans at this facility use at least one of these dose optimization te chniques: automated exposure control; mA and/or kV adjustment per patient size (includes targeted exa ms where dose is matched to clinical indication); or iterative reconstruction.
[2024-09-20] MEDS: Omnipaque 350 MG/ML 100 ML BTL IJ (16:29)
[2024-09-20] MEDS: Normal Saline - Diluent 50 ML VIAL IJ (16:30)
--- NOTE | 2024-09-20 16:47 | ED.PROG_ITS ---
Date of service: 09/20/24 Time of Service: 16:47 Medical Decision Making Care assumed from provider (Mayra Pope NP) Please see their initial HPI, PE, and documentation. Discussed patient details and case and pending workup and disposition. Patient is hemodynamically stable, and alert and oriented. At the time of signout patient has just returned from CT imaging. I did discuss with her at length regarding admission due to osteomyelitis of her right fifth toe. She is agreeable to admission at this time. Will order vancomycin and ceftriaxone. Patient just finished a round of clindamycin. Has presented for increased redness and swelling to her right foot. She does have a past medical history of type 2 diabetes and multiple previous toe amputations. Awaiting CT results. Blood cultures x 2 ordered, vancomycin 2 g IV piggyback and ceftriaxone 2 g IV piggyback ordered. Spoke with hospitalist, he requests to try to get in touch with podiatry, their office closes at 4pm, no answer at this time. Will re-convene with hospitalist. After discussion with hospitalist patient is deemed to be safe to be discharged home on high-dose Cipro with close follow-up with podiatry on Wednesday. 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 Patient would prefer to be discharged home on oral antibiotics at this time. She has received 2 g of Rocephin IV piggyback while here in the ER we will give her 750 mg of Cipro p.o. prior to her discharge home and send her with a couple of doses of Cipro to go. We will yao the redness and have patient return sooner for any spreading of the redness swelling drainage fever chills or any worsening. Patient remained hemodynamically stable and afebrile throughout the remainder of her stay. This text was generated using [employer] system, please disregard any oddities of phrase or misspellings. Medical Records Medical records reviewed: Yes I reviewed the patient's medical records. Imaging Data Radiologic Study: Imaging: CT Scan Radiologist's impression: FINDINGS: OSSEOUS: There are degenerative osteoarthritic changes in the knee, most prominent in the medial compartment. No fractures of the tibia and fibula. In the foot there are degenerative changes most prominent in the great toe metatarsophalangeal joint and also significant in the 2nd and 3rd tarsometatarsal joints. More distally there are amputations of the mid and distal phalanges of the 2nd, 3rd, and 4th toes. No osteomyelitis at these levels. However, in the 5th toe there is evidence of osteomyelitis involving the distal aspect of the pathologically fractured proximal phalanx. There may also be involvement of the 5th distal phalanx. SOFT TISSUES: There appears to be an ulcer in the distal aspect of the 5th toe. There is subjacent edema. IMPRESSION: Findings suspicious for osteomyelitis of the phalanges of the 5th toe. Severe osteoarthritis of the great toe metatarsophalangeal joint as well as other articulations at the midfoot level. Called by myself to ER provider 09/20/2024 5:15 p.m. Lab Data Lab results reviewed: Yes I reviewed the patient's lab results. Labs: 09/20/24 16:48 Blood Blood Culture - Pending 09/20/24 16:48 Blood Blood Culture - Pending 09/20/24 14:12 Toe - Right Fifth Digit Skin Culture - Pending Laboratory Tests Range/Units 09/20/24 13:51 WBC (4.4-10.8) 10^3/uL 10.75 RBC (3.93-5.22) 10^6/uL 3.73 L Hgb (11.2-15.7) g/dL 10.9 L Hct (36.0-46.0) % 34.1 L MCV (80-95) fL 91 MCH (27.0-33.0) pg 29.2 MCHC (32.0-36.0) % 32.0 RDW (11.7-14.6) % 12.2 Plt Count (130-400) 10^3/uL 215 MPV (8.0-11.0) fL 11.8 H Immature Gran % % 0.7 Neutrophils % % 65.7 Lymphocytes % % 23.3 Monocytes % % 8.7 Eosinophils % % 1.2 Basophils % % 0.4 Nucleated RBC % (0.0-0.3) % 0.0 Absolute Neutrophils (1.2-6.7) 10^3/uL 7.08 H Absolute Lymphocytes (1.2-3.4) 10^3/uL 2.50 Absolute Monocytes (0.1-0.8) 10^3/uL 0.93 H Absolute Eosinophils (0.0-0.7) 10^3/uL 0.13 Absolute Basophils (0.0-0.2) 10^3/uL 0.04 ESR (0-30) mm/hr 15 Sodium (136-145) mmol/L 138 Potassium (3.5-5.1) mmol/L 4.4 Chloride (98-107) mmol/L 102 Carbon Dioxide (21.0-32.0) mmol/L 28.0 Anion Gap (3-11) mmol/L 8.0 BUN (7-18) mg/dL 16 Creatinine (0.55-1.02) mg/dL 1.2 H Est GFR (CKD-EPI 2020) (mL/min/1.73m2) 51.50 Glucose (74-106) mg/dL 158 H Calcium (8.5-10.1) mg/dL 9.1 C-Reactive Protein (<or=0.5) mg/dL 10.34 H Quality:SDOH Health Related Social Needs: No Data to Display Sign Out Sign Out Data: Sign Out Comment: 59-year-old female with T2DM and 2 months of diabetic ulcer on fifth digit of right foot presented to ED for increasing redness, swelling, and pain over the last couple of days since stopping clindamycin for cellulitis. She is seen by podiatry. X-ray showed concern for osteomyelitis, CT ordered. Last updated by Mayra Barroso at 09/20/24 16:04 Discharge Plan Disposition Patient Disposition: Home Condition: Stable Discharge Details Clinical Impression: Osteomyelitis of fifth toe of right foot Primary Care Provider: Anjana Gayle ED Provider: Odalis Puga Home Meds and New Rx's Prescriptions: New ciprofloxacin HCl 750 mg tablet 750 mg PO BID 10 Days Qty: 20 0RF Rx Instructions: Take 1 tablet twice daily for the next 10 days No Action One-A-Day Womens Formula 18 mg iron-400 mcg-500 mg tablet 1 tab PO DAILY Hair, Skin and Nails (biotin) 10,000 mcg tablet,chewable 10,000 mcg PO DAILY Patient Comments: dose unknown psyllium husk [Metamucil] 0.4 gram capsule 0.4 g PO DAILY linagliptin 5 mg tablet 5 mg PO DAILY Qty: 90 3RF fluticasone propionate [Flovent HFA] 44 mcg/actuation HFA aerosol inhaler 2 puff Inhalation BID Qty: 3 3RF estradiol 0.01 % (0.1 mg/gram) cream 1 g vaginal DIRECTED Qty: 60 3RF Rx Instructions: Insert a pea sized amount vaginally at night x4 a week cyclobenzaprine 10 mg tablet See Rx Instructions .ROUTE .COMPLEX Qty: 90 3RF Dose Instruction: TAKE ONE TABLET BY MOUTH AT BEDTIME NEEDED FOR MUSCLE SPASMS Rx Instructions: TAKE ONE TABLET BY MOUTH AT BEDTIME NEEDED FOR MUSCLE SPASMS ketoconazole 2 % cream 1 applic topical DAILY Qty: 120 6RF Rx Instructions: Apply to toenails once daily [id number] 750 mg-644 mg- 30 mg-1 mg tablet See Rx Instructions PO BID Rx Instructions: orally twice a day; 2 tabs in AM and 1 tab in PM insulin degludec [Tresiba FlexTouch U-200] 200 unit/mL (3 mL) insulin pen 80 unit subcut DAILY MDD 80 units 90 Days Qty: 36 4RF Rx Instructions: Inject 80 units subcutaneously once daily as directed tirzepatide 10 mg/0.5 mL pen injector 10 mg subcut QWEEK MDD 10 mg 28 Days Qty: 2 12RF Rx Instructions: Inject 10.0 mg subcutaneously once weekly as directed trazodone 50 mg tablet 50 mg PO QHS MDD 50 mg 90 Days Qty: 90 4RF Rx Instructions: Take 1/2 tablet (25 mg) once daily at bedtime. May increase to 1 tablet with monitoring aripiprazole [Abilify] 2 mg tablet 2 mg PO QHS Qty: 90 1RF lurasidone 120 mg tablet See Rx Instructions .ROUTE .COMPLEX Qty: 90 1RF Dose Instruction: TAKE ONE TABLET BY MOUTH EVERY EVENING - MUST ADMINISTER WITH FOOD ( AT LEAST 350 CALORIES) Rx Instructions: TAKE ONE TABLET BY MOUTH EVERY EVENING - MUST ADMINISTER WITH FOOD ( AT LEAST 350 CALORIES) lamotrigine 200 mg tablet extended release 24hr See Rx Instructions .ROUTE .COMPLEX Qty: 90 1RF Dose Instruction: TAKE ONE TABLET BY MOUTH AT BEDTIME (WITH 100MG DOSE FOR A TOTAL DAILY DOSE OF 300MG) Rx Instructions: TAKE ONE TABLET BY MOUTH AT BEDTIME (WITH 100MG DOSE FOR A TOTAL DAILY DOSE OF 300MG) lamotrigine 100 mg tablet extended release 24hr See Rx Instructions .ROUTE .COMPLEX Qty: 90 1RF Dose Instruction: TAKE ONE TABLET BY MOUTH EVERY DAY (ALONG WITH 200MG DOSE FOR A TOTAL DAILY DOSE OF 300MG) Rx Instructions: TAKE ONE TABLET BY MOUTH EVERY DAY (ALONG WITH 200MG DOSE FOR A TOTAL DAILY DOSE OF 300MG) (DME) BreatheRite MDI Spacer Spacer See Rx Instructions .ROUTE .MEDSUPPLY Qty: 1 3RF Rx Instructions: As directed for use with MDI. Please dispense what is available/covered. (DME) FreeStyle Pavan 14 Day Sensor Kit See Rx Instructions .ROUTE .MEDSUPPLY Qty: 1 12RF Rx Instructions: As directed (DME) blood-glucose meter [OneTouch Verio Meter] Misc See Rx Instructions .ROUTE .MEDSUPPLY Qty: 1 0RF Rx Instructions: E11.9 to maintain A1C <7.5, test QD, prn when needing to verify CGM reading per global expansion sales director directions (DME) lancing device with lancets [OneTouch Delica Plus Lanc Dev] Kit See Rx Instructions .ROUTE .MEDSUPPLY Qty: 1 1RF Rx Instructions: E11.9 to maintain A1C <7.5, test QD, prn when needing to verify CGM reading per global expansion sales director directions (DME) Prevail Underwear Misc See Rx Instructions .ROUTE .COMPLEX Qty: 96 12RF Dose Instruction: USE DIRECTED UP TO 100 PER MONTH Rx Instructions: USE DIRECTED UP TO 100 PER MONTH size L (DME) FreeStyle Pavan 2 [place] Misc 0 .ROUTE .MEDSUPPLY Qty: 1 0RF Rx Instructions: As directed (DME) OneTouch Verio test strips Strip See Rx Instructions .ROUTE .MEDSUPPLY Qty: 100 5RF Rx Instructions: E11.9 to maintain A1C <7.5, test QD cetirizine 10 mg tablet See Rx Instructions .ROUTE .COMPLEX Qty: 90 3RF Dose Instruction: TAKE ONE TABLET BY MOUTH EVERY DAY FOR ALLERGIES Rx Instructions: TAKE ONE TABLET BY MOUTH EVERY DAY FOR ALLERGIES (DME) lancets [OneTouch Delica Plus Lancet] 33 gauge misc See Rx Instructions .ROUTE .COMPLEX Qty: 100 1RF Dose Instruction: USE ONCE DAILY Rx Instructions: USE ONCE DAILY Fiasp FlexTouch U-100 Insulin 100 unit/mL (3 mL) insulin pen 1 sliding scale dose subcut AC Qty: 15 12RF Rx Instructions: Sub-Q AC; administer 10-20u ac per Insulin schedule to manage BS with meals and to keep A1c at or below 7. alcohol swabs [Alcohol Prep Pads] Pads, Medicated 1 pad TP AC & HS Qty: 400 3RF Rx Instructions: 1 pad pre FS citalopram 40 mg tablet See Rx Instructions .ROUTE .COMPLEX Qty: 90 3RF Dose Instruction: TAKE ONE TABLET BY MOUTH EVERY DAY Rx Instructions: TAKE ONE TABLET BY MOUTH EVERY DAY magnesium oxide 400 mg (241.3 mg magnesium) tablet See Rx Instructions .ROUTE .COMPLEX Qty: 90 3RF Dose Instruction: TAKE ONE TABLET BY MOUTH EVERY DAY Rx Instructions: TAKE ONE TABLET BY MOUTH EVERY DAY metformin 1,000 mg tablet See Rx Instructions .ROUTE .COMPLEX Qty: 180 3RF Dose Instruction: TAKE ONE TABLET BY MOUTH TWICE A DAY Rx Instructions: TAKE ONE TABLET BY MOUTH TWICE A DAY atorvastatin 10 mg tablet See Rx Instructions .ROUTE .COMPLEX Qty: 90 3RF Dose Instruction: TAKE ONE TABLET BY MOUTH EVERY DAY Rx Instructions: TAKE ONE TABLET BY MOUTH EVERY DAY fenofibrate micronized 67 mg capsule See Rx Instructions .ROUTE .COMPLEX Qty: 90 3RF Dose Instruction: TAKE ONE CAPSULE BY MOUTH EVERY DAY Rx Instructions: TAKE ONE CAPSULE BY MOUTH EVERY DAY MediHoney (honey) 80 % gel 1 applic topical DAILY Qty: 44 2RF pantoprazole 40 mg tablet,delayed release (DR/EC) See Rx Instructions .ROUTE .COMPLEX Qty: 90 3RF Dose Instruction: TAKE ONE TABLET BY MOUTH EVERY DAY Rx Instructions: TAKE ONE TABLET BY MOUTH EVERY DAY (DME) pen needle, diabetic [BD Ultra-Fine Short Pen Needle] 31 gauge x 5/16 needle See Rx Instructions .ROUTE .COMPLEX Qty: 600 3RF Dose Instruction: USE TO TEST SIX TIMES PER DAY TO MAINTAIN A1C LESS THAN 7 Rx Instructions: USE TO TEST SIX TIMES PER DAY TO MAINTAIN A1C LESS THAN 7 albuterol sulfate 90 mcg/actuation HFA aerosol inhaler See Rx Instructions .ROUTE .COMPLEX Qty: 8.5 6RF Dose Instruction: INHALE TWO PUFFS BY MOUTH EVERY 6 HOURS NEEDED Rx Instructions: INHALE TWO PUFFS BY MOUTH EVERY 6 HOURS NEEDED clonidine HCl 0.1 mg tablet 0.1 mg PO BID Qty: 60 2RF Santyl 250 unit/gram ointment 1 applic topical DAILY Qty: 30 3RF Rx Instructions: right 3rd toe measures (1.1cm x 0.8cm x 0.3cm) right 5th toe measures (0.3 cm x 0.5 cm). lisinopril 40 mg tablet See Rx Instructions .ROUTE .COMPLEX Qty: 90 3RF Dose Instruction: TAKE ONE TABLET BY MOUTH EVERY DAY Rx Instructions: TAKE ONE TABLET BY MOUTH EVERY DAY meloxicam 15 mg tablet See Rx Instructions .ROUTE .COMPLEX Qty: 90 1RF Dose Instruction: TAKE ONE TABLET BY MOUTH EVERY DAY NEEDED FOR PAIN Rx Instructions: TAKE ONE TABLET BY MOUTH EVERY DAY NEEDED FOR PAIN lurasidone 20 mg tablet See Rx Instructions .ROUTE .COMPLEX Qty: 90 1RF Dose Instruction: TAKE ONE TABLET BY MOUTH EVERY MORNING - MUST ADMINISTER WITH FOOD ( AT LEAST 350 CALORIES ) Rx Instructions: TAKE ONE TABLET BY MOUTH EVERY MORNING - MUST ADMINISTER WITH FOOD ( AT LEAST 350 CALORIES ) ferrous sulfate [FeroSul] 325 mg (65 mg iron) tablet See Rx Instructions .ROUTE .COMPLEX Qty: 90 3RF Dose Instruction: TAKE ONE TABLET BY MOUTH EVERY DAY Rx Instructions: TAKE ONE TABLET BY MOUTH EVERY DAY pregabalin 200 mg capsule 200 mg PO BID Qty: 56 2RF nystatin 100,000 unit/gram cream See Rx Instructions .ROUTE .COMPLEX Qty: 60 5RF Dose Instruction: APPLY TO RASH FOUR TIMES A DAY Rx Instructions: APPLY TO RASH FOUR TIMES A DAY Regranex 0.01 % gel See Rx Instructions .ROUTE .COMPLEX Qty: 15 3RF Dose Instruction: APPLY TOPICALLY TO AFFECTED AREA ONCE DAILY Rx Instructions: APPLY TOPICALLY TO AFFECTED AREA ONCE DAILY cholecalciferol (vitamin D3) [Vitamin D3] 50 mcg (2,000 unit) capsule 2,000 unit PO DAILY black cohosh 540 mg capsule 20 mg PO DAILY Discharge Instructions Instructions: Osteomyelitis in adults Additional Instructions: At this time it appears you have an infection in your bone called osteomyelitis in the fifth toe of your right foot. Please take the antibiotics the cipro floxacin 750 mg twice a day for the next 10 days as directed. Please take this with yogurt or a probiotic. Please call your subsystems engineer on Wednesday to get a follow-up appointment. I do recommend that you be seen within the next 3 to 5 days. Please return to the ER for any worsening redness, swelling drainage fever chills or feeling sicker at any time. Thank you for allowing us to care for you today. Keep your foot clean and dry. Wash with soap and water daily allow to air dry at least an hour a day. Referrals: Khadra Peralta DPM [[facility] STAFF PHYSICIAN] - 3 days (Osteomyelitis Right foot) Discharge Data Discharge Date/Time-TO BE ENTERED AT DEPARTURE: 09/20/24 17:52
[2024-09-20] MEDS: cefTRIAXone 2 GM/50 ML BAG IVPB (17:08)
[2024-09-20 17:24] VITALS: BP 124/51; PULSE 65; RESP 17; O2SAT 97
[2024-09-20] MEDS: Ciprofloxacin 500 MG TAB PO (17:39)
[2024-09-20] MEDS: Ciprofloxacin 250 MG TAB PO (17:39)
[2024-09-20 17:49] VITALS: BP 124/51; PULSE 65; RESP 17; TEMP 36.8; O2SAT 97
== END 2024-09-20 17:52 | disposition home or self-care (01) ==
PROVIDERS: Nurse Practitioner Family; Emergency Provider Registered Nurse Emergency; PCP Nurse Practitioner
DX: E11.621 Type 2 diabetes mellitus with foot ulcer (principal); M19.071 Primary osteoarthritis, right ankle and foot; M86.171 Other acute osteomyelitis, right ankle and foot
CPT/HCPCS: 00123; 80048; 85652; 87040; 87077; 96365; 99285; 73630; 73701; 85025; 86140; 87070; 87186; J0696; J3490

== ENCOUNTER → 2024-09-25 12:59 | Outpatient (BNVA) | payer MEDICARE, MEDICAID, SELFPAY | PROVIDERS: PCP Nurse Practitioner; Referring Provider Nurse Practitioner; Visit Provider Podiatrist | DX: Z51.89 Encounter for other specified aftercare (principal); L97.512 Non-pressure chronic ulcer of other part of right foot with fat layer exposed; E11.621 Type 2 diabetes mellitus with foot ulcer; L03.115 Cellulitis of right lower limb; E11.49 Type 2 diabetes mellitus with other diabetic neurological complication; Z89.421 Acquired absence of other right toe(s); Z87.891 Personal history of nicotine dependence; M86.9 Osteomyelitis, unspecified | CPT/HCPCS: 99215 ==

== ENCOUNTER → 2024-10-02 10:47 | Outpatient (BNVA) | payer MEDICARE, MEDICAID, SELFPAY | PROVIDERS: PCP Nurse Practitioner; Referring Provider Nurse Practitioner; Visit Provider Podiatrist | DX: Z51.89 Encounter for other specified aftercare (principal); L97.512 Non-pressure chronic ulcer of other part of right foot with fat layer exposed; E11.621 Type 2 diabetes mellitus with foot ulcer; L03.031 Cellulitis of right toe; E11.49 Type 2 diabetes mellitus with other diabetic neurological complication; Z89.421 Acquired absence of other right toe(s); Z87.891 Personal history of nicotine dependence; M86.9 Osteomyelitis, unspecified | CPT/HCPCS: 11042 ==

== ENCOUNTER 2024-10-03 07:37 | Outpatient (CLI) | payer MEDICARE, MEDICAID, SELFPAY ==
--- NOTE | 2024-10-03 07:30 | RT.EKG_ITS ---
APPROVED REPORT Exam: Resting ECG Reason for Exam: Pre-op exam for foot surgery Patient Location: O HR:63 bpm ECG Measurements Heart Rate 63 AXIS VA 164 P 65 QRSd 108 QRS -6 QT 454 T 48 QTc 465 Conclusion Sinus rhythm...normal P axis, V-rate 50- 99 RSR' in V1 or V2,
== END 2024-10-03 07:38 | disposition home or self-care (01) ==
PROVIDERS: PCP Nurse Practitioner; Visit Provider Nurse Practitioner
DX: Z01.818 Encounter for other preprocedural examination (principal); E78.5 Hyperlipidemia, unspecified
CPT/HCPCS: 93010

== ENCOUNTER 2024-10-03 10:13 | Outpatient (CLI) | payer MEDICARE, MEDICAID, SELFPAY ==
[2024-10-03 08:33] LABS: Abs Immature Grans 0.06 10^3/uL (0.0-0.06); Absolute Basophil Count 0.05 10^3/uL (0.0-0.2); Absolute Eosinophil Count 0.25 10^3/uL (0.0-0.7); Absolute Lymphocyte Count 3.01 10^3/uL (1.2-3.4); Basophils % 0.5 %; Eosinophils % 2.6 %; HCT 37.2 % (36.0-46.0); Immature Grans % 0.6 %; Lymphocytes % 31.1 %; MCH 29.4 pg (27.0-33.0); MCHC 32.3 % (32.0-36.0); MCV 91 fL (80-95); MPV 10.9 fL (8.0-11.0); Monocytes % 7.2 %; Platelet Count 260 10^3/uL (130-400); RBC 4.08 10^6/uL (3.93-5.22); RDW 12.4 % (11.7-14.6); WBC 9.67 10^3/uL (4.4-10.8)
[2024-10-03 08:36] LABS: ESR 8 mm/hr (0-30)
[2024-10-03 08:43] LABS: Hemoglobin A1C 5.7 % (<5.7)
[2024-10-03 09:00] LABS: ALT 19 U/L (14-59); AST 18 U/L (15-37); Albumin 4.1 g/dL (3.4-5.0); Alkaline Phosphatase 69 U/L (46-116); Anion Gap 10.5 mmol/L (3-11); BUN 14 mg/dL (7-18); Bilirubin, Total 0.27 mg/dL (0.2-1.0); C-Reactive Protein 0.57 mg/dL (<or=0.5); CO2 26.5 mmol/L (21.0-32.0); CREATININE 1.2 mg/dL (0.55-1.02); Calcium 9.1 mg/dL (8.5-10.1); Calculated LDL 50 mg/dL (<100); Chloride 107 mmol/L (98-107); Cholesterol 138 mg/dL (<200); Glucose 103 mg/dL (74-106); HDL Cholesterol 36 mg/dL (40-60); Potassium 3.9 mmol/L (3.5-5.1); Sodium 144 mmol/L (136-145); Total Protein 8.3 g/dL (6.4-8.2); Triglyceride 260 mg/dL (<150)
[2024-10-03 09:05] LABS: Bilirubin Negative (Negative); Blood Negative (Negative); Clarity Clear (Clear); Glucose Negative (Negative); Ketones Negative (Negative); Leukocyte Esterase Negative (Negative); Nitrite Negative (Negative); Specific Gravity 1.025 (1.005-1.025); Urobilinogen 0.2 mg/dL (Up to 0.2); pH 5.5 (5-8)
== END 2024-10-03 10:14 | disposition home or self-care (01) ==
LOC: LBO 10:14
PROVIDERS: Nurse Practitioner Gerontology; PCP Nurse Practitioner; Visit Provider Podiatrist
DX: R39.9 Unspecified symptoms and signs involving the genitourinary system (principal); E78.5 Hyperlipidemia, unspecified; Z01.818 Encounter for other preprocedural examination; E11.9 Type 2 diabetes mellitus without complications; E11.621 Type 2 diabetes mellitus with foot ulcer; L97.519 Non-pressure chronic ulcer of other part of right foot with unspecified severity; L03.90 Cellulitis, unspecified
CPT/HCPCS: 36415; 80053; 80061; 85652; 81003; 83036; 85025; 86140; 87086

== ENCOUNTER 2024-10-09 06:52 | Day surgery (SDC) | payer MEDICARE, MEDICAID, SELFPAY ==
--- NOTE | 2024-10-09 | DI.RAD_ITS ---
Exam(s) XR FOOT RT COMPLETE EXAM: XR FOOT RT COMPLETE CLINICAL HISTORY: s/p 3rd and 5th toe amputation. TECHNIQUE: 2D digital imaging was performed of the right foot. Three images were obtained. AP, obl ique and lateral views were obtained. COMPARISON: CR XR FOOT RT COMPLETE from 09/20/2024 FINDINGS: BONES: No acute fracture is present. Since the prior examination there has been an amputation of the distal half of the proximal phalanx of the 3rd toe and near complete amputation of the 5th toe. Ther e have been prior amputations of portions of the 2nd and 4th toes. JOINTS: There are stable degenerative changes seen at the 1st MTP joint. There are degenerative marley ges seen at the tarsometatarsal joints. SOFT TISSUE: No soft tissue gas is present. There is soft tissue swelling of the forefoot. IMPRESSION: Interval amputation of the distal half of the proximal phalanx of the 3rd toe and near complete amput ation of the 5th toe. No soft tissue gas is appreciated at this time. The findings are otherwise st able. DATA REPOSITORY: RADIATION DOSE DELIVERED:
[2024-10-09 07:01] VITALS: BP 149/69; PULSE 65; RESP 16; TEMP 36.4; O2SAT 99
--- NOTE | 2024-10-09 07:19 | W.ANESPRE ---
General Info Date of Service Date Performed: 10/09/24 Height: 5 ft 8 in Weight: 107 kg Body Mass Index (BMI): 35.9 Surgical Procedure: Operation Date: 10/09/24 08:10 Proposed Procedure Side Surgeon p Patial vs Total Toe Amputation X2, 3rd and 5th Toe Right Khadra Peralta DPM Meds Allergies and Home Medications Allergies Allergy/AdvReac Type Severity Reaction Status Date / Time Sulfa (Sulfonamide Allergy Intermediate Swelling, Verified 10/09/24 07:21 Antibiotics) difficulty breathing Penicillins Allergy violent Verified 10/09/24 07:21 vomiting and diarrhea niacin AdvReac Intermediate HIVES Verified 10/09/24 07:21 amoxicillin AdvReac Mild Other (See Verified 10/09/24 07:21 Comment) Home Medication ?Medication ?Instructions ?Recorded inhalational spacing device #1 ea 12/09/20 (BreatheRite MDI Spacer) linagliptin 5 mg tablet 5 mg PO DAILY #90 tabs 03/10/21 flash glucose sensor (Nuenzyle #1 ea 06/03/22 Pavan 14 Day Sensor kit) blood-glucose meter (ASI System IntegrationTouch #1 ea 06/05/22 Verio Meter) lancing device with lancets kit #1 ea 06/05/22 (Inzen Studio Delica Plus Lancing Device kit) fluticasone propionate 44 2 puff inhalation BID #3 multiple 08/19/22 mcg/actuation HFA aerosol inhaler units (Flovent HFA) biotin 10,000 mcg chewable tablet 10,000 mcg PO DAILY 11/03/22 (Hair, Skin and Nails (biotin)) hpzyrpsx-rww-dukt-FA-Ca carb-vit K 1 tab PO DAILY 11/03/22 18 mg iron-400 mcg-500 mg tablet (One-A-Day Womens Formula) diaper,brief,adult,disposable #96 ea 11/25/22 (Prevail Underwear) flash glucose scanning reader #1 ea 12/03/22 (FreeStyle Pavan 2 [place]) psyllium husk 0.4 gram capsule 0.4 g PO DAILY 04/07/23 (Metamucil) blood sugar diagnostic (OneTouch #100 ea 05/14/23 Verio test strips) cetirizine 10 mg tablet See Rx Instructions .Route 07/12/23 .COMPLEX #90 tabs lancets 33 gauge (OneTouch Delica #100 ea 09/27/23 Plus Lancet) insulin aspart 1 sliding scale dose subcut AC #15 11/24/23 (niacinamide)(U-100) 100 unit/mL(3 mL mL) subcutaneous pen (Fiasp FlexTouch U-100 Insulin) alcohol swabs (Alcohol Prep Pads) 1 pad topical AC & HS #400 ea 12/24/23 black cohosh 540 mg capsule 20 mg PO DAILY 01/09/24 cholecalciferol (vitamin D3) 50 2,000 unit PO DAILY 01/09/24 mcg (2,000 unit) capsule (Vitamin D3) citalopram 40 mg tablet See Rx Instructions .Route 01/31/24 .COMPLEX #90 tabs magnesium oxide 400 mg (241.3 mg See Rx Instructions .Route 02/02/24 magnesium) tablet .COMPLEX #90 tabs ketoconazole 2 % topical cream 1 applic topical DAILY #120 grams 02/10/24 metformin 1,000 mg tablet See Rx Instructions .Route 02/14/24 .COMPLEX #180 tabs atorvastatin 10 mg tablet See Rx Instructions .Route 02/28/24 .COMPLEX #90 tabs cyclobenzaprine 10 mg tablet See Rx Instructions .Route 03/14/24 .COMPLEX #90 tabs fenofibrate micronized 67 mg See Rx Instructions .Route 03/21/24 capsule .COMPLEX #90 caps lamotrigine 100 mg tablet,extended See Rx Instructions .Route 03/23/24 release 24 hr .COMPLEX #90 tabs lamotrigine 200 mg tablet,extended See Rx Instructions .Route 03/23/24 release 24 hr .COMPLEX #90 tabs honey 80 % topical gel (MediHoney 1 applic topical DAILY #44 mL 05/01/24 (honey)) pantoprazole 40 mg tablet,delayed See Rx Instructions .Route 05/02/24 release .COMPLEX #90 tabs pen needle, diabetic 31 gauge x #600 ea 05/16/24/ (BD Ultra-Fine Short Pen Needle) albuterol sulfate 90 mcg/actuation See Rx Instructions .Route 05/31/24 aerosol inhaler .COMPLEX #8.5 grams glucosamine 750 bi-mwiolbojfus-odn See Rx Instructions PO BID 06/05/24 no1 644 mg-C 30 mg-jesse 1 mg tablet aripiprazole 2 mg tablet (Abilify) 2 mg PO QHS #90 tabs 06/22/24 lurasidone 120 mg tablet See Rx Instructions .Route 06/22/24 .COMPLEX #90 tabs insulin degludec 200 unit/mL (3 80 unit (0.4 mL) subcut DAILY 90 06/30/24 mL) subcutaneous pen (Tresiba days #36 mL FlexTouch U-200 insulin) tirzepatide 10 mg/0.5 mL 10 mg (0.5 mL) subcut QWEEK 28 06/30/24 subcutaneous pen injector days #2 mL clonidine HCl 0.1 mg tablet 0.1 mg PO BID for anxiety #60 tabs 07/12/24 collagenase clostridium histo. 250 1 applic topical DAILY #30 grams 07/19/24 unit/gram topical ointment (Santyl) lisinopril 40 mg tablet See Rx Instructions .Route 07/26/24 .COMPLEX #90 tabs meloxicam 15 mg tablet See Rx Instructions .Route 08/07/24 .COMPLEX #90 tabs lurasidone 20 mg tablet See Rx Instructions .Route 08/16/24 .COMPLEX #90 tabs ferrous sulfate 325 mg (65 mg See Rx Instructions .Route 08/28/24 iron) tablet (FeroSul) .COMPLEX #90 tabs nystatin 100,000 unit/gram topical See Rx Instructions .Route 08/28/24 cream .COMPLEX #60 grams pregabalin 200 mg capsule 200 mg PO BID #56 caps 08/28/24 becaplermin 0.01 % topical gel See Rx Instructions .Route 09/19/24 (Regranex) .COMPLEX #15 grams estradiol 0.01% (0.1 mg/gram) 1 g vaginal DIRECTED #60 grams 09/25/24 vaginal cream Current Visit Medications: Current Medications Generic Name Dose Route Start Last Admin Trade Name Freq PRN Reason Stop Dose Admin Sodium Chloride 500 mls @ 30 mls/hr 10/09/24 07:15 Saline 500ml Bag IV 11/08/24 07:14 [facility] IV Miscellaneous Supplies 1 each 10/09/24 07:20 Iv Access IV 11/08/24 07:19 DIRECTED HO Sodium Chloride 0 ml 10/09/24 07:16 Normal Saline Flush 10 Ml Syr IVP 11/08/24 07:15 PRN PRN Sodium Chloride 0 ml 10/09/24 08:30 Normal Saline Flush 10 Ml Syr IVP 11/08/24 08:29 BID HO Sodium Chloride 0 ml 10/09/24 07:16 Normal Saline 10 Ml Vial IJ 11/08/24 07:15 DIRECTED PRN [facility] Active Problems Active Problems: Problem Status Onset Code Osteomyelitis of fifth toe of right foot Acute M86.9 UTI symptoms Acute R39.9 Neuropathic ulcer of right foot with fat layer exposed Acute L97.512 Non-healing ulcer of right foot Acute L97.519 Chronic ulcer of right foot Acute L97.519 Diabetic ulcer of right foot Acute E11.621, L97.519 Ulcer of right foot with fat layer exposed Acute L97.512 Recurrent UTI Acute N39.0 Quit smoking within past year Acute Z87.891 Visit for wound check Acute Z51.89 Depression Chronic F32.A Cellulitis Acute L03.90 Diabetic infection of right foot Acute E11.628, L08.9 Acute bronchitis Acute J20.9 History of amputation of lesser toe of right foot Acute Z89.421 Onychomycosis Acute B35.1 Ulcer of right foot limited to breakdown of skin Acute L97.511 Leukocytes in urine Acute R82.998 Migraine headache without aura Acute G43.009 Corns and callosities Acute L84 Nail dystrophy Acute L60.3 Dysuria Acute R30.0 Ulcer of toe due to diabetes mellitus Acute E11.621, L97.509 Pain of left sacroiliac joint Acute M53.3 Low back pain Acute M54.50 Routine gynecological examination Acute Z01.419 Routine medical exam Acute Z00.00 Hyperlipidemia Acute E78.5 Daytime somnolence Acute R40.0 Obesity Chronic E66.9 Anemia Chronic D64.9 Polypharmacy Acute Z79.899 Memory deficit Acute R41.3 Falls Acute W19.XXXA Slurred speech Acute R47.81 Dizziness Acute R42 Blurred vision Acute H53.8 Abnormal urine Acute R82.90 UTI (urinary tract infection) Acute N39.0 Mild cataract Acute ~11/2020 H26.9 Diabetic retinopathy, nonproliferative, mild Acute ~11/2020 E11.3299 Lung cancer screening declined by patient Acute Z53.20 Mammogram declined Acute Z53.20 Colon cancer screening declined Acute Z53.20 Osteomyelitis Acute M86.9 Cellulitis of toe Acute L03.039 Mixed hearing loss, bilateral Acute ~04/01/20 H90.6 Chest pain Acute R07.9 Smoker Acute F17.200 Low HDL (under 40) Acute E78.6 Loc osteoarth NOS-unspec Acute 10/21/12 M19.90 Unspecified urinary incontinence Acute 10/30/11 R32 Type II diabetes mellitus with neurological manifestations Acute 04/10/13 E11.49 Tobacco abuse disorder Acute 06/08/17 Z72.0 Nocturia more than twice per night Acute 05/20/16 R35.1 Microscopic hematuria Acute 02/25/16 R31.29 Hearing loss Acute 04/21/13 H91.90 Essential hypertension Acute 10/30/11 I10 Extrinsic asthma Acute 08/26/12 J45.909 Diabetic neuropathy Acute 11/29/13 E11.40 Depressive disorder Chronic 10/30/11 F32.9 Anxiety state Acute 10/30/11 F41.1 Allergic rhinitis Acute 12/27/13 J30.9 Alcohol abuse, in remission Acute 10/30/11 F10.11 History of - section Active Z98.89 Gastroesophageal reflux disease Active K21.9 Asthma Active J45.909 Anxiety Active F41.9 Diabetes mellitus type 2 Active E11.9 Chest pain Active 02/22/13 R07.9 Medical History Medical History Amputation of second toe, right, traumatic Dr Don 04/03/2020 due to ulcer and DM RH Obesity (BMI 30-39.9) (10/30/11) Hypertriglyceridemia (08/14/13) Surgical History Surgical History Amputation of toe of right foot (~12/2023) 4TH TOE due to cellulitis, gangrenous necrosis, osteomyelitis Dr Peralta Arthroscopy (04/24/04) right knee Tobacco Smoking/Tobacco Use Status: Former Tobacco Use Second hand exposure: Yes Alcohol Alcohol Intake: never Substance Use Substance use: Current Sobriety Substance use type: former substance user Vital Signs and Lab Results Vital Signs Most Recent Vital Signs in EMR: Most Recent Vital Signs Temp Pulse Resp BP Pulse Ox 36.4 C L 65 16 149/69 H 99 10/09/24 07:01 10/09/24 07:01 10/09/24 07:01 10/09/24 07:01 10/09/24 07:01 Lab Results Blood Type / Crossmatch: No Data to Display Complete Blood Count: White Blood Count 9.67 10^3/uL (4.4-10.8) 10/03/24 08:20 Red Blood Count 4.08 10^6/uL (3.93-5.22) 10/03/24 08:20 Hemoglobin 12.0 g/dL (11.2-15.7) 10/03/24 08:20 Hematocrit 37.2 % (36.0-46.0) 10/03/24 08:20 Platelet Count 260 10^3/uL (130-400) 10/03/24 08:20 Complete Metabolic Panel: Sodium 144 mmol/L (136-145) 10/03/24 08:20 Potassium 3.9 mmol/L (3.5-5.1) 10/03/24 08:20 Chloride 107 mmol/L (98-107) 10/03/24 08:20 Carbon Dioxide 26.5 mmol/L (21.0-32.0) 10/03/24 08:20 BUN 14 mg/dL (7-18) 10/03/24 08:20 Creatinine 1.2 mg/dL (0.55-1.02) H 10/03/24 08:20 Est GFR (CKD-EPI 2020) 51.50 (mL/min/1.73m2) 10/03/24 08:20 Calcium 9.1 mg/dL (8.5-10.1) 10/03/24 08:20 Albumin 4.1 g/dL (3.4-5.0) 10/03/24 08:20 Glucose 103 mg/dL (74-106) 10/03/24 08:20 Hemoglobin A1c 5.7 % (<5.7) 10/03/24 08:20 C-Reactive Protein 0.57 mg/dL (<or=0.5) H 10/03/24 08:20 Liver Function Panel: Alanine Aminotransferase (ALT/SGPT) 19 U/L (14-59) 10/03/24 08:20 Aspartate Amino Transf (AST/SGOT) 18 U/L (15-37) 10/03/24 08:20 Coagulation Panel: No Data to Display Cardiac Panel: No Data to Display Arterial Blood Gas: No Data to Display Venous Blood Gas: No Data to Display Pancreas Panel: No Data to Display Thyroid Panel: No Data to Display Infectious Disease: No Data to Display Blood Cultures: No Data to Display Toxicology Panel: No Data to Display Imaging and Studies Imaging and Studies Study information below may be from another EMR and interpreted by another provider. Please see original notes in EMR for more complete details. Echocardiogram Summary: 03/03/18 Summary: 1. Left ventricle: The cavity size was normal. Systolic function was normal. The estimated ejection fraction was 60-65%. Diastolic parameters were normal for age. There was no evidence of elevated ventricular filling pressure by Doppler parameters. 2. Right ventricle: The cavity size was normal. Wall thickness was normal. Systolic function was normal. 3. Atrial septum: No defect or patent foramen ovale was identified. 4. Pulmonary arteries: Pulmonary systolic pressure was in the range of 30mm Hg to 40mm Hg. 5. Inferior vena cava: The vessel was patent and normal in size. The respirophasic diameter changes were in the normal range (greater than or equal to 50%), consistent with normal central venous pressure. Anesthesia Assessment and Plan Anesthesia History Personal History: No History of Anesthesia Complications Family History: No Family History of Anesthesia Complications Exercise Tolerance Exercise Tolerance: Metabolic Equivalents<4 Pertinent Negatives Pertinent Negatives: No Major Cardiovascular Symptoms or Complaints and No Major Pulmonary Symptoms or Complaints Cardiac & Pulmonary Exam Cardiac Exam: Normal S1/S2 Heart Sounds Pulmonary Exam: Clear Bilateral Breath Sounds Implantable Cardiac Device Does patient have a Pacemaker or an ICD?: No Airway Exam Known Difficult Airway: No Mallampati Class: 3 Mouth Opening: Normal (> 3cm) Thyromental Distance: Greater than 3 cm Neck Range of Motion: Full ROM Neck Circumference: Normal Teeth Condition: Generalized Poor Dentition ASA Classification ASA Score: ASA 3 Emergency Case?: No NPO Status NPO Status: NPO Clears >2 hours, Solids >8 hours Anesthesia Plan Resuscitation Status: Full Code Anesthesia Technique: General Anesthesia Airway Planned: Natural Airway Monitors Used: Standard Monitors
[2024-10-09] MEDS: Normal Saline 500 ML 30 ML IV (07:50)
[2024-10-09 08:05] VITALS: BMI 35.9
--- NOTE | 2024-10-09 08:34 | BONE_PTH ---
PATIENT: Maureen Schmitz LOC: [facility] U#:[id number] AGE/SX: 59/F ROOM: RE10/09/[address]: Khadra Peralta DPM : 1965 BED: DIS: 10/09/2024 SPEC #: [id number] RECD: 10/09/24 12:44 STATUS: ANDREE REAbhijit #: [id number] DEEDEE: 10/09/24 08:[address]: Khadra Peralta DEPT: Surgical Specimen RECD BY: Kaur García ENTERED: 10/09/24 12:45 SP TYPE: Bone OTHR DR: Anjana Gayle APRN Tissues: 1 - BONE BX/CURRETTE NOT PATH FRACTURE 2 - BONE BX/CURRETTE NOT PATH FRACTURE Procedures: GROSS AND MICRO LEVEL 3 DECALCIFICATION Comments: [id number]
[2024-10-09] MEDS: Lidocaine 1% Pres-Free 30 ML VIAL (08:40)
[2024-10-09 09:08] VITALS: BP 117/57; PULSE 63; RESP 16; TEMP 36.1; O2SAT 97
--- NOTE | 2024-10-09 09:15 | PDOC.DSDIS_ITS ---
Date of service: 10/09/24 Discharge Plan Disposition Patient Disposition: Home Condition: Stable Discharge Details Attending Provider: Khadra Peralta Primary Care Provider: Anjana Gayle Home Meds and New Rx's Prescriptions: No Action One-A-Day Womens Formula 18 mg iron-400 mcg-500 mg tablet 1 tab PO DAILY Hair, Skin and Nails (biotin) 10,000 mcg tablet,chewable 10,000 mcg PO DAILY Patient Comments: dose unknown psyllium husk [Metamucil] 0.4 gram capsule 0.4 g PO DAILY linagliptin 5 mg tablet 5 mg PO DAILY Qty: 90 3RF fluticasone propionate [Flovent HFA] 44 mcg/actuation HFA aerosol inhaler 2 puff Inhalation BID Qty: 3 3RF cyclobenzaprine 10 mg tablet See Rx Instructions .ROUTE .COMPLEX Qty: 90 3RF Dose Instruction: TAKE ONE TABLET BY MOUTH AT BEDTIME NEEDED FOR MUSCLE SPASMS Rx Instructions: TAKE ONE TABLET BY MOUTH AT BEDTIME NEEDED FOR MUSCLE SPASMS ketoconazole 2 % cream 1 applic topical DAILY Qty: 120 6RF Rx Instructions: Apply to toenails once daily [id number]-[id number]-[id number]-bosw 750 mg-644 mg- 30 mg-1 mg tablet See Rx Instructions PO BID Rx Instructions: orally twice a day; 2 tabs in AM and 1 tab in PM insulin degludec [Tresiba FlexTouch U-200] 200 unit/mL (3 mL) insulin pen 80 unit subcut DAILY MDD 80 units 90 Days Qty: 36 4RF Rx Instructions: Inject 80 units subcutaneously once daily as directed tirzepatide 10 mg/0.5 mL pen injector 10 mg subcut QWEEK MDD 10 mg 28 Days Qty: 2 12RF Rx Instructions: Inject 10.0 mg subcutaneously once weekly as directed aripiprazole [Abilify] 2 mg tablet 2 mg PO QHS Qty: 90 1RF lurasidone 120 mg tablet See Rx Instructions .ROUTE .COMPLEX Qty: 90 1RF Dose Instruction: TAKE ONE TABLET BY MOUTH EVERY EVENING - MUST ADMINISTER WITH FOOD ( AT LEAST 350 CALORIES) Rx Instructions: TAKE ONE TABLET BY MOUTH EVERY EVENING - MUST ADMINISTER WITH FOOD ( AT LEAST 350 CALORIES) lamotrigine 200 mg tablet extended release 24hr See Rx Instructions .ROUTE .COMPLEX Qty: 90 1RF Dose Instruction: TAKE ONE TABLET BY MOUTH AT BEDTIME (WITH 100MG DOSE FOR A TOTAL DAILY DOSE O F 300MG) Rx Instructions: TAKE ONE TABLET BY MOUTH AT BEDTIME (WITH 100MG DOSE FOR A TOTAL DAILY DOSE OF 300MG) lamotrigine 100 mg tablet extended release 24hr See Rx Instructions .ROUTE .COMPLEX Qty: 90 1RF Dose Instruction: TAKE ONE TABLET BY MOUTH EVERY DAY (ALONG WITH 200MG DOSE FOR A TOTAL DAILY DOSE OF 300MG) Rx Instructions: TAKE ONE TABLET BY MOUTH EVERY DAY (ALONG WITH 200MG DOSE FOR A TOTAL DAILY DOSE OF 300MG) (DME) BreatheRite MDI Spacer Spacer See Rx Instructions .ROUTE .MEDSUPPLY Qty: 1 3RF Rx Instructions: As directed for use with MDI. Please dispense what is available/covered. (DME) FreeStyle Pavan 14 Day Sensor Kit See Rx Instructions .ROUTE .MEDSUPPLY Qty: 1 12RF Rx Instructions: As directed (DME) blood-glucose meter [OneTouch Verio Meter] Misc See Rx Instructions .ROUTE .MEDSUPPLY Qty: 1 0RF Rx Instructions: E11.9 to maintain A1C <7.5, test QD, prn when needing to verify CGM reading per electrocardiographic technician directions (DME) lancing device with lancets [OneTouch Delica Plus Lanc Dev] Kit See Rx Instructions .ROUTE .MEDSUPPLY Qty: 1 1RF Rx Instructions: E11.9 to maintain A1C <7.5, test QD, prn when needing to verify CGM reading per electrocardiographic technician directions (DME) Prevail Underwear Misc See Rx Instructions .ROUTE .COMPLEX Qty: 96 12RF Dose Instruction: USE DIRECTED UP TO 100 PER MONTH Rx Instructions: USE DIRECTED UP TO 100 PER MONTH size L (DME) FreeStyle Pavan 2 [place] Misc 0 .ROUTE .MEDSUPPLY Qty: 1 0RF Rx Instructions: As directed (DME) OneTouch Verio test strips Strip See Rx Instructions .ROUTE .MEDSUPPLY Qty: 100 5RF Rx Instructions: E11.9 to maintain A1C <7.5, test QD cetirizine 10 mg tablet See Rx Instructions .ROUTE .COMPLEX Qty: 90 3RF Dose Instruction: TAKE ONE TABLET BY MOUTH EVERY DAY FOR ALLERGIES Rx Instructions: TAKE ONE TABLET BY MOUTH EVERY DAY FOR ALLERGIES (DME) lancets [OneTouch Delica Plus Lancet] 33 gauge misc See Rx Instructions .ROUTE .COMPLEX Qty: 100 1RF Dose Instruction: USE ONCE DAILY Rx Instructions: USE ONCE DAILY Fiasp FlexTouch U-100 Insulin 100 unit/mL (3 mL) insulin pen 1 sliding scale dose subcut AC Qty: 15 12RF Rx Instructions: Sub-Q AC; administer 10-20u ac per Insulin schedule to manage BS with meals and to keep A1c at or below 7. alcohol swabs [Alcohol Prep Pads] Pads, Medicated 1 pad TP AC & HS Qty: 400 3RF Rx Instructions: 1 pad pre FS citalopram 40 mg tablet See Rx Instructions .ROUTE .COMPLEX Qty: 90 3RF Dose Instruction: TAKE ONE TABLET BY MOUTH EVERY DAY Rx Instructions: TAKE ONE TABLET BY MOUTH EVERY DAY magnesium oxide 400 mg (241.3 mg magnesium) tablet See Rx Instructions .ROUTE .COMPLEX Qty: 90 3RF Dose Instruction: TAKE ONE TABLET BY MOUTH EVERY DAY Rx Instructions: TAKE ONE TABLET BY MOUTH EVERY DAY metformin 1,000 mg tablet See Rx Instructions .ROUTE .COMPLEX Qty: 180 3RF Dose Instruction: TAKE ONE TABLET BY MOUTH TWICE A DAY Rx Instructions: TAKE ONE TABLET BY MOUTH TWICE A DAY atorvastatin 10 mg tablet See Rx Instructions .ROUTE .COMPLEX Qty: 90 3RF Dose Instruction: TAKE ONE TABLET BY MOUTH EVERY DAY Rx Instructions: TAKE ONE TABLET BY MOUTH EVERY DAY fenofibrate micronized 67 mg capsule See Rx Instructions .ROUTE .COMPLEX Qty: 90 3RF Dose Instruction: TAKE ONE CAPSULE BY MOUTH EVERY DAY Rx Instructions: TAKE ONE CAPSULE BY MOUTH EVERY DAY MediHoney (honey) 80 % gel 1 applic topical DAILY Qty: 44 2RF pantoprazole 40 mg tablet,delayed release (DR/EC) See Rx Instructions .ROUTE .COMPLEX Qty: 90 3RF Dose Instruction: TAKE ONE TABLET BY MOUTH EVERY DAY Rx Instructions: TAKE ONE TABLET BY MOUTH EVERY DAY (DME) pen needle, diabetic [BD Ultra-Fine Short Pen Needle] 31 gauge x 5/16 needle See Rx Instructions .ROUTE .COMPLEX Qty: 600 3RF Dose Instruction: USE TO TEST SIX TIMES PER DAY TO MAINTAIN A1C LESS THAN 7 Rx Instructions: USE TO TEST SIX TIMES PER DAY TO MAINTAIN A1C LESS THAN 7 albuterol sulfate 90 mcg/actuation HFA aerosol inhaler See Rx Instructions .ROUTE .COMPLEX Qty: 8.5 6RF Dose Instruction: INHALE TWO PUFFS BY MOUTH EVERY 6 HOURS NEEDED Rx Instructions: INHALE TWO PUFFS BY MOUTH EVERY 6 HOURS NEEDED clonidine HCl 0.1 mg tablet 0.1 mg PO BID Qty: 60 2RF Santyl 250 unit/gram ointment 1 applic topical DAILY Qty: 30 3RF Rx Instructions: right 3rd toe measures (1.1cm x 0.8cm x 0.3cm) right 5th toe measures (0.3 cm x 0.5 cm). lisinopril 40 mg tablet See Rx Instructions .ROUTE .COMPLEX Qty: 90 3RF Dose Instruction: TAKE ONE TABLET BY MOUTH EVERY DAY Rx Instructions: TAKE ONE TABLET BY MOUTH EVERY DAY meloxicam 15 mg tablet See Rx Instructions .ROUTE .COMPLEX Qty: 90 1RF Dose Instruction: TAKE ONE TABLET BY MOUTH EVERY DAY NEEDED FOR PAIN Rx Instructions: TAKE ONE TABLET BY MOUTH EVERY DAY NEEDED FOR PAIN lurasidone 20 mg tablet See Rx Instructions .ROUTE .COMPLEX Qty: 90 1RF Dose Instruction: TAKE ONE TABLET BY MOUTH EVERY MORNING - MUST ADMINISTER WITH FOOD ( AT LEAST 350 CALORIES ) Rx Instructions: TAKE ONE TABLET BY MOUTH EVERY MORNING - MUST ADMINISTER WITH FOOD ( AT LEAST 350 CALORIES ) ferrous sulfate [FeroSul] 325 mg (65 mg iron) tablet See Rx Instructions .ROUTE .COMPLEX Qty: 90 3RF Dose Instruction: TAKE ONE TABLET BY MOUTH EVERY DAY Rx Instructions: TAKE ONE TABLET BY MOUTH EVERY DAY pregabalin 200 mg capsule 200 mg PO BID Qty: 56 2RF nystatin 100,000 unit/gram cream See Rx Instructions .ROUTE .COMPLEX Qty: 60 5RF Dose Instruction: APPLY TO RASH FOUR TIMES A DAY Rx Instructions: APPLY TO RASH FOUR TIMES A DAY Regranex 0.01 % gel See Rx Instructions .ROUTE .COMPLEX Qty: 15 3RF Dose Instruction: APPLY TOPICALLY TO AFFECTED AREA ONCE DAILY Rx Instructions: APPLY TOPICALLY TO AFFECTED AREA ONCE DAILY estradiol 0.01 % (0.1 mg/gram) cream 1 g vaginal DIRECTED Qty: 60 3RF Rx Instructions: Insert a pea sized amount vaginally at night x4 a week cholecalciferol (vitamin D3) [Vitamin D3] 50 mcg (2,000 unit) capsule 2,000 unit PO DAILY black cohosh 540 mg capsule 20 mg PO DAILY Discharge Instructions Additional Instructions: Please keep the dressings clean, dry and intact. Please elevate the right foot. Do not let your dressings get wet. Stand Alone Forms: Anesthesia Discharge Inst., Podiatry Instructions-[facility], Manuel Blackwell ([facility]) Referrals: Khadra Peralta DPM [[facility] STAFF PHYSICIAN] - 10/12/24 10:45 am Equipment/Supplies: Partial Weight Bearing Crutches Activity:: Elevate Remove Dressings/Wound Care:: Do Not Remove Shower/Bathe:: Cover Diet:: Normal Diet Discharge Orders Discharge Orders: Discharge Order (Routine); Ordered 10/09/24 Ordered By: Khadra Peralta DS: Diagnosis Discharge Diagnosis (1) Osteomyelitis of fifth toe of right foot: Status: Acute (2) Neuropathic ulcer of right foot with fat layer exposed: Status: Acute (3) Non-healing ulcer of right foot: Status: Acute (4) Diabetic ulcer of right foot: Status: Acute (5) Diabetic infection of right foot: Status: Acute (6) Diabetes mellitus type 2: Status: Active
--- NOTE | 2024-10-09 09:23 | W.PM.OP ---
Operative Note Operative Note PRE-OP DIAGNOSIS: 1. Osteomyelitis, right fifth toe. 2. Non healing ulcer, right third toe POST-OP DIAGNOSIS: same PROCEDURE: Partial amputation, right third and fifth toes. SURGEON: Khadra Peralta ANESTHESIA TYPE: Local By Surgeon (10 mL 1% lidocaine plain preop) Refer to Anesthesia Record ESTIMATED BLOOD LOSS: 5 PATHOLOGY: none sent (Soft tissue and bone, right fifth toe) COMPLICATIONS: None Patient was transported to: same day Patient's condition: stable Indications: This is a 59-year-old female patient with nonhealing ulcer to the right foot. She has nonhealing ulcer to the right third toe plantarly. She does have an ulcer which has been nonhealing and with infection now to the bone to the right fifth toe. I discussed amputation of the wound to allow this infection to resolve and to remove all necrotic nonviable tissue. Patient consented to the procedure. No guarantees or warranties were made or implied. Medical clearance and. No contraindications noted to the procedure at this time. Procedure Description: Patient was identified in preop holding. Site was marked. Patient was then brought to the operating room placed on the operating table in supine position with the anesthesia team. After induction of anesthesia, local anesthesia was obtained using 10 mL 1% lidocaine plain via digital block to the right third and fifth toe. The right lower extremity was then scrubbed, prepped and draped in the usual aseptic manner. Attention was directed to the right third toe where an inverted racquet type incision was made to the right third toe using a sterile #15 blade. The incision was deepened through the skin and subcutaneous tissue to the level of bone. The bone was freed of all soft tissue attachments using sterile #15 blade and then using a bone cutter the head of the right third toe the proximal phalanx was resected and passed from the operative field. All sharp edges were smoothed out and removed. The site was then flushed with copious amounts of sterile saline. The incision site was then reapproximated using 3-0 nylon. Attention was then directed to the right fifth toe where a full-thickness ulcer was noted laterally. Two, semi, elliptical incisions were planned around this ulcer and then an incision was made using a sterile #15 blade. This incision was then deepened through the skin and subcutaneous tissue to the level of bone. The fifth toe was then resected and passed from the operative field bleeding just the base of the proximal phalanx intact. A small specimen of bone was sent to pathology. All sharp edges of the bone were then removed. The incision site was then flushed with copious amounts of sterile saline. The skin was then reapproximated using 2-0 Prolene as the skin was noted to be very friable. Dressings were then applied with Xeroform gauze, 4 x 4, Kerlix and David wrap. Patient tolerated the procedure and anesthesia well with vital signs stable and vascular status intact to the right foot. She was transferred to same-day for further monitoring. She will be sent home when stable. The patient is to keep the dressings clean, dry and intact. She is to keep the right lower extremity elevated at all times. Use crutches or knee scooter with a surgical shoe for nonweightbearing to the right lower extremity. Patient has appointment with me in office on . She was prescribed pain medication for pain control. Date of Procedure: 10/09/24
--- NOTE | 2024-10-09 09:33 | W.ANESPOSTOP ---
Postoperative Evaluation Date, Time and Location Date Performed: 10/09/24 Time Performed: 09:11 Patient Location: Day Surgery Unit Vital Signs Most Recent Imported Vital Signs: Most Recent Vital Signs Temp Pulse Resp BP Pulse Ox 36.1 C L 63 16 117/57 L 97 10/09/24 09:08 10/09/24 09:08 10/09/24 09:08 10/09/24 09:08 10/09/24 09:08 Assessment Mental Status: Awake (Alert & Oriented to Patient Baseline) Airway and Respiratory Function: Patent airway with normal (patient baseline) respiratory exam Cardiovascular Function: Hemodynamically Stable Hydration Status: Adequately Hydrated Nausea & Vomiting: No Nausea or Vomiting Pain: Pt. Denies Any Pain Peripheral Nerve Block: Patient did not receive a nerve block
[2024-10-09 09:49] VITALS: BP 120/61; PULSE 57; RESP 18; TEMP 36.5; O2SAT 98
== END 2024-10-09 10:01 | disposition home or self-care (01) ==
PROVIDERS: PCP Nurse Practitioner; Visit Provider Podiatrist
PROC: (CPT 28820; principal; 2024-10-09 08:00)
DX: M86.8X7 Other osteomyelitis, ankle and foot (principal); E11.628 Type 2 diabetes mellitus with other skin complications; E11.69 Type 2 diabetes mellitus with other specified complication; L97.512 Non-pressure chronic ulcer of other part of right foot with fat layer exposed; E11.621 Type 2 diabetes mellitus with foot ulcer; E11.42 Type 2 diabetes mellitus with diabetic polyneuropathy; L03.031 Cellulitis of right toe
CPT/HCPCS: 28820 ×2; 00123; 73630; 88304; 88311; J2250; J2405; J2704

== ENCOUNTER → 2024-10-12 10:35 | Outpatient (BNVA) | payer MEDICARE, MEDICAID, SELFPAY | PROVIDERS: PCP Nurse Practitioner; Referring Provider Nurse Practitioner; Visit Provider Podiatrist | DX: Z98.890 Other specified postprocedural states (principal); M86.9 Osteomyelitis, unspecified; Z51.89 Encounter for other specified aftercare; L97.512 Non-pressure chronic ulcer of other part of right foot with fat layer exposed; E11.621 Type 2 diabetes mellitus with foot ulcer; L03.115 Cellulitis of right lower limb; E11.49 Type 2 diabetes mellitus with other diabetic neurological complication; Z89.421 Acquired absence of other right toe(s); Z87.891 Personal history of nicotine dependence | CPT/HCPCS: 99024 ==

== ENCOUNTER 2024-10-31 01:12 | Outpatient (CLI) | payer MEDICARE, MEDICAID, SELFPAY ==
--- NOTE | 2024-10-31 06:45 | DI.RAD_ITS ---
Exam(s) XR FOOT RT COMPLETE EXAM: XR FOOT RT COMPLETE CLINICAL HISTORY: post op,osteomyelitis fifth toe rt foot,m86.9. TECHNIQUE: 2D digital imaging was performed of the right foot. Three images were obtained. AP, obl ique and lateral views were obtained. COMPARISON: CR XR FOOT RT COMPLETE from 10/09/2024 FINDINGS: BONES: No acute fracture is present. No bony destructive lesion is seen. There again seen amputations involving the 2nd through 5th toes. The appearance of the 5th toe amputation is stable. The edges of the amputation at the 3rd toe remain indistinct. There may be slight increased irregularity francesco red to the prior examination from 10/09/2024. This may be secondary to the recent surgery but osteom yelitis should also be considered. JOINTS: No dislocation present. 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 There is also arthrosis seen at the tarsometatarsal joint. The findings are most marked at the 2nd TMT joint. SOFT TISSUE: No soft tissue gas is appreciated. IMPRESSION: Postsurgical changes in the right foot. Please see the above discussion for complete details. DATA REPOSITORY: RADIATION DOSE DELIVERED:
== END 2024-10-31 01:32 ==
LOC: DI 01:12
PROVIDERS: PCP Nurse Practitioner; Visit Provider Podiatrist
DX: M86.171 Other acute osteomyelitis, right ankle and foot (principal); Z98.890 Other specified postprocedural states
CPT/HCPCS: 73630

== ENCOUNTER → 2024-11-13 10:43 | Outpatient (BNVA) | payer MEDICARE, MEDICAID, SELFPAY | PROVIDERS: PCP Nurse Practitioner; Referring Provider Nurse Practitioner; Visit Provider Podiatrist | DX: Z98.890 Other specified postprocedural states (principal); L84 Corns and callosities; M86.8X7 Other osteomyelitis, ankle and foot; L97.512 Non-pressure chronic ulcer of other part of right foot with fat layer exposed; E11.621 Type 2 diabetes mellitus with foot ulcer; L03.031 Cellulitis of right toe; E11.49 Type 2 diabetes mellitus with other diabetic neurological complication; Z89.421 Acquired absence of other right toe(s); Z87.891 Personal history of nicotine dependence; M67.01 Short Achilles tendon (acquired), right ankle | CPT/HCPCS: 99024; NC ==

== ENCOUNTER → 2024-12-19 09:53 | Outpatient (BNVA) | payer MEDICARE, MEDICAID, SELFPAY | PROVIDERS: PCP Nurse Practitioner; Referring Provider Nurse Practitioner; Visit Provider Podiatrist | DX: Z98.890 Other specified postprocedural states (principal); L84 Corns and callosities; L85.8 Other specified epidermal thickening; M86.8X7 Other osteomyelitis, ankle and foot; Z51.89 Encounter for other specified aftercare; L97.512 Non-pressure chronic ulcer of other part of right foot with fat layer exposed; E11.621 Type 2 diabetes mellitus with foot ulcer; L03.031 Cellulitis of right toe; E11.49 Type 2 diabetes mellitus with other diabetic neurological complication; Z89.421 Acquired absence of other right toe(s); Z87.891 Personal history of nicotine dependence; M67.01 Short Achilles tendon (acquired), right ankle | CPT/HCPCS: 11055 ==

== ENCOUNTER → 2025-01-24 11:19 | Outpatient (BNVA) | payer MEDICARE, MEDICAID, SELFPAY | PROVIDERS: PCP Nurse Practitioner; Referring Provider Nurse Practitioner; Visit Provider Podiatrist | DX: Z98.890 Other specified postprocedural states (principal); Z51.89 Encounter for other specified aftercare; L84 Corns and callosities; M86.9 Osteomyelitis, unspecified; L97.512 Non-pressure chronic ulcer of other part of right foot with fat layer exposed; E11.621 Type 2 diabetes mellitus with foot ulcer; L03.115 Cellulitis of right lower limb; E11.49 Type 2 diabetes mellitus with other diabetic neurological complication; Z87.891 Personal history of nicotine dependence; M67.01 Short Achilles tendon (acquired), right ankle; Z89.422 Acquired absence of other left toe(s) | CPT/HCPCS: 97597 ==

== ENCOUNTER → 2025-02-01 10:15 | Outpatient (BNVA) | payer MEDICARE, MEDICAID, SELFPAY | PROVIDERS: PCP Nurse Practitioner; Referring Provider Nurse Practitioner; Visit Provider Podiatrist | DX: Z98.890 Other specified postprocedural states (principal); L97.512 Non-pressure chronic ulcer of other part of right foot with fat layer exposed; M86.9 Osteomyelitis, unspecified; Z51.89 Encounter for other specified aftercare; L84 Corns and callosities; E11.621 Type 2 diabetes mellitus with foot ulcer; L03.115 Cellulitis of right lower limb; E11.49 Type 2 diabetes mellitus with other diabetic neurological complication; Z89.421 Acquired absence of other right toe(s); Z87.891 Personal history of nicotine dependence; M67.01 Short Achilles tendon (acquired), right ankle | CPT/HCPCS: 11042 ==

== ENCOUNTER 2025-02-15 01:12 | Outpatient (CLI) | payer MEDICARE, MEDICAID, SELFPAY ==
--- NOTE | 2025-02-15 11:12 | DI.RAD_ITS ---
Exam(s) XR TOE RT SECOND EXAM: XR TOE RT SECOND CLINICAL HISTORY: ? osteomyelitis,neuropathic ulcer,l97.512. TECHNIQUE: 2D digital imaging was performed of the right 2nd toe. Four images were obtained. AP, o blique and lateral views were obtained. COMPARISON: CR XR TOE RT SECOND from 04/01/2020 CR XR FOOT RT COMPLETE from 10/31/2024 FINDINGS: BONES: No acute fracture is present. No bony destructive lesion is seen to suggest osteomyelitis of t he 2nd toe. There are amputations again seen of the 2nd through 5th toes. JOINTS: No dislocation present. Marked degenerative changes are seen in the great toe. SOFT TISSUE: No soft tissue gas is present. IMPRESSION: No radiographic evidence of osteomyelitis of the 2nd toe. DATA REPOSITORY: RADIATION DOSE DELIVERED:
== END 2025-02-15 01:32 ==
LOC: DI 01:12
PROVIDERS: PCP Nurse Practitioner; Visit Provider Podiatrist
DX: L97.512 Non-pressure chronic ulcer of other part of right foot with fat layer exposed (principal)
CPT/HCPCS: 73660

== ENCOUNTER → 2025-02-22 10:00 | Outpatient (BNVA) | payer MEDICARE, MEDICAID, SELFPAY | PROVIDERS: PCP Nurse Practitioner; Referring Provider Nurse Practitioner; Visit Provider Podiatrist | DX: Z98.890 Other specified postprocedural states (principal); L84 Corns and callosities; M86.9 Osteomyelitis, unspecified; Z51.89 Encounter for other specified aftercare; L97.512 Non-pressure chronic ulcer of other part of right foot with fat layer exposed; E11.621 Type 2 diabetes mellitus with foot ulcer; L03.115 Cellulitis of right lower limb; E11.49 Type 2 diabetes mellitus with other diabetic neurological complication; Z89.421 Acquired absence of other right toe(s); Z87.891 Personal history of nicotine dependence; M67.01 Short Achilles tendon (acquired), right ankle | CPT/HCPCS: 97597 ==

== ENCOUNTER 2025-03-05 15:59 | Outpatient (REF) | payer MEDICARE, MEDICAID, SELFPAY ==
[2025-03-05 13:56] LABS: Bilirubin Negative (Negative); Blood Negative (Negative); Clarity Clear (Clear); Glucose Negative (Negative); Ketones Negative (Negative); Leukocyte Esterase Negative (Negative); Nitrite Negative (Negative); Specific Gravity 1.015 (1.005-1.025); Urobilinogen 0.2 mg/dL (Up to 0.2)
== END 2025-03-05 16:00 | disposition home or self-care (01) ==
LOC: LBN 15:59
PROVIDERS: PCP Nurse Practitioner; Visit Provider Nurse Practitioner
DX: R30.0 Dysuria (principal)
CPT/HCPCS: 81003

== ENCOUNTER → 2025-03-20 10:07 | Outpatient (BNVA) | payer MEDICARE, MEDICAID, SELFPAY | PROVIDERS: PCP Nurse Practitioner; Referring Provider Nurse Practitioner; Visit Provider Podiatrist | DX: Z51.89 Encounter for other specified aftercare (principal); L97.512 Non-pressure chronic ulcer of other part of right foot with fat layer exposed; L03.115 Cellulitis of right lower limb; M86.9 Osteomyelitis, unspecified; E11.621 Type 2 diabetes mellitus with foot ulcer; E11.49 Type 2 diabetes mellitus with other diabetic neurological complication | CPT/HCPCS: 97597 ==

== ENCOUNTER → 2025-04-03 14:49 | Outpatient (BNVA) | payer MEDICARE, MEDICAID, SELFPAY | PROVIDERS: PCP Nurse Practitioner; Visit Provider Nurse Practitioner Gerontology | DX: R31.29 Other microscopic hematuria (principal); N39.0 Urinary tract infection, site not specified; N32.81 Overactive bladder | CPT/HCPCS: 99213; 51798 ==

== ENCOUNTER → 2025-04-04 10:32 | Outpatient (BNVA) | payer MEDICARE, MEDICAID, SELFPAY | PROVIDERS: PCP Nurse Practitioner; Referring Provider Nurse Practitioner; Visit Provider Podiatrist | DX: Z51.89 Encounter for other specified aftercare (principal); E11.621 Type 2 diabetes mellitus with foot ulcer; L97.522 Non-pressure chronic ulcer of other part of left foot with fat layer exposed; L97.512 Non-pressure chronic ulcer of other part of right foot with fat layer exposed; L03.032 Cellulitis of left toe; E11.49 Type 2 diabetes mellitus with other diabetic neurological complication; Z89.421 Acquired absence of other right toe(s); L84 Corns and callosities; M86.9 Osteomyelitis, unspecified; Z87.891 Personal history of nicotine dependence; M67.01 Short Achilles tendon (acquired), right ankle | CPT/HCPCS: 97597; 11042 ==

== ENCOUNTER 2025-04-12 00:31 | Outpatient (CLI) | payer MEDICARE, MEDICAID, SELFPAY ==
--- NOTE | 2025-04-12 07:45 | DI.RAD_ITS ---
Exam(s) XR TOE LT SECOND EXAM: XR TOE LT SECOND CLINICAL HISTORY: ? Osteomyelitis,Ulcer at the tip,L97.522. TECHNIQUE: 2D digital imaging was performed. Three images were obtained. COMPARISON: No exams were available for comparison FINDINGS: BONES: No acute fracture is present. No bony destructive lesion is seen. JOINTS: No dislocation present. The joint spaces are well maintained. SOFT TISSUE: No soft tissue gas is seen. IMPRESSION: No radiographic evidence to suggest osteomyelitis. DATA REPOSITORY: RADIATION DOSE DELIVERED:
== END 2025-04-12 00:51 ==
LOC: DI 00:31
PROVIDERS: PCP Nurse Practitioner; Visit Provider Podiatrist
DX: L97.522 Non-pressure chronic ulcer of other part of left foot with fat layer exposed (principal)
CPT/HCPCS: 11042; 73660

== ENCOUNTER → 2025-04-18 10:22 | Outpatient (BNVA) | payer MEDICARE, MEDICAID, SELFPAY | PROVIDERS: PCP Nurse Practitioner; Referring Provider Nurse Practitioner; Visit Provider Podiatrist | DX: Z51.89 Encounter for other specified aftercare (principal); L97.522 Non-pressure chronic ulcer of other part of left foot with fat layer exposed; M20.42 Other hammer toe(s) (acquired), left foot; E11.621 Type 2 diabetes mellitus with foot ulcer; Z98.890 Other specified postprocedural states; L84 Corns and callosities; L03.032 Cellulitis of left toe; E11.49 Type 2 diabetes mellitus with other diabetic neurological complication; Z87.891 Personal history of nicotine dependence; M67.01 Short Achilles tendon (acquired), right ankle; L60.2 Onychogryphosis | CPT/HCPCS: 97597; 11719 ==

== ENCOUNTER → 2025-05-03 10:49 | Outpatient (BNVA) | payer MEDICARE, MEDICAID, SELFPAY | PROVIDERS: PCP Nurse Practitioner; Referring Provider Nurse Practitioner; Visit Provider Podiatrist | DX: Z51.89 Encounter for other specified aftercare (principal); E11.621 Type 2 diabetes mellitus with foot ulcer; L97.522 Non-pressure chronic ulcer of other part of left foot with fat layer exposed; L97.512 Non-pressure chronic ulcer of other part of right foot with fat layer exposed; L89.896 Pressure-induced deep tissue damage of other site; L84 Corns and callosities; M20.42 Other hammer toe(s) (acquired), left foot; M67.01 Short Achilles tendon (acquired), right ankle; E11.49 Type 2 diabetes mellitus with other diabetic neurological complication; Z87.891 Personal history of nicotine dependence; Z98.890 Other specified postprocedural states | CPT/HCPCS: 99213; 97597 ==

== ENCOUNTER → 2025-05-24 09:58 | Outpatient (BNVA) | payer MEDICARE, MEDICAID, SELFPAY | PROVIDERS: PCP Nurse Practitioner Family; Referring Provider Nurse Practitioner Family; Visit Provider Podiatrist | DX: Z51.89 Encounter for other specified aftercare (principal); E11.621 Type 2 diabetes mellitus with foot ulcer; L97.512 Non-pressure chronic ulcer of other part of right foot with fat layer exposed; L03.031 Cellulitis of right toe; L89.896 Pressure-induced deep tissue damage of other site; E11.49 Type 2 diabetes mellitus with other diabetic neurological complication; M20.42 Other hammer toe(s) (acquired), left foot; L84 Corns and callosities; M67.01 Short Achilles tendon (acquired), right ankle; Z87.891 Personal history of nicotine dependence | CPT/HCPCS: 11042 ==

== ENCOUNTER → 2025-06-07 10:33 | Outpatient (BNVA) | payer MEDICARE, MEDICAID, SELFPAY | PROVIDERS: PCP Nurse Practitioner Family; Referring Provider Nurse Practitioner Family; Visit Provider Podiatrist | DX: Z51.89 Encounter for other specified aftercare (principal); E11.621 Type 2 diabetes mellitus with foot ulcer; L97.512 Non-pressure chronic ulcer of other part of right foot with fat layer exposed; L03.115 Cellulitis of right lower limb; Z98.890 Other specified postprocedural states; L89.896 Pressure-induced deep tissue damage of other site; E11.49 Type 2 diabetes mellitus with other diabetic neurological complication; M67.01 Short Achilles tendon (acquired), right ankle; L84 Corns and callosities; M20.42 Other hammer toe(s) (acquired), left foot | CPT/HCPCS: 11042 ==

== ENCOUNTER → 2025-06-18 09:20 | Outpatient (BNVA) | payer MEDICARE, MEDICAID, SELFPAY | PROVIDERS: PCP Nurse Practitioner Family; Referring Provider Nurse Practitioner Family; Visit Provider Podiatrist | DX: Z51.89 Encounter for other specified aftercare (principal); L97.512 Non-pressure chronic ulcer of other part of right foot with fat layer exposed; E11.621 Type 2 diabetes mellitus with foot ulcer; L03.031 Cellulitis of right toe | CPT/HCPCS: 11042 ==

== ENCOUNTER → 2025-06-26 10:30 | Outpatient (BNVA) | payer MEDICARE, MEDICAID, SELFPAY | PROVIDERS: PCP Nurse Practitioner Family; Referring Provider Nurse Practitioner Family; Visit Provider Podiatrist | DX: Z98.890 Other specified postprocedural states (principal); Z51.89 Encounter for other specified aftercare; Z89.421 Acquired absence of other right toe(s); E11.621 Type 2 diabetes mellitus with foot ulcer; L97.512 Non-pressure chronic ulcer of other part of right foot with fat layer exposed; L03.031 Cellulitis of right toe; E11.49 Type 2 diabetes mellitus with other diabetic neurological complication | CPT/HCPCS: 97597 ==

== ENCOUNTER 2025-06-26 13:07 | Outpatient (REF) | payer MEDICARE, MEDICAID, SELFPAY | END 2025-06-26 13:08 | disposition home or self-care (01) | LOC: LBN 13:07 | PROVIDERS: PCP Nurse Practitioner Family; Visit Provider Podiatrist | DX: L03.031 Cellulitis of right toe (principal) | CPT/HCPCS: 87077; 87070; 87075; 87186; 87205 ==

== ENCOUNTER 2025-06-28 14:20 | Outpatient (CLI) | payer MEDICARE, MEDICAID, SELFPAY ==
[2025-06-28 11:34] LABS: Hemoglobin A1C 5.9 % (<5.7)
== END 2025-06-28 14:21 | disposition home or self-care (01) ==
LOC: LBO 14:21
PROVIDERS: PCP Nurse Practitioner Family; Visit Provider Podiatrist
DX: E11.9 Type 2 diabetes mellitus without complications (principal); L97.522 Non-pressure chronic ulcer of other part of left foot with fat layer exposed
CPT/HCPCS: 36415; 83036

== ENCOUNTER → 2025-07-03 10:28 | Outpatient (BNVA) | payer MEDICARE, MEDICAID, SELFPAY | PROVIDERS: PCP Nurse Practitioner Family; Referring Provider Nurse Practitioner Family; Visit Provider Podiatrist | DX: Z51.89 Encounter for other specified aftercare (principal); Z98.890 Other specified postprocedural states; L89.896 Pressure-induced deep tissue damage of other site; L97.522 Non-pressure chronic ulcer of other part of left foot with fat layer exposed; M20.42 Other hammer toe(s) (acquired), left foot; E11.621 Type 2 diabetes mellitus with foot ulcer; L84 Corns and callosities; M67.01 Short Achilles tendon (acquired), right ankle; L03.115 Cellulitis of right lower limb; E11.49 Type 2 diabetes mellitus with other diabetic neurological complication | CPT/HCPCS: 11042 ==

== ENCOUNTER → 2025-07-16 10:02 | Outpatient (BNVA) | payer MEDICARE, MEDICAID, SELFPAY | PROVIDERS: PCP Nurse Practitioner Family; Referring Provider Nurse Practitioner Family; Visit Provider Podiatrist | DX: Z98.890 Other specified postprocedural states (principal); Z51.89 Encounter for other specified aftercare; L97.512 Non-pressure chronic ulcer of other part of right foot with fat layer exposed; L03.115 Cellulitis of right lower limb; E11.621 Type 2 diabetes mellitus with foot ulcer; L84 Corns and callosities; M67.01 Short Achilles tendon (acquired), right ankle; E11.49 Type 2 diabetes mellitus with other diabetic neurological complication; Z89.421 Acquired absence of other right toe(s) | CPT/HCPCS: 97597; 11721 ==

== ENCOUNTER → 2025-08-01 13:20 | Outpatient (BNVA) | payer MEDICARE, MEDICAID, SELFPAY | PROVIDERS: PCP Nurse Practitioner Family; Visit Provider Nurse Practitioner Gerontology | DX: R30.0 Dysuria (principal); R31.29 Other microscopic hematuria; N39.0 Urinary tract infection, site not specified; N32.81 Overactive bladder; R39.9 Unspecified symptoms and signs involving the genitourinary system | CPT/HCPCS: 99213; 51798 ==

== ENCOUNTER 2025-08-02 11:00 | Outpatient (REF) | payer MEDICARE, MEDICAID, SELFPAY ==
[2025-08-02 11:46] LABS: Glucose Negative (Negative)
[2025-08-02 11:59] LABS: RBC Negative HPF (0-2)
== END 2025-08-02 11:01 | disposition home or self-care (01) ==
LOC: LBN 11:00
PROVIDERS: PCP Nurse Practitioner Family; Visit Provider Nurse Practitioner Gerontology
DX: R30.0 Dysuria (principal)
CPT/HCPCS: 87077; 81003; 81015; 87086; 87186

== ENCOUNTER → 2025-08-08 10:31 | Outpatient (BNVA) | payer MEDICARE, MEDICAID, SELFPAY | PROVIDERS: PCP Nurse Practitioner Family; Referring Provider Nurse Practitioner Family; Visit Provider Podiatrist | DX: L97.512 Non-pressure chronic ulcer of other part of right foot with fat layer exposed (principal); E11.49 Type 2 diabetes mellitus with other diabetic neurological complication; L03.115 Cellulitis of right lower limb | CPT/HCPCS: 11042 ==

== ENCOUNTER 2025-08-08 11:23 | Outpatient (CLI) | payer MEDICARE, MEDICAID, SELFPAY ==
--- NOTE | 2025-08-08 11:20 | DI.RAD_ITS ---
Exam(s) XR TOE RT GREAT EXAM: XR TOE RT GREAT CLINICAL HISTORY: Osteomyelitis? gas?, CELLULITIS, ULCER L03.90, L97.512. TECHNIQUE: 2D digital imaging was performed. Three images were obtained. COMPARISON: CR XR TOE RT SECOND from 02/15/2025 FINDINGS: BONES: No acute fracture is present. There is again seen resection of the 2nd through 5th toes to the level of the mid proximal phalanges. Since the most recent examination there has been resection of the distal half of the proximal phalanx of the 2nd toe. Periosteal reaction is seen around the distal stump. There are no destructive changes seen of the great toe to suggest osteomyelitis. JOINTS: No dislocation present. There are marked degenerative changes seen at the 1st metatarsophalangeal joint. SOFT TISSUE: Normal. IMPRESSION: No definite evidence of osteomyelitis is seen at the great toe. DATA REPOSITORY: RADIATION DOSE DELIVERED:
== END 2025-08-08 11:43 ==
LOC: DI 11:23
PROVIDERS: PCP Nurse Practitioner Family; Visit Provider Podiatrist
DX: L03.90 Cellulitis, unspecified (principal); L97.512 Non-pressure chronic ulcer of other part of right foot with fat layer exposed
CPT/HCPCS: 73660

== ENCOUNTER 2025-08-08 11:25 | Outpatient (REF) | payer MEDICARE, MEDICAID, SELFPAY ==
--- NOTE | 2025-08-08 11:15 | BONE_PTH ---
PATIENT: Maureen Schmitz LOC: [facility] U#:[id number] AGE/SX: 60/F ROOM: RE08/08/[address]: Khadra Peralta DPM : 1965 BED: DIS: 08/08/2025 SPEC #: [id number] RECD: 08/08/25 13:06 STATUS: ANDREE REAbhijit #: [id number] DEEDEE: 08/08/25 11:[address]: Khadra Peralta DEPT: Surgical Specimen RECD BY: Kaur García ENTERED: 08/08/25 13:07 SP TYPE: Bone OTHR DR: Amairani Gomez APRN Tissues: 1 - BONE BX/CURRETTE NOT PATH FRACTURE Procedures: GROSS AND MICRO LEVEL 5 Comments: [id number] (SUBMITTED IN 100% ETHANOL)
== END 2025-08-08 11:26 | disposition home or self-care (01) ==
LOC: LBN 11:25
PROVIDERS: PCP Nurse Practitioner Family; Visit Provider Podiatrist
DX: L97.512 Non-pressure chronic ulcer of other part of right foot with fat layer exposed (principal); L03.90 Cellulitis, unspecified
CPT/HCPCS: 87070; 87075; 87205; 88304; 88307

== ENCOUNTER 2025-08-08 13:20 | Outpatient (CLI) | payer MEDICARE, MEDICAID, SELFPAY ==
[2025-08-08 12:26] LABS: Abs Immature Grans 0.03 10^3/uL (0.0-0.06); HCT 36.2 % (36.0-46.0); HGB 12.0 g/dL (11.2-15.7); Immature Grans % 0.4 %; MCH 29.5 pg (27.0-33.0); MCHC 33.1 % (32.0-36.0); MCV 89 fL (80-95); MPV 11.5 fL (8.0-11.0); Platelet Count 233 10^3/uL (130-400); RBC 4.07 10^6/uL (3.93-5.22); RDW 12.6 % (11.7-14.6); RDW-SD 40.9 fL; WBC 7.19 10^3/uL (4.4-10.8)
[2025-08-08 12:29] LABS: ESR 3 mm/hr (0-30)
[2025-08-08 12:47] LABS: C-Reactive Protein 0.72 mg/dL (<or=0.5)
== END 2025-08-08 13:21 | disposition home or self-care (01) ==
LOC: LBO 13:20
PROVIDERS: PCP Nurse Practitioner Family; Visit Provider Podiatrist
DX: L03.90 Cellulitis, unspecified (principal)
CPT/HCPCS: 11042; 36415; 85652; 73660; 85025; 86140

== ENCOUNTER → 2025-08-13 09:45 | Outpatient (BNVA) | payer MEDICARE, MEDICAID, SELFPAY | PROVIDERS: PCP Nurse Practitioner Family; Referring Provider Nurse Practitioner Family; Visit Provider Podiatrist | DX: L97.512 Non-pressure chronic ulcer of other part of right foot with fat layer exposed (principal); L03.115 Cellulitis of right lower limb; E11.49 Type 2 diabetes mellitus with other diabetic neurological complication | CPT/HCPCS: 11042 ==

== ENCOUNTER → 2025-08-28 09:57 | Outpatient (BNVA) | payer MEDICARE, MEDICAID, SELFPAY | PROVIDERS: PCP Nurse Practitioner Family; Referring Provider Nurse Practitioner Family; Visit Provider Podiatrist | DX: L97.512 Non-pressure chronic ulcer of other part of right foot with fat layer exposed (principal); E11.621 Type 2 diabetes mellitus with foot ulcer; E11.49 Type 2 diabetes mellitus with other diabetic neurological complication; L03.115 Cellulitis of right lower limb | CPT/HCPCS: 11042 ==

== ENCOUNTER → 2025-08-29 02:30 | Outpatient (CLI) | payer MEDICARE, MEDICAID, SELFPAY ==
--- NOTE | 2025-08-29 07:00 | DI.RAD_ITS ---
Exam(s) XR TOE RT GREAT EXAM: XR TOE RT GREAT CLINICAL HISTORY: ? OSTEOMYELITIS,NEUROPATHIC ULCER RT FOOT,[id number]. TECHNIQUE: 2D digital imaging was performed. COMPARISON: CR XR TOE RT GREAT from 08/08/2025 FINDINGS: 3 views Again noted is amputation of the 2nd 3rd, 4th, and 5th toes at the mid-distal proximal phalanx levels. There are advanced degenerative changes at the great toe metatarsophalangeal joint again noted. Again noted is an ulcer in the region of the distal phalanx of the great toe, slightly less evident than previous. There is no evidence of cortical erosion to suggest osteomyelitis in the subjacent distal phalanx of the great toe. There is no radiopaque foreign body. No gas in the soft tissues. IMPRESSION: No evidence of osteomyelitis in the great toe. DATA REPOSITORY: RADIATION DOSE DELIVERED:
== END ==
LOC: DI 02:30
PROVIDERS: PCP Nurse Practitioner Family; Visit Provider Podiatrist
DX: L97.512 Non-pressure chronic ulcer of other part of right foot with fat layer exposed (principal); M86.171 Other acute osteomyelitis, right ankle and foot
CPT/HCPCS: 73660

== ENCOUNTER 2025-08-29 03:16 | Outpatient (CLI) | payer MEDICARE, MEDICAID, SELFPAY ==
[2025-08-29 11:59] LABS: Abs Immature Grans 0.04 10^3/uL (0.0-0.06); HCT 36.9 % (36.0-46.0); HGB 12.1 g/dL (11.2-15.7); Immature Grans % 0.6 %; MCH 29.4 pg (27.0-33.0); MCHC 32.8 % (32.0-36.0); MCV 90 fL (80-95); MPV 11.9 fL (8.0-11.0); Platelet Count 195 10^3/uL (130-400); RBC 4.11 10^6/uL (3.93-5.22); RDW 12.4 % (11.7-14.6); RDW-SD 40.9 fL; WBC 6.88 10^3/uL (4.4-10.8)
[2025-08-29 12:02] LABS: ESR < 1 mm/hr (0-30)
[2025-08-29 12:22] LABS: C-Reactive Protein 0.72 mg/dL (<or=0.5)
== END 2025-08-29 03:17 | disposition home or self-care (01) ==
LOC: LBO 03:17
PROVIDERS: PCP Nurse Practitioner Family; Visit Provider Podiatrist
DX: L03.90 Cellulitis, unspecified (principal)
CPT/HCPCS: 36415; 85652; 85025; 86140

== ENCOUNTER → 2025-09-10 10:44 | Outpatient (BNVA) | payer MEDICARE, MEDICAID, SELFPAY | PROVIDERS: PCP Nurse Practitioner Family; Referring Provider Nurse Practitioner Family; Visit Provider Podiatrist | DX: L97.512 Non-pressure chronic ulcer of other part of right foot with fat layer exposed (principal); L03.115 Cellulitis of right lower limb; E11.49 Type 2 diabetes mellitus with other diabetic neurological complication; B07.0 Plantar wart | CPT/HCPCS: 11042 ==

== ENCOUNTER → 2025-09-26 10:50 | Outpatient (BNVA) | payer MEDICARE, MEDICAID, SELFPAY | PROVIDERS: PCP Nurse Practitioner Family; Referring Provider Nurse Practitioner Family; Visit Provider Podiatrist | DX: L97.512 Non-pressure chronic ulcer of other part of right foot with fat layer exposed (principal); L03.115 Cellulitis of right lower limb; E11.621 Type 2 diabetes mellitus with foot ulcer; E11.49 Type 2 diabetes mellitus with other diabetic neurological complication; B07.0 Plantar wart; M86.8X7 Other osteomyelitis, ankle and foot | CPT/HCPCS: 11042 ==

== ENCOUNTER 2025-09-26 12:05 | Outpatient (REF) | payer MEDICARE, MEDICAID, SELFPAY | END 2025-09-26 12:06 | disposition home or self-care (01) | LOC: LBN 12:05 | PROVIDERS: PCP Nurse Practitioner Family; Visit Provider Podiatrist | DX: L97.529 Non-pressure chronic ulcer of other part of left foot with unspecified severity (principal); E11.621 Type 2 diabetes mellitus with foot ulcer; L97.519 Non-pressure chronic ulcer of other part of right foot with unspecified severity; L97.512 Non-pressure chronic ulcer of other part of right foot with fat layer exposed | CPT/HCPCS: 87070; 87075; 87205 ==

== ENCOUNTER → 2025-09-27 00:26 | Outpatient (CLI) | payer MEDICARE, MEDICAID, SELFPAY ==
--- NOTE | 2025-09-27 11:40 | DI.RAD_ITS ---
Exam(s) XR TOE RT GREAT EXAM: XR TOE RT GREAT CLINICAL HISTORY: ? OSTEOMYELITIS,NEUROPATHIC ULCER RT FOOT WITH FAT LAYER EXPOSED. TECHNIQUE: 2D digital imaging was performed. COMPARISON: CR XR TOE RT GREAT from 08/29/2025 FINDINGS: 3 views Again noted are amputations across the mid aspect of the proximal phalanges 2nd, 3rd, 4th, and 5th toes. No osteomyelitis at these levels. With respect of the great toe, there is again noted advanced degenerative change at the great toe metatarsophalangeal joint and degenerative change also noted at the interphalangeal joint. There is no obvious evidence of osteomyelitis. IMPRESSION: No obvious osteomyelitis in the great toe. DATA REPOSITORY: RADIATION DOSE DELIVERED:
== END ==
LOC: DI 00:27
PROVIDERS: PCP Nurse Practitioner Family; Visit Provider Podiatrist
DX: L97.512 Non-pressure chronic ulcer of other part of right foot with fat layer exposed (principal); M86.171 Other acute osteomyelitis, right ankle and foot
CPT/HCPCS: 73660

== ENCOUNTER 2025-09-27 01:35 | Outpatient (CLI) | payer MEDICARE, MEDICAID, SELFPAY ==
[2025-09-27 11:50] LABS: Abs Immature Grans 0.06 10^3/uL (0.0-0.06); HCT 39.3 % (36.0-46.0); HGB 12.6 g/dL (11.2-15.7); Immature Grans % 0.7 %; MCH 28.8 pg (27.0-33.0); MCHC 32.1 % (32.0-36.0); MCV 90 fL (80-95); MPV 11.5 fL (8.0-11.0); Platelet Count 221 10^3/uL (130-400); RBC 4.38 10^6/uL (3.93-5.22); RDW 12.2 % (11.7-14.6); RDW-SD 39.8 fL; WBC 8.16 10^3/uL (4.4-10.8)
[2025-09-27 11:54] LABS: ESR 3 mm/hr (0-30)
[2025-09-27 12:38] LABS: C-Reactive Protein 0.94 mg/dL (<=0.50)
== END 2025-09-27 01:36 | disposition home or self-care (01) ==
LOC: LBO 01:35
PROVIDERS: PCP Nurse Practitioner Family; Visit Provider Podiatrist
DX: L03.90 Cellulitis, unspecified (principal)
CPT/HCPCS: 36415; 85652; 73660; 85025; 86140

== ENCOUNTER → 2025-10-02 10:16 | Outpatient (BNVA) | payer MEDICARE, MEDICAID, SELFPAY | PROVIDERS: PCP Nurse Practitioner Family; Referring Provider Nurse Practitioner Family; Visit Provider Podiatrist | DX: E11.621 Type 2 diabetes mellitus with foot ulcer (principal); L97.512 Non-pressure chronic ulcer of other part of right foot with fat layer exposed; E11.49 Type 2 diabetes mellitus with other diabetic neurological complication; B07.0 Plantar wart; L03.115 Cellulitis of right lower limb; M86.8X7 Other osteomyelitis, ankle and foot | CPT/HCPCS: 11042 ==

== ENCOUNTER 2025-10-23 10:30 | Outpatient (CLI) | payer MEDICARE, MEDICAID, SELFPAY | END 2025-10-23 10:31 | LOC: PODACUTE 10-30 12:09 | PROVIDERS: PCP Nurse Practitioner Family; Referring Provider Podiatrist; Visit Provider Podiatrist | DX: L97.512 Non-pressure chronic ulcer of other part of right foot with fat layer exposed (principal); L03.115 Cellulitis of right lower limb; E11.622 Type 2 diabetes mellitus with other skin ulcer; E11.49 Type 2 diabetes mellitus with other diabetic neurological complication; M86.8X7 Other osteomyelitis, ankle and foot; B07.0 Plantar wart | CPT/HCPCS: 11042 ==